=== PATIENT | female | born 2000 | race Caucasian/White ===

== ENCOUNTER 2019-02-03 19:31 | Emergency (ER) | payer SELFPAY ==
[2019-02-03 19:32] VITALS: BP 125/73; PULSE 71; RESP 15; TEMP 36.9; BMI 17.0
--- NOTE | 2019-02-03 20:30 | ED.DCSUM_ITS ---
- ER Visit Summary Date of Service: 02/03/19 Chief Complaint: Dental pain History of Present Illness: The patient is a 18 F who presents with left upper dental pain that has been getting worse over the past 2 days. Patient states she went to [facility] emergency department and was given a dose of Tyl enol. Patient states she was also given a prescription for an anti-inflammatory medicine but her insurance would not cover it. Patient denies any fevers or chills. Patient admits to some nausea and vomiting. Patient also admits to a headache. Patient states the pain is over the left upper canines, premolars, and molars. Patient states the pain in spreads to the left facial area. Patient denies any facial swelling but admits to some swelling of the gingiva. Patient also admits to some cold sensitivity. Patient states her pain is worse when she lays flat. Physical Examination: Vital signs are stable. Patient is afebrile. Patient is in no acute distress. Oral mucosa is pink and moist. There are multiple dental caries noted. The largest one is over the left upper second molar. There is gingival edema of the left upper teeth. There is no fluctuance or evidence of any abscess. Oropharynx is clear. Airway is patent. There is no sublingual edema. Neck is supple. Trachea is midline. There is no JVD noted. Heart was regular rate and rhythm. Lungs are clear and equal bilaterally. Emergency Department Course and Treatment: Patient was given her first dose of Pen-Vee K here. Patient was given a prescription for Pen-Vee K. Patient was also given a dose of ibuprofen here. Patient was instructed to continue ibuprofen and Tylenol as needed for pain. Patient was instructed to follow-up with her dentist in 5 to 7 days. Patient understood and was agreeable with the plan. All questions were answered. Disposition: Discharge home Impression: Infected dental caries This note was generated with [employer] dictation software. It may contain incorrect words, spelling, and punctuation that were not noted in review of the chart prior to signing ED Disposition - Plan for ED Patient: Disposition: Home or Assisted Living Diagnosis: Infected dental caries Instructions: Dental Cavity Prescriptions: Penicillin V Potassium 500 mg PO 4X/DAY #40 tab Prescription Printed Referrals: Jaydon De MD [Primary Care Provider] - 3-5 Days
[2019-02-03] MEDS: Ibuprofen 600 MG Tablet PO (20:47)
[2019-02-03] MEDS: Penicillin Vk 250 MG Tablet 500 MG PO (20:47)
== END 2019-02-03 20:56 | disposition home or self-care (01) ==
LOC: ED 20:43
PROVIDERS: Emergency Provider Emergency Medicine; Family Provider Family Medicine; PCP Family Medicine
DX: K04.7 Periapical abscess without sinus (principal); K02.9 Dental caries, unspecified; Z72.0 Tobacco use
CPT/HCPCS: 99283

== ENCOUNTER 2020-05-29 16:18 | Emergency (ER) | payer SELFPAY ==
[2020-05-29 16:20] VITALS: BP 96/54; PULSE 87; RESP 16; TEMP 36.3; O2SAT 99; BMI 20.8
[2020-05-29 16:22] VITALS: BP 96/54; PULSE 87; RESP 16; TEMP 36.3; O2SAT 99
--- NOTE | 2020-05-29 18:16 | ED.RN ---
PT LEFT AT 1702.
== END 2020-05-29 17:00 | disposition left against medical advice (07) ==
LOC: ED 18:27
PROVIDERS: Emergency Provider Emergency Medicine; PCP Family Medicine
DX: Z53.21 Procedure and treatment not carried out due to patient leaving prior to being seen by health care provider (principal)

== ENCOUNTER 2020-07-10 04:12 | Emergency (ER) | payer MEDICAID, SELFPAY ==
[2020-07-10 04:12] VITALS: BP 129/74; PULSE 78; RESP 16; TEMP 36.6; O2SAT 100; BMI 22.6
--- NOTE | 2020-07-10 04:15 | ED.DCSUM_ITS ---
History of Present Illness Chief Complaint: Vag Bld, Preg Informant: Patient Narrative: 19-year-old female G2, P1 currently at about 20 weeks gestation presenting with slight vaginal bleeding. She states is gone through 2 pads today. She has some minimal abdominal discomfort which is generalized. She states she can feel her baby moving. She has had confirmed intrauterine . She does not know her blood type. He does not know her SURGICAL SERVICES ASSISTANT's name because she states she alternates but she states is an OB at [facility]. Patient denies dysuria or hematuria. Patient also has complaint of dental pain in her to frontal maxillary teeth. She has had problems with these for a long time. She was previously seen about a month ago for similar pain. She states she has a dentist but did not make a follow-up with him. She states she is planning to have all of her teeth removed. Patient states she lives in a homeless snf with her child. Past Medical History - Allergies and Home Meds Allergies/Adverse Reactions: Allergies sulfamethoxazole [From Bactrim] Adverse Reaction (Verified 07/10/20 04:16) Vomiting trimethoprim [From Bactrim] Adverse Reaction (Verified 07/10/20 04:16) Vomiting Primary Care Physician: Jaydon De MD [Primary Care Provider] - Prior records reviewed: Yes Past Medical History: - - Migraines, hepatitis C Surgical History: noncontributory Lives: Homeless Smoking Status: Unknown if ever smoked Alcohol: None Drugs: None Review of Systems General: Denies: Chills, Fever, Sweats Eyes: Denies: Visual changes - bilaterally, Diplopia ENT: Reports: - - Dental pain. Denies: Rhinorrhea, Sore throat Cardiovascular: Denies: Chest pain, Palpitations Respiratory: Denies: Dyspnea, Cough, Dyspnea on exertion Gastrointestinal: Reports: Abdominal pain. Denies: Nausea, Vomiting, Diarrhea, Melena, Hematochezia Genitourinary: Reports: - - Vaginal bleeding. Denies: Dysuria, Hematuria Musculoskeletal: Denies: Back pain, Extremity Pain Skin: Denies: Rash, Wounds Psych: Reports: Depression Endocrine: Reports: Polyuria Physical Exam Inital Vital Signs reviewed: Yes General: Well nourished, No Acute Distress Head: Normocephalic, Atraumatic Eyes: Perrl, EOMI ENT: Moist mucous membranes, No rhinorrhea, - - Multiple dental caries throughout. To to percussion tenderness over her upper central incisors. No gingival swelling. Buccal mucosa was normal. No sublingual edema. Cardiovascular: Regular rate, Regular rhythm Respiratory: No distress, CTA bilaterally Abdomen: Soft, Nondistended, Tender - Mild generalized tenderness Back: Nontender, Normal Inspection Extremities: Nontender, No edema Skin: Normal color, No rash Neurological: Alert, Oriented x3, Cranial nerves II-XII grossly intact, Normal Strength, Normal Sensation Psychological: Normal affect, Normal Mood Diagnostic/Tx/Re-eval Clinical Impression(s) from Imaging Studies Obstetrics Ultrasound 07/10/20 04:24 IMPRESSION: Living intrauterine of 19 weeks 1 day as described above. Posterior placenta with a succenturiate lobe Electronically Signed: Alfredo Fox MD at 6:47 EST Tel , Service support , Laboratory Data 07/10/20 07/10/20 07/10/20 04:36 04:53 04:53 WBC 12.5 H RBC 3.82 L Hgb 12.3 Hct 35.7 L MCV 93.5 MCH 32.2 H MCHC 34.5 RDW Std Deviation 42.0 RDW Coeff of Sammy 12.3 Plt Count 226 MPV 9.6 Immature Gran % (Auto) 0.600 Neut % (Auto) 76.9 H Lymph % (Auto) 14.4 L Lewis % (Auto) 6.3 Eos % (Auto) 1.4 Baso % (Auto) 0.4 Absolute Neuts (auto) 9.6 H Absolute Lymphs (auto) 1.81 Nucleated RBC % 0 HCG, Quant Urine Color Yellow Urine Clarity Clear Urine pH 6.0 Ur Specific Beaufort 1.020 Urine Protein 15 H Urine Glucose (UA) Normal Urine Ketones Negative Urine Occult Blood 25 H Urine Nitrite Negative Urine Bilirubin Negative Urine Urobilinogen Normal Ur Leukocyte Esterase 25 H Urine RBC 5-10 SEEN Urine WBC 5-10 SEEN Ur Squamous Epith Cells 10-25 SEEN Urine Bacteria 1+ Urine Mucus 0 SEEN Blood Type A NEGATIVE 07/10/20 04:53 WBC RBC Hgb Hct MCV MCH MCHC RDW Std Deviation RDW Coeff of Sammy Plt Count MPV Immature Gran % (Auto) Neut % (Auto) Lymph % (Auto) Lewis % (Auto) Eos % (Auto) Baso % (Auto) Absolute Neuts (auto) Absolute Lymphs (auto) Nucleated RBC % HCG, Quant 6254 H Urine Color Urine Clarity Urine pH Ur Specific Beaufort Urine Protein Urine Glucose (UA) Urine Ketones Urine Occult Blood Urine Nitrite Urine Bilirubin Urine Urobilinogen Ur Leukocyte Esterase Urine RBC Urine WBC Ur Squamous Epith Cells Urine Bacteria Urine Mucus Blood Type - Medical Decision Making Patient presents with mild abdominal pain and some vaginal bleeding. Physical exam there is some mild generalized tenderness without focal pain. Patient given Tylenol. Patient also complained of dental pain. So upper central incisors. There is multiple dental caries in these tooth are tender to palpation. She was given penicillin VK for this. Patient is Rh- so she will be given RhoGam. Patient's transvaginal ultrasound shows living intrauterine of 19 weeks 1 day with posterior placenta with a succenturiate lobe. The heart rate is 150. hCG number is slightly low at 6500. Patient counseled that she should follow-up with her SURGICAL SERVICES ASSISTANT. She is stable for discharge at this time. Impression: 1. Threatened miscarriage 2. Dental infection ED Disposition - Plan for ED Patient: Disposition: Home or Assisted Living Instructions: ED Dental Cavity, ED Abdominal Pain, Early , ED Possible Miscarriage ... Prescriptions: Penicillin V Potassium 500 mg PO 4X/DAY #40 tab Prescription Printed Referrals: Jaydon De MD [Primary Care Provider] -
--- NOTE | 2020-07-10 04:24 | US_ITS ---
STUDY: SECOND AND THIRD TRIMESTER OBSTETRICAL ULTRASOUND - LIMITED REASON FOR EXAM: Female, 19 years old BLEEDING WITH EARLIER TODAY LMP: 02/24/2020 PRIOR ULTRASOUND: None. TECHNIQUE: Transabdominal TECHNICAL QUALITY: Adequate. FINDINGS: There is a single intrauterine fetus. The fetus is in a breech presentation. There is demonstrated cardiac activity with a heart rate of 147 bpm. There is a normal amniotic fluid volume. The largest amniotic fluid pocket measures 3.6 cm. The amniotic fluid index (ANAI) is cm. The placenta is posterior in location and is not low lying. Suspects succenturiate lobe. There are Grade 0 placental changes. The cervix measures 3.8 cm cm in length. BIOMETRY: BPD: 4.2 cm: 18 weeks, 5 days HC: 16.2 cm: 18 weeks, 6 days AC: 14.4 cm: 19 weeks, 4 days FL: 3.0 cm: 19 weeks, 1 days Age by LMP: 19 weeks, 4 days. MEEK by LMP: 11/30/2020. age by current US: 19 weeks, 1 days. MEEK by current US: 12/03/2020. Estimated weight: 292 grams, +/- 44 grams, 36 percentile. Gender: US/OB Limited With Biometrics IMPRESSION: Living intrauterine of 19 weeks 1 day as described above. Posterior placenta with a succenturiate lobe Electronically Signed: Alfredo Fox MD at 6:47 EST Tel , Service support ,
[2020-07-10 04:43] LABS: Mucous, Urine 0 SEEN /hpf (<or=2+)
[2020-07-10 04:44] LABS: Color, Urine Yellow (Yellow); Glucose, Dipstick Normal (Normal); Ketone-Dipstick Negative (Negative); Leukocyte Esterase-Dipstick 25 /ul (Negative); Nitrite-Dipstick Negative (Negative); Occult Blood-Urine 25 /ul (Negative); Protein-Dipstick 15 mg/dl (Negative); Urine Bilirubin Dipstick Negative (Negative); Urine Clarity Clear (Clear); Urine Urobilinogen Normal (Normal)
[2020-07-10 04:51] LABS: Squamous Epithelial Cells - UA 10-25 SEEN /hpf (5-10); White Blood Cells 5-10 SEEN /hpf (0-5)
[2020-07-10 04:52] LABS: Bacteria 1+ /hpf (None Seen); Red Blood Cells-Urine 5-10 SEEN /hpf (0-5)
[2020-07-10] MEDS: Acetaminophen 325 MG Tablet 650 MG PO (04:57)
[2020-07-10 05:05] LABS: Absolute Lymphocyte Count 1.81 X10^3/uL (0.83-4.51); Absolute Neutrophil Count 9.6 X10^3/uL (2.0-7.7); Basophil# 0.05 X10^3/uL; Basophil% 0.4 % (0-1); Eosinophil# 0.18 X10^3/uL; Eosinophils% 1.4 % (0-5); Hematocrit 35.7 % (37-47); Hemoglobin 12.3 g/dL (12.0-15.0); Lymphocyte # 1.81 X10^3/ul (4.0); Lymphocyte % 14.4 % (19-41); Mean Corp Hgb Conc 34.5 g/dL (32-36); Mean Corpuscular Hgb 32.2 pg (27.0-32.0); Mean Corpuscular Volume 93.5 fL (81-99); Mean Platelet Vol. 9.6 fl (6.2-12.0); Monocyte# 0.79 X10^3/uL; Monocyte% 6.3 % (0-10); NRBC Flagged by Analyzer 0 % (0-5); Neutrophil # 9.63 X10^3/uL (2.7-7.7); Neutrophil % 76.9 % (47-70); Platelet Count 226 K/mm3 (150-450); RBC Distribution Width CV 12.3 % (11.6-14.6); Red Blood Count 3.82 M/mm3 (4.2-5.4); White Blood Count 12.5 K/mm3 (4.4-11.0)
[2020-07-10 05:37] LABS: hCG Titer Quant., Serum 6254 mIU/mL (1-3)
[2020-07-10] MEDS: Penicillin Vk 250 MG Tablet 500 MG PO (07:04)
[2020-07-10 07:05] VITALS: BP 119/78; PULSE 71; RESP 16; O2SAT 97
--- NOTE | 2020-07-10 07:07 | ED.RN ---
THIS NURSE REVIEWED D/C INSTRUCTIONS WITH PT. PT VERBALIZED UNDERSTANDING OF INSTRUCTIONS. PT DOES NOT HAVE AN IV. PT DENIES FURTHER NEEDS OR QUESTIONS AT THIS TIME. PT AMBULATES FROM ROOM ON OWN WITHOUT ASSISTANCE FROM STAFF
== END 2020-07-10 07:10 | disposition home or self-care (01) ==
PROVIDERS: Emergency Provider Student in an Organized Health Care Education/Training Program; PCP Family Medicine
DX: O20.0 Threatened abortion (principal); K04.7 Periapical abscess without sinus; O26.892 Other specified pregnancy related conditions, second trimester; Z3A.19 19 weeks gestation of pregnancy
CPT/HCPCS: 76816; 81001; 84702; 85025; 86900; 86901; 90384; 96372; 99285; A4216; J2790

== ENCOUNTER 2020-11-27 07:09 | Inpatient (IN) | payer MEDICAID, SELFPAY ==
[2020-11-27] VITALS (77 sets, daily range): BP systolic 99–157; BP diastolic 51–87; PULSE 59–129; TEMP 36.2–37.1; O2SAT 90–100; BMI 27.5
[2020-11-27] MEDS: Lactated Ringers 1,000 ML 50 ML IV (07:45)
[2020-11-27 08:02] LABS: Absolute Lymphocyte Count 2.23 X10^3/uL (0.83-4.51); Absolute Neutrophil Count 6.9 X10^3/uL (2.0-7.7); Basophil# 0.05 X10^3/uL; Basophil% 0.5 % (0-1); Eosinophil# 0.19 X10^3/uL; Eosinophils% 1.9 % (0-5); Hematocrit 31.3 % (37-47); Hemoglobin 10.5 g/dL (12.0-15.0); Lymphocyte # 2.23 X10^3/ul (0.83-4.51); Mean Corp Hgb Conc 33.5 g/dL (32-36); Mean Corpuscular Hgb 29.3 pg (27.0-32.0); Mean Corpuscular Volume 87.4 fL (81-99); Mean Platelet Vol. 9.8 fl (6.2-12.0); Monocyte# 0.69 X10^3/uL; Monocyte% 6.8 % (0-10); NRBC Flagged by Analyzer 0 % (0-5); Neutrophil % 68.1 % (47-70); Platelet Count 222 K/mm3 (150-450); RBC Distribution Width CV 13.1 % (11.6-14.6); RBC Distribution Width SD 40.9 fl (35.1-43.9); Red Blood Count 3.58 M/mm3 (4.2-5.4); White Blood Count 10.1 K/mm3 (4.4-11.0)
[2020-11-27] MEDS: Oxytocin 30 units/NS 500 ml 30 UNITS/500 ML IV.SOLN IV (08:02)
--- NOTE | 2020-11-27 08:05 | PCM.OPRPT ---
Problems Associated Problem List Diagnoses (1) Endometrial polyp: Report of Operation Date of Procedure: 11/27/20 Pre-Operative Diagnosis: endometrial polyp, postmenopausal bleeding Post-Operative Diagnosis: same Surgery/Procedure Performed:: Hysteroscopy D&C with endometrial polyp resection Description of Surgical Findings:: normal cervix, vagina, endometrial cavity with large fundal polyp Surgeon: Mary Carranza feather edger: None Type of Anesthesia: MAC/Supplemental/Local Anesthesiologist: Brett Hussein Special Medications: none Specimen's removed: endometrial polyp and curettings Drains: none Estimated Blood Loss (mL): 10 Fluids Replaced: 700 cc Description of Procedure: The patient was taken to the OR where she was prepped and draped in dorsal lithotomy position. The weighted speculum was placed in the vagina and the anterior lip of the cervix was grasped with a single-tooth tenaculum. A paracervical block was administered with [1% lidocaine with 1-100,000 epinephrine solution]. The cervix was dilated serially with Hegar dilators. The 3mm hysteroscope was placed into the uterine cavity and the above findings were noted. Bilateral tubal ostia [were] identified. The hysteroscope was removed. The SYmphion hysteroscope and resector were readied and primed. The endometrial polyp was then resected with the device. A visual dilation curettage of the endometrial cavity was performed. Endometrium was thin and atrophic. When the polyp had been resected completely, the instruments were removed from the vagina. The specimen was handed off and sent to pathology. All sponge and needle counts were correct. Vaginal sweep was performed by me. The patient was awakened and taken to the recovery room in stable condition. Calculated fluid deficit was 450 cc of normal saline Grafts/Implants Used: none Procedure Start Time: 07:45 Procedure Stop Time: 08:00 Complications none Admit VTE Documentation VTE Mechan Device Prophylaxis: SCD's VTE Pharm Prophylaxis ordered?: No Reason prophylaxis not ordered:: Procedure Not Indicated
[2020-11-27] MEDS: 0.9% Normal Saline Single 100 ML IV.SOLN. INTRA-UTER (08:30)
--- NOTE | 2020-11-27 09:49 | HP.PCM.OB_ITS ---
HPI - General General Date of Admission: 11/27/20 HPI Narrative CHRISTINA WOOTEN, is a 20 F who presents for elective induction of labor. [facility] Medical History (Updated 11/27/20 @ 09:[address] Je Smith MD) Anxiety Depression Headache Hepatitis depression Seizures Home Medications [id number] [] 1 tab PO DAILY 11/27/20 [History Last Taken 11/25/20 12:00] Allergy/AdvReac Type Severity Reaction Status Date / Time sulfamethoxazole AdvReac Vomiting Verified 11/27/20 08:47 [From Bactrim] trimethoprim [From Bactrim] AdvReac Vomiting Verified 11/27/20 08:47 Social History Smoking Status: Light Smoker (<10/day) History Elective abortions Hx Para 1 Spontaneous abortions Hx # Term Pregnancies Ectopic pregnancies Hx # Pregnancies Multiple births # of living children NST FHR Rate Baby A Baseline: 130 Variability:: Moderate Accelerations:: 15 x 15 Decelerations:: None Uterine Activity:: Irregular Vital Signs Vital Signs Vital Signs: 11/27/20 07:33 11/27/20 07:34 11/27/20 07:36 Temperature 98.7 F 98.8 F Temperature Source Temporal Pulse Rate 89 Blood Pressure 127/61 H BP Systolic 127 BP Diastolic 61 Pulse Ox 98 11/27/20 08:42 11/27/20 08:44 11/27/20 09:05 Temperature 98.4 F 98.6 F Temperature Source Pulse Rate 77 81 Blood Pressure 117/57 L 108/65 BP Systolic 117 108 BP Diastolic 57 65 Pulse Ox 98 Physical Exam Const alert and oriented x3 Chest inspection of chest normal GI soft to palpation, non-tender and non-distended GI Narrative: gravid external exam normal Narrative: Cvx - 2/70/-2 Extremity normal to inspection Labs Labs Labs: Blood Type A NEGATIVE Antibody Screen Pending Hct 31.3 % (37-47) L Hgb 10.5 g/dL (12.0-15.0) L Obstetrics US Assessment & Plan (1) Supervision of high risk due to social problems: QUALIFIERS: Trimester: third trimester Qualified Code(s): O09.73 - Supervision of high risk due to social problems, third trimester COMMENT: @ 39&1 for elective induction PLAN: Admit to L&D Induction - intracervical azul placed & on pitocin Pain - epidural as desired GBS negative Hepatitis C EFW - less than 4500g, patient with adequate pelvis Routine care
[2020-11-27] MEDS: Ondansetron 4 MG/2 ML Vial IV ×2 (10:30→16:50)
[2020-11-27] MEDS: 0.9% Saline Lock 10 ML Syringe IV ×3 (10:30→21:00)
[2020-11-27] MEDS: Lactated Ringers 500 ML 999 ML IV (10:45)
[2020-11-27 11:13] LABS: Amphetamine Urine VISTA NEGATIVE (<1000 ng/mL); Barbiturate Urine VISTA NEGATIVE (< 200 ng/mL); Benzodiazepine Urine VISTA NEGATIVE (< 200 ng/mL); Cocaine Urine VISTA NEGATIVE (< 300 ng/mL); Ecstacy Urine VISTA NEGATIVE (< 500 ng/mL); Methadone Urine VISTA NEGATIVE (< 300 ng/mL); PCP Urine VISTA NEGATIVE (< 25 ng/mL); THC Urine VISTA NEGATIVE (< 50 ng/mL); Vista UDS pH Range 7
[2020-11-27] MEDS: fentaNYL-bupivacaine (epidural) 100 ML BAG EPIDURAL (12:10)
--- NOTE | 2020-11-27 13:30 | PCM.PN.BLA ---
Progress Note Patient comfortable with epidural Physical Exam Const alert and oriented x3 Narrative: Cvx - 4.5/70/-2 Assessment & Plan Assessment/Plan (1) Supervision of high risk due to social problems: QUALIFIERS: Trimester: third trimester Qualified Code(s): O09.73 - Supervision of high risk due to social problems, third trimester PLAN: AROM blood tinged fluid COntinue pitocin induction EFM reassuring with fhts 120 with mod variability & accels; tocos Q2-3 min
[2020-11-27] MEDS: Mag Hydrox/Al Hydrox/Simeth 30 ML UDC PO (14:44)
[2020-11-27] MEDS: Lactated Ringers 1,000 ML 200 ML IV (14:44)
[2020-11-27] MEDS: Oxytocin 30 units/NS 500 ml 30 UNITS/500 ML IV.SOLN 334 UNITS IV (17:53)
--- NOTE | 2020-11-27 18:02 | EX.PCM.OBRPT ---
Maternal Data Information Final MEEK: 12/03/20 Gestational age: 39&1 Vaginal Delivery Maternal Presentation Maternal Presentation: Elective Induction Type of Induction: Pitocin, Hernandez Bulb and Amniotomy Operative Information Date of Procedure: 11/27/20 Pre-Operative Diagnosis: elective induction Post-Operative Diagnosis: same Surgery / Procedure Performed: Vacuum Assisted Vaginal Delivery Type of Anesthesia: Epidural Drain: Hernandez to straight drain Estimated Blood Loss: 200ml Time of Delivery: 18:03 Findings Description of Procedure: Patient prepped & draped in stirrups when C/C/+2. She pushed well but began to have more persistent bradycardia. Decision made to use vacuum. head presentation at been assessed and vacuum placed & position on head confirmed. With next contraction and pull of vacuum good descent was noted. There was 1 pop off & vacuum replaced. With next push & 1 additional pull the head began to deliver. Vacuum released. head gently guided to allow delivery of anterior & posterior shoulders. No excess traction place don head. Body delivered & infant placed on maternal abdomen. Placenta delivered with gentle traction & good uterine tone obtained. Amniotic Fluid Description: Bloody Placental Delivery Description: Expressed Placenta Disposition: [facility] Cord Vessel Description: 3 Vessels Cord Entanglement: None A Gender: Male (1 minute): 8 (5 minute): 9 Delayed Cord Clamping: Yes Post Vaginal Delivery Medications Given After Delivery: IV Pitocin Episiotomy Description: None Laceration: None Complication Complications: None
[2020-11-27] MEDS: Acetaminophen 325 MG Tablet PO (18:20)
--- NOTE | 2020-11-28 00:37 | NURSING ---
Report received from Alison PELAEZ, taking over pt and care at this time.
--- NOTE | 2020-11-28 00:40 | NURSING ---
report given to marizol. that RN to assume care of pt at this time
[2020-11-28 00:45] VITALS: BP 100/37; PULSE 75; RESP 16; TEMP 36.6; O2SAT 94
[2020-11-28] MEDS: Ibuprofen 600 MG Tablet PO ×3 (01:25→19:48)
[2020-11-28] MEDS: Acetaminophen 500 MG Tablet 1000 MG PO ×2 (04:04→14:00)
[2020-11-28 04:05] VITALS: BP 112/63; PULSE 57; RESP 16; TEMP 36.5; O2SAT 96
--- NOTE | 2020-11-28 08:08 | PCM.PN.OB ---
Subjective Subjective patient seen at bedside, doing well. Patient reports good pain control. lochia mild. bottle feeding. Objective Data Objective Data Vital Signs: Vital Signs Temp Pulse Resp BP Pulse Ox 97.7 F L 57 L 16 112/63 96 11/28/20 04:05 11/28/20 04:05 11/28/20 04:05 11/28/20 04:05 11/28/20 04:05 Oxygen Delivery Method Room Air Weight: 66.1 kg Body Mass Index (BMI) 27.5 Intake & Output: Intake and Output for Last 24 Hours 11/26/20 11/27/20 11/28/20 23:59 23:59 23:59 Intake Total 2920.67 / 2920.67 Output Total 3700 / 3700 200 / 200 Balance -779.33 / -779.33 -200 / -200 Lab / Micro Data Result Diagrams: 11/27/20 07:45 Labs: Laboratory Results - last 24 hr 11/27/20 11/27/20 11/27/20 07:45 07:45 09:10 Urine Opiates Screen NEGATIVE Urine Methadone Screen NEGATIVE Ur Barbiturates Screen NEGATIVE Ur Phencyclidine Scrn NEGATIVE Ur Amphetamines Screen NEGATIVE U Methamphetamin-MDMA NEGATIVE U Benzodiazepines Scrn NEGATIVE Urine Cocaine Screen NEGATIVE U Cannabinoids Screen NEGATIVE Ur Drug Screen Comment Blood Type A NEGATIVE Antibody Screen TNP NEGATIVE Screen Baby's Blood Type Baby's SUMA 11/27/20 19:46 Urine Opiates Screen Urine Methadone Screen Ur Barbiturates Screen Ur Phencyclidine Scrn Ur Amphetamines Screen U Methamphetamin-MDMA U Benzodiazepines Scrn Urine Cocaine Screen U Cannabinoids Screen Ur Drug Screen Comment Blood Type Antibody Screen Screen NEGATIVE Baby's Blood Type A POSITIVE Baby's SUMA NEGATIVE Assessment & Plan (1) Vaginal delivery: PLAN: PPD#1 , Doing well Routine care pain mgmt ambulation dc home after 24hrs if and mother meet criteria
--- NOTE | 2020-11-28 08:10 | PCM.DC ---
Discharge Instructions Diet Discharge Diet: No restrictions Activity Discharge Activity: Return to Normal Activity May resume sexual activity in: 6-8 weeks Dressing / Incision Call your doctor if you observe: Fever of 101 or Higher, Inability to urinate, Using more than one pad per hour and Uncontrolled pain Follow Up Care Please Follow Up With: Krista Rand MD When: 1-2 weeks post and again at 6 weeks post . [phone] Test Results: Test results from this visit will be discussed in further detail at your follow-up appointment, if applicable. Discharge Plan Admission Admit Date/Time: 11/27/20 07:09 Attending Provider: Je Smith Primary Care Provider: Jaydon De Discharge Orders/Prescriptions Prescriptions: New ibuprofen 600 mg Tablet 600 mg PO Q6H PRN PRN (Reason: Pain Score 1-3) Qty: 30 RF: 0 Continued [id number] 1 mg Tablet 1 tab PO DAILY RF: 0 Referrals / Follow Up: Jaydon De MD [Primary Care Provider] -
[2020-11-28 08:54] VITALS: BP 106/53; PULSE 69; RESP 18; TEMP 37.1
--- NOTE | 2020-11-28 10:49 | NURSING ---
Reviewed circumcision teaching with patient. Patient verbalizes understanding.
--- NOTE | 2020-11-28 10:49 | NURSING ---
Infant CPR completed on ipad. Verbalizes understanding.
[2020-11-28 12:46] VITALS: BP 103/46; PULSE 70; RESP 16; TEMP 36.3
--- NOTE | 2020-11-28 14:09 | CASEMGMT ---
Social Work Assessment Labor and Delivery Unit Patient Address: [address] [place] [address] Phone number: [phone] Date of Referral: 11/28/2020 Time of Referral: 004; 08 Referred By: Dr. Smith; Dr. Bharathi Bruno Date of Intervention: 11/28/2020 Time of Intervention: 1240 Reason for referral: Maternal history of depression anxiety and THC use during with positive tox screen during . History obtained from: Medical records and mother of baby (DANDY) Radha Little Household composition: DANDY has her own apartment, which she has recently moved into with the help and support of [employer]. The father of baby (FOB) does stay in his home, but does not technically live there. Also in the home is the older daughter of DANDY and BRAD. Patient's parent/guardian status: DANDY is a 20-year-old single female who has been involved with 23 year old single male, Hammad Griffith, since about 2017. DANDY reports that she and the father of baby (BRAD) have known each other since the age of 12. DANDY denies any type of domestic violence or intimate partner violence concerns in this relationship. DANDY and BRAD now have 2 children together: A daughter named Milton Griffith (born 11/22/2017) and baby boy Jose Griffith (born 11/27/2020). Medical History: DANDY is 3, para 1 now 2 after delivering [facility]. History of 1 spontaneous . care started at 12 weeks gestation. Per care record the DANDY care was poor at times, as it appeared DANDY had a gap in care from 25 weeks to 33 weeks. Baby chris Garcia delivered at 39 weeks gestation with Apgars 8 and 9 at 1 and 5 minutes of life. weight 6 pounds 5 ounces. Educational Status: DANDY reports she dropped out of high school in the 11th grade. Reports to be working on her GED. Denies any issues with reading, writing, or learning comprehension. Financial Status: DANDY has been working at [employer], and plans to take of maternity maternity leave. Reports to have some money saved back for said maternity leave. The FOB is reportedly on disability for learning issues so does receive a stable monthly income. Infant Supplies: MOB reports to have needed infant supplies including a crib, car seat, clothing, diapers, bottles. Does need to get formula and reports will have to go and purchase some until can get into [facility]. MOB reports to have a crib's for kids referral and waiting a callback from the systems programmer analyst. Childcare/Caregiver(s): MOB and BRAD will be the primary caregivers. It is reported that the FOB watches their older daughter when MOB is working. Transportation: MOB denies any issues with transportation and reports to have a car. 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 Programs/Agencies Involved: MOB reports involvement with job and family services for food and medical. Active with [facility]. Reports to have an appointment next week. Verbally agrees to a help me grow referral. Reports to see a therapist by the name of Moncho at [facility] weekly via telehealth services. DANDY is on the [facility] waiting list. Children Services/Legal Issues: MOB denies any type of legal issues, denies any probation. MOB reports to have an active case with [facility] children services since the end of 2019. MOB reports the case was initiated after MOB aunt and uncle were trying to get custody of the MOB oldest child. MOB reports there are allegations being made which resulted in a hair follicle testing being done on the child. MOB reports that the child's hair follicle test showed positive for methamphetamines, cocaine, and THC. MOB reports at the time her testing was all negative, not something that that MOB was using, so nobody was really certain where the drug exposure came from. MOB reports at that time she had briefly moved into the FOB's mother's home, and mother states that there are a lot of people in and out of that house. MOB reports she retained the custody, but does continue to have an ongoing worker by the name of Anne Mccollum. Behavioral Health Issues: Mental Health History: DANDY has a history of depression and anxiety, as well as depression. MOB reports depression was initially diagnosed at the age of 10 after the MOB's mother . DANDY has a history of being treated with antidepressants but has been off of medication for a couple of years now. MOB reports she has been considering discussing with her physician starting a low-dose antidepressant to be proactive with depression. [place] depression screen completed this date and score is 8, which does fall below the threshold for current depression. MOB denies any history of suicidal ideations or attempts. 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 DANDY reports that she went into rehab at [facility] right before her daughter was born and has been sober since, with the exception of marijuana use. DANDY reports marijuana use has been something in her life for years now. Does endorse using marijuana during this as it did help with nausea and also helped as a stress reliever when MOB was feeling overwhelmed with a toddler. MOB reports that she has not used any marijuana in about a month now. Denies any alcohol usage during . Denies any illicit drug use with the exception of marijuana during . Reports was prescribed Vicodin, reports several prescriptions actually, from her primary care doctor, Dr. London De. Reports prescription of Vicodin was for dental issues. Reports use was as needed, and that did not use anything from the last prescription given. MOB uncertain when the last time she used Vicodin was. care record indicates there was some endorsed Vicodin use in the third trimester. MOB does smoke tobacco. Family History: It is reported that a maternal grandmother had depression. It is reported that both of MOB mother and father had a history of substance use issues. Drug Screens: Maternal positive drug screen for THC on 05/27/2020 and 10/22/2020. Maternal drug screen negative upon admission. 's urine drug screen also negative. Meconium is pending. YOKO: Eat, sleep, console method to be initiated with this baby due to third trimester use of Vicodin. Monitoring anticipated to be between 3 and 5 days. Family/Social Stressors: MOB grandparents are with the last grandparent dying the end of 2019. When this happened the MOB had to move out of her grandparents home and live shortly with the FOB's mother. DANDY then went into the local women retirement and stayed there for about 5 months until was able to be set up in her own apartment. Besides family loss and housing instability throughout the , there was maternal marijuana use during . Active children services case. Support Systems: DANDY reports that her aunt and uncle, who actually tried to get custody of the MOB oldest daughter, are good supports as far as helping to watch MOB daughter when needed. For emotional support MOB usually goes to family members on the FOB's side of the family. FOB provides care for the oldest child when MOB is working. Depression/Shaken Baby/Safe Sleeping: reviewed safe sleeping practices with the MOB. Reviewed shaken baby prevention. Educated to depression and anxiety, risk factors, and importance of seeking out help and support. ASSESSMENT: Met with the MOB in her room, and introduced to the social work role. The FOB was in the room and just entering the bathroom when the social media marketing manager arrived. When FOB was done in the restroom, the FOB left and stated that he was going to go out to his car for a while as well as get some snacks. This jingle writer was able to meet with MOB then privately one-on-one. MOB reports to have needed supplies to care for the infant, and will have help at home going from the FOB. MOB cooperative and pleasant when talking to this jingle writer, presenting self as nondefensive. Educated MOB to the likely need for withdrawal monitoring due to third trimester exposure to Vicodan, and mentioned that it was documented in the care record that the OB had reviewed this with the MOB as well. MOB accepted information without issue. Educated MOB of need to notify children services due to intrauterine exposure to substances. MOB reports to feel connection with this baby, which MOB reports is much sooner than what she felt for her daughter. MOB denies any questions or concerns and accepted a [facility] resource packet as well as a packet on mood and anxiety disorders. MOB plans to continue with her counselor and is considering discussion with the physician about an antidepressant. Safe Plan of Care for infant related to substance use: MOB plan for safe care of the infant includes MOB abstaining from future marijuana use. MOB reports that now she is quit, she would feel anxious starting back up again. MOB reports the FOB does use marijuana himself, but that he does not use around the children. Inquired as to whether the FOB cares for the daughter after using, and MOB denied. PLAN: MOB and to discharge home when ready. Plan to call children services regarding substance exposed infant in utero. Will make a help me grow referral. MOB has been given community resource information. Social work will continue to follow and assist as indicated during the 's extended stay for withdrawal monitoring. -TRINIDAD Ma, LONGWALL HEADGATE OPERATOR *Information documented in this assessment generated with [employer] System*
--- NOTE | 2020-11-28 15:41 | CASEMGMT ---
Social Work Labor and Delivery Unit 1350: Called [facility] and spoke with [facility] intake department, extension [phone]. 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 Reported that mother of baby endorses an active and ongoing case with [facility] for older child. Brief maternal and infant histories provided including the baby to be monitored for withdrawal for an anticipated duration of 3 to 5 days. Let [facility] know there is a potential for discharge this weekend if monitoring occurs only for 3 days. Plan: Mother of baby and infant to discharge home when medically stable. [facility] is already involved with this family for the older child, so will be following this family in the community. MOB agreed to help me grow referral. Family is already involved in WIC and the mother of baby already has a counselor, per her report. Social work remains available to assist as needs arise or as indicated. -DAMIAN Ma, SOFT WATER MECHANIC *Information documented in this note generated via the [employer] system.*
[2020-11-28 15:51] VITALS: BP 114/55; PULSE 82; RESP 18; TEMP 37.1
[2020-11-28 19:43] VITALS: BP 123/57; PULSE 75; RESP 18; TEMP 37.1
[2020-11-29 01:47] VITALS: BP 100/46; PULSE 63; RESP 14; TEMP 36.7
[2020-11-29] MEDS: Acetaminophen 500 MG Tablet 1000 MG PO (01:51)
--- NOTE | 2020-11-29 04:36 | PCM.PN.OB ---
Subjective Subjective patient seen at bedside, doing well. Patient reports good pain control. lochia mild. bottle feeding Objective Data Objective Data Vital Signs: Vital Signs Temp Pulse Resp BP Pulse Ox 98.1 F 63 14 100/46 L 96 11/29/20 01:47 11/29/20 01:47 11/29/20 01:47 11/29/20 01:47 11/28/20 04:05 Oxygen Delivery Method Room Air Weight: 66.1 kg Body Mass Index (BMI) 27.5 Intake & Output: Intake and Output for Last 24 Hours 11/27/20 11/28/20 11/29/20 23:59 23:59 23:59 Intake Total 2920.67 / 2920.67 Output Total 3700 / 3700 200 / 200 Balance -779.33 / -779.33 -200 / -200 Lab / Micro Data Result Diagrams: 11/27/20 07:45 Assessment & Plan (1) Vaginal delivery: PLAN: PPD# 2 , Doing well Routine care pain mgmt ambulation dc to hotel status while under watch assembly instructor care for YOKO scoring
[2020-11-29 08:00] VITALS: BP 97/48; PULSE 63; RESP 16; TEMP 36.6; O2SAT 100
[2020-11-29] MEDS: Ibuprofen 600 MG Tablet PO (08:52)
[2020-11-29 14:46] VITALS: BP 126/73; PULSE 77; RESP 16; TEMP 36.8; O2SAT 96
--- NOTE | 2020-12-01 09:42 | CASEMGMT ---
Social Work Labor and Delivery Help Me Grow referral completed via the [facility]'s secure online web based referral system. No other services requested or indicated at this time, other than monitoring for baby's meconium drug screen results. Mother of baby and have been discharged home already. [facility] is already involved with this family. No other services requested or indicated. -DAMIAN Ma, AUTOMOTIVE BUYER
== END 2020-11-29 15:45 | disposition home or self-care (01) | DRG 560 ==
PROVIDERS: Admitting Provider Obstetrics & Gynecology; PCP Family Medicine; Visit Provider Obstetrics & Gynecology
DX: O76 Abnormality in fetal heart rate and rhythm complicating labor and delivery (principal); N84.0 Polyp of corpus uteri; F17.200 Nicotine dependence, unspecified, uncomplicated; O99.334 Smoking (tobacco) complicating childbirth; Z3A.39 39 weeks gestation of pregnancy; Z37.0 Single live birth
CPT/HCPCS: 59025; 59050; 80307; 85025; 85461; 86850; 86900; 86901; 90384; 99218; J7120; A4216; G0378; J2405; J2790

== ENCOUNTER 2021-01-31 12:33 | Emergency (ER) | payer MEDICAID, SELFPAY ==
[2020-11-27 07:17] VITALS: BMI 27.5
[2021-01-31 12:33] VITALS: BP 137/82; PULSE 96; RESP 16; TEMP 36.4; O2SAT 99; BMI 22.8
--- NOTE | 2021-01-31 12:45 | EDS_ITS ---
HPI History of Present Illness Chief Complaint: Dental Informant: patient Narrative Narrative: Patient comes in complaining of right-sided lower jaw dental pain. This is been waxing and waning for quite some time. She has been fighting infections in there for months. She had a root canal done about 3 or so weeks ago. She does not know when she is going to see the dentist again. She was placed on amoxicillin for a few days after the procedure. Her physician switched her to cefdinir which she is now out of. The jaw still hurting. She is able to eat and drink but it sore. There is no swelling. No fevers. No nausea and vomiting. She is also out of ibuprofen. Ibuprofen and antibiotics help pressing on the area makes it worse. She feels a swollen area. She has never had drainage. The swelling is not changing. PFSH PFS Medical History Anxiety Depression Headache Hepatitis depression Seizures Home Medications [id number] 1 tab PO DAILY 11/27/20 [History Last Taken 11/25/20 12:00] ibuprofen 600 mg PO Q6H PRN PRN #30 tab 11/28/20 [Rx Last Taken Unknown] clindamycin HCl [Cleocin HCl] 300 mg PO Q6H #40 cap 01/31/21 [Rx Last Taken Unknown] naproxen [Naprosyn] 500 mg PO BID PRN #20 tab 01/31/21 [Rx Last Taken Unknown] Allergy/AdvReac Type Severity Reaction Status Date / Time sulfamethoxazole AdvReac Vomiting Verified 01/31/21 12:34 [From Bactrim] trimethoprim [From Bactrim] AdvReac Vomiting Verified 01/31/21 12:34 Social History Smoking Status: Light Smoker (<10/day) ROS ROS ED Constitutional Constitutional ED: Denies chills or fever(s) Eyes Eyes: Denies blurry vision ENT ENT ED: Reports other Details: See history of present illness. ; Denies ear pain Cardiovascular Cardiovascular: Denies chest pain or palpitations Respiratory/Chest Respiratory/Chest: Denies cough or dyspnea Gastrointestinal Gastrointestinal: Denies nausea or vomiting Musculoskeletal Musculoskeletal: Denies back pain or neck pain Integumentary Denies rash Neurologic Neurologic: Denies headache(s) Hematologic/Lymphatic Hematologic/Lymphatic: Denies easy bleeding or easy bruising EXAM Physical Exam Const Vital Signs: 01/31/21 12:33 Temperature 97.6 F L Temperature Source Temporal Pulse Rate 96 Respiratory Rate 16 Blood Pressure 137/82 H Blood Pressure Mean 100 Pulse Ox 99 Oxygen Delivery Method Room Air Positive well nourished and well developed General Appearance ED: well developed and NAD HEENT HEENT Narrative: I see no facial jaw or neck swelling or erythema. Tooth #30 is the one this most tender. There is some swelling lateral to this but it seems very firm and hard. It appears to be bony. She has irregular origin of her teeth so I think this is just the bony structure around it. There is nothing that I can incise or drain. There is no medial swelling. Her tongue moves no rmally. No sign of Ludewig's angina. Negative for trauma or tenderness Eyes EOMs intact bilaterally Neck no lymphadenopathy and supple Lymph Lymphatic: no lymphadenopathy noted Resp normal respiratory effort Extremity normal to inspection Neuro Sensorium / Orientation: alert Psych mental status grossly normal Skin no rashes or lesions noted MDM MDM MDM Narrative Medical decision making narrative: I explained to the patient that her symptoms could be from root canal and continued pain. She is evidently had significant infections. They state they have been seen on x-rays. Until she sees her dent ist and can get further films and evaluation I will place her on clindamycin. She has tolerated this before. I will write for some Naprosyn. I will give her a Percocet here to knock down the pain. I did do an online prescribing report. She has intermittent prescriptions for narcotics from her primary physician. Last for back in December. In either case, I do not think she requires narcotics to manage this. Discharge Plan Triage Chief Complaint: Dental ED Provider: Onofre Gotti Dx/Rx/DC Orders Clinical Impression: Pain, dental Instructions: ED Dental Pain Prescriptions: New clindamycin HCl [Cleocin HCl] 300 mg capsule 300 mg PO Q6H Qty: 40 RF: 0 naproxen [Naprosyn] 500 mg tablet 500 mg PO BID PRN (Reason: pain) Qty: 20 RF: 0 No Action [id number]-FA 1 mg Tablet 1 tab PO DAILY RF: 0 ibuprofen 600 mg Tablet 600 mg PO Q6H PRN PRN (Reason: Pain Score 1-3) Qty: 30 RF: 0 Primary Care Provider: Jaydon De Referrals: Jaydon De MD [Primary Care Provider] - Activity Restrictions/Additional Instructions: Please call your dentist for follow-up as soon as possible. Disposition Disposition: Home, Self Care
[2021-01-31] MEDS: oxyCODONE 5 MG Tablet PO (12:59)
[2021-01-31] MEDS: Clindamycin HCl 150 MG Capsule 300 MG PO (13:00)
[2021-01-31 13:02] VITALS: RESP 16
== END 2021-01-31 13:03 | disposition home or self-care (01) ==
PROVIDERS: Emergency Provider Emergency Medicine; PCP Family Medicine
DX: K08.89 Other specified disorders of teeth and supporting structures (principal); F17.200 Nicotine dependence, unspecified, uncomplicated
CPT/HCPCS: 99283

== ENCOUNTER 2021-02-18 21:29 | Emergency (ER) | payer MEDICAID, SELFPAY ==
[2021-02-18 21:29] VITALS: PULSE 101; RESP 18; TEMP 35.9; O2SAT 100; BMI 22.6
[2021-02-18 21:31] VITALS: BP 113/91; PULSE 101; RESP 18; TEMP 35.9; O2SAT 100
--- NOTE | 2021-02-18 22:17 | CT_ITS ---
INDICATION: Pain EXAMINATION: CT Abdomen And Pelvis W/O Contrast Injection TECHNIQUE: Helically acquired images were obtained of the abdomen and pelvis without the use of IV contrast. A radiation dose optimization technique was used for this scan. Oral contrast: None. COMPARISON: None FINDINGS: Evaluation of the solid organs and vascular structures is limited without intravenous contrast. Visualized lung bases: Unremarkable Liver: Unremarkable Gallbladder: Unremarkable Spleen: Unremarkable Pancreas: Unremarkable Adrenal Glands: Unremarkable Kidneys: Obstructing 3 mm stone seen in the left ureteropelvic junction with associated mild left hydronephrosis. Few nonobstructing calculi seen in the right kidney measuring up to 4 mm. Vasculature: Unremarkable GI Tract: Unremarkable Lymphadenopathy: None Peritoneum: No ascites. Bladder: Unremarkable Reproductive organs: Unremarkable Bones/Soft tissues: No suspicious osseous or soft tissue lesions CT/Abdomen/Pelvis without Cont IMPRESSION: Obstructing 3 mm stone in the left ureteropelvic junction with associated mild left hydronephrosis. Few additional nonobstructing calculi in the right kidney measuring up to 4 mm. Electronically Signed: Naveen Yoo MD at 23:51 EDT Tel , Service support ,
--- NOTE | 2021-02-18 22:19 | ED.VIS.FEGU ---
HPI HPI - Female History of Present Illness Chief Complaint: Flank Pain Informant: patient Narrative Narrative: Patient presents with left flank pain. She states this started yesterday. It now is radiating around to the left lower quadrant. She states she has had some blood in the urine but no actual dysuria. She has had some mild nausea but no vomiting. She has been able to drink fluids. No fevers or chills. She states she has a history of kidney stones but has not had one since high school. However, this does seem similar. She denies vaginal discharge or bleeding. She thinks her last menstrual period was 2 or 3 weeks ago. Nothing makes her symptoms better or worse. She denies chronic active medical conditions. Currently on clindamycin for dental infection Allergy to sulfa No prior abdominal surgeries. PFSH PFSH Medical History Anxiety Depression Headache Hepatitis depression Seizures Home Medications [id number] 1 tab PO DAILY 11/27/20 [History Last Taken 11/25/20 12:00] ibuprofen 600 mg PO Q6H PRN PRN #30 tab 11/28/20 [Rx Last Taken Unknown] clindamycin HCl [Cleocin HCl] 300 mg PO Q6H #40 cap 01/31/21 [Rx Last Taken Unknown] naproxen [Naprosyn] 500 mg PO BID PRN #20 tab 01/31/21 [Rx Last Taken Unknown] ondansetron HCl [Zofran] 4 mg PO Q8H PRN #10 tab 02/19/21 [Rx Last Taken Unknown] oxycodone-acetaminophen [Percocet] 1 tab PO Q6H PRN 3 Days #12 tab 02/19/21 [Rx Last Taken Unknown] tamsulosin [Flomax] 0.4 mg PO DAILY #7 cap 02/19/21 [Rx Last Taken Unknown] Allergy/AdvReac Type Severity Reaction Status Date / Time sulfamethoxazole AdvReac Vomiting Verified 02/18/21 21:31 [From Bactrim] trimethoprim [From Bactrim] AdvReac Vomiting Verified 02/18/21 21:31 Social History Smoking Status: Light Smoker (<10/day) ROS ROS ED Constitutional Constitutional ED: Denies fever(s) or sweats ENT ENT ED: Denies rhinorrhea or sore throat Cardiovascular Cardiovascular: Denies chest pain or palpitations Respiratory/Chest Respiratory/Chest: Denies cough or dyspnea Gastrointestinal Gastrointestinal: Reports abdominal pain and nausea; Denies diarrhea or vomiting Genitourinary Genitourinary ED: Reports hematuria; Denies dysuria or urinary frequency Musculoskeletal Musculoskeletal: Denies arthralgias, myalgias or neck pain Integumentary Denies rash Neurologic Neurologic: Denies paresthesias or weakness Endocrine Endocrinology: Denies polydipsia or polyuria Hematologic/Lymphatic Hematologic/Lymphatic: Denies easy bleeding or easy bruising EXAM Physical Exam Const Vital Signs: 02/18/21 21:29 02/18/21 21:31 02/18/21 23:44 Temperature 96.7 F L 96.7 F L Temperature Source Temporal Temporal Pulse Rate 101 H 101 H 93 Respiratory Rate 18 18 18 Blood Pressure 113/91 H 139/86 H Blood Pressure Mean 98 103 Pulse Ox 100 100 100 Oxygen Delivery Method Room Air Positive well nourished and well developed Constitutional Narrative: Patient looks uncomfortable. She is rocking and rolling back and forth in the bed. General Appearance ED: well developed; Negative for pallor HEENT Reports dry mucous membranes Negative for trauma or tenderness Mouth ED: Yes dry mucous membranes Mouth: dry mucous membranes Eyes EOMs intact bilaterally Chest Wall inspection of chest normal Resp normal respiratory effort and clear to auscultation bilaterally Cardio regular rate and regular rhythm GI normal to inspection, nondistended, normoactive bowel sounds, soft to palpation, non-tender and non-distended GI Narrative: Despite her discomfort, I really do not get any tenderness. Palpation of the abdomen does not seem to make it worse in any way. external exam normal Narrative: Ashes. She does have some mild left CVA tenderness though. There is no mass swelling or skin changes at all. Back/Spine General Back: CVA tenderness Neuro oriented x3 Sensorium / Orientation: alert Psych mental status grossly normal Mood & Affect: anxious Skin no rashes or lesions noted and no wounds General Skin Exam: Negative for jaundice or pallor MDM MDM MDM Narrative Medical decision making narrative: Patient's blood work showed a white count 11.9. Electrolytes were overall normal other than a potassium of 2.5. This was replaced. However, there could be contributing factors from the patient's hyperventilation and discomfort. Urine shows 10-25 white cells. There are negative nitrites. It is clear. She does not have symptoms of matching UTI but does have symptoms match a kidney stone. Her CT shows a 3 mm stone in mid proximal ureter. I rechecked the patient she feels great. She wants to go home and package pick up her kids. I will give her a dose of Toradol because of the longer acting effect of this. We will get her home on medications. I explained she may need follow-up. We discussed returning with fevers, chills, vomiting worsening pain or other concerns. Lab Data Attestation: I reviewed the patient's lab results. Labs: Laboratory Results - last 24 hr 02/18/21 02/18/21 02/18/21 22:33 22:48 22:48 WBC 11.9 H RBC 4.09 L Hgb 12.1 Hct 34.9 L MCV 85.3 MCH 29.6 MCHC 34.7 RDW Std Deviation 38.0 RDW Coeff of Sammy 12.3 Plt Count 291 MPV 10.0 Immature Gran % (Auto) 0.300 Neut % (Auto) 80.0 H Lymph % (Auto) 11.8 L [place] % (Auto) 6.7 Eos % (Auto) 0.8 Baso % (Auto) 0.4 Absolute Neuts (auto) 9.5 H Absolute Lymphs (auto) 1.40 Nucleated RBC % 0 Sodium 141 Potassium 2.5 L* Chloride 109 H Carbon Dioxide 20.0 L Anion Gap 12 BUN 6 L Creatinine 0.68 Estim Creat Clear Calc 97.92 Est GFR (MDRD) Af Amer 138 Est GFR (MDRD) Non-Af 114 BUN/Creatinine Ratio 8.8 L Glucose 91 Calcium 8.7 Serum , Qual Urine Color Yellow Urine Clarity Clear Urine pH 6.0 Ur Specific [employer] 1.020 Urine Protein 100 H Urine Glucose (UA) Normal Urine Ketones 50 H Urine Occult Blood 250 H Urine Nitrite Negative Urine Bilirubin 1 H Urine Urobilinogen 4 H Ur Leukocyte Esterase 100 H Urine RBC 25-50 SEEN Urine WBC 10-25 SEEN Ur Squamous Epith Cells 0-5 SEEN Calcium Oxalate Crystal 1+ Urine Bacteria 1+ Urine Mucus 2+ 02/18/21 22:48 WBC RBC Hgb Hct MCV MCH MCHC RDW Std Deviation RDW Coeff of Sammy Plt Count MPV Immature Gran % (Auto) Neut % (Auto) Lymph % (Auto) [place] % (Auto) Eos % (Auto) Baso % (Auto) Absolute Neuts (auto) Absolute Lymphs (auto) Nucleated RBC % Sodium Potassium Chloride Carbon Dioxide Anion Gap BUN Creatinine Estim Creat Clear Calc Est GFR (MDRD) Af Amer Est GFR (MDRD) Non-Af BUN/Creatinine Ratio Glucose Calcium Serum , Qual NEGATIVE Urine Color Urine Clarity Urine pH Ur Specific [employer] Urine Protein Urine Glucose (UA) Urine Ketones Urine Occult Blood Urine Nitrite Urine Bilirubin Urine Urobilinogen Ur Leukocyte Esterase Urine RBC Urine WBC Ur Squamous Epith Cells Calcium Oxalate Crystal Urine Bacteria Urine Mucus Radiography Diagnostic Testing: Radiology Impression Abdomen/Pelvis CT 02/18/21 22:17 IMPRESSION: Obstructing 3 mm stone in the left ureteropelvic junction with associated mild left hydronephrosis. Few additional nonobstructing calculi in the right kidney measuring up to 4 mm. Electronically Signed: Naveen Yoo MD at 23:51 EDT Tel , Service support , Discharge Plan Triage Chief Complaint: Flank Pain ED Provider: Onofre Gotti Dx/Rx/DC Orders Clinical Impression: Kidney stone on left side Instructions: ED Kidney Stone w/ Colic Prescriptions: New tamsulosin [Flomax] 0.4 mg capsule 0.4 mg PO DAILY Qty: 7 RF: 0 oxycodone-acetaminophen [Percocet] 5-325 mg tablet 1 tab PO Q6H PRN (Reason: pain) 3 Days Qty: 12 RF: 0 ondansetron HCl [Zofran] 4 mg tablet 4 mg PO Q8H PRN (Reason: nausea and vomiting) Qty: 10 RF: 0 No Action [id number] 1 mg Tablet 1 tab PO DAILY RF: 0 ibuprofen 600 mg Tablet 600 mg PO Q6H PRN PRN (Reason: Pain Score 1-3) Qty: 30 RF: 0 clindamycin HCl [Cleocin HCl] 300 mg capsule 300 mg PO Q6H Qty: 40 RF: 0 naproxen [Naprosyn] 500 mg tablet 500 mg PO BID PRN (Reason: pain) Qty: 20 RF: 0 Primary Care Provider: Jaydon De Referrals: Eliecer Osorio MD [STAFF PHYSICIAN] - 3-5 Days Jaydon De MD [Primary Care Provider] - Disposition Disposition: Home, Self Care
[2021-02-18] MEDS: Ondansetron 4 MG/2 ML Vial IV (22:30)
[2021-02-18] MEDS: Morphine 4 MG/ML Syringe IV (22:30)
[2021-02-18] MEDS: 0.9% Normal Saline 1,000 ML 1000 ML IV (22:30)
[2021-02-18 22:40] LABS: Color, Urine Yellow (Yellow); Glucose, Dipstick Normal (Normal); Ketone-Dipstick 50 mg/dl (Negative); Leukocyte Esterase-Dipstick 100 /ul (Negative); Nitrite-Dipstick Negative (Negative); Occult Blood-Urine 250 /ul (Negative); Protein-Dipstick 100 mg/dl (Negative); Urine Clarity Clear (Clear); Urine Urobilinogen 4 mg/dl (Normal)
[2021-02-18 22:42] LABS: Urine Bilirubin Dipstick 1 mg/dL (Negative)
[2021-02-18 22:49] LABS: White Blood Cells 10-25 SEEN /hpf (0-5)
[2021-02-18 22:50] LABS: Bacteria 1+ /hpf (None Seen); Calcium Oxalate Crystals Ur 1+ /hpf (<or=2+); Mucous, Urine 2+ /hpf (<or=2+); Red Blood Cells-Urine 25-50 SEEN /hpf (0-5); Squamous Epithelial Cells - UA 0-5 SEEN /hpf (5-10)
[2021-02-18 22:59] LABS: Absolute Neutrophil Count 9.5 X10^3/uL (2.0-7.7); Basophil# 0.05 X10^3/uL; Basophil% 0.4 % (0-1); Eosinophils% 0.8 % (0-5); Hematocrit 34.9 % (37-47); Hemoglobin 12.1 g/dL (12.0-15.0); Lymphocyte % 11.8 % (19-41); Mean Corp Hgb Conc 34.7 g/dL (32-36); Mean Corpuscular Hgb 29.6 pg (27.0-32.0); Mean Corpuscular Volume 85.3 fL (81-99); Monocyte% 6.7 % (0-10); NRBC Flagged by Analyzer 0 % (0-5); Neutrophil # 9.48 X10^3/uL (2.7-7.7); Platelet Count 291 K/mm3 (150-450); RBC Distribution Width CV 12.3 % (11.6-14.6); Red Blood Count 4.09 M/mm3 (4.2-5.4); White Blood Count 11.9 K/mm3 (4.4-11.0)
[2021-02-18 23:10] LABS: Internal QC Validated? YES +Cl - CLEAR BKGD; Pregnancy, Serum, hCG Quali. NEGATIVE Negative
[2021-02-18 23:21] LABS: Anion Gap 12 (5-15); BUN 6 mg/dL (7-18); BUN/Creat Ratio 8.8 RATIO (10-20); Calcium,Total 8.7 mg/dL (8.5-10.1); Chloride 109 mmol/L (98-107); Creatinine, Serum 0.68 mg/dL (0.55-1.02); EST Glomerular Filtration Rate 114 mL/min (>60); Est Glom Filt Rate - Afr Amer 138 mL/min (>60); Estimated Creatinine Clearance 97.92 ml/min; Glucose 91 mg/dL (74-106); Potassium 2.5 mmol/L (3.5-5.1); Sodium Level 141 mmol/L (136-145)
[2021-02-18 23:44] VITALS: BP 139/86; PULSE 93; RESP 18; O2SAT 100
[2021-02-19] MEDS: Potassium Chloride Oral Tablet 20 MEQ 40 MEQ PO (00:03)
[2021-02-19] MEDS: Ketorolac 15 MG/ML Vial IV (00:19)
[2021-02-19 00:26] VITALS: BP 122/71; PULSE 88; RESP 17; O2SAT 95
== END 2021-02-19 00:27 | disposition home or self-care (01) ==
PROVIDERS: Emergency Provider Emergency Medicine; PCP Family Medicine
DX: N13.2 Hydronephrosis with renal and ureteral calculous obstruction (principal); F17.200 Nicotine dependence, unspecified, uncomplicated
CPT/HCPCS: 74176; 80048; 81001; 84703; 85025; 96374; 96375; 99283; J7030; A4216; J2405

== ENCOUNTER 2021-06-23 17:59 | Emergency (ER) | payer MEDICAID, SELFPAY ==
[2021-06-23 18:01] VITALS: BP 144/114; PULSE 101; RESP 18; TEMP 36; O2SAT 100; BMI 17.6
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
--- NOTE | 2021-06-23 21:03 | EKG12_ITS ---
Test Reason : DYSRHYTHMIA Blood Pressure : / mmHG Vent. Rate : 075 BPM Atrial Rate : 075 BPM P-R Int : 130 ms QRS Dur : 096 ms QT Int : 400 ms P-R-T Axes : 023 079 071 degrees QTc Int : 446 ms Normal sinus rhythm Normal ECG Confirmed by ARTURO LAMBERT, GLO ([id number]), material expeditor RODRÍGUEZ BLACK ([id number]) on 06/26/2021 12:59:04 PM Referred By: MEGAN Confirmed By:GLO MORRIS MD
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
[2021-06-23 21:48] LABS: Bacteria 0 SEEN /hpf (None Seen); Mucous, Urine 0 SEEN /hpf (<or=2+); Red Blood Cells-Urine 0 SEEN /hpf (0-5); Squamous Epithelial Cells - UA 0 SEEN /hpf (5-10); White Blood Cells 0 SEEN /hpf (0-5)
[2021-06-23 21:49] LABS: Absolute Lymphocyte Count 2.92 X10^3/uL (0.83-4.51); Absolute Neutrophil Count 4.8 X10^3/uL (2.0-7.7); Basophil# 0.06 X10^3/uL; Basophil% 0.7 % (0-1); Eosinophil# 0.17 X10^3/uL; Hematocrit 40.6 % (37-47); Hemoglobin 13.6 g/dL (12.0-15.0); Lymphocyte # 2.92 X10^3/ul (0.83-4.51); Lymphocyte % 34.4 % (19-41); Mean Corp Hgb Conc 33.5 g/dL (32-36); Mean Corpuscular Hgb 31.2 pg (27.0-32.0); Mean Corpuscular Volume 93.1 fL (81-99); Mean Platelet Vol. 9.9 fl (6.2-12.0); Monocyte# 0.55 X10^3/uL; Monocyte% 6.5 % (0-10); NRBC Flagged by Analyzer 0 % (0-5); Neutrophil # 4.78 X10^3/uL (2.7-7.7); Neutrophil % 56.2 % (47-70); Platelet Count 267 K/mm3 (150-450); RBC Distribution Width CV 12.6 % (11.6-14.6); RBC Distribution Width SD 43.1 fl (35.1-43.9); Red Blood Count 4.36 M/mm3 (4.2-5.4); White Blood Count 8.5 K/mm3 (4.4-11.0)
[2021-06-23 22:11] LABS: Internal QC Validated? YES +Cl - CLEAR BKGD; Pregnancy, Serum, hCG Quali. NEGATIVE Negative
[2021-06-23 22:13] LABS: ALB/GLOB Ratio 1.2 RATIO (0.9-2.4); AST(SGOT) 9 U/L (15-37); Alanine Aminotransfer ALT/SGPT 14 U/L (13-56); Albumin, Serum 4.2 g/dL (3.2-5.0); Alkaline Phosphatase 117 U/L (45-117); Anion Gap 5 (5-15); BUN 7 mg/dL (7-18); BUN/Creat Ratio 11.9 RATIO (10-20); Calcium,Total 9.5 mg/dL (8.5-10.1); Chloride 110 mmol/L (98-107); Creatinine, Serum 0.59 mg/dL (0.55-1.02); EST Glomerular Filtration Rate 136 mL/min (>60); Est Glom Filt Rate - Afr Amer 164 mL/min (>60); Estimated Creatinine Clearance 99.88 ml/min; Globulin 3.6 g/dL (2.2-4.2); Glucose 86 mg/dL (74-106); Potassium 3.9 mmol/L (3.5-5.1); Protein, Total 7.8 g/dL (6.4-8.2); Sodium Level 142 mmol/L (136-145)
[2021-06-23 22:16] LABS: Color, Urine Yellow (Yellow); Glucose, Dipstick Normal (Normal); Ketone-Dipstick 15 mg/dl (Negative); Leukocyte Esterase-Dipstick Negative /ul (Negative); Nitrite-Dipstick Negative (Negative); Occult Blood-Urine Negative /ul (Negative); Protein-Dipstick 15 mg/dl (Negative); Specific Gravity, Urine 1.015 (1.002-1.030); Urine Bilirubin Dipstick Negative (Negative); Urine Clarity Clear (Clear); Urine Urobilinogen 1 mg/dl (Normal); Urine pH 6.5 (5.0 - 8.0)
[2021-06-23 22:18] LABS: Amorphous Sediment 1+
[2021-06-23 22:20] LABS: Amphetamine Urine VISTA POSITIVE (<1000 ng/mL); Barbiturate Urine VISTA NEGATIVE (< 200 ng/mL); Benzodiazepine Urine VISTA NEGATIVE (< 200 ng/mL); Cocaine Urine VISTA NEGATIVE (< 300 ng/mL); Ecstacy Urine VISTA NEGATIVE (< 500 ng/mL); Methadone Urine VISTA NEGATIVE (< 300 ng/mL); PCP Urine VISTA NEGATIVE (< 25 ng/mL); THC Urine VISTA POSITIVE (< 50 ng/mL); Vista UDS pH Range 6
[2021-06-23 22:24] VITALS: BP 134/95; PULSE 93; RESP 16; TEMP 36.8; O2SAT 97
[2021-06-23 22:44] LABS: Alcohol, Blood (Medical)-Serum < 3.0 mg/dL
[2021-06-24] MEDS: LORazepam 0.5 MG Tablet PO (00:45)
[2021-06-24] MEDS: Amox/Clavulanate 875 MG Tablet PO (00:45)
[2021-06-24 01:42] VITALS: RESP 16
--- NOTE | 2021-06-24 03:28 | ED.RN ---
CALLED FOR [facility] AT 0330, [facility] WILL BE HERE AT 10AM TO TAKE PATIENT TO [facility]
[2021-06-24 03:48] VITALS: BP 116/78; PULSE 67; RESP 16; O2SAT 100
[2021-06-24 06:18] VITALS: RESP 14
--- NOTE | 2021-06-24 07:12 | NURSING ---
ACCEPTED AT [facility] DR CHUCKY ROLLINS DIAGNOSIS NURSE TO NURSE [phone]
[2021-06-24] MEDS: Acetaminophen 500 MG Tablet 1000 MG PO (08:16)
[2021-06-24 08:18] VITALS: BP 128/77; PULSE 62; RESP 15; O2SAT 98
[2021-06-24 10:10] VITALS: BP 118/74; PULSE 68; RESP 15; O2SAT 99
== END 2021-06-24 10:11 | disposition short-term general hospital (02) ==
PROVIDERS: Emergency Provider Emergency Medicine
DX: S01.511A Laceration without foreign body of lip, initial encounter (principal); F32.A Depression, unspecified; R45.851 Suicidal ideations; F17.210 Nicotine dependence, cigarettes, uncomplicated; Y08.89XA Assault by other specified means, initial encounter
CPT/HCPCS: 80053; 80307; 81001; 82077; 84703; 85025; 87426; 93005; 99285; A4216

== ENCOUNTER 2021-07-04 23:12 | Emergency (ER) | payer MEDICAID, SELFPAY ==
[2021-07-04 23:14] VITALS: BP 138/84; PULSE 91; RESP 16; TEMP 36.4; O2SAT 98; BMI 18.6
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
[2021-07-04] MEDS: Clindamycin HCl 150 MG Capsule 300 MG PO (23:44)
[2021-07-04] MEDS: HYDROcodone Bitartrate/Apap 5/325 Tablet PO (23:45)
== END 2021-07-04 23:51 | disposition home or self-care (01) ==
PROVIDERS: Emergency Provider Emergency Medicine; PCP Family Medicine
DX: K08.89 Other specified disorders of teeth and supporting structures (principal); F17.210 Nicotine dependence, cigarettes, uncomplicated
CPT/HCPCS: 99283

== ENCOUNTER 2021-12-23 19:35 | Emergency (ER) | payer MEDICAID, SELFPAY ==
[2021-12-23 19:36] VITALS: BP 102/86; PULSE 101; RESP 18; TEMP 36.6; O2SAT 100; BMI 22.3
[2021-12-23 19:38] VITALS: BP 102/86; PULSE 101; RESP 18; TEMP 36.6; O2SAT 100
[2021-12-23 19:50] LABS: Mucous, Urine 0 SEEN /hpf (<or=2+)
[2021-12-23 20:00] LABS: Color, Urine Yellow (Yellow); Glucose, Dipstick Normal (Normal); Ketone-Dipstick 50 mg/dl (Negative); Leukocyte Esterase-Dipstick 500 /ul (Negative); Nitrite-Dipstick Positive (Negative); Occult Blood-Urine 50 /ul (Negative); Protein-Dipstick 100 mg/dl (Negative); Specific Gravity, Urine 1.015 (1.002-1.030); Urine Clarity Cloudy (Clear); Urine Urobilinogen 8 mg/dl (Normal)
[2021-12-23 20:03] LABS: Urine Bilirubin Dipstick 1 mg/dL (Negative)
[2021-12-23 20:21] LABS: White Blood Cells >100 SEEN /hpf (0-5)
[2021-12-23 20:22] LABS: Bacteria 4+ /hpf (None Seen); Red Blood Cells-Urine 5-10 SEEN /hpf (0-5); Squamous Epithelial Cells - UA 10-25 SEEN /hpf (5-10)
[2021-12-23 21:12] LABS: Basophil# 0.03 X10^3/uL; Basophil% 0.3 % (0-1); Eosinophil# 0.02 X10^3/uL; Eosinophils% 0.2 % (0-5); Hematocrit 41.2 % (37-47); Hemoglobin 14.7 g/dL (12.0-15.0); Mean Corp Hgb Conc 35.7 g/dL (32-36); Mean Corpuscular Hgb 31.6 pg (27.0-32.0); Mean Corpuscular Volume 88.6 fL (81-99); Mean Platelet Vol. 10.8 fl (6.2-12.0); Monocyte# 0.95 X10^3/uL; Monocyte% 8.3 % (0-10); NRBC Flagged by Analyzer 0 % (0-5); Neutrophil # 8.97 X10^3/uL (2.7-7.7); Neutrophil % 77.9 % (47-70); Platelet Count 265 K/mm3 (150-450); RBC Distribution Width CV 11.8 % (11.6-14.6); RBC Distribution Width SD 37.9 fl (35.1-43.9); Red Blood Count 4.65 M/mm3 (4.2-5.4); White Blood Count 11.5 K/mm3 (4.4-11.0)
[2021-12-23 21:27] LABS: Anion Gap 9 (5-15); BUN 8 mg/dL (7-18); BUN/Creat Ratio 11.5 RATIO (10-20); Calcium,Total 9.2 mg/dL (8.5-10.1); Chloride 98 mmol/L (98-107); EST Glomerular Filtration Rate 111 mL/min (>60); Est Glom Filt Rate - Afr Amer 134 mL/min (>60); Estimated Creatinine Clearance 94.32 ml/min; Glucose 91 mg/dL (74-106); Sodium Level 134 mmol/L (136-145)
[2021-12-23 21:31] LABS: Internal QC Validated? YES +Cl - CLEAR BKGD; Pregnancy, Urine Negative Negative
--- NOTE | 2021-12-23 22:27 | CT_ITS ---
STUDY: CT ABDOMEN AND PELVIS WITHOUT CONTRAST REASON FOR EXAM: Female, 21 years old. Right flank pain. RADIATION DOSAGE (If Supplied By Facility): CTDIvol = ( 6.04 ) mGy, DLP = ( 279.35 ) mGycm TECHNIQUE: Transaxial images were obtained from the dome of the diaphragm to the symphysis pubis without oral contrast, and without intravenous contrast. Sagittal and coronal images were reconstructed. Individualized dose optimization techniques were used for this CT. COMPARISON: 02/18/2021. FINDINGS: Scattered calcified granulomata are seen in the lung bases. There is no new infiltrate or mass. The visualized portions of the heart are within normal limits. Normal liver. Normal gallbladder and extrahepatic biliary system. There is a benign calcified granuloma of the spleen. Normal pancreas. Normal bilateral adrenal glands. There is a 3 mm nonobstructing calculus in upper pole calyx of an otherwise normal right kidney. Normal left kidney. Normal visualized ureters. Normal visualized stomach. Normal small intestine. Normal colon. The appendix is visualized and appears normal. Normal abdominal aorta. Normal inferior vena cava. Normal retroperitoneum. Normal urinary bladder. Normal uterus. There are multiple follicles in both ovaries which appear mildly prominent. No pelvic lymphadenopathy or mass. No free air or free fluid is seen within the peritoneal cavity. Normal abdominal wall. Normal osseous structures. CT/Abdomen/Pelvis without Cont IMPRESSION: 1. No acute intra-abdominal or pelvic process. 2. Stable calcification upper pole right kidney. 2 other calcifications previously seen in the lower pole calyces are no longer present. Mild prominence of the ovaries with multiple follicles not noted on the previous study. 3. Old granulomatous disease. Electronically Signed: Erich French DO at 23:14 EDT ,
[2021-12-23] MEDS: Ketorolac 15 MG/ML Vial IV (22:34)
[2021-12-23] MEDS: 0.9% Normal Saline 1,000 ML 999 ML IV (22:34)
[2021-12-23] MEDS: Ceftriaxone 1 GM/50 ML BAG IV (22:43)
[2021-12-23 23:06] VITALS: BP 116/62; PULSE 102; RESP 16; TEMP 36.6; O2SAT 100
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
[2021-12-24 00:24] VITALS: BP 114/74; PULSE 98; RESP 17; O2SAT 95
== END 2021-12-24 00:33 | disposition home or self-care (01) ==
PROVIDERS: Emergency Provider Emergency Medicine; Visit Provider Emergency Medicine
DX: N12 Tubulo-interstitial nephritis, not specified as acute or chronic (principal); F17.210 Nicotine dependence, cigarettes, uncomplicated; Z59.00 Homelessness unspecified
CPT/HCPCS: 74176; 80048; 81001; 81025; 85025; 87077; 87086; 87088; 87186; 96365; 96375; 99285; J7030; A4216

== ENCOUNTER 2022-03-06 18:54 | Emergency (ER) | payer MEDICAID, SELFPAY ==
[2022-03-06 18:55] VITALS: BP 114/75; PULSE 77; RESP 16; TEMP 35.2; O2SAT 99; BMI 22.6
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
[2022-03-06] MEDS: Ketorolac 15 MG/ML Vial IV (20:31)
[2022-03-06] MEDS: proCHLORPERazine 10 MG/2 ML Vial IV (20:31)
[2022-03-06] MEDS: 0.9% Normal Saline 1,000 ML 999 ML IV (20:31)
[2022-03-06] MEDS: DiphenhydrAMINE 50 MG/ML Syringe 25 MG IV (20:31)
--- NOTE | 2022-03-06 21:58 | CCN.REFER ---
CALL [facility] TRANSFER LINE [facility]
[2022-03-06 22:20] VITALS: PULSE 75; RESP 16; O2SAT 97
== END 2022-03-06 22:21 | disposition home or self-care (01) ==
PROVIDERS: Emergency Provider Student in an Organized Health Care Education/Training Program; Visit Provider Student in an Organized Health Care Education/Training Program
DX: G43.909 Migraine, unspecified, not intractable, without status migrainosus (principal); F17.210 Nicotine dependence, cigarettes, uncomplicated; F41.9 Anxiety disorder, unspecified; F32.A Depression, unspecified; Z79.899 Other long term (current) drug therapy; Z59.00 Homelessness unspecified
CPT/HCPCS: 96374; 96375; 99284; J7030; A4216

== ENCOUNTER 2023-03-09 20:55 | Inpatient (IN) | payer MEDICAID, SELFPAY ==
[2023-03-09 20:55] VITALS: BP 131/80; PULSE 100; RESP 18; TEMP 523.3; TEMP 974; O2SAT 100; BMI 17.7
--- NOTE | 2023-03-09 21:29 | EDS_ITS ---
HPI History of Present Illness Chief Complaint: Substance Abuse Detail of Chief Complaint: Requesting detox from opiates Informant: patient Narrative Narrative: Patient presents the emergency department requesting detox from opiates. Constantino aguilar states that she normally uses fentanyl but she uses heroin or what ever she can get. Last use was 3 days ago. [facility] [place] [facility] and was sent in by 180 to detox. Patient feels hot and cold and has had some mild nausea. She had a hard time sleeping. Patient also uses methamphetamines occasionally. She denies recent illness. Patient states that she has been using since the age of 10. Patient states that she was at rehab x2 last year. Patient normally uses the IV route for her opiates. [facility] Medical History Anxiety Depression Drug abuse Headache Hepatitis depression Seizures Home Medications NK 03/09/23 [History Last Taken Unknown] Allergy/AdvReac Type Severity Reaction Status Date / Time sulfamethoxazole AdvReac Vomiting Verified 03/09/23 20:57 [From Bactrim] trimethoprim [From Bactrim] AdvReac Vomiting Verified 03/09/23 20:57 Family History Other Cancer Social History household members: children housing: homeless Smoking Status: Current every day smoker tobacco type: cigarettes and e- cigarettes substance use type: other details: Drug by her captive ROS ROS ED Review of Systems ROS Unobtainable: other Constitutional Constitutional ED: Reports lethargy and sweats; Denies chills, fever(s) or weight loss Eyes Eyes: Denies blurry vision, change in vision or diplopia ENT ENT ED: Denies rhinorrhea or sore throat Cardiovascular Cardiovascular: Denies chest pain, orthopnea or racing heartbeat Respiratory/Chest Respiratory/Chest: Denies cough, dyspnea, dyspnea on exertion, orthopnea or sputum Gastrointestinal Gastrointestinal: Denies abdominal pain, diarrhea, nausea or vomiting Genitourinary Genitourinary ED: Denies dysuria, hematuria or urinary frequency Musculoskeletal Musculoskeletal: Denies arthralgias, back pain, myalgias or neck pain Integumentary Denies abscess, Abrasions or rash Neurologic Neurologic: Reports other Details: Decreased ability to sleep ; Denies headache(s) or weakness Psychiatric Psychiatric: Denies anxiety, depression or suicidal thoughts Endocrine Endocrinology: Denies polydipsia, polyphagia or polyuria Hematologic/Lymphatic Hematologic/Lymphatic: Denies easy bleeding, easy bruising or lymphadenopathy Allergic/Immunologic Allergic/Immunologic ED: Denies mouth swelling, tongue swelling or urticaria EXAM Physical Exam Const Vital Signs: 03/09/23 20:55 Temperature 974 F H Temperature Source Temporal Pulse Rate 100 Respiratory Rate 18 Blood Pressure 131/80 H Blood Pressure Mean 97 Pulse Ox 100 Oxygen Delivery Method Room Air Positive well nourished and well developed General Appearance ED: well developed and NAD HEENT Reports TM's clear and moist mucous membranes normocephalic and atraumatic; Negative for trauma or tenderness Tympanic Membrane ED: Yes TM's clear Eyes PERRL and EOMs intact bilaterally General Eye ED: Negative for pale conjunctiva or scleral icterus Neck no lymphadenopathy, supple and no JVD General: Negative for tenderness Chest Wall inspection of chest normal and palpation of chest normal Chest: Negative for tenderness Resp normal respiratory effort and clear to auscultation bilaterally Effort and Inspection: Negative for respiratory distress or pain with movement Auscultation: Negative for rhonchi, wheezes or diminished lung sounds Cardio regular rate, regular rhythm, S1 normal heart sound, S2 normal heart sound and no murmurs Peripheral Pulses: pulses 2+ throughout GI normal to inspection, nondistended, normoactive bowel sounds, soft to palpation, non-tender, non-distended and no masses Back/Spine no CVA tenderness and no thoracic nor lumbar tenderness Extremity normal to inspection General Extremety ED: Negative for edema General Extremity: Negative for edema Neuro oriented x3, CN's II-XII intact bilaterally, no sensory deficits noted and gait normal Sensorium / Orientation: awake, alert, oriented to person, oriented to place and oriented to time Motor Exam: strength 5/5 throughout and strength abnormal Psych mental status grossly normal Skin no rashes or lesions noted and no wounds MDM MDM MDM Narrative Medical decision making narrative: Patient presents requesting detox from opiates. She has been using since the age of 10. Basic labs ordered and were essentially unremarkable. Toxicology screen positive for amphetamines as well as MDMA and marijuana. Alcohol was less than 3. Case discussed with hospitalist to evaluate patient for admission for detox from opiates. Lab Data Attestation: I reviewed the patient's lab results. Labs: Laboratory Results - last 24 hr 03/09/23 03/09/23 21:05 21:10 WBC 8.9 RBC 4.48 Hgb 13.7 Hct 41.7 MCV 93.1 MCH 30.6 MCHC 32.9 RDW Std Deviation 47.3 H RDW Coeff of Sammy 14.2 Plt Count 257 MPV 9.8 Immature Gran % (Auto) 0.500 Neut % (Auto) 49.2 Lymph % (Auto) 42.8 H [place] % (Auto) 5.2 Eos % (Auto) 1.1 Baso % (Auto) 1.2 H Absolute Neuts (auto) 4.4 Absolute Lymphs (auto) 3.79 Nucleated RBC % 0 Differential Comment SEE COMMENT Atypical Lymphocytes 2+ Platelet Estimate ADEQUATE RBC Morphology N CHROM Anisocytosis RARE Macrocytosis RARE Sodium 137 Potassium 3.6 Chloride 103 Carbon Dioxide 27.0 Anion Gap 7 BUN 10 Creatinine 0.79 Estim Creat Clear Calc 73.85 Est GFR (MDRD) Af Amer 115 Est GFR (MDRD) Non-Af 95 BUN/Creatinine Ratio 12.7 Glucose 100 Calcium 9.3 Total Bilirubin 1.00 AST 32 ALT 40 Alkaline Phosphatase 169 H Total Protein 8.9 H Albumin 4.2 Globulin 4.7 H Albumin/Globulin Ratio 0.9 Serum , Qual NEGATIVE Urine Opiates Screen NEGATIVE Urine Methadone Screen NEGATIVE Ur Barbiturates Screen NEGATIVE Ur Phencyclidine Scrn NEGATIVE Ur Amphetamines Screen POSITIVE H MDMA (Ecstasy) Screen POSITIVE H U Benzodiazepines Scrn NEGATIVE Urine Cocaine Screen NEGATIVE U Cannabinoids Screen POSITIVE H Ur Drug Screen Comment Ethyl Alcohol < 3.0 Discharge Plan Dx/Rx/DC Orders Clinical Impression: Opiate withdrawal, Illicit drug use, Admitted to substance misuse detoxification center Disposition Disposition: Acute Care Hospital [facility] Discharge Date/Time: 03/09/23 23:02
[2023-03-09 21:40] LABS: Absolute Lymphocyte Count 3.79 X10^3/uL (0.83-4.51); Absolute Neutrophil Count 4.4 X10^3/uL (2.0-7.7); Basophil# 0.11 X10^3/uL; Basophil% 1.2 % (0-1); Eosinophils% 1.1 % (0-5); Hematocrit 41.7 % (37-47); Hemoglobin 13.7 g/dL (12.0-15.0); Lymphocyte # 3.79 X10^3/ul (0.83-4.51); Lymphocyte % 42.8 % (19-41); Mean Corp Hgb Conc 32.9 g/dL (32-36); Mean Corpuscular Hgb 30.6 pg (27.0-32.0); Mean Corpuscular Volume 93.1 fL (81-99); Mean Platelet Vol. 9.8 fl (6.2-12.0); Monocyte# 0.46 X10^3/uL; Monocyte% 5.2 % (0-10); NRBC Flagged by Analyzer 0 % (0-5); Neutrophil # 4.35 X10^3/uL (2.7-7.7); Neutrophil % 49.2 % (47-70); POSITIVE MORPHOLOGY YES; Platelet Count 257 K/mm3 (150-450); RBC Distribution Width CV 14.2 % (11.6-14.6); RBC Distribution Width SD 47.3 fl (35.1-43.9); Red Blood Count 4.48 M/mm3 (4.2-5.4); White Blood Count 8.9 K/mm3 (4.4-11.0)
[2023-03-09 22:05] LABS: Internal QC Validated? YES +Cl - CLEAR BKGD; Pregnancy, Serum, hCG Quali. NEGATIVE Negative
[2023-03-09 22:07] LABS: Alcohol, Blood (Medical)-Serum < 3.0 mg/dL
[2023-03-09 22:09] LABS: Amphetamine Urine VISTA POSITIVE (<1000 ng/mL); Barbiturate Urine VISTA NEGATIVE (< 200 ng/mL); Benzodiazepine Urine VISTA NEGATIVE (< 200 ng/mL); Cocaine Urine VISTA NEGATIVE (< 300 ng/mL); Ecstacy Urine VISTA POSITIVE (< 500 ng/mL); Methadone Urine VISTA NEGATIVE (< 300 ng/mL); PCP Urine VISTA NEGATIVE (< 25 ng/mL); THC Urine VISTA POSITIVE (< 50 ng/mL); Vista UDS pH Range 6
[2023-03-09 22:10] LABS: ALB/GLOB Ratio 0.9 RATIO (0.9-2.4); AST(SGOT) 32 U/L (15-37); Alanine Aminotransfer ALT/SGPT 40 U/L (13-56); Albumin, Serum 4.2 g/dL (3.2-5.0); Alkaline Phosphatase 169 U/L (45-117); Anion Gap 7 (5-15); BUN 10 mg/dL (7-18); BUN/Creat Ratio 12.7 RATIO (10-20); Calcium,Total 9.3 mg/dL (8.5-10.1); Chloride 103 mmol/L (98-107); Creatinine, Serum 0.79 mg/dL (0.55-1.02); EST Glomerular Filtration Rate 95 mL/min (>60); Est Glom Filt Rate - Afr Amer 115 mL/min (>60); Estimated Creatinine Clearance 73.85 ml/min; Globulin 4.7 g/dL (2.2-4.2); Glucose 100 mg/dL (74-106); Potassium 3.6 mmol/L (3.5-5.1); Protein, Total 8.9 g/dL (6.4-8.2); Sodium Level 137 mmol/L (136-145)
[2023-03-09 22:15] LABS: Differential Indicated SCAN CRITERIA MET
[2023-03-09 22:31] VITALS: BP 118/78; PULSE 78; RESP 16; TEMP 36.8; O2SAT 99
--- NOTE | 2023-03-09 22:34 | HP.PCM.HOS_ITS ---
HPI - General General Date of Admission: 03/09/23 Date of Service: 03/09/23 Chief Complaint: Desire for detoxification HPI Narrative CHRISTINA WOOTEN, is a 22 F with a significant history of IV polysubstance abuse; and hepatitis B who present to the emergency department for detoxification. Of note patient's drug of choice is fentanyl/heroin. She does not know how much in grams she uses. She has been using fentanyl/heroin since age 13. Last time she used was 3 days ago. Also she has been using methamphetamine about 2 times per week. Last time she used was about 2 days ago. She started using methamphetamine when she was age 18-19. Of note patient started smoking marijuana when she was about age 10. She reports withdrawal symptoms of feeling hot and cold and inability to sleep. [facility] Medical History Anxiety Depression Drug abuse Headache Hepatitis depression Seizures Home Medications NK 03/09/23 [History Last Taken Unknown] Allergy/AdvReac Type Severity Reaction Status Date / Time sulfamethoxazole AdvReac Vomiting Verified 03/09/23 20:57 [From Bactrim] trimethoprim [From Bactrim] AdvReac Vomiting Verified 03/09/23 20:57 Family History Other Cancer Surgical History no surgical history no surgical history (Except finger surgery.) Social History household members: children housing: homeless Smoking Status: Current every day smoker tobacco type: cigarettes and e- cigarettes substance use type: other details: Drug by her captive ROS ROS Narrative Pertinent positives and pertinent negatives as noted in HPI. All other systems were reviewed and are negative Vital Signs Vital Signs Vital Signs: 03/09/23 20:55 03/09/23 22:31 Temperature 974 F H 98.3 F Temperature Source Temporal Oral Pulse Rate 100 78 Respiratory Rate 18 16 Blood Pressure 131/80 H 118/78 Blood Pressure Mean 97 91 Pulse Ox 100 99 Oxygen Delivery Method Room Air Room Air Weight Weight: 42.6 kg Body Mass Index (BMI) 17.7 Physical Exam Narrative Physical exam: General: Well-nourished, well-developed. Head: Normocephalic, atraumatic, no tenderness Eyes: Vision is grossly intact. EOMI ENT: Poor dentition. No trauma, moist mucous membranes, no rhinorrhea Neck: Nontender, No thyromegaly. CVS: Regular rate and rhythm. S1-S2 present. No murmur, gallop or rub. Respiratory : clear to auscultation bilaterally, chest wall nontender Abdomen: Soft, nontender, nondistended, normal bowel sounds, no masses : Deferred Back: Nontender, no CVA tenderness, no midline spinal tenderness, deformities, step-offs Extremities:Cachexia. Nontender full range of motion, no trauma Skin:Needle track lópez on right antecubital Fossa. Normal color, no trauma, abrasions Neuro: Alert, oriented, cranial nerves II through XII grossly intact. Psychiatry: Normal mood. Normal affect. Not depressed. Not anxious. Results Lab / Micro Data 03/09/23 21:10 03/09/23 21:10 Labs: Laboratory Results - last 24 hr 03/09/23 21:05: Urine Opiates Screen NEGATIVE, Urine Methadone Screen NEGATIVE, Ur Barbiturates Screen NEGATIVE, Ur Phencyclidine Scrn NEGATIVE, Ur Amphetamines Screen POSITIVE H, MDMA (Ecstasy) Screen POSITIVE H, U Benzodiazepines Scrn NEGATIVE, Urine Cocaine Screen NEGATIVE, U Cannabinoids Screen POSITIVE H, Ur Drug Screen Comment 03/09/23 21:10: WBC 8.9, RBC 4.48, Hgb 13.7, Hct 41.7, MCV 93.1, MCH 30.6, MCHC 32.9, RDW Std Deviation 47.3 H, RDW Coeff of Sammy 14.2, Plt Count 257, MPV 9.8, Immature Gran % (Auto) 0.500, Neut % (Auto) 49.2, Lymph % (Auto) 42.8 H, [place] % (Auto) 5.2, Eos % (Auto) 1.1, Baso % (Auto) 1.2 H, Absolute Neuts (auto) 4.4, Absolute Lymphs (auto) 3.79, Nucleated RBC % 0, Sodium 137, Potassium 3.6, Chloride 103, Carbon Dioxide 27.0, Anion Gap 7, BUN 10, Creatinine 0.79, Estim Creat Clear Calc 73.85, Est GFR (MDRD) Af Amer 115, Est GFR (MDRD) Non-Af 95, BUN/Creatinine Ratio 12.7, Glucose 100, Calcium 9.3, Total Bilirubin 1.00, AST 32, ALT 40, Alkaline Phosphatase 169 H, Total Protein 8.9 H, Albumin 4.2, Globulin 4.7 H, Albumin/Globulin Ratio 0.9, Serum , Qual NEGATIVE, Ethyl Alcohol < 3.0 Assessment & Plan Assessment/Plan (1) Admitted to substance misuse detoxification center: (2) Opiate withdrawal: (3) Tobacco abuse: PLAN: Plan Opioid dependence and withdrawal Patient be started on Subutex and other adjunctive medications: Gabapentin as needed; dicyclomine as needed; Vistaril as needed; methocarbamol as needed; agustin nidine as needed; Imodium as needed; trazodone as needed and Zofran as needed. Monitor COWS and CINA score Tobacco abuse Counseled Nicotine patch prescribed. Methamphetamine abuse Counseled Moderate protein calorie moderation Cachexia. BMI 17.7 kg per metered square. Dietitian consult. Start patient on protein supplements. DVT prophylaxis Low risk Encourage to ambulate Charges/Coding Visit Charges Inpatient E&M: 48777 Init Hosp L2
[2023-03-09 22:45] LABS: Anisocytosis RARE; Atypical Lymphocyte 2+ %; Macrocytosis RARE; Platelet Estimate ADEQUATE (ADEQ); Red Cell Morphology N CHROM NORMAL (NORM C&C)
[2023-03-09 23:18] VITALS: BMI 18.0
[2023-03-09 23:19] VITALS: BP 115/79; PULSE 96; RESP 16; TEMP 36.8; O2SAT 97
[2023-03-10] MEDS: cloNIDine HCl 0.1 MG Tablet PO
[2023-03-10] MEDS: hydrOXYzine PAM 25 MG Capsule 50 MG PO ×2 (00:01→12:42)
[2023-03-10 06:30] VITALS: BP 100/61; PULSE 78; RESP 12; TEMP 36.9; O2SAT 98
[2023-03-10] MEDS: Dicyclomine 10 MG Capsule 20 MG PO (06:39)
--- NOTE | 2023-03-10 07:24 | PCM.PN.HOSP ---
Reason for Visit Reason for Visit: Diagnoses Opioid use, unspecified with withdrawal (03/09/23) Tobacco use (03/09/23) Other specified health status (03/09/23) Subjective Subjective Complains of diffuse myalgias. States her last use of opiates was 3 days prior. Objective Data Objective Data Vital Signs: Vital Signs Temp Pulse Resp BP Pulse Ox O2 Del Method 36.9 C 78 12 100/61 98 Room Air 03/10/23 06:30 03/10/23 06:30 03/10/23 06:30 03/10/23 06:30 03/10/23 06:30 03/10/23 06:30 Oxygen Delivery Method Room Air Weight: 43.233 kg Body Mass Index (BMI) 18.0 Intake & Output: Intake and Output for Last 24 Hours 03/08/23 03/09/23 03/10/23 23:59 23:59 23:59 Intake Total 0 / 0 Output Total 0 / 0 Balance 0 / 0 Lab / Micro Data 03/09/23 21:10 03/09/23 21:10 Labs: Laboratory Results - last 24 hr 03/09/23 21:05: Urine Opiates Screen NEGATIVE, Urine Methadone Screen NEGATIVE, Ur Barbiturates Screen NEGATIVE, Ur Phencyclidine Scrn NEGATIVE, Ur Amphetamines Screen POSITIVE H, MDMA (Ecstasy) Screen POSITIVE H, U Benzodiazepines Scrn NEGATIVE, Urine Cocaine Screen NEGATIVE, U Cannabinoids Screen POSITIVE H, Ur Drug Screen Comment 03/09/23 21:10: WBC 8.9, RBC 4.48, Hgb 13.7, Hct 41.7, MCV 93.1, MCH 30.6, MCHC 32.9, RDW Std Deviation 47.3 H, RDW Coeff of Sammy 14.2, Plt Count 257, MPV 9.8, Immature Gran % (Auto) 0.500, Neut % (Auto) 49.2, Lymph % (Auto) 42.8 H, [place] % (Auto) 5.2, Eos % (Auto) 1.1, Baso % (Auto) 1.2 H, Absolute Neuts (auto) 4.4, Absolute Lymphs (auto) 3.79, Nucleated RBC % 0, Differential Comment SEE COMMENT, Atypical Lymphocytes 2+, Platelet Estimate ADEQUATE, RBC Morphology N CHROM, Anisocytosis RARE, Macrocytosis RARE, Sodium 137, Potassium 3.6, Chloride 103, Carbon Dioxide 27.0, Anion Gap 7, BUN 10, Creatinine 0.79, Estim Creat Clear Calc 73.85, Est GFR (MDRD) Af Amer 115, Est GFR (MDRD) Non-Af 95, BUN/Creatinine Ratio 12.7, Glucose 100, Calcium 9.3, Total Bilirubin 1.00, AST 32, ALT 40, Alkaline Phosphatase 169 H, Total Protein 8.9 H, Albumin 4.2, Globulin 4.7 H, Albumin/Globulin Ratio 0.9, Serum , Qual NEGATIVE, Ethyl Alcohol < 3.0 Physical Exam Const alert Constitutional Narrative: appears older than stated age. HEENT head/scalp atraumatic and moist oral mucous membranes HEENT Narrative: poor dentition. Neuro Sensorium / Orientation: awake and alert Psych Mood & Affect: anxious Assessment & Plan Assessment/Plan (1) Opiate withdrawal: PLAN: Opioid dependence and withdrawal Patient be started on Subutex and other adjunctive medications: Gabapentin as needed; dicyclomine as needed; Vistaril as needed; methocarbamol as needed; clonidine as needed; Imodium as needed; trazodone as needed and Zofran as needed. Monitor COWS and CINA score PLAN: Plan Tobacco abuse Counseled Nicotine patch prescribed. Methamphetamine abuse Counseled Moderate protein calorie moderation Cachexia. BMI 17.7 kg per metered square. Dietitian consult. Start patient on protein supplements. DVT prophylaxis Low risk Encourage to ambulate Charges/Coding Visit Charges Inpatient E&M: 46030 Subs Hosp L1
[2023-03-10 10:00] VITALS: BP 104/63; PULSE 84; RESP 18; TEMP 37.1; O2SAT 100
[2023-03-10] MEDS: Ensure Plus High Protein 120 ML LIQUID PO ×2 (10:36→17:48)
--- NOTE | 2023-03-10 11:27 | ADDICTION ---
This parts data writer met with PT to conduct ASAM, MSE, AUDIT assessments and to plan for d/c. PT A+Ox4 and participated actively. All assessments completed, and d/c plan placed in PT's chart. PT plans to f/u with Intensive Outpatient treatment servicves at [facility]. PT will need for transportation post d/c from [facility].
[2023-03-10] MEDS: Methocarbamol 750 MG Tablet 1500 MG PO ×3 (12:43→21:52)
[2023-03-10] MEDS: Gabapentin 300 MG Capsule PO ×2 (12:43→21:49)
[2023-03-10 15:16] VITALS: BP 104/66; PULSE 74; RESP 14; TEMP 37.4; O2SAT 99
[2023-03-10 17:00] VITALS: PULSE 85
--- NOTE | 2023-03-10 18:41 | NURSING ---
Pt was c/o Vaginal Pain, feels like pus in my vagina. Pt states she had unprotected sex and thinks she might have a STD. Pt states she had Gnorrhea when she was 13.
[2023-03-10] MEDS: Buprenorphine HCl 2 MG TAB.SUBL SL (18:58)
[2023-03-10 21:45] VITALS: BP 101/61; PULSE 89; RESP 16; TEMP 36.8; O2SAT 99
[2023-03-10] MEDS: traZODone 100 MG Tablet PO ×2 (21:49)
[2023-03-11 02:59] VITALS: BP 91/58; PULSE 79; RESP 16; TEMP 36.8; O2SAT 98
[2023-03-11] MEDS: Buprenorphine HCl 2 MG TAB.SUBL SL ×3 (03:04→17:53)
[2023-03-11 05:50] VITALS: BP 100/57; PULSE 71; RESP 16; TEMP 37; O2SAT 95
--- NOTE | 2023-03-11 07:16 | PN.HOSP_ITS ---
Reason for Visit Reason for Visit: Diagnoses Opioid use, unspecified with withdrawal (03/09/23) Tobacco use (03/09/23) Other specified health status (03/09/23) Subjective Subjective Has headache and myalgias. Objective Data Objective Data Vital Signs: Vital Signs Temp Pulse Resp BP Pulse Ox O2 Del Method 37.0 C 71 16 100/57 L 95 Room Air 03/11/23 05:50 03/11/23 05:50 03/11/23 05:50 03/11/23 05:50 03/11/23 05:50 03/11/23 05:50 Oxygen Delivery Method Room Air Weight: 43.233 kg Body Mass Index (BMI) 18.0 Intake & Output: Intake and Output for Last 24 Hours 03/09/23 03/10/23 03/11/23 23:59 23:59 23:59 Intake Total 600 / 900 400 / 400 Output Total 0 / 0 Balance 600 / 900 400 / 400 Lab / Micro Data 03/09/23 21:10 03/09/23 21:10 Physical Exam Const alert and no apparent distress HEENT head/scalp atraumatic and moist oral mucous membranes Extremity normal to inspection Neuro Sensorium / Orientation: awake and alert Psych affect normal Assessment & Plan Assessment/Plan (1) Opiate withdrawal: PLAN: Opioid dependence and withdrawal Patient be started on Subutex and other adjunctive medications: Gabapentin as needed; dicyclomine as needed; Vistaril as needed; methocarbamol as needed; clonidine as needed; Imodium as needed; trazodone as needed and Zofran as needed. Monitor COWS and CINA score [facility]. (2) Pain of female symphysis pubis: PLAN: Unclear significance No obvious source Swabbed for G+C on 03/10 PLAN: Plan Tobacco abuse Counseled Nicotine patch prescribed. Methamphetamine abuse Counseled Moderate protein calorie moderation Cachexia. BMI 17.7 kg per metered square. Dietitian consult. Start patient on protein supplements. DVT prophylaxis Low risk Encourage to ambulate Charges/Coding Visit Charges Inpatient E&M: 56915 Subs Hosp L1
[2023-03-11 10:13] VITALS: BP 94/54; PULSE 78; RESP 16; TEMP 36.6; O2SAT 98
[2023-03-11] MEDS: Ensure Plus High Protein 120 ML LIQUID PO (10:30)
[2023-03-11 17:00] VITALS: BP 101/58; PULSE 88; RESP 18; TEMP 36.8; O2SAT 97
[2023-03-11 21:12] VITALS: BP 104/55; PULSE 82; RESP 16; TEMP 36.5; O2SAT 100
[2023-03-11] MEDS: Gabapentin 300 MG Capsule PO (21:24)
[2023-03-11] MEDS: Ondansetron 8 MG Tablet PO (21:24)
[2023-03-11] MEDS: traZODone 100 MG Tablet PO (21:24)
[2023-03-12 02:31] VITALS: BP 99/53; PULSE 85; RESP 16; TEMP 36.7; O2SAT 97
[2023-03-12] MEDS: Buprenorphine HCl 2 MG TAB.SUBL SL ×3 (02:31→16:47)
--- NOTE | 2023-03-12 07:11 | PN.HOSP_ITS ---
Reason for Visit Reason for Visit: Diagnoses Opioid use, unspecified with withdrawal (03/09/23) Unspecified condition associated with female genital organs and menstrual cycle (03/09/23) Tobacco use (03/09/23) Other specified health status (03/09/23) Subjective Subjective Feels overall better. Still with pubic tenderness. Objective Data Objective Data Vital Signs: Vital Signs Temp Pulse Resp BP Pulse Ox O2 Del Method 36.7 C 85 16 99/53 L 97 Room Air 03/12/23 02:03/12/23 02:03/12/23 02:31 03/12/23 02:03/12/23 02:03/12/23 02:31 Oxygen Delivery Method Room Air Weight: 43.233 kg Body Mass Index (BMI) 18.0 Intake & Output: Intake and Output for Last 24 Hours 03/10/23 03/11/23 03/12/23 23:59 23:59 23:59 Intake Total 600 / 900 1000 / 1200 400 / 400 Output Total 0 / 0 Balance 600 / 900 1000 / 1200 400 / 400 Lab / Micro Data 03/09/23 21:10 03/09/23 21:10 Physical Exam Const alert and no apparent distress Neuro Sensorium / Orientation: awake Psych affect normal Assessment & Plan Assessment/Plan (1) Opiate withdrawal: PLAN: Opioid dependence and withdrawal Patient be started on Subutex and other adjunctive medications: Gabapentin as needed; dicyclomine as needed; Vistaril as needed; methocarbamol as needed; clonidine as needed; Imodium as needed; trazodone as needed and Zofran as needed. Monitor COWS and CINA score [facility]. (2) Pain of female symphysis pubis: PLAN: Unclear significance No obvious source Swabbed for G+C on 03/10 PLAN: Plan Tobacco abuse Counseled Nicotine patch prescribed. Methamphetamine abuse Counseled Moderate protein calorie moderation Cachexia. BMI 17.7 kg per metered square. Dietitian consult. Start patient on protein supplements. DVT prophylaxis Low risk Encourage to ambulate Disposition: plan for discharge on 03/13 Charges/Coding Visit Charges Inpatient E&M: 62700 Subs Hosp L1
[2023-03-12 10:00] VITALS: BP 109/66; PULSE 88; RESP 18; TEMP 36.7; O2SAT 99
[2023-03-12] MEDS: Gabapentin 300 MG Capsule PO ×2 (10:04→16:47)
[2023-03-12 15:04] VITALS: BP 104/58; PULSE 67; RESP 18; TEMP 36.7; O2SAT 97
[2023-03-12 20:45] VITALS: BP 104/56; PULSE 84; RESP 16; TEMP 36.8; O2SAT 98
[2023-03-13 06:00] VITALS: BP 102/56; PULSE 75; RESP 16; TEMP 37; O2SAT 97
[2023-03-13] MEDS: Buprenorphine HCl 2 MG TAB.SUBL SL (06:14)
--- NOTE | 2023-03-13 09:40 | DS.PCM_ITS ---
Providers Date of Admission: 03/09/23 Primary Care Physician: Lou Primary Care Phys Reason For Visit: DESIRE FOR DETOXIFICATION Diagnosis Discharge Diagnosis (1) Opiate withdrawal: Status: Acute Code(s): F11.93 - Opioid use, unspecified with withdrawal Plan: Improved Opioid dependence and withdrawal Monitor COWS and CINA score [facility] (2) Pain of female symphysis pubis: Status: Acute Code(s): N94.9 - Unspecified condition associated with female genital organs and menstrual cycle Plan: Resolved, but of unclear significance. Pt attributing to an ingrown pubic hair. No obvious source Swabbed for G+C on 03/10, still pending. Plan Tobacco abuse Counseled Nicotine patch prescribed. Methamphetamine abuse Counseled Moderate protein calorie moderation Cachexia. BMI 17.7 kg per metered square. Dietitian consult. Start patient on protein supplements. DVT prophylaxis Low risk Encourage to ambulate Disposition: plan for discharge on 03/13 Medications at Discharge Home Medications NK 03/09/23 Hospital Course Operations None Procedures None Summary of Care Provided Minutes Spent on Discharge: 28 Physical Exam Const alert and no apparent distress General Appearance: cooperative and comfortable Neuro Sensorium / Orientation: awake and alert Psych affect normal Weight / BMI Weight Weight: 43.233 kg Body Mass Index (BMI) 18.0 ABG / Lab / Microbiology Data 03/09/23 21:10 03/09/23 21:10 D/C Instructions Discharge Diet: No restrictions Meaningful Use Info Meaningful Use Diagnoses (Choose all that apply): None applicable Discharge Plan Admission Admit Date/Time: 03/09/23 22:22 Primary Reason for Your Visit: opiate withdrawal. Attending Provider: Charles Hurtado Primary Care Provider: Care Physician,Lou Primary Consulting Providers: Tien Huber Instructions Additional Instructions / Restrictions: Call Tuesday (March 14) to set appointment for your counseling. It is recommended that you get established with a primary care physician for routine monitoring. Follow up with gynecology (Women's health) for routine screening. Follow up with a dentist for dental care. Discharge Orders/Prescriptions Prescriptions: No Action NK Referrals / Follow Up: Care Physician,No Primary [Primary Care Provider] - Disposition Disposition (needs filled in before D/C Order can be placed): Home, Self Care Charges/Coding Visit Charges Inpatient E&M: 62899 Disch Hosp
[2023-03-13 09:52] VITALS: BP 104/61; PULSE 86; RESP 18; TEMP 37; O2SAT 98
[2023-03-13] MEDS: Methocarbamol 750 MG Tablet 1500 MG PO (09:58)
[2023-03-15 06:06] LABS: Chlamydia By Nucleic Acid AMP Negative (Negative); Gonococcus By Nucleic Acid AMP Negative (Negative)
== END 2023-03-13 10:35 | disposition home or self-care (01) | DRG 773 ==
LOC: ED 22:24 → MS3 22:35
PROVIDERS: Admitting Provider Hospitalist; Emergency Provider Emergency Medicine
DX: F11.23 Opioid dependence with withdrawal (principal); E44.0 Moderate protein-calorie malnutrition; F15.10 Other stimulant abuse, uncomplicated; F17.210 Nicotine dependence, cigarettes, uncomplicated; F17.290 Nicotine dependence, other tobacco product, uncomplicated; Z68.1 Body mass index [BMI] 19.9 or less, adult; R10.2 Pelvic and perineal pain; Z59.01 Sheltered homelessness
CPT/HCPCS: 36415; 80053; 80307; 82077; 84703; 85025; 87491; 87591; 99283; 99406

== ENCOUNTER 2024-12-25 12:30 | Inpatient (IN) | payer SELFPAY ==
[2024-12-25 12:37] VITALS: BP 132/95; PULSE 94; RESP 18; TEMP 36.5; O2SAT 98; BMI 16.8
[2024-12-25 14:06] LABS: Absolute Lymphocyte Count 3.23 X10^3/uL (0.83-4.51); Absolute Neutrophil Count 4.3 X10^3/uL (2.0-7.7); Basophil# 0.06 X10^3/uL; Basophil% 0.7 % (0-1); Eosinophils% 2.3 % (0-5); Hematocrit 36.7 % (37-47); Hemoglobin 12.5 g/dL (12.0-15.0); Lymphocyte # 3.23 X10^3/ul (0.83-4.51); Lymphocyte % 37.8 % (19-41); Mean Corp Hgb Conc 34.1 g/dL (32-36); Mean Corpuscular Volume 88.2 fL (81-99); Mean Platelet Vol. 9.1 fl (6.2-12.0); Monocyte# 0.73 X10^3/uL; Monocyte% 8.5 % (0-10); NRBC Flagged by Analyzer 0 % (0-5); Neutrophil % 50.5 % (47-70); Platelet Count 398 K/mm3 (150-450); RBC Distribution Width CV 12.7 % (11.6-14.6); Red Blood Count 4.16 M/mm3 (4.2-5.4); White Blood Count 8.5 K/mm3 (4.4-11.0)
[2024-12-25 14:18] LABS: Internal QC Validated? YES +Cl - CLEAR BKGD; Pregnancy, Serum, hCG Quali. NEGATIVE Negative; Record Kit Lot#, Serum Preg. 947241
--- NOTE | 2024-12-25 14:25 | EDS_ITS ---
HPI History of Present Illness Chief Complaint: Substance Abuse Informant: patient Narrative Narrative: 24-year-old female with like to be admitted for heroin detox. Patient has been clean for some time but recently started using again. She does not have custody of her children but would like to get clean to help in the process of getting access to her children. Today she apparently was sleeping outside in a chair. She states that she got an argument with her children's father and just wanted to sleep outside. Please brought her to emergency. She states that she is using quite frequently and typically uses her heroin IV. She states she has a history of hepatitis C but has not been treated because she has not been clean long enough to get treatment. [facility] Medical History Tobacco abuse Drug abuse depression Hepatitis Depression Anxiety Headache Seizures Home Medications ?Medication ?Instructions ?Recorded ?Last Taken ?Type NK 03/09/23 Unknown History Allergy/AdvReac Type Severity Reaction Status Date / Time sulfamethoxazole (From AdvReac Vomiting Verified 03/09/23 20:57 Bactrim) trimethoprim (From Bactrim) AdvReac Vomiting Verified 03/09/23 20:57 Family History Other Cancer Social History household members: children housing: homeless Smoking Status: Current every day smoker tobacco type: cigarettes and e- cigarettes substance use type: other details: Drug by her captive ROS ROS ED Constitutional Constitutional ED: Denies chills, fever(s) or weight loss Eyes Eyes: Denies change in vision or diplopia ENT ENT ED: Denies ear pain, rhinorrhea or sore throat Cardiovascular Cardiovascular: Denies chest pain, orthopnea, palpitations or racing heartbeat Respiratory/Chest Respiratory/Chest: Denies cough, dyspnea or orthopnea Gastrointestinal Gastrointestinal: Denies abdominal pain, diarrhea, nausea or vomiting Genitourinary Genitourinary ED: Denies dysuria, hematuria or urinary frequency Musculoskeletal Musculoskeletal: Denies arthralgias or myalgias Integumentary Denies abscess or rash Neurologic Neurologic: Denies headache(s) or weakness Psychiatric Psychiatric: Denies anxiety, depression, suicidal ideation or suicidal thoughts Endocrine Endocrinology: Denies polydipsia, polyphagia or polyuria Allergic/Immunologic Allergic/Immunologic ED: Denies mouth swelling, tongue swelling or urticaria EXAM Physical Exam Const Vital Signs: 12/25/24 12:37 12/25/24 15:00 Temperature 97.7 F L 97.7 F L Temperature Source Temporal Pulse Rate 94 76 Respiratory Rate 18 18 Blood Pressure 132/95 H 106/86 H Blood Pressure Mean 107 92 Pulse Ox 98 97 Oxygen Delivery Method Room Air Positive well nourished, well developed and cachectic General Appearance ED: well developed, cachectic and NAD Nutritional Appearance: cachectic HEENT Reports normocephalic, head/scalp atraumatic and moist mucous membranes Eyes PERRL and EOMs intact bilaterally Neck no lymphadenopathy, supple and no JVD Resp normal respiratory effort and clear to auscultation bilaterally Cardio regular rate, regular rhythm and no murmurs GI normal to inspection, nondistended, normoactive bowel sounds and non-tender Palpation: soft Back/Spine no CVA tenderness and normal ROM Extremity normal to inspection General Extremety ED: Negative for edema General Extremity: Negative for edema Neuro oriented x3 and CN's II-XII intact bilaterally Sensorium / Orientation: alert Motor Exam: strength 5/5 throughout Psych mental status grossly normal Mood & Affect: Negative for depressed or tearful Skin no rashes or lesions noted and no wounds MDM MDM MDM Narrative Medical decision making narrative: Differential diagnosis includes not limited to urine abuse/addiction liver dysfunction dehydration electrolyte abnormalities withdrawal ED addiction labs will be obtained and reviewed. She is not . She is asked for an HIV test will which will be obtained. I will plan on speaking with the hospitalist regarding admission History & Record Review Discussion w/independent historian: Patient Additional record(s) reviewed:: Prior ED visit and Prior labs Lab Data Attestation: I reviewed the patient's lab results. Labs: Laboratory Results - last 24 hr 12/25/24 13:55 WBC 8.5 RBC 4.16 L Hgb 12.5 Hct 36.7 L MCV 88.2 MCH 30.0 MCHC 34.1 RDW Std Deviation 41.0 RDW Coeff of Sammy 12.7 Plt Count 398 MPV 9.1 Immature Gran % (Auto) 0.200 Neut % (Auto) 50.5 Lymph % (Auto) 37.8 [place] % (Auto) 8.5 Eos % (Auto) 2.3 Baso % (Auto) 0.7 Absolute Neuts (auto) 4.3 Absolute Lymphs (auto) 3.23 Nucleated RBC % 0 Sodium 138 Potassium 4.4 Chloride 102 Carbon Dioxide 23.5 Anion Gap 13 BUN 12 Creatinine 0.65 L Estim Creat Clear Calc 83.87 Est GFR (MDRD) Non-Af 124 BUN/Creatinine Ratio 18.7 Glucose 84 Calcium 9.4 Total Bilirubin 0.53 Direct Bilirubin 0.23 AST 18 ALT 12 Alkaline Phosphatase 159 H Total Protein 7.7 Albumin 4.3 Globulin 3.4 Serum , Qual NEGATIVE Urine Opiates Screen NEGATIVE U Buprenorphine Qual NEGATIVE Ur Oxycodone Screen NEGATIVE Urine Methadone Screen NEGATIVE Urine Fentanyl Screen PRESUMPTIVE POSITIVE Ur Barbiturates Screen NEGATIVE Ur Phencyclidine Scrn NEGATIVE Ur Amphetamines Screen PRESUMPTIVE POSITIVE U Benzodiazepines Scrn NEGATIVE Urine Cocaine Screen NEGATIVE U Cannabinoids Screen PRESUMPTIVE POSITIVE Ethyl Alcohol < 10.1 HIV 1&2 Antibody Nonreactive Management Discussion w/another healthcare provider: Hospitalist Discharge Plan Dx/Rx/DC Orders Clinical Impression: Active intravenous drug use, Opiate addiction Disposition Disposition: Acute Care Hospital [facility]
--- NOTE | 2024-12-25 14:44 | HP.PCM.HOS_ITS ---
HPI - General General Date of Admission: 12/25/24 Date of Service: 12/25/24 Chief Complaint: Opiate detox HPI Narrative CHRISTINA WOOTEN, is a 24 F who presented to [facility] ED on 12/25/2024 for opiate detox. History of IV heroin use, last used was yesterday. Has been through opiate detox in the past, last time here was back in 2022. Noted that she had been clean for some time but recently started using again. Does not have custody of her children would like to get clean to help with the process of getting access to her children. Reports history of hepatitis C but has not gotten treatment for this because she has not been clean for long enough. Hemodynamically stable on room air in the ED. CBC and CMP unremarkable. Given desire for detox, hospitalist was contacted for admission. I saw the patient at bedside in the ED. She was mildly sedated appearing and appeared to be falling asleep at times during my short encounter with her. She otherwise denied significant withdrawal symptoms currently. Will be admitted for further management. [facility] Medical History (Updated 12/25/24 @ 22:[address] Moises Jenkins DO) Substance abuse Alcohol abuse Depression Smoker Tobacco abuse Drug abuse depression Hepatitis Depression Anxiety Headache Seizures Home Medications ?Medication ?Instructions ?Recorded ?Last Taken ?Type NK 03/09/23 Unknown History Allergy/AdvReac Type Severity Reaction Status Date / Time sulfamethoxazole (From AdvReac Vomiting Verified 03/09/23 20:57 Bactrim) trimethoprim (From Bactrim) AdvReac Vomiting Verified 03/09/23 20:57 Family History Other Cancer Social History household members: children housing: homeless Smoking Status: Current every day smoker tobacco type: cigarettes and e- cigarettes substance use type: other details: Drug by her captive ROS Constitutional Constitutional: Reports fatigue; Denies chills, fever(s) or weakness Eyes Eyes: Denies change in vision Cardiovascular Cardiovascular: Denies chest pain Respiratory/Chest Respiratory/Chest: Denies shortness of breath at rest Gastrointestinal Gastrointestinal: Denies abdominal pain Musculoskeletal Musculoskeletal: Denies arthralgias or myalgias Vital Signs Vital Signs Vital Signs: 12/25/24 12:37 Temperature 97.7 F L Temperature Source Temporal Pulse Rate 94 Respiratory Rate 18 Blood Pressure 132/95 H Blood Pressure Mean 107 Pulse Ox 98 Oxygen Delivery Method Room Air Weight Weight: 40.506 kg Body Mass Index (BMI) 16.8 Physical Exam Const alert, oriented x3 and no apparent distress Constitutional Narrative: Younger female, thin and cachectic appearing, mildly sedated appearing, otherwise sitting back comfortably in bed, answering questions with short appropriate responses, in no acute distress. General Appearance: cooperative and comfortable HEENT normocephalic, head/scalp atraumatic, hearing grossly normal bilaterally, nasal mucous membranes and turbinates normal and moist oral mucous membranes Eyes PERRL, EOMs intact bilaterally and conjunctivae normal Neck full ROM Chest inspection of chest normal Resp normal respiratory effort, normal air movement, no use of accessory muscles and clear to auscultation bilaterally Cardio regular rate, regular rhythm, no murmurs and peripheral pulses 2+ throughout GI normal to inspection, nondistended, normoactive bowel sounds, soft to palpation, non-tender and non-distended Back/Spine normal ROM Extremity normal to inspection, full ROM and no pedal edema Skin no rashes or lesions noted Psych mental status grossly normal Results Lab / Micro Data 12/25/24 13:55 12/25/24 13:55 Labs: Laboratory Results - last 24 hr 12/25/24 13:55: WBC 8.5, RBC 4.16 L, Hgb 12.5, Hct 36.7 L, MCV 88.2, MCH 30.0, MCHC 34.1, RDW Std Deviation 41.0, RDW Coeff of Sammy 12.7, Plt Count 398, MPV 9.1, Immature Gran % (Auto) 0.200, Neut % (Auto) 50.5, Lymph % (Auto) 37.8, Person % (Auto) 8.5, Eos % (Auto) 2.3, Baso % (Auto) 0.7, Absolute Neuts (auto) 4.3, Absolute Lymphs (auto) 3.23, Nucleated RBC % 0, Serum , Qual NEGATIVE Assessment & Plan Assessment/Plan (1) Opiate abuse, continuous: (2) Desire for detoxification: PLAN: Plan Patient is a 24-year-old female who presented to [facility] ED on 12/25/24 for opiate detox. 1. Opiate abuse with desire for detoxification ? Admit under inpatient status to [facility]. Case management consulted. History of IV heroin abuse, last use 1 day prior to admission. Will treat with Subutex taper and other as needed medications per opiate withdrawal order set. 2. History of hepatitis C ? Reported history of hepatitis C, has not gotten treatment as she has not been clean for long enough. LFTs normal on admit. No inpatient needs, recommend close outpatient follow-up. 3. Anxiety/depression ? Not on any medications. Recommend outpatient follow-up. DVT prophylaxis: Lovenox CODE STATUS: Full code, verified Expected disposition: TBD Total clinical time spent by myself addressing the patient's medical issues, reviewing all the data, and collaborating with patient's care team: 55 minutes. Charges/Coding Visit Charges Inpatient E&M: 65901 Init Hosp L2
--- NOTE | 2024-12-25 14:53 | CM.ED ---
Social work Reason for referral: lack of PCP and insurance Referral source: case find SW identified patient's lack of PCP and insurance. SW entered patient's room, introducing self and role at [facility]. Patient acknowledged SW presence, but patient was unable to voice understanding what SW was referring to. Patient was left resources of how to apply for Medicaid, [facility] Provider Directory, and Eunice Mcdaniels information. Handoff to acute SW team will be done with resources given to patient. Cary Zaldivar, A[employer]OB[employer]IC RIGGER, HEALTHCARE PROF
[2024-12-25 14:55] LABS: Amphetamine Urine PRESUMPTIVE POSITIVE (<1000 ng/mL); Barbiturate Urine NEGATIVE (< 200 ng/mL); Benzodiazepine Urine NEGATIVE (< 200 ng/mL); Buprenorphine Urine NEGATIVE (< 200 ng/mL); Cocaine Urine NEGATIVE (< 300 ng/mL); Fentanyl, Urine PRESUMPTIVE POSITIVE; Methadone Urine NEGATIVE (< 300 ng/mL); Opiates Urine NEGATIVE (< 300 ng/mL); Oxycodone, Urine NEGATIVE (< 100 ng/mL); PCP Urine NEGATIVE (< 25 ng/mL); THC Urine PRESUMPTIVE POSITIVE (< 50 ng/mL)
[2024-12-25 14:59] LABS: Alcohol, Blood (Medical)-Serum < 10.1 mg/dL (<=10.0)
[2024-12-25 15:00] VITALS: BP 106/86; PULSE 76; RESP 18; TEMP 36.5; O2SAT 97
[2024-12-25 15:01] LABS: AST(SGOT) 18 U/L (<=31); Alanine Aminotransfer ALT/SGPT 12 U/L (<=34); Albumin, Serum 4.3 g/dL (3.5-5.0); Alkaline Phosphatase 159 U/L (35-104); Anion Gap 13 (5-15); BUN 12 mg/dL (4-19); BUN/Creat Ratio 18.7 RATIO (10-20); Bilirubin, Direct 0.23 mg/dL (0.00-0.30); Calcium,Total 9.4 mg/dL (7.6-11.0); Carbon Dioxide 23.5 mmol/L (21.0-32.0); Chloride 102 mmol/L (98-108); Creatinine, Serum 0.65 mg/dL (0.70-1.20); EST Glomerular Filtration Rate 124 (>60); Estimated Creatinine Clearance 83.87 ml/min (50-250); Globulin 3.4 g/dL (2.2-4.2); Glucose 84 mg/dL (70-99); HIV Nonreactive (Nonreactive); Potassium 4.4 mmol/L (3.3-5.1); Protein, Total 7.7 g/dL (5.9-8.4); Sodium Level 138 mmol/L (133-145); Total Bilirubin 0.53 mg/dL (0.00-1.30)
[2024-12-25 15:59] VITALS: BMI 16.3
[2024-12-25] MEDS: Gabapentin 300 MG Capsule PO (17:59)
[2024-12-25] MEDS: Methocarbamol 750 MG Tablet PO (17:59)
[2024-12-25] MEDS: Ondansetron 8 MG Tablet PO (17:59)
[2024-12-25] MEDS: Ensure Plus High Protein 120 ML LIQUID PO ×2 (17:59→22:22)
[2024-12-25 18:01] VITALS: BP 99/64; PULSE 67; RESP 16; TEMP 36.4; O2SAT 97
[2024-12-25 22:12] VITALS: BP 99/52; PULSE 61; RESP 16; TEMP 36.4; O2SAT 100
--- OUTSIDE RECORDS SUMMARY | 2024-12-26 00:08 | XMS RPT_ITS | CCD ---
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 sources) Lack of access to transportation; Translations: [Lack of access to transportation] Onset: 05-27-2020 05-27-2020 Episodic Screening and history of mental health and substance abuse codes (11 sources) H/O: depression; Translations: [Personal history of other mental and behavioral disorders] Onset: 05-27-2020 05-27-2020 Episodic Results Test Name Value Interpretation Reference Range Facility Absolute lymphocyte countOrd ered By: Nawaf Ortega on 12-25-2024 Lymphocytes Auto (Unsp spec) [#/Vol] 3.23 10*3/uL 0.83-4.51 [facility] Absolute neutrophil countOrd ered By: Nawaf Ortega on 12-25-2024 Neutrophils (Bld) [#/Vol] 4.3 10*3/uL 2.0-7.7 [facility] Amphetamine detection with 1 000 ng/mL as cutoffOrdered By: Nawaf Ortega on 12-25-2024 Amphetamines Screen method >1000 ng/mL Ql (U) Positive <1000 ng/mL [facility] Comment on above: If confirmation test ing is needed, a separate order will be required to send out testing to the reference laboratory. Amphetamines Screen method >1000 ng/mL Ql (U) Negative < 200 ng/mL [facility] Anion gap in Serum or Plasma Ordered By: Nawaf Ortega on 12-25-2024 Anion gap [Moles/Vol] 13 mmol/L 5-15 [facility] Automated lymphocyte count a s percentage of total leukocytesOrdered By: Nawaf Ortega on 12-25-2024 Lymphocytes/100 WBC Auto (Unsp spec) 37.8 % 19- [facility] BUN/creatinine ratioOrdered By: Nawaf Ortega on 12-25-2024 Urea nitrogen/Creatinine [Mass ratio] 18.7 mg/mg 10-20 [facility] Basophil percentageOrdered B y: Nawaf Ortega on 12-25-2024 Basophils/100 WBC (Bld) 0.7 % 0-1 [facility] Bilirubin directOrdered By: Nawaf Ortega on 12-25-2024 Bilirubin.direct [Mass/Vol] 0.23 mg/dL 0.00-0.30 [facility] Bilirubin, totalOrdered By: Nawaf Ortega on 12-25-2024 Bilirubin [Mass/Vol] 0.53 mg/dL 0.00-1.30 [facility] Carbon dioxide, total [Moles /volume] in Central venous bloodOrdered By: Nawaf Ortega on 12-25-2024 CO2 [Moles/Vol] 23.5 mmol/L 21.0-32.0 [facility] Chloride assayOrdered By: Jaswinder Ortega on 12-25-2024 Chloride [Moles/Vol] 102 mmol/L 98-108 [facility] Eosinophil percentageOrdered By: Nawaf Ortega on 12-25-2024 Eosinophils/100 WBC (Bld) 2.3 % 0-5 [facility] Erythrocyte distribution wid th ratioOrdered By: Nawaf Ortega on 12-25-2024 Erythrocyte distribution width (RBC) [Ratio] 12.7 % 11.6-14.6 [facility] Erythrocyte distribution wid th standard deviationOrdered By: Nawaf Ortega on 12-25-2024 Erythrocyte distribution width (RBC) [Ratio] 41.0 fl 35.1-43.9 [facility] Glomerular filtration rate ( GFR) estimation/1.73 sq m using serum, plasma, or whole bOrdered By: Nawaf Ortega on 12-25-2024 GFR/1.73 sq M.predicted among non-blacks MDRD (S/P/Bld) [Vol rate/Area] 124 mL/min/{1.73_m2} >60 [facility] Comment on above: mL/min/1.73m2 CKD-EP I Creatinine Equation (2020) Hematocrit Auto (Bld) [Volum e fraction]Ordered By: Nawaf Ortega on 12-25-2024 Hematocrit (Bld) [Volume fraction] 36.7 % Low 37-47 [facility] Hemoglobin measurementOrdere d By: Nawaf Ortega on 12-25-2024 Hemoglobin (Bld) [Mass/Vol] 12.5 g/dL 12.0-15.0 [facility] Immature granulocytes/100 WB C Auto (Bld)Ordered By: Nawaf Ortega on 12-25-2024 Immature granulocytes/100 WBC (Bld) 0.200 % 0.0-0.9 [facility] Comment on above: IG% - Immature Granu locytes (promyelocytes, myelocytes and metamyelocytes) > 1% indicates that a LEFT SHIFT is Present. Laboratory - Chemistry and C hemistry - challengeOrdered By: Nawaf Ortega on 12-25-2024 AST [Catalytic activity/Vol] 18 U/L <32 [facility] MCV (mean corpuscular volume ) determinationOrdered By: Nawaf Ortega on 12-25-2024 MCV (RBC) [Entitic vol] 88.2 fL 81-99 [facility] Mean corpuscular hemoglobin (MCH) determinationOrdered By: Nawaf Ortega on 12-25-2024 MCH (RBC) [Entitic mass] 30.0 pg 27.0-32.0 [facility] Mean corpuscular hemoglobin concentration (MCHC) determinationOrdered By: Nawaf Ortega on 12-25-2024 MCHC (RBC) [Mass/Vol] 34.1 g/dL 32-36 [facility] Mean platelet volume determi nationOrdered By: Nawaf Ortega on 12-25-2024 Platelet mean volume (Bld) [Entitic vol] 9.1 fL 6.2-12.0 [facility] Monocyte percentageOrdered B y: Nawaf Ortega on 12-25-2024 Monocytes/100 WBC (Bld) 8.5 % 0-10 [facility] Neutrophil percentageOrdered By: Nawaf Ortega on 12-25-2024 Neutrophils/100 WBC (Bld) 50.5 % 47-70 [facility] No Panel InformationOrdered By: Nawaf Ortega on 12-25-2024 HIV (1&2) Antibody Non-Reactive Nonreactive [facility] Comment on above: Non-ReactiveReactive Repeatedly reactive samples must be confirmed according to CDC recommended confirmatory algorithms. The subresults for either HIVAG or AHIV can be used as an aid in the selection of the confirmation algorithm for reactive samples.Send out specimens with Reactive results to [facility] for confirmation.Order the HIV antibody detection and differentiation: #[id number] Urine Buprenorphine Qualitative Negative < 200 ng/mL [facility] Urine Oxycodone Screen Negative < 100 ng/mL [facility] Nucleated red blood cell per centageOrdered By: Nawaf Ortega on 12-25-2024 Nucleated RBC/100 WBC (Bld) [Ratio] 0 % 0-5 [facility] Platelet countOrdered By: Jaswinder Ortega on 12-25-2024 Platelets (Bld) [#/Vol] 398 10*3/uL 150-450 [facility] Potassium measurement (mass/ volume)Ordered By: Nawaf Ortega on 12-25-2024 Potassium (Unsp spec) [Mass/Vol] 4.4 mmol/L 3.3-5.1 [facility] Quantitative urine opiates m easurementOrdered By: Nawaf Ortega on 12-25-2024 Opiates Ql (U) Negative < 300 ng/mL [facility] RBC Auto (Bld) [#/Vol]Ordere d By: Nawaf Ortega on 12-25-2024 RBC (Bld) [#/Vol] 4.16 10*6/uL Low 4.2-5.4 [facility] Screening urine fentanyl evelin surementOrdered By: Nawaf Ortega on 12-25-2024 fentaNYL Screen Ql (U) Positive [facility] Comment on above: If confirmation test ing is needed, a separate order will be required to send out testing to the reference laboratory. Serum beta-hCG test, qualita tiveOrdered By: Nawaf Ortega on 12-25-2024 Beta HCG ( test) Ql Negative [facility] Serum creatinine measurement (mass/volume)Ordered By: Nawaf Ortega on 12-25-2024 Creatinine [Mass/Vol] 0.65 mg/dL Low 0.70-1.20 [facility] Serum globulin measurementOr dered By: Nawaf Ortega on 12-25-2024 Globulin (S) [Mass/Vol] 3.4 g/dL 2.2-4.2 [facility] Serum glucose measurement (m ass/volume)Ordered By: Nawaf Ortega on 12-25-2024 Glucose [Mass/Vol] 84 mg/dL 70-99 [facility] Serum or plasma alanine helms otransferase (ALT) measurementOrdered By: Nawaf Ortega on 12-25-2024 ALT [Catalytic activity/Vol] 12 U/L <35 [facility] Serum or plasma albumin thompson urement (mass/volume)Ordered By: Nawaf Ortega on 12-25-2024 Albumin [Mass/Vol] 4.3 g/dL 3.5-5.0 [facility] Serum or plasma alkaline george sphatase measurementOrdered By: Nawaf Ortega on 12-25-2024 ALP [Catalytic activity/Vol] 159 U/L High 35-104 [facility] Serum or plasma calcium thompson urement (mass/volume)Ordered By: Nawaf Ortega on 12-25-2024 Calcium [Mass/Vol] 9.4 mg/dL 7.6-11.0 [facility] Serum or plasma ethanol thompson urement (mass/volume)Ordered By: Nawaf Ortega on 12-25-2024 Ethanol [Mass/Vol] mg/dL <10.1 [facility] Comment on above: This test is for med ical purposes only. The legal definition of intoxication varies according to local law. Serum or plasma urea nitroge n measurement (mass/volume)Ordered By: Nawaf Ortega on 12-25-2024 Urea nitrogen [Mass/Vol] 12 mg/dL 4-19 [facility] Sodium levelOrdered By: Prince Ortega on 12-25-2024 Sodium [Moles/Vol] 138 mmol/L 133-145 [facility] Total proteinOrdered By: Osman Ortega on 12-25-2024 Protein [Mass/Vol] 7.7 g/dL 5.9-8.4 [facility] Urine benzodiazepine levelOr dered By: Nawaf Ortega on 12-25-2024 Benzodiazepines Ql (U) Negative < 200 ng/mL [facility] Urine cocaine levelOrdered B y: Nawaf Ortega on 12-25-2024 Cocaine Ql (U) Negative < 300 ng/mL [facility] Urine zpfro-8-balcmabycxuavg abinol (THC) measurementOrdered By: Nawaf Ortega on 12-25-2024 Cannabinoids Screen Ql (U) Positive < 50 ng/mL [facility] Comment on above: If confirmation test ing is needed, a separate order will be required to send out testing to the reference laboratory. Urine phencyclidine (PCP) de tectionOrdered By: Nawaf Ortega on 12-25-2024 Phencyclidine Ql (U) Negative < 25 ng/mL [facility] White blood cell (WBC) count Ordered By: Nawaf Ortega on 12-25-2024 WBC (Bld) [#/Vol] 8.5 10*3/uL 4.4-11.0 [facility]ELYSEGYDerrickM[facility] RADHA LITTLE ([id number]) 2000 F Date Time Provider Department 09/20/24 KAREN PULLIAM During your visit today, we recorded the following information about you: Theresa Jones RN 09/20/2024 2:10 PM Signed Please see OB update encounter from 09/20/24. BENIGNO Alaniz Erin, DIE SINKER APPRENTICE 09/20/2024 2:17 PM Signed Thank you for the update. Allergies As of Date: 09/20/2024 Noted Allergy Reaction BACTRIM (SULFAMETHOXAZOLE-TRIME TH*06/19/2020 8 - GI Upset environmental [Other] 03/28/2006 Comments: seasonal allergies Date Reviewed: 09/12/2024 Reviewed by: Juan Miguel Ramos MA - Fully Assessed Prescriptions as of 09/25/2024 - vit no.124/iron/folic ( VITAMIN ORAL) Take by mouth. - pantoprazole DR (PROTONIX) 20 mg tablet Take 1 tablet by mouth once daily. Problem List As Of Date 09/20/2024 Noted Resolved Lives in homeless group home [Z59.01] 05/27/2020 with care elsewhere, antepar*05/27/2020 09/12/2024 History of depression [Z86.59] 05/27/2020 History of seizures as a child [Z86.69] 05/27/2020 09/12/2024 History of drug abuse (HCC) [F19.11] 05/27/2020 Lack of access to transportation [Z59.82] 05/27/2020 History of kidney stones [Z87.442] 05/27/2020 09/12/2024 Tobacco use during , antepartum [O99.3*05/27/2020 Nausea and vomiting in [O21.9] 05/27/2020 09/12/2024 History of hepatitis C [Z86.19] 05/27/2020 05/27/2020 Chronic hepatitis C affecting , antepa*05/27/2020 Dental caries [K02.9] 10/22/2020 Poor dentition [K08.9] 10/24/2020 History of substance use [Z87.898] 09/12/2024 Late care affecting in secon*09/12/2024 Lost custody of children [Z65.3] 09/12/2024 34 weeks gestation of [Z3A.34] 09/12/2024 Encounter for supervision of high risk pregnanc*09/12/2024 Encounter Status:Closed by THERESA JONES on 09/25/24 Normal [facility] Final Surgical Pathology Rep tulio 09-20-2024 Final Surgical Pathology Report . Pathology Reports Accession: Collected Date/Time: Received Date/Time: Pathologist: [id number] 09/17/2024 18:45 EDT 09/19/2024 07:11 EDT NAWAF MCKINNEY MD Final Surgical Pathology Report DIAGNOSIS: PLACENTA: - THIRD-TRIMESTER PLACENTA WITHOUT SIGNIFICANT MICROSCOPIC PATHOLOGY CLINICAL INFORMATION: POSSIBLE PLACENTAL ABRUPTION? Procedure: VAGINAL DELIVERY Preoperative diagnosis: INTRAUTERINE , ACTIVE LABOR Postoperative diagnosis: SPONTANEOUS DELIVERY MALE INFANT SPECIMEN: A PLACENTA GROSS DESCRIPTION: All parts labelled with patient name and [id number] Received in formalin labelled placenta is a stewart placenta weighing 449 g and measuring 14 x 14 x 2.7 cm. The 3 vessel umbilical cord inserts 2.5 cm to the nearest placental margin, measures 15 cm long, and 1.2 cm diameter. Extraplacental membranes are lazar-leyva, opaque and inserting at the placental margin. The surface is purple-blue with arborizing vasculature. The maternal surface is red-brown with intact lobulations with white specks. On cut section the disc is red-brown, soft and spongy with no identified areas of hemorrhage, lesion or adherent blood clots with compressed parenchyma. Medical Care Administrator sections are submitted-3 Jose Juan Jackson, Pathologists' Community Health Program Representative (ASCP) Performed by JOSE JUAN JACKSON MICROSCOPIC DESCRIPTION: The microscopic examination is performed, except in the case of Gross Only. Verified by Pathology Report verified by [facility] NAWAF MCKINNEY Sign out Date: 09/20/2024 14:29 Performing Lab: [facility], [address] [place] [address] Pathology Dept Disclaimer If ancillary studies were utilized, the following Laboratory Developed Test (LDT) disclaimer will apply: Under CLIA requirements, [facility] Pathology Laboratory is qualified to perform high complexity testing. For all ancillary stains, positive and negative controls stain appropriately. Performance characteristics of immunohistochemical and chromogenic in-situ hybridization tests have been determined by [facility] Pathology Laboratory. These tests are used for clinical purposes, They should not be regarded as investigational or for research. . Normal [facility] RPRon 09-19-2024 Reagin Ab RPR Ql (S) Non-Reactive Normal Non-Reactive [facility] Comment on above: Result Comment: The RPR test is a non-treponemal assay useful as an aid in the diagnosis of primary and secondary syphilis. It converts to positive generally within 2 weeks after the appearance of a lesion. This test is also useful for monitoring response to antibiotic therapy. A positive RPR screening test will be followed by the FTA ABS test. False positive RPR tests may occur in 1) patients with underlying autoimmune disorders, 2) elderly patients, 3) , and 4) other conditions with abnormal serum globulins. Performed By: #### F , #### [address] [address] RUBISon 09-19-[address] Positive Normal Positive [facility] Comment on above: Result Comment: This immune status assay detects IgM and/or IgG antibody to Rubella. Interpret results in conjunction with clinical history. POS: Antibody detected; exposure at undetermined recent or distant time. If clinically indicated, order Rubella IGM to rule out recent infection. NEG: No antibody detected. Performed By: #### F , #### [address] Positive Normal Positive [facility] Comment on above: Result Comment: This immune status assay detects IgM and/or IgG antibody to Rubella. Interpret results in conjunction with clinical history. POS: Antibody detected; exposure at undetermined recent or distant time. If clinically indicated, order Rubella IGM to rule out recent infection. NEG: No antibody detected. Performed By: #### R UBIS #### [facility] [address] [place] [id number] .Auto Diffon 09-18-2024 Basophil, Absolute 0.0 10 3/mcL Normal 0.0-0.2 [facility] Comment on above: Performed By: #### F , #### [address] [address] Basophils/100 WBC (Bld) 0.5 % Normal 0.0-2.5 [facility] Comment on above: Performed By: #### F , #### [address] [address] Eosinophil, Absolute 0.1 10 3/mcL Normal 0.0-0.7 [facility] Comment on above: Performed By: #### F , #### [address] [address] Eosinophils/100 WBC (Bld) 0.5 % Normal 0.0-7.0 [facility] Comment on above: Performed By: #### F , #### [address] [address] Lymphocyte, Absolute 1.6 10 3/mcL Normal 0.9-4.3 [facility] Comment on above: Performed By: #### F , #### [address] [address] Lymphocytes/100 WBC (Bld) 17.6 % Low 20.0-40.0 [facility] Comment on above: Performed By: #### F , #### [address] [address] Monocyte, Absolute 0.6 10 3/mcL Normal 0.1-1.4 [facility] Comment on above: Performed By: #### F , #### [address] [address] Monocytes/100 WBC (Bld) 7.0 % Normal 2.0-13.0 [facility] Comment on above: Performed By: #### F , #### [address] [address] Neutrophils/100 WBC (Bld) 74.4 % Normal 50.0-75.0 [facility] Comment on above: Performed By: #### F , #### [address] [address] .NEUABSon 09-18-2024 Neutrophil, Absolute 6.8 10 3/mcL Normal 2.3-8.1 [facility] Comment on above: Performed By: #### F , #### [address] [address] ABO/Rh (Gel)on 09-18-2024 ABO/Rh Interp Negative Invalid Interpretation Code [facility] Comment on above: Performed By: #### F , HH #### [address] [address] ABS (Gel)on 09-18-2024 ABSC Interp (Gel) Negative Normal [facility] Comment on above: Performed By: #### F , HH #### [address] [address] CBCon 09-18-2024 Erythrocyte distribution width (RBC) [Ratio] 14.3 % Normal 11.5-15.5 [facility] Comment on above: Performed By: #### F , #### [address] [address] Hematocrit (Bld) [Volume fraction] 31.7 % Low 34.0-46.0 [facility] Comment on above: Performed By: #### F , #### [address] [address] Hgb 11.1 G/dL Low 12.0-16.0 [facility] Comment on above: Performed By: #### F , HH #### [address] [address] MCH (RBC) [Entitic mass] 32.5 pg Normal 27.0-33.0 [facility] Comment on above: Performed By: #### F , HH #### [address] [address] MCHC 35.0 G/dL Normal 32.0-36.0 [facility] Comment on above: Performed By: #### F , HH #### [address] [address] MCV (RBC) [Entitic vol] 92.8 fL Normal 80.0-99.0 [facility] Comment on above: Performed By: #### F , #### [address] [address] Platelet 287 10 3/mcL Normal 150-450 [facility] Comment on above: Performed By: #### F , HH #### [address] [address] Platelet mean volume (Bld) [Entitic vol] 7.7 fL Normal 6.6-10.5 [facility] Comment on above: Performed By: #### F , HH #### [address] [address] RBC 3.42 10 6/mcL Low 4.10-5.30 [facility] Comment on above: Performed By: #### F , #### [address] [address] WBC 9.1 10 3/mcL Normal 4.5-10.8 [facility] Comment on above: Performed By: #### F , #### [address] [address] DRUGUon 09-18-2024 Amphetamine (u) Negative Normal Negative [facility] Comment on above: Order Comment: Pleas e send previously collected urine in [facility] lab to [facility] for a complete urine drug screen. Thank you. Performed By: #### F , #### [address] [address] Barbiturate (u) Negative Normal Negative [facility] Comment on above: Order Comment: Pleas e send previously collected urine in [place] lab to [facility] for a complete urine drug screen. Thank you. Performed By: #### F , #### [address] [address] Benzodiazepine (u) Negative Normal Negative [facility] Comment on above: Order Comment: Pleas e send previously collected urine in [facility] lab to [facility] for a complete urine drug screen. Thank you. Performed By: #### F , #### [address] [address] Cannabinoid (u) Positive Abnormal Negative [facility] Comment on above: Order Comment: Pleas e send previously collected urine in [facility] lab to [facility] for a complete urine drug screen. Thank you. Performed By: #### F , #### [address] [address] Cocaine Ql (U) Negative Normal Negative [facility] Comment on above: Order Comment: Pleas e send previously collected urine in [facility] lab to [facility] for a complete urine drug screen. Thank you. Performed By: #### F , #### [address] [address] Fentanyl (u) Positive Abnormal Negative [facility] Comment on above: Order Comment: Pleas e send previously collected urine in [facility] to [facility] for a complete urine drug screen. Thank you. Result Comment: Test ing has been performed FOR MEDICAL PURPOSES ONLY. Performed By: #### F , #### [address] [address] Methadone Ql (U) Negative Normal Negative [facility] Comment on above: Order Comment: Pleas e send previously collected urine in [facility] lab to [facility] for a complete urine drug screen. Thank you. Performed By: #### F , #### [address] [address] Opiate (u) Negative Normal Negative [facility] Comment on above: Order Comment: Pleas e send previously collected urine in [facility] lab to [facility] for a complete urine drug screen. Thank you. Performed By: #### F , #### [address] [address] Oxycodone (u) Negative Normal Negative [facility] Comment on above: Order Comment: Pleas e send previously collected urine in [facility] to [facility] for a complete urine drug screen. Thank you. Result Comment: Test ing has been performed FOR MEDICAL PURPOSES ONLY. Performed By: #### F , #### [place] [address] PCP (u) Negative Normal Negative [facility] Comment on above: Order Comment: Arvin mcconnell send previously collected urine in [facility] lab to [facility] for a complete urine drug screen. Thank you. Performed By: #### F , #### [place] [address] Propoxyphene (u) Negative Normal Negative [facility] Comment on above: Order Comment: Pleas e send previously collected urine in [facility] to [facility] for a complete urine drug screen. Thank you. Performed By: #### F , #### [place] [address] U pH Drug Scrn 9.0 High 5.0-8.0 [facility] Comment on above: Order Comment: Pleashley e send previously collected urine in [facility] lab to [facility] for a complete urine drug screen. Thank you. Result Comment: The pH is outside the normal reference range. Results may be affected and, therefore, recollection may be indicated. Performed By: #### F , #### [place] [address] Urine Drugs screened: See Below Normal L [facility] Comment on above: Order Comment: Arvin e send previously collected urine in [facility] lab to [facility] for a complete urine drug screen. Thank you. Result Comment: This drug screen is a presumptive screening only. No confirmation will be performed unless requested. Drugs screened include: Threshold Amphetamines/Methamphetamines 1,000 ng/mL Barbiturates 200 ng/mL Benzodiazepine metabolites 200 ng/mL Cannabinoids (THC metabolites) 50 ng/mL Benzoylecognine (Cocaine metab) 300 ng/mL Opiates 300 ng/mL Phencyclidine (PCP) 25 ng/mL Methadone 300 ng/mL Propoxyphene 300 ng/mL Fentanyl 1.0 ng/mL Oxycodone 100 ng/mL Testing has been performed FOR MEDICAL PURPOSES ONLY. Performed By: #### F , #### [place] [id number] FMHon 09-18-2024 Mat. Hemorrhage Negative Normal [facility] Comment on above: Performed By: #### F , #### [address] [address] HBSAGon 09-18-2024 Hep B Surf Ag Non-Reactive Normal Non-Reactive [facility] Comment on above: Performed By: #### F , #### [address] [address] HHon 09-18-2024 Hematocrit (Bld) [Volume fraction] 29.7 % Low 34.0-46.0 [facility] Comment on above: Performed By: #### F , #### [place] [id number] Hgb 10.6 G/dL Low 12.0-16.0 [facility] Comment on above: Performed By: #### F , #### [place] [id number] RPRon 09-18-2024 Reagin Ab RPR Ql (S) Non-Reactive Normal Non-Reactive [facility] Comment on above: Result Comment: The RPR test is a non-treponemal assay useful as an aid in the diagnosis of primary and secondary syphilis. It converts to positive generally within 2 weeks after the appearance of a lesion. This test is also useful for monitoring response to antibiotic therapy. A positive RPR screening test will be followed by the FTA ABS test. False positive RPR tests may occur in 1) patients with underlying autoimmune disorders, 2) elderly patients, 3) , and 4) other conditions with abnormal serum globulins. Performed By: #### A EDITH STANFORD, ABSORTIZ, CAMMY, CBC #### [place] [address] #### RPR #### [facility] [address] [place] [id number] .Auto Diffon 09-17-2024 Basophil, Absolute 0.1 10 3/mcL Normal 0.0-0.2 [facility] Comment on above: Performed By: #### A BOGEL, ANEU, ABSGEL, ADIFF, CBC #### [place] [address] #### RPR #### [address] [address] Basophils/100 WBC (Bld) 0.9 % Normal 0.0-2.5 [facility] Comment on above: Performed By: #### A BOGEL, ANEU, ABSGEL, ADIFF, CBC #### [place] [address] #### RPR #### [address] [address] Eosinophil, Absolute 0.1 10 3/mcL Normal 0.0-0.7 [facility] Comment on above: Performed By: #### A BOGEL, ANEU, ABSGEL, ADIFF, CBC #### [place] [address] #### RPR #### [address] [address] Eosinophils/100 WBC (Bld) 0.4 % Normal 0.0-7.0 [facility] Comment on above: Performed By: #### A BOGEL, ANEU, ABSGEL, ADIFF, CBC #### [place] [address] #### RPR #### [address] [address] Lymphocyte, Absolute 2.3 10 3/mcL Normal 0.9-4.3 [facility] Comment on above: Performed By: #### A BOGEL, ANEU, ABSGEL, ADIFF, CBC #### [place] [address] #### RPR #### [address] [address] Lymphocytes/100 WBC (Bld) 13.4 % Low 20.0-40.0 [facility] Comment on above: Performed By: #### A BOGEL, ANEU, ABSGEL, ADIFF, CBC #### [address] [address] #### RPR #### [address] [address] Monocyte, Absolute 1.1 10 3/mcL Normal 0.1-1.4 [facility] Comment on above: Performed By: #### A HIEN ANEU, ABSGEL, ADIFF, CBC #### [place] [address] #### RPR #### [address] [address] Monocytes/100 WBC (Bld) 6.3 % Normal 2.0-13.0 [facility] Comment on above: Performed By: #### A HIEN ANEU, ABSGEL, ADIFF, CBC #### [place] [address] #### RPR #### [address] [address] Neutrophils/100 WBC (Bld) 79.0 % High 50.0-75.0 [facility] Comment on above: Performed By: #### A HIEN ANEU, ABSGEL, ADIFF, CBC #### [place] [address] #### RPR #### [address] [address] .NEUABSon 09-17-2024 Neutrophil, Absolute 13.3 10 3/mcL High 2.3-8.1 [facility] Comment on above: Performed By: #### A BOGEL, ANEU, ABSGEL, ADIFF, CBC #### [place] [address] #### RPR #### [address] [address] ABO/Rh (Gel)on 09-17-2024 ABO/Rh Interp Negative Invalid Interpretation Code [facility] Comment on above: Performed By: #### A BOGEL ANEU, ABSGEL, ADIFF, CBC #### [place] [id number] #### RPR #### [place] [address] ABS (Gel)on 09-17-2024 ABSC Interp (Gel) Negative Normal [facility] Comment on above: Performed By: #### A EDITH STANFORD, ABSGEL, ADIFF, CBC #### [place] [address] #### RPR #### [place] [address] CBCon 09-17-2024 Erythrocyte distribution width (RBC) [Ratio] 13.9 % Normal 11.5-15.5 [facility] Comment on above: Performed By: #### A EDITH STANFORD, ABSGEL, ADIFF, CBC #### [place] [address] #### RPR #### [place] [address] Hematocrit (Bld) [Volume fraction] 32.2 % Low 34.0-46.0 [facility] Comment on above: Performed By: #### A EDITH STANFORD, ABSGEL, ADIFF, CBC #### [place] [address] #### RPR #### [place] [address] Hgb 11.4 G/dL Low 12.0-16.0 [facility] Comment on above: Performed By: #### A EDITH STANFORD, ABSGEL, ADIFF, CBC #### [place] [address] #### RPR #### [place] [address] MCH (RBC) [Entitic mass] 32.1 pg Normal 27.0-33.0 [facility] Comment on above: Performed By: #### A EDITH STANFORD, ABSGEL, ADIFF, CBC #### [place] [address] #### RPR #### [place] [address] MCHC 35.3 G/dL Normal 32.0-36.0 [facility] Comment on above: Performed By: #### A EDITH STANFORD ABSGEL, CAMMY, CBC #### [address] [address] #### RPR #### [place] [address] MCV (RBC) [Entitic vol] 91.0 fL Normal 80.0-99.0 [facility] Comment on above: Performed By: #### A EDITH STANFORD ABSGEL, ADIFF, CBC #### [place] [address] #### RPR #### [place] [address] Platelet 318 10 3/mcL Normal 150-450 [facility] Comment on above: Performed By: #### A EDITH STANFORD ABSGEL, PARAMJITIFF, CBC #### [place] [address] #### RPR #### [place] [address] Platelet mean volume (Bld) [Entitic vol] 7.7 fL Normal 6.6-10.5 [facility] Comment on above: Performed By: #### A EDITH STANFORD ABSGEL, CAMMY, CBC #### [place] [address] #### RPR #### [place] [address] RBC 3.54 10 6/mcL Low 4.10-5.30 [facility] Comment on above: Performed By: #### A EDITH STANFORD ABSGEL, ADIFF, CBC #### [place] [address] #### RPR #### [place] [address] WBC 16.8 10 3/mcL High 4.5-10.8 [facility] Comment on above: Performed By: #### A BOGEL, ANEU, ABSGEL, ADIFF, CBC #### [address] [address] #### RPR #### [facility] [address] [place] [address] UDRUGon 09-17-2024 Amphetamine (u) Negative Normal Negative [facility] Comment on above: Performed By: #### U DRUG #### [address] [address] Barbiturate (u) Negative Normal Negative [facility] Comment on above: Performed By: #### U DRUG #### [address] [address] Benzodiazepine (u) Negative Normal Negative [facility] Comment on above: Performed By: #### U DRUG #### [address] [address] Cannabinoid (u) Positive Abnormal Negative [facility] Comment on above: Performed By: #### U DRUG #### [address] [address] Cocaine Ql (U) Negative Normal Negative [facility] Comment on above: Performed By: #### U DRUG #### [address] [address] Methadone Ql (U) Negative Normal Negative [facility] Comment on above: Performed By: #### U DRUG #### [address] [address] Opiate (u) Negative Normal Negative [facility] Comment on above: Performed By: #### U DRUG #### [address] [address] PCP (u) Negative Normal Negative [facility] Comment on above: Performed By: #### U DRUG #### [address] [address] Urine Drugs screened: See Below Normal [facility] Comment on above: Result Comment: This drug screen is a presumptive screening only. No confirmation will be performed unless requested. Drugs screened include: Threshold Amphetamines/Methamphetamines 1,000 ng/mL Barbiturates 200 ng/mL Benzodiazepine metabolites 200 ng/mL Cannabinoids (THC metabolites) 50 ng/mL Cocaine 300 ng/mL Opiates 300 ng/mL Methadone 300 ng/mL Phencyclidine (PCP) 25 ng/mL Testing has been performed FOR MEDICAL PURPOSES ONLY. Performed By: #### U DRUG #### David [address] [address] Cecilia 09-13-20[facility] RADHA LITTLE ([id number]) 2000 F Date Time Provider Department 09/13/24 YAYA HUITRON During your visit today, we recorded the following information about you: Yaya Huitron, DIE SINKER APPRENTICE 09/13/2024 9:59 AM Signed Bibi tried call to patient to discuss social service needs. Phone vmail comes on right away, but states it is not set up to leave message. Sw will try call again later. Yaya Huitron MSW 09/14/2024 2:53 PM Signed Bibi tried call again to patient. No answer and received same message as below. Yaya Huitron MSW 09/18/2024 9:35 AM Signed When patient is in at appt next time. Please see if there is a better number to reach patient and be able to leave message.If patient would like to set up appt with BIBI let Bibi know. Mary Merida RN 09/18/2024 9:41 AM Signed Added to 09/20 appt notes. Mary Merida RN Allergies As of Date: 09/13/2024 Noted Allergy Reaction BACTRIM (SULFAMETHOXAZOLE-TRIME TH*06/19/2020 8 - GI Upset environmental [Other] 03/28/2006 Comments: seasonal allergies Date Reviewed: 09/12/2024 Reviewed by: Juan Miguel Ramos MA - Fully Assessed Prescriptions as of 09/18/2024 - vit no.124/iron/folic ( VITAMIN ORAL) Take by mouth. - pantoprazole DR (PROTONIX) 20 mg tablet Take 1 tablet by mouth once daily. Problem List As Of Date 09/13/2024 Noted Resolved Lives in homeless group home [Z59.01] 05/27/2020 with care elsewhere, antepar*05/27/2020 09/12/2024 History of depression [Z86.59] 05/27/2020 History of seizures as a child [Z86.69] 05/27/2020 09/12/2024 History of drug abuse (HCC) [F19.11] 05/27/2020 Lack of access to transportation [Z59.82] 05/27/2020 History of kidney stones [Z87.442] 05/27/2020 09/12/2024 Tobacco use during , antepartum [O99.3*05/27/2020 Nausea and vomiting in [O21.9] 05/27/2020 09/12/2024 History of hepatitis C [Z86.19] 05/27/2020 05/27/2020 Chronic hepatitis C affecting , antepa*05/27/2020 Dental caries [K02.9] 10/22/2020 Poor dentition [K08.9] 10/24/2020 History of substance use [Z87.898] 09/12/2024 Late care affecting in secon*09/12/2024 Lost custody of children [Z65.3] 09/12/2024 34 weeks gestation of [Z3A.34] 09/12/2024 Encounter for supervision of high risk pregnanc*09/12/2024 Encounter Status:Closed by YAYA HUITRON on 09/18/24 Normal [facility] C. trachomatis+N. gonorrhoea e DNA SHAAN+probe Ql (Unsp spec)on 09-12-2024 C. trachomatis rRNA SHAAN+probe Ql (Unsp spec) Not detected Normal Not detected [facility] Comment on above: Order Comment: Speci men Type: SWAB Ordering Facility: [facility] Address: [address] [place] [address] Performed By: #### 3 6902-5 #### [facility] CLIA [id number] [address] [place] [address] [place] N. gonorrhoeae rRNA SHAAN+probe Ql (Unsp spec) Not detected Normal Not detected [facility] Comment on above: Order Comment: Speci men Type: SWAB Ordering Facility: [facility] Address: [address] [place] [address] Performed By: #### 3 6902-5 #### [facility] CLIA [id number] [address] [place] [address] [place] Examination level ultrasound on 09-12-2024 Indication Detailed anatomic survey Dating, Late care Impression The patient is referred for a detailed anatomic survey. - Single, live, intrauterine . - biometry is consistent with MEEK 10/20/24. - No malformations were visualized on a detailed anatomic survey, although some anatomical structures cannot be adequately visualized at this later gestational age. - The amniotic fluid volume is normal amount. - The placenta is posterior, fundal. - Not all structural malformations can be detected by ultrasound examination. Recommendations Growth in four weeks due to late assignment of MEEK Maternal Assessment Height 157 cm Height (ft) 5 ft Height (in) 2 in Physical Exam Initial weight (lb) 112 lb Initial BMI 20.49 kg/m Maternal assessment other: 4 Para 2 Method Transabdominal ultrasound examination. View: Suboptimal view: limited by position. Suboptimal view: limited by late gestational age Stewart . Number of fetuses: 1 Dating Ultrasound examination on: 09/12/2024 GA by U/S based upon: AC, BPD, Femur, HC GA by U/S 34 w + 4 d MEEK by U/S: 10/20/2024 Assigned: based on ultrasound (AC, BPD, Femur, HC), selected on 09/12/2024 Assigned GA 34 w + 4 d Assigned MEEK: 10/20/2024 General Evaluation Cardiac activity present. FHR 159 bpm. movements: present. Presentation: cephalic Placenta: Placental site: posterior, fundal Umbilical cord: Cord vessels: 3 vessel cord Amniotic fluid: Amount of AF: normal amount. MVP 3.9 cm. ANAI 10.4 cm. Q1 1.7 cm, Q2 3.9 cm, Q3 2.0 cm, Q4 2.8 cm Growth Overview Exam date GA BPD (mm) HC (mm) AC (mm) FL (mm) HL (mm) EFW (g) 09/12/2024 34w 4d 88 77% 319.9 61% 317 83% 62 9% 2487 48% Biometry Standard BPD 88.0 mm 35w 4d 77% Hadlock OFD 111.9 mm 34w 0d 50% Nicolaides HC 319.9 mm 35w 1d 61% Sudheer AC 317.0 mm 35w 4d 83% Hadlock Femur 62.0 mm 32w 0d 9% Sudheer EFW 2,487 g 34w 4d 48% Hadlock EFW (lb) 5 lb EFW (oz) 8 oz EFW by: Hadlock (HC-AC-FL) Extended Educational Technologist 4.3 mm Extremities / Bony Struc FL / HC 0.19 Other Structures FHR 159 bpm Anatomy Cranium: normal Lateral ventricles: normal Choroid plexus: normal Midline falx: normal Cavum septi pellucidi: normal Cerebellum: normal Cisterna magna: normal Head / Neck Vermis: suboptimally visualized Neck: suboptimally visualized Nuchal fold: suboptimally visualized Lips: normal Profile: normal Nose: normal Face Maxilla: suboptimally visualized Mandible: suboptimally visualized Orbits: normal Lens: normal 4-chamber view: suboptimally visualized RVOT view: normal LVOT view: normal 3-vessel view: normal 0-ylqijz-bswsdpt view: suboptimally visualized Heart / Thorax Situs: situs solitus (normal) Aortic arch view: normal SVC: normal IVC: normal Cardiac axis: normal Rt lung: normal Lt lung: normal Diaphragm: normal Cord insertion: suboptimally visualized Stomach: normal Kidneys: normal Bladder: normal Genitals: normal Abdomen Abdom. wall: suboptimally visualized Cervical spine: normal Thoracic spine: normal Lumbar spine: normal Sacral spine: normal Legs: normal Rt arm: normal Lt arm: suboptimally visualized Rt upper arm: normal Rt forearm: normal Rt hand: normal Rt fingers: normal Lt upper arm: suboptimally visualized Lt forearm: suboptimally visualized Lt hand: suboptimally visualized Lt fingers: suboptimally visualized Rt upper leg: normal Rt lower leg: normal Rt foot: normal Lt upper leg: normal Lt lower leg: normal Lt foot: normal sex: male Wants to know sex: yes Maternal Structures Uterus / Cervix Uterus: Visualized Cervix: Not visualized Ovaries / Tubes / Adnexa Rt ovary: Not visualized Lt ovary: Not visualized Performed By: Tish Anderson RDMS, RVT Read By: Angélica Aaron M.D. MATERNAL MEDICINE [facility] Radiology Study observation (narrative) [facility] PAP TESTon 09-12-2024 ADEQUACY Normal [facility] Comment on above: Order Comment: Speci men Type: FLUID SPECIMEN Ordering Facility: [facility] Address: [address] [place] [address] Result Comment: Sati sfactory for interpretation. Transformation zone present Performed By: #### L [id number] #### [facility] CLIA [id number] [address] [place] [address] [place] CASE REPORT Normal [facility] Comment on above: Order Comment: Speci men Type: FLUID SPECIMEN Ordering Facility: [facility] Address: [address] [place] [address] Result Comment: Gyne cologic Cytology Report Case: [id number] Authorizing Provider: Karen Pulliam APRN.CNM Collected: 09/12/2024 11:43 AM Ordering Location: OB/Gynecology Received: 09/12/2024 04:05 PM First Screen: Pio, [place], CT, ASCP Specimen: Pap Test, ThinPrep, Cervix Performed By: #### L [id number] #### [facility] CLIA [id number] [address] [place] [address] [place] CLINICAL HISTORY, CYTOLOGY, TOOL CRIB LEAD Routine Exam Normal [facility] Comment on above: Order Comment: Speci men Type: FLUID SPECIMEN Ordering Facility: [facility] Address: [address] [place] [address] Result Comment: No M enses, Other (Specify) LMP unknown Performed By: #### L [id number] #### [facility] CLIA [id number] [address] [place], [place] [address] [place] FINAL PERFORMING LAB Normal [facility] Comment on above: Order Comment: Speci men Type: FLUID SPECIMEN Ordering Facility: [facility] Address: [address] [place] [address] Result Comment: Tech nical component, portrait artist screening performed at [facility], [address] [place] [address] [place] [address] CLIA# [id number] Diagnostic interpretation performed at [facility], [address] [place], [place] [address] CLIA# [id number] Store Shopper: Braeden Mallory M.D. Performed By: #### L [id number] #### [facility] CLIA [id number] [address] [place] [address] [place] INTERPRETATION, CYTOLOGY, TOOL CRIB LEAD Normal [facility] Comment on above: Order Comment: Speci men Type: FLUID SPECIMEN Ordering Facility: [facility] Address: [address] [place] [address] Result Comment: Nega tive for intraepithelial lesion or malignancy. at 1008 EDT Performed By: #### L [id number] #### [facility] CLIA [id number] [address] [place] [address] [place] PAP DISCLAIMER COMMENT The Pap Smear is a screening test for cervical cancer. False negative results occur with all screening tests, emphasizing the need for rescreening at recommended intervals, and clinical correlation. Normal [facility] Comment on above: Order Comment: Speci men Type: FLUID SPECIMEN Ordering Facility: [facility] Address: [address] [place] [address] Performed By: #### L [id number] #### [facility] CLIA [id number] [address] [place], [place] [address] [place] PAP CANDY STARCH MOLD PRINTER COMMENT This specimen has be en analyzed by the ThinPrep Imaging System, an automated imaging and review system, which assists the laboratory in evaluating cells on ThinPrep Pap tests. Following automated imaging, selected rutledge from every slide are reviewed by a portrait artist. Normal [facility] Comment on above: Order Comment: Speci men Type: FLUID SPECIMEN Ordering Facility: [facility] Address: [address] [place] [address] Performed By: #### L [id number] #### [facility] CLIA [id number] [address] [place] [address] Cecilia 09-07-2024 CNPN Telephone (OBGYWM) RADHA LITTLE ([id number]) 2000 F Date Time Provider Department 09/07/24 KACI PÉREZWMayra During your visit today, we recorded the following information about you: Kaci Pérez APRN.EVELIN 09/07/2024 2:25 PM Signed Per documentation 08/29/24, CP okay with patient being seen in 30 minute slot. Per [facility] policy, nurse practitioners not to see new OB past 24 weeks. Please reschedule in first available 30 minute slot with CNM or physician. Has anatomy scheduled. Patient stated to [facility] today that she is 36 weeks. Kaci Pérez APRN.Tish Clark, BENIGNO 09/07/2024 2:40 PM Signed Attempted to contact patient but no answer and unable to leave a message as voicemail is not set up. Patient also does not have MyChart. Will try to call patient again later. SALINA. BENIGNO Dominguez Teresa, RN 09/10/2024 10:09 AM Signed Attempted to call patient to do nurse intake question. Please see phone note below. Unable to leave message because patient's voicemail is not set up. Please attempt to call patient again Mary Merida RN 09/11/2024 9:56 AM Signed Switched appt for tomorrow to CP in case patient shows. Mary Merida RN Allergies As of Date: 09/07/2024 Noted Allergy Reaction BACTRIM (SULFAMETHOXAZOLE-TRIME TH*06/19/2020 8 - GI Upset environmental [Other] 03/28/2006 Comments: seasonal allergies Date Reviewed: 08/05/2021 Reviewed by: Ariadne Price MA - Fully Assessed Reason for Visit: Appointment [186] Prescriptions as of 09/12/2024 - risperiDONE (RISPERDAL) 0.25 mg tablet Risperidone Active MG July 04, 2021 11:32pm - mirtazapine (REMERON) 15 mg tablet Take 1 tablet by mouth daily at bedtime. - multivits w-fe,other min(FLINTSTONES COMPLETE CHEWABLE TAB) Take one(1) tablet daily. Problem List As Of Date 09/07/2024 Noted Resolved Lives in homeless group home [Z59.01] 05/27/2020 with care elsewhere, antepar*05/27/2020 History of depression [Z86.59] 05/27/2020 History of seizures as a child [Z86.69] 05/27/2020 History of drug abuse (HCC) [F19.11] 05/27/2020 Lack of access to transportation [Z59.82] 05/27/2020 History of kidney stones [Z87.442] 05/27/2020 Tobacco use during , antepartum [O99.3*05/27/2020 Nausea and vomiting in [O21.9] 05/27/2020 History of hepatitis C [Z86.19] 05/27/2020 05/27/2020 Chronic hepatitis C affecting , antepa*05/27/2020 Dental caries [K02.9] 10/22/2020 Poor dentition [K08.9] 10/24/2020 Encounter Status:Closed by KACI PÉREZ on 09/12/24 [facility] Cecilia 08-29-2024 CNPN Telephone (OGFVWE) SIDNEYRADHA GARCIA ([id number]) 2000 F Date Time Provider Department 08/29/24 NURSE POLL WATCHER [facility] During your visit today, we recorded the following information about you: Stacy Torres RN 08/29/2024 9:31 AM Signed ----- Message from Radha Garcia sent at 08/29/2024 8:48 AM EST ----- Regarding: HANSA FATUMA OB - 33 WEEKS GESTASTION Patient has been identified by name and Date of : Yes Patient: Radha Little Date of : 2000 Provider for this encounter : CC FATUMA OB Reason for call: OB HANSA Was an appointment scheduled: No Reason for requesting visit (RFV/signs and symptoms/diagnosis) : 33 weeks gestation Person calling: self Return call to: self Call patient at: [phone] (cell), it is OK to leave message Payor: [place] MEDICAID / Plan: [facility] MEDICAID / Product Type: Medicaid / Stacy Granados, BENIGNO 08/29/2024 9:44 AM Signed Call placed to patient to triage for new OB appt. Name and verified. No care. Patient is not sure of her MEEK or LMP. She had fundal height 2 weeks ago while briefly incarcerated that measured approx 32 weeks Has 6 yo and 4 yo at home Patient aware to sign up for My Chart so she can receive the healthcare sales representative messages. Any medical concerns that affect the ? H/o Hep C. A neg Which office/provider would the patient like to establish in? [place]. Her son was born there in 2020 Will route this encounter to the desired office. Sara Winkler RN, BENIGNO 08/29/2024 10:02 AM Signed See below. No care. Ok to offer patient a 30 min slot tomorrow with you or OK to wait until opening next week? Thank you. There was a 60 min US cancellation on 09/07 @ 0800. I placed that on hold to offer the patient. Could you please sign the order. BENIGNO Nguyễn Courtney, APRN.CNM 08/29/2024 10:13 AM Signed Patient will need formal ultrasound so that we know correct gestational age. Yes, you can put her with me tomorrow in 30 min slot. I signed order. DOC Sierra Jennifer, RN 08/29/2024 10:21 AM Signed Called and spoke with patient. NOB tomorrow with CP and anatomy US on 09/07. Patient plans to come 30 min prior tomorrow for NOB intake questions. BENIGNO Nguyễn Jennifer, RN 08/30/2024 3:34 PM Signed Patient missed her NOB today. Attempted to contact patient. Call went straight to voicemail. Unable to leave a message. Mailbox is not set up. Patient needs a NOB. We have her anatomy US scheduled for 09/07. Sara Dodson RN Allergies As of Date: 08/29/2024 Noted Allergy Reaction BACTRIM (SULFAMETHOXAZOLE-TRIME TH*06/19/2020 8 - GI Upset environmental [Other] 03/28/2006 Comments: seasonal allergies Date Reviewed: 08/05/2021 Reviewed by: Ariadne Price MA - Fully Assessed Reason for Visit: Care Coordination [5991] Primary Visit Diagnosis:32 weeks gestation of [Z3A.32] Order(s):OBSTETRIC ULTRASOUND [facility] [[id number]] Order #: [id number]: 1 FUTURE Prescriptions as of 08/30/2024 - risperiDONE (RISPERDAL) 0.25 mg tablet Risperidone Active MG July 04, 2021 11:32pm - mirtazapine (REMERON) 15 mg tablet Take 1 tablet by mouth daily at bedtime. - multivits w-fe,other min(FLINTSTONES COMPLETE CHEWABLE TAB) Take one(1) tablet daily. Problem List As Of Date 08/29/2024 Noted Resolved Lives in homeless group home [Z59.01] 05/27/2020 with care elsewhere, antepar*05/27/2020 History of depression [Z86.59] 05/27/2020 History of seizures as a child [Z86.69] 05/27/2020 History of drug abuse (HCC) [F19.11] 05/27/2020 Lack of access to transportation [Z59.82] 05/27/2020 History of kidney stones [Z87.442] 05/27/2020 Tobacco use during , antepartum [O99.3*05/27/2020 Nausea and vomiting in [O21.9] 05/27/2020 History of hepatitis C [Z86.19] 05/27/2020 05/27/2020 Chronic hepatitis C affecting , antepa*05/27/2020 Dental caries [K02.9] 10/22/2020 Poor dentition [K08.9] 10/24/2020 Encounter Status:Closed by KAREN PULLIAM on 08/29/24 Normal [facility] .Auto Diffon 12-07-2023 Basophil, Absolute 0.0 10 3/mcL Normal 0.0-0.2 [facility] ([place]) Comment on above: Performed By: #### P REGU, UA #### [address] [address] Basophils/100 WBC (Bld) 0.3 % Normal 0.0-2.5 [facility] ([place]) Comment on above: Performed By: #### P REGU, UA #### [address] [address] Eosinophil, Absolute 0.1 10 3/mcL Normal 0.0-0.4 [facility], [facility] [facility] ([place]) Comment on above: Performed By: #### P REGU, UA #### [address] [address] Eosinophils/100 WBC (Bld) 1.5 % Normal 0.0-7.0 [facility] ([place]) Comment on above: Performed By: #### P REGU, UA #### [address] [address] Lymphocyte, Absolute 2.3 10 3/mcL Normal 0.8-3.9 [facility] ([place]) Comment on above: Performed By: #### P REGU, UA #### [address] [address] Lymphocytes/100 WBC (Bld) 25.6 % Normal 10.0-50.0 [facility] ([place]) Comment on above: Performed By: #### P REGU, UA #### [address] [address] Monocyte, Absolute 0.4 10 3/mcL Normal 0.2-1.0 [facility] ([place]) Comment on above: Performed By: #### P REGU, UA #### [address] [address] Monocytes/100 WBC (Bld) 4.8 % Normal 1.7-13.0 [facility] ([place]) Comment on above: Performed By: #### P REGU, UA #### [address] [address] Neutrophils/100 WBC (Bld) 67.6 % Normal 37.0-80.0 [facility] ([place]) Comment on above: Performed By: #### P REGU, UA #### [address] [address] .GFRon 12-07-2023 GFR Non- 93 ml/min/1.73sqm Normal [facility] ([place]) Comment on above: Result Comment: GFR Population mean for , Non- Americans Ages 20-29 = 116 mL/min/1.73 sq.m. Ages 30-39 = 107 mL/min/1.73 sq.m. Ages 40-49 = 99 mL/min/1.73 sq.m. Ages 50-59 = 93 mL/min/1.73 sq.m. Ages 60-69 = 85 mL/min/1.73 sq.m. Ages 70+ = 75 mL/min/1.73 sq.m. Chronic Kidney Disease: Less than 60 mL/min/1.73 square meters End Stage Renal Disease: Less than 15 mL/min/1.73 square meters Performed By: #### P REGU, UA #### [address] [address] GFR 112 ml/min/1.73sqm Normal [facility] ([place]) Comment on above: Result Comment: GFR Population mean for , Non- Americans Ages 20-29 = 116 mL/min/1.73 sq.m. Ages 30-39 = 107 mL/min/1.73 sq.m. Ages 40-49 = 99 mL/min/1.73 sq.m. Ages 50-59 = 93 mL/min/1.73 sq.m. Ages 60-69 = 85 mL/min/1.73 sq.m. Ages 70+ = 75 mL/min/1.73 sq.m. Chronic Kidney Disease: Less than 60 mL/min/1.73 square meters End Stage Renal Disease: Less than 15 mL/min/1.73 square meters Performed By: #### P REGU, UA #### [place] [id number] .MDWon 12-07-2023 Monocyte Distribution Width See Comment Normal 0.00-20.00 [facility] ([place]) Comment on above: Result Comment: MDW testing unable to be performed on [employer] instrumentation. Performed By: #### P REGU, UA #### [place] [address] .NEUABSon 12-07-2023 Neutrophil, Absolute 6.0 10 3/mcL Normal 2.9-6.2 [facility] ([place]) Comment on above: Performed By: #### P REGU, UA #### [address] [address] .Urinalysis Microscopic (AO) on 12-07-2023 UA CA Ox Crystal 3+ /hpf Normal [facility] ([place]) Comment on above: Performed By: #### U A, UAMICAO #### [place] [address] UA RBC 5-10 Abnormal None Seen [facility] ([place]) Comment on above: Performed By: #### U A, UAMICAO #### [address] [address] UA Squam Epithelial 0-5 Abnormal None Seen [facility] ([place]) Comment on above: Performed By: #### U A, UAMICAO #### [address] [address] UA WBC 0-5 Abnormal None Seen [facility] ([place]) Comment on above: Performed By: #### U A, UAMICAO #### [address] [address] BMPon 12-07-2023 BUN/Creatinine Ratio 18 ratio Normal 7-27 [facility] ([place]) Comment on above: Performed By: #### P REGU, UA #### [address] [address] Calcium [Mass/Vol] 8.4 mg/dL Normal 8.4-10.2 [facility] ([place]) Comment on above: Performed By: #### P REGU, UA #### [address] [address] Chloride [Moles/Vol] 102 mmol/L Normal 98-107 [facility] ([place]) Comment on above: Performed By: #### P REGU, UA #### [address] [address] CO2 [Moles/Vol] 28 mmol/L Normal 22-29 [facility] ([place]) Comment on above: Performed By: #### P REGU, UA #### [address] [address] Creatinine [Mass/Vol] 0.76 mg/dL Normal 0.55-1.02 [facility] ([place]) Comment on above: Performed By: #### P REGU, UA #### [address] [address] Electrolyte Balance 8.0 mEq/L Normal 4.0-15.0 [facility] ([place]) Comment on above: Performed By: #### P REGU, UA #### [address] [address] Glucose [Mass/Vol] 185 mg/dL High 70-105 [facility] ([place]) Comment on above: Performed By: #### P REGU, UA #### [address] [address] Potassium [Moles/Vol] 3.8 mmol/L Normal 3.5-5.1 [facility] ([place]) Comment on above: Performed By: #### P REGU, UA #### [address] [address] Sodium [Moles/Vol] 138 mmol/L Normal 136-145 [facility] ([place]) Comment on above: Performed By: #### P REGU, UA #### [address] [address] Urea nitrogen [Mass/Vol] 14 mg/dL Normal 7-18 [facility] ([place]) Comment on above: Performed By: #### P REGU, UA #### [address] [address] CBCon 12-07-2023 Erythrocyte distribution width (RBC) [Ratio] 12.2 % Normal 11.5-14.5 [facility] ([place]) Comment on above: Performed By: #### P REGU, UA #### [address] [address] Hematocrit (Bld) [Volume fraction] 37.7 % Normal 37.0-47.0 [facility] ([place]) Comment on above: Performed By: #### P REGU, UA #### [address] [address] Hgb 13.1 G/dL Normal 12.0-16.0 [facility] ([place]) Comment on above: Performed By: #### P REGU, UA #### [address] [address] MCH (RBC) [Entitic mass] 31.8 pg High 27.0-31.2 [facility] ([place]) Comment on above: Performed By: #### P REGU, UA #### [address] [address] MCHC 34.8 G/dL Normal 33.0-37.0 [facility] ([place]) Comment on above: Performed By: #### P REGU, UA #### [address] [address] MCV (RBC) [Entitic vol] 91.6 fL Normal 80.0-94.0 [facility] ([place]) Comment on above: Performed By: #### P REGU, UA #### [address] [address] Platelet 253 10 3/mcL Normal 130-400 [facility] ([place]) Comment on above: Performed By: #### P REGU, UA #### [address] [address] Platelet mean volume (Bld) [Entitic vol] 7.5 fL Normal 7.4-10.4 [facility] ([place]) Comment on above: Performed By: #### P REGU, UA #### [address] [address] RBC 4.12 10 6/mcL Low 4.20-5.40 [facility] ([place]) Comment on above: Performed By: #### P REGU, UA #### [address] [address] WBC 8.9 10 3/mcL Normal 4.6-10.8 [facility] ([place]) Comment on above: Performed By: #### P REGU, UA #### [address] [address] [address] [facility]OM[facility]BDOMEN/PELVIS W/O CONTRAST ORIGINAL EXAMINATION: CT OF THE ABDOMEN AND PELVIS WITHOUT CONTRAST TECHNIQUE: CT of the abdomen and pelvis was performed without the administration of intravenous contrast. Multiplanar reformatted images are provided for review. Automated exposure control, iterative reconstruction, and/or weight based adjustment of the mA/kV was utilized to reduce the radiation dose to as low as reasonably achievable. COMPARISON: Chest x-ray 05/31/2019, CT abdomen/pelvis 05/16/2019 HISTORY: ORDERING SYSTEM PROVIDED HISTORY: Reason for Exam: RIGHT flank pain FINDINGS: Evaluation for certain pathology is limited without the use of intravenous contrast. There are no dilated segments of bowel. There is heterogeneously dense ingested contents present within the stomach. A normal appearing appendix is present in the right lower quadrant. The liver, gallbladder, pancreas, and adrenal glands are unremarkable. There are several punctate calcifications present at the in the spleen, likely sequela from prior granulomatous disease. No renal lesion is evident in the unenhanced kidneys. There is punctate nonobstructive left nephrolithiasis. The previously seen nonobstructive right nephrolithiasis is not identified on this study. There is perhaps a small stone measuring 1 mm or less present in the proximal ureter on the right only visible on the thin slice acquisition (series 3, image 136) although evaluation is complicated due to the lack of intra-abdominal adipose tissue. No hydronephrosis. The urinary bladder is decompressed limiting evaluation. The uterus is unremarkable. 1.6 cm right ovarian cyst appears benign and no follow-up imaging is required. No abdominopelvic lymphadenopathy on this noncontrast study. No free fluid or free air. No acute abnormality of the abdominopelvic wall or osseous structures. There is a calcified granuloma in the anterolateral portion of the right lower lobe. Otherwise the imaged lungs are clear. No visible pericardial or pleural effusion. IMPRESSION: Question punctate stone in the proximal right ureter. No hydronephrosis. Nonobstructive left nephrolithiasis. I have personally reviewed the images of this examination, and agree with the resident's findings and interpretation. Interpreted by: Cecil Ferguson MD Preliminary Report By: Mayito Lowe Electronically signed By Cecil Ferguson MD Dictated Date: 12/07/2023 2:58:53 AM Prelim Date: 12/07/2023 3:12:01 AM Sign Date: 12/07/2023 3:20:29 AM Ordering Provider: JOSEPH SHETH [facility] ([place]) LABORATORYOrdered By: Cb Eddy on 12-07-2023 Appearance (U) Slightly Cloudy *ABN* (12/07/23 2:31 AM) Invalid Interpretation Code Clear AO Auto Urine SS Bilirubin Ql (U) Small *ABN* (12/07/23 2:31 AM) Invalid Interpretation Code Negative AO Auto Urine SS Calcium oxalate crystals LM.HPF (Urine sed) [#/Area] 3 /[HPF] Normal AO Auto Urine SS Color (U) Yellow (12/07/23 2:31 AM) Normal AO Auto Urine SS Glucose Test strip (U) [Mass/Vol] Negative Normal Negative AO Auto Urine SS HCG ( test) Ql Negative (12/07/23 2:31 AM) Normal AO Manual Urine SS Hemoglobin Auto test strip (U) [Mass/Vol] Moderate *ABN* (12/07/23 2:31 AM) Invalid Interpretation Code Negative AO Auto Urine SS Ketones Ql (U) Negative Normal Negative AO Auto Urine SS Monocyte distribution width Auto (Bld) [Entitic vol] See Comment Invalid Interpretation Code 0.00 - 20.00 AO Hematology S Comment on above: Result Comment: MDW testing unable to be performed on [id number] instrumentation. test (u) int Not detected Invalid Interpretation Code AO Manual Urine SS UA Leuk Est Negative (12/07/23 2:31 AM) Normal Negative AO Auto Urine SS UA Nitrite Negative (12/07/23 2:31 AM) Normal Negative AO Auto Urine SS UA pH 6.0 (12/07/23 2:31 AM) Normal 5.0 - 8.0 AO Auto Urine SS UA Protein 30 mg/dL Normal Negative AO Auto Urine SS UA RBC 5-10 /HPF Invalid Interpretation Code None Seen AO Auto Urine SS UA Spec Grav >=1.030 *ABN* (12/07/23 2:31 AM) Invalid Interpretation Code 1.015-1.025 AO Auto Urine SS UA Specimen Type Clean Catch (12/07/23 2:31 AM) Normal AO Auto Urine SS UA Squam Epithelial 0-5 /HPF Invalid Interpretation Code None Seen AO Auto Urine SS UA Urobilinogen 0.2 E.U./dL Normal 0.2-1.0 AO Auto Urine SS WBC LM.HPF (Urine sed) [#/Area] 0-5 /HPF Invalid Interpretation Code None Seen AO Auto Urine SS LABORATORYOrdered By: SYSTEM SYSTEM on 12-07-2023 Basophil, Absolute 0.0 103/mcL Normal 0.0 - 0.2 10^3/mcL AO Workflow SS Basophils/100 WBC (Bld) 0.3 % Normal 0.0 - 2.5 % AO Workflow SS Calcium [Mass/Vol] 8.4 mg/dL Normal 8.4 - 10. 2 mg/dL AO ADM SS Chloride [Moles/Vol] 102 mmol/L Normal 98 - 10 7 mmol/L AO ADM SS CO2 [Moles/Vol] 28 mmol/L Normal 22 - 29 mmol/L AO ADM SS Creatinine [Mass/Vol] 0.76 mg/dL Normal 0.55 - 1.02 mg/dL AO ADM SS Electrolyte Balance 8.0 mEq/L Normal 4.0 - 15 .0 mEq/L AO ADM SS Eosinophil, Absolute 0.1 103/mcL Normal 0.0 - 0 .4 10^3/mcL AO Workflow SS Eosinophils/100 WBC (Bld) 1.5 % Normal 0.0 - 7.0 % AO Workflow SS Erythrocyte distribution width (RBC) [Ratio] 12.2 % Normal 11.5 - 14.5 % AO Workflow SS GFR/1.73 sq M.predicted among blacks MDRD (S/P/Bld) [Vol rate/Area] 112 ml/min/1.73sqm Invalid Interpretation Code AO Chemistry S Comment on above: Interpretive Data: GFR Population mean for , Non- Americans Ages 20-29 = 116 mL/min/1.73 sq.m. Ages 30-39 = 107 mL/min/1.73 sq.m. Ages 40-49 = 99 mL/min/1.73 sq.m. Ages 50-59 = 93 mL/min/1.73 sq.m. Ages 60-69 = 85 mL/min/1.73 sq.m. Ages 70+ = 75 mL/min/1.73 sq.m. Chronic Kidney Disease: Less than 60 mL/min/1.73 square meters End Stage Renal Disease: Less than 15 mL/min/1.73 square meters GFR/1.73 sq M.predicted among non-blacks MDRD (S/P/Bld) [Vol rate/Area] 93 ml/min/1.73sqm Invalid Interpretation Code AO Chemistry S Comment on above: Interpretive Data: GFR Population mean for , Non- Americans Ages 20-29 = 116 mL/min/1.73 sq.m. Ages 30-39 = 107 mL/min/1.73 sq.m. Ages 40-49 = 99 mL/min/1.73 sq.m. Ages 50-59 = 93 mL/min/1.73 sq.m. Ages 60-69 = 85 mL/min/1.73 sq.m. Ages 70+ = 75 mL/min/1.73 sq.m. Chronic Kidney Disease: Less than 60 mL/min/1.73 square meters End Stage Renal Disease: Less than 15 mL/min/1.73 square meters Glucose [Mass/Vol] 185 mg/dL High 70 - 105 mg/dL AO ADM SS Hematocrit (Bld) [Volume fraction] 37.7 % Normal 37.0 - 47.0 % AO Workflow SS Hemoglobin (Bld) [Mass/Vol] 13.1 G/dL Normal 12.0 - 16.0 G/dL AO Workflow SS Lymphocyte, Absolute 2.3 103/mcL Normal 0.8 - 3 .9 10^3/mcL AO Workflow SS Lymphocytes/100 WBC (Bld) 25.6 % Normal 10.0 - 50.0 % AO Workflow SS MCH (RBC) [Entitic mass] 31.8 pg High 27.0 - 31.2 pg AO Workflow SS MCHC 34.8 G/dL Normal 33.0 - 37.0 G/dL AO Workflow SS MCV (RBC) [Entitic vol] 91.6 fL Normal 80.0 - 94.0 fL AO Workflow SS Monocyte, Absolute 0.4 103/mcL Normal 0.2 - 1.0 10^3/mcL AO Workflow SS Monocytes/100 WBC (Bld) 4.8 % Normal 1.7 - 13.0 % AO Workflow SS Neutrophil, Absolute 6.0 103/mcL Normal 2.9 - 6 .2 10^3/mcL AO Workflow SS Neutrophils/100 WBC (Bld) 67.6 % Normal 37.0 - 80.0 % AO Workflow SS Platelet mean volume (Bld) [Entitic vol] 7.5 fL Normal 7.4 - 10.4 fL AO Workflow SS Platelets (Bld) [#/Vol] 253 103/mcL Normal 130 - 400 10^3/mcL AO Workflow SS Potassium [Moles/Vol] 3.8 mmol/L Normal 3.5 - 5.1 mmol/L AO ADM SS RBC (Bld) [#/Vol] 4.12 106/mcL Low 4.20 - 5.4 0 10^6/mcL AO Workflow SS Sodium [Moles/Vol] 138 mmol/L Normal 136 - 145 mmol/L AO ADM SS Urea nitrogen [Mass/Vol] 14 mg/dL Normal 7 - 18 mg/dL AO ADM SS Urea nitrogen/Creatinine [Mass ratio] 18 ratio Normal 7 - 27 ratio AO ADM SS WBC (Bld) [#/Vol] 8.9 103/mcL Normal 4.6 - 10.8 10^3/mcL AO Workflow SS PREGUon 12-07-2023 HCG ( test) Ql (U) Negative Normal [facility] ([place]) Comment on above: Performed By: #### U A, UAMICAO #### [place] [id number] test (u) int Not detected Invalid Interpretation Code [facility] ([place]) Comment on above: Performed By: #### U A, UAMICAO #### [place] [id number] UAon 12-07-2023 Color (U) Yellow Normal [facility] ([place]) Comment on above: Performed By: #### U A, UAMICAO #### [place] [id number] Glucose (U) [Mass/Vol] Negative Normal Negative [facility] ([place]) Comment on above: Performed By: #### U A, UAMICAO #### [place] [address] Ketones Ql (U) Negative Normal Negative [facility] ([place]) Comment on above: Performed By: #### U A, UAMICAO #### [address] [address] UA Appear Slightly Cloudy Abnormal Clear [facility] ([place]) Comment on above: Performed By: #### U A, UAMICAO #### [address] [address] UA Bili Small Abnormal Negative [facility] ([place]) Comment on above: Performed By: #### U A, UAMICAO #### [address] [address] UA Blood Moderate Abnormal Negative [facility] ([place]) Comment on above: Performed By: #### U A, UAMICAO #### [address] [address] UA Leuk Est Negative Normal Negative [facility] ([place]) Comment on above: Performed By: #### U A, UAMICAO #### [address] [address] UA Nitrite Negative Normal Negative [facility]) Comment on above: Performed By: #### U A, UAMICAO #### [address] [address] UA pH 6.0 Normal 5.0 - 8.0 [facility]) Comment on above: Performed By: #### U A, UAMICAO #### [address] [address] UA Protein 30 mg/dL Normal Negative [facility]) Comment on above: Performed By: #### U A, UAMICAO #### [address] [address] UA Spec Grav >=1.030 Abnormal 1.015-1.025 [facility]) Comment on above: Performed By: #### U A, UAMICAO #### [address] [address] UA Specimen Type Clean Catch Normal [facility]) Comment on above: Performed By: #### U A, UAMICAO #### [address] [address] UA Urobilinogen 0.2 E.U./dL Normal 0.2-1.0 [facility]) Comment on above: Performed By: #### U A, UAMICAO #### [address] [address] LABORATORYOrdered By: Juan Manuel Gandhi on 10-31-2023 Appearance (U) Clear (10/31/23 8:21 PM) Normal Clear AO Auto Urine SS Bilirubin Ql (U) Negative (10/31/23 8:21 PM) Normal Negative AO Auto Urine SS Color (U) Yellow (10/31/23 8:21 PM) Normal AO Auto Urine SS Glucose Test strip (U) [Mass/Vol] Negative Normal Negative AO Auto Urine SS HCG ( test) Ql Negative (10/31/23 8:21 PM) Normal AO Manual Urine SS Hemoglobin Auto test strip (U) [Mass/Vol] Negative (10/31/23 8:21 PM) Normal Negative AO Auto Urine SS Ketones Ql (U) Negative Normal Negative AO Auto Urine SS test (u) int Not detected Invalid Interpretation Code AO Manual Urine SS UA Leuk Est Negative (10/31/23 8:21 PM) Normal Negative AO Auto Urine SS UA Nitrite Negative (10/31/23 8:21 PM) Normal Negative AO Auto Urine SS UA pH 6.0 (10/31/23 8:21 PM) Normal 5.0 - 8.0 AO Auto Urine SS UA Protein 30 mg/dL Normal Negative AO Auto Urine SS UA Spec Grav >=1.030 *ABN* (10/31/23 8:21 PM) Invalid Interpretation Code 1.015-1.025 AO Auto Urine SS UA Specimen Type Clean Catch (10/31/23 8:21 PM) Normal AO Auto Urine SS UA Urobilinogen 0.2 E.U./dL Normal 0.2-1.0 AO Auto Urine SS PREGUon 10-31-2023 HCG ( test) Ql (U) Negative Normal [facility] ([place]) Comment on above: Performed By: #### P REGU, UA #### [address] [address] test (u) int Not detected Invalid Interpretation Code [facility] ([place]) Comment on above: Performed By: #### P REGU, UA #### [address] [address] UAon 10-31-2023 Color (U) Yellow Normal [facility] ([place]) Comment on above: Performed By: #### P REGU, UA #### [address] [address] Glucose (U) [Mass/Vol] Negative Normal Negative [facility] ([place]) Comment on above: Performed By: #### P REGU, UA #### [address] [address] Ketones Ql (U) Negative Normal Negative [facility] ([place]) Comment on above: Performed By: #### P REGU, UA #### [address] [address] UA Appear Clear Normal Clear [facility] ([place]) Comment on above: Performed By: #### P REGU, UA #### [address] [address] UA Blood Negative Normal Negative [facility] ([place]) Comment on above: Performed By: #### P REGU, UA #### [place] [address] UA Leuk Est Negative Normal Negative [facility] ([place] Comment on above: Performed By: #### P REGU, UA #### [place] [address] UA Nitrite Negative Normal Negative [facility] ([place]) Comment on above: Performed By: #### P REGU, UA #### [place] [address] UA pH 6.0 Normal 5.0 - 8.0 [facility] ([place]) Comment on above: Performed By: #### P REGU, UA #### [place] [address] UA Protein 30 mg/dL Normal Negative [facility] ([place] Comment on above: Performed By: #### P REGU, UA #### [address] [address] UA Spec Grav >=1.030 Abnormal 1.015-1.025 [facility] ([place] Comment on above: Performed By: #### P REGU, UA #### [place] [address] UA Specimen Type Clean Catch Normal [facility] ([place] Comment on above: Performed By: #### P REGU, UA #### [place] [id number] UA Urobilinogen 0.2 E.U./dL Normal 0.2-1.0 [facility] ([place]) Comment on above: Performed By: #### P REGU, UA #### [address] [address] Urobilinogen (U) [Mass/Vol] Negative Normal Negative [facility] ([place]) Comment on above: Performed By: #### P REGU, UA #### [place] [address] CVFLURVon 10-15-2023 FLU A PCR Negative Normal Negative [facility] ([place]) Comment on above: Performed By: #### C VFLURV #### [place] [address] FLU B PCR Negative Normal Negative [facility] ([place]) Comment on above: Performed By: #### C VFLURV #### [place] [address] RSV PCR Negative Normal Negative [facility] ([place]) Comment on above: Performed By: #### C VFLURV #### [place] [address] SARS-CoV-2 (COVID-19) RNA SHAAN+probe Ql (Unsp spec) Negative Normal Negative [facility] ([place]) Comment on above: Result Comment: Resu lts from the Xpert Xpress CoV-2/Flu/RSV plus test should be correlated with the clinical history, epidemiological data, and other data available to the clinical evaluating the patient. Performance of the Xpert Xpress CoV-2/Flu/RSV plus test has only been established in nasopharyngeal swab specimen. Erroneous test results might occur from improper specimen collection, failure to follow the recommended sample collection, handling and storage procedures, technical error, or sample mix-up. False negative results may occur if a virus is present at a level below the analytical limit of detection. Viral nucleic acid may persist in vivo, independent of virus viability. Detection of analyte target(s) does not imply that the corresponding virus(es) are infectious or are the causative agents for clinical symptoms. Recent patient exposure to FluMist or other live attenuated influenza vaccines may cause inaccurate positive results. Performed By: #### C VFLURV #### [address] [address] .Auto Diffon 10-14-2023 Basophil, Absolute 0.0 10 3/mcL Normal 0.0-0.2 [facility] ([place]) Comment on above: Performed By: #### P REGU, UA #### [address] [address] Basophils/100 WBC (Bld) 0.5 % Normal 0.0-2.5 [facility] ([place]) Comment on above: Performed By: #### P REGU, UA #### [address] [address] Eosinophil, Absolute 0.2 10 3/mcL Normal 0.0-0.4 [facility] ([place]) Comment on above: Performed By: #### P REGU, UA #### [address] [address] Eosinophils/100 WBC (Bld) 2.1 % Normal 0.0-7.0 [facility] ([place]) Comment on above: Performed By: #### P REGU, UA #### [address] [address] Lymphocyte, Absolute 2.7 10 3/mcL Normal 0.8-3.9 [facility] ([place]) Comment on above: Performed By: #### P REGU, UA #### [address] [address] Lymphocytes/100 WBC (Bld) 32.7 % Normal 10.0-50.0 [facility] ([place]) Comment on above: Performed By: #### P REGU, UA #### [address] [address] Monocyte, Absolute 0.4 10 3/mcL Normal 0.2-1.0 [facility] ([place]) Comment on above: Performed By: #### P REGU, UA #### [address] [address] Monocytes/100 WBC (Bld) 5.2 % Normal 1.7-13.0 [facility] ([place]) Comment on above: Performed By: #### P REGU, UA #### [address] [address] Neutrophils/100 WBC (Bld) 59.5 % Normal 37.0-80.0 [facility] ([place]) Comment on above: Performed By: #### P REGU UA #### [address] [address] .GFRon 10-14-2023 GFR Non- 87 ml/min/1.73sqm Normal [facility] ([place]) Comment on above: Result Comment: GFR Population mean for , Non- Americans Ages 20-29 = 116 mL/min/1.73 sq.m. Ages 30-39 = 107 mL/min/1.73 sq.m. Ages 40-49 = 99 mL/min/1.73 sq.m. Ages 50-59 = 93 mL/min/1.73 sq.m. Ages 60-69 = 85 mL/min/1.73 sq.m. Ages 70+ = 75 mL/min/1.73 sq.m. Chronic Kidney Disease: Less than 60 mL/min/1.73 square meters End Stage Renal Disease: Less than 15 mL/min/1.73 square meters Performed By: #### U A, UAMICAO #### [address] [address] GFR 106 ml/min/1.73sqm Normal [facility] ([place]) Comment on above: Result Comment: GFR Population mean for , Non- Americans Ages 20-29 = 116 mL/min/1.73 sq.m. Ages 30-39 = 107 mL/min/1.73 sq.m. Ages 40-49 = 99 mL/min/1.73 sq.m. Ages 50-59 = 93 mL/min/1.73 sq.m. Ages 60-69 = 85 mL/min/1.73 sq.m. Ages 70+ = 75 mL/min/1.73 sq.m. Chronic Kidney Disease: Less than 60 mL/min/1.73 square meters End Stage Renal Disease: Less than 15 mL/min/1.73 square meters Performed By: #### U A, UAMICAO #### [address] [address] .MDWon 10-14-2023 Monocyte Distribution Width 18.91 Normal 0.00-20.00 [facility] ([place]) Comment on above: Result Comment: For ED adult patients suspected of sepsis, MDW<=20.0 does not rule out sepsis or risk of sepsis Performed By: #### U A, UAMICAO #### [address] [address] .NEUABSon 10-14-2023 Neutrophil, Absolute 4.9 10 3/mcL Normal 2.9-6.2 [facility] ([place]) Comment on above: Performed By: #### U A, UAMICAO #### [address] [address] BMPon 10-14-2023 BUN/Creatinine Ratio 9 ratio Normal 7-27 [facility] ([place]) Comment on above: Performed By: #### U A, UAMICAO #### [address] [address] Calcium [Mass/Vol] 9.3 mg/dL Normal 8.4-10.2 [facility] ([place]) Comment on above: Performed By: #### U A, UAMICAO #### [address] [address] Chloride [Moles/Vol] 100 mmol/L Normal 98-107 [facility] ([place]) Comment on above: Performed By: #### U A, UAMICAO #### [address] [address] CO2 [Moles/Vol] 30 mmol/L High 22-29 [facility] ([place]) Comment on above: Performed By: #### U A, UAMICAO #### [address] [address] Creatinine [Mass/Vol] 0.80 mg/dL Normal 0.55-1.02 [facility] ([place]) Comment on above: Performed By: #### U A, UAMICAO #### [address] [address] Electrolyte Balance 9.0 mEq/L Normal 4.0-15.0 [facility] ([place]) Comment on above: Performed By: #### U A UAMICAO #### [address] [address] Glucose [Mass/Vol] 96 mg/dL Normal 70-105 [facility] ([place]) Comment on above: Performed By: #### U A, UAMICAO #### [address] [address] Potassium [Moles/Vol] 4.0 mmol/L Normal 3.5-5.1 [facility] ([place]) Comment on above: Performed By: #### U A UAMICAO #### [address] [address] Sodium [Moles/Vol] 139 mmol/L Normal 136-145 [facility] ([place]) Comment on above: Performed By: #### U A UAMICAO #### [address] [address] Urea nitrogen [Mass/Vol] 7 mg/dL Normal 7-18 [facility] ([place]) Comment on above: Performed By: #### U A UAMICAO #### [address] [address] CBCon 10-14-2023 Erythrocyte distribution width (RBC) [Ratio] 12.7 % Normal 11.5-14.5 [facility] ([place]) Comment on above: Performed By: #### P REGU, UA #### [address] [address] Hematocrit (Bld) [Volume fraction] 40.8 % Normal 37.0-47.0 [facility] ([place]) Comment on above: Performed By: #### P REGU, UA #### [address] [address] Hgb 14.5 G/dL Normal 12.0-16.0 [facility] ([place]) Comment on above: Performed By: #### P REGU, UA #### [address] [address] MCH (RBC) [Entitic mass] 32.1 pg High 27.0-31.2 [facility] ([place]) Comment on above: Performed By: #### SHARONDA CUENCA #### [address] [address] MCHC 35.7 G/dL Normal 33.0-37.0 [facility] ([place]) Comment on above: Performed By: #### Virgil DE LEON, UA #### David [address] [address] MCV (RBC) [Entitic vol] 89.9 fL Normal 80.0-94.0 [facility] ([place]) Comment on above: Performed By: #### Virgil DE LEON, UA #### [address] [address] Platelet 232 10 3/mcL Normal 130-400 [facility] ([place]) Comment on above: Performed By: #### Virgil DE LEON, UA #### [address] [address] Platelet mean volume (Bld) [Entitic vol] 7.6 fL Normal 7.4-10.4 [facility] ([place]) Comment on above: Performed By: #### Virgil DE LEON, UA #### [address] [address] RBC 4.53 10 6/mcL Normal 4.20-5.40 [facility] ([place]) Comment on above: Performed By: #### Virgil DE LOEN, UA #### [address] [address] WBC 8.2 10 3/mcL Normal 4.6-10.8 [facility] ([place]) Comment on above: Performed By: #### Virgil DE LEON UA #### [address] [address] LABORATORYOrdered By: SYSTEM SYSTEM on 10-14-2023 Basophil, Absolute 0.0 103/mcL Normal 0.0 - 0.2 10^3/mcL AO Workflow SS Basophils/100 WBC (Bld) 0.5 % Normal 0.0 - 2.5 % AO Workflow SS Calcium [Mass/Vol] 9.3 mg/dL Normal 8.4 - 10. 2 mg/dL AO ADM SS Chloride [Moles/Vol] 100 mmol/L Normal 98 - 10 7 mmol/L AO ADM SS CO2 [Moles/Vol] 30 mmol/L High 22 - 29 mmol/L AO ADM SS Creatinine [Mass/Vol] 0.80 mg/dL Normal 0.55 - 1.02 mg/dL AO ADM SS Electrolyte Balance 9.0 mEq/L Normal 4.0 - 15 .0 mEq/L AO ADM SS Eosinophil, Absolute 0.2 103/mcL Normal 0.0 - 0 .4 10^3/mcL AO Workflow SS Eosinophils/100 WBC (Bld) 2.1 % Normal 0.0 - 7.0 % AO Workflow SS Erythrocyte distribution width (RBC) [Ratio] 12.7 % Normal 11.5 - 14.5 % AO Workflow SS GFR/1.73 sq M.predicted among blacks MDRD (S/P/Bld) [Vol rate/Area] 106 ml/min/1.73sqm Invalid Interpretation Code AO Chemistry S Comment on above: Interpretive Data: GFR Population mean for , Non- Americans Ages 20-29 = 116 mL/min/1.73 sq.m. Ages 30-39 = 107 mL/min/1.73 sq.m. Ages 40-49 = 99 mL/min/1.73 sq.m. Ages 50-59 = 93 mL/min/1.73 sq.m. Ages 60-69 = 85 mL/min/1.73 sq.m. Ages 70+ = 75 mL/min/1.73 sq.m. Chronic Kidney Disease: Less than 60 mL/min/1.73 square meters End Stage Renal Disease: Less than 15 mL/min/1.73 square meters GFR/1.73 sq M.predicted among non-blacks MDRD (S/P/Bld) [Vol rate/Area] 87 ml/min/1.73sqm Invalid Interpretation Code AO Chemistry S Comment on above: Interpretive Data: GFR Population mean for , Non- Americans Ages 20-29 = 116 mL/min/1.73 sq.m. Ages 30-39 = 107 mL/min/1.73 sq.m. Ages 40-49 = 99 mL/min/1.73 sq.m. Ages 50-59 = 93 mL/min/1.73 sq.m. Ages 60-69 = 85 mL/min/1.73 sq.m. Ages 70+ = 75 mL/min/1.73 sq.m. Chronic Kidney Disease: Less than 60 mL/min/1.73 square meters End Stage Renal Disease: Less than 15 mL/min/1.73 square meters Glucose [Mass/Vol] 96 mg/dL Normal 70 - 105 mg/dL AO ADM SS Hematocrit (Bld) [Volume fraction] 40.8 % Normal 37.0 - 47.0 % AO Workflow SS Hemoglobin (Bld) [Mass/Vol] 14.5 G/dL Normal 12.0 - 16.0 G/dL AO Workflow SS Lymphocyte, Absolute 2.7 103/mcL Normal 0.8 - 3 .9 10^3/mcL AO Workflow SS Lymphocytes/100 WBC (Bld) 32.7 % Normal 10.0 - 50.0 % AO Workflow SS MCH (RBC) [Entitic mass] 32.1 pg High 27.0 - 31.2 pg AO Workflow SS MCHC 35.7 G/dL Normal 33.0 - 37.0 G/dL AO Workflow SS MCV (RBC) [Entitic vol] 89.9 fL Normal 80.0 - 94.0 fL AO Workflow SS Monocyte distribution width Auto (Bld) [Entitic vol] 18.91 1 Normal 0.00 - 20.00 AO Workflow SS Comment on above: Result Comment: For ED adult patients suspected of sepsis, MDW<=20.0 does not rule out sepsis or risk of sepsis Monocyte, Absolute 0.4 103/mcL Normal 0.2 - 1.0 10^3/mcL AO Workflow SS Monocytes/100 WBC (Bld) 5.2 % Normal 1.7 - 13.0 % AO Workflow SS Neutrophil, Absolute 4.9 103/mcL Normal 2.9 - 6 .2 10^3/mcL AO Workflow SS Neutrophils/100 WBC (Bld) 59.5 % Normal 37.0 - 80.0 % AO Workflow SS Platelet mean volume (Bld) [Entitic vol] 7.6 fL Normal 7.4 - 10.4 fL AO Workflow SS Platelets (Bld) [#/Vol] 232 103/mcL Normal 130 - 400 10^3/mcL AO Workflow SS Potassium [Moles/Vol] 4.0 mmol/L Normal 3.5 - 5.1 mmol/L AO ADM SS RBC (Bld) [#/Vol] 4.53 106/mcL Normal 4.20 - 5.4 0 10^6/mcL AO Workflow SS Sodium [Moles/Vol] 139 mmol/L Normal 136 - 145 mmol/L AO ADM SS Urea nitrogen [Mass/Vol] 7 mg/dL Normal 7 - 18 mg/dL AO ADM SS Urea nitrogen/Creatinine [Mass ratio] 9 ratio Normal 7 - 27 ratio AO ADM SS WBC (Bld) [#/Vol] 8.2 103/mcL Normal 4.6 - 10.8 10^3/mcL AO Workflow SS LABORATORYOrdered By: Cb Eddy on 10-14-2023 FLUAV RNA SHAAN+probe Ql (Resp) Negative (10/14/23 11:20 PM) Normal Negative AO Auto Urine SS FLUBV RNA SHAAN+probe Ql (Resp) Negative (10/14/23 11:20 PM) Normal Negative AO Auto Urine SS HCG ( test) Ql (U) Negative (10/14/23 11:20 PM) Normal AO Rapid Testing SS test (s) int Not detected Invalid Interpretation Code AO Rapid Testing SS RSV RNA SHAAN+probe Ql (Resp) Negative (10/14/23 11:20 PM) Normal Negative AO Auto Urine SS SARS-CoV-2 (COVID-19) RNA SHAAN+probe Ql (Resp) Negative 2 (10/14/23 11:20 PM) Normal Negative AO Auto Urine SS Comment on above: Interpretive Data: R esults from the Xpert Xpress CoV-2/Flu/RSV plus test should be correlated with the clinical history, epidemiological data, and other data available to the clinical evaluating the patient. Performance of the Xpert Xpress CoV-2/Flu/RSV plus test has only been established in nasopharyngeal swab specimen. Erroneous test results might occur from improper specimen collection, failure to follow the recommended sample collection, handling and storage procedures, technical error, or sample mix-up. False negative results may occur if a virus is present at a level below the analytical limit of detection. Viral nucleic acid may persist in vivo, independent of virus viability. Detection of analyte target(s) does not imply that the corresponding virus(es) are infectious or are the causative agents for clinical symptoms. Recent patient exposure to FluMist or other live attenuated influenza vaccines may cause inaccurate positive results. PREGSon 10-14-2023 test (s) Negative Normal [facility] ([place]) Comment on above: Performed By: #### U A, UAMICAO #### [id number] [place], [place] [address] test (s) int Not detected Invalid Interpretation Code [facility] ([place]) Comment on above: Performed By: #### U A, UAMICAO #### [id number] [place], [place] [address] UA (POC)on 07-26-2023 Perf Loc - POCT Tested at AM Normal [facility] ([place]) Comment on above: Result Comment: [place] [address] [place], [place] [address] Appearance (U) Slightly Cloudy Normal [facility] ([place]) Bilirubin Ql (U) Small Abnormal Neg-Trace [facility] ([place]) Color (U) Shavonne Abnormal [facility] ([place]) Glucose Ql (U) Negative Normal Negative [facility] ([place]) Hemoglobin Ql (U) Large Abnormal Neg-Trace [facility] ([place]) Ketones Ql (U) Negative Normal [facility] ([place]) Leukocyte esterase Test strip Ql (U) Small Abnormal Neg-Trace [facility]) Nitrite Ql (U) Negative Normal Negative [facility]) Performing Instrument - POCT CLINITEK Normal [facility] ([place]) pH (U) 6.0 [pH] Normal 5.0 - 8.0 [facility] ([place]) Protein Ql (U) Trace Abnormal Neg-30 [facility] ([place]) Specific gravity (U) [Rel density] 1.025 Normal 1.006-1.029 [facility] ([place]) Urobilinogen Qn (U) 0.2 {Susana'U}/dL Normal 0.2-1.0 [facility] ([place]) Absolute lymphocyte countOrd ered By: Gabriel Silva on 03-09-2023 Lymphocytes Auto (Unsp spec) [#/Vol] 3.79 10*3/uL 0.83-4.51 [facility] Basophil percentageOrdered B y: Gabriel Silva on 03-09-2023 Basophils/100 WBC (Bld) 1.2 % 0-1 [facility] Bilirubin [Mass/Vol] 1.00 mg/dL 0.20-1.00 [facility] Comment on above: For patients on eltr ombopag therapy, use of Dimension [place] TBIL is not recommended. Chloride [Moles/Vol] 103 mmol/L 98-107 [facility] Eosinophils/100 WBC (Bld) 1.1 % 0-5 [facility] Glucose [Mass/Vol] 100 mg/dL 74-106 [facility] Comment on above: Fasting Glucose resu lt from 100 to 125 mg/dL suggests IMPAIRED HOMEOSTASIS per A.D.A. criteria. Neutrophils (Bld) [#/Vol] 4.4 10*3/uL 2.0-7.7 [facility] Neutrophils/100 WBC (Bld) 49.2 % 47-70 [facility] Potassium [Moles/Vol] 3.6 mmol/L 3.5-5.1 [facility] Protein [Mass/Vol] 8.9 g/dL 6.4-8.2 [facility] Sodium [Moles/Vol] 137 mmol/L 136-145 [facility] WBC (Bld) [#/Vol] 8.9 10*3/uL 4.4-11.0 [facility] Beta hCG serum qualOrdered B y: Gabriel Silva on 03-09-2023 Beta HCG ( test) Ql Negative [facility] Blood erythrocytes count (nu mber/volume)Ordered By: Gabriel Saucedaelina on 03-09-2023 RBC (Bld) [#/Vol] 4.48 10*6/uL 4.2-5.4 [facility] Blood hemoglobin measurement (mass/volume)Ordered By: Gabriel Saucedaelina on 03-09-2023 Hemoglobin (Bld) [Mass/Vol] 13.7 g/dL 12.0-15.0 [facility] Blood lymphocytes/100 leukoc ytesOrdered By: [facility] Saucedaelina on 03-09-2023 Lymphocytes/100 WBC (Bld) 42.8 % 19-41 [facility] Blood manual differential co mment interpretation (narrative result)Ordered By: Gabriel Silva on 03-09-2023 Manual differential comment Brian (Bld) [Interp] SEE COMMENT [facility] Comment on above: LYMPHOCYTOSIS NOTED Blood monocytes/100 leukocyt esOrdered By: Gabriel Silva on 03-09-2023 Monocytes/100 WBC (Bld) 5.2 % 0-10 [facility] Blood platelet adequacy dete ction by light microscopyOrdered By: Gabriel Silva on 03-09-2023 Platelets LM Ql (Bld) ADEQUATE ADEQ [facility] Blood platelet mean volumeOr dered By: Gabriel Silva on 03-09-2023 Platelet mean volume (Bld) [Entitic vol] 9.8 fL 6.2-12.0 [facility] Determination of erythrocyte mean corpuscular volume (MCV)Ordered By: Gabriel Silva on 03-09-2023 MCV (RBC) [Entitic vol] 93.1 fL 81-99 [facility] Hematocrit Auto (Bld) [Volum e fraction]Ordered By: Gabriel Silva on 03-09-2023 Hematocrit (Bld) [Volume fraction] 41.7 % 37-47 [facility] Laboratory - Chemistry and C hemistry - challengeOrdered By: Gabriel Silva on 03-09-2023 ALP [Catalytic activity/Vol] 169 U/L 45-117 [facility] ALT [Catalytic activity/Vol] 40 U/L 13-56 [facility] CO2 [Moles/Vol] 27.0 mmol/L 21.0-32.0 [facility] Globulin (S) [Mass/Vol] 4.7 g/dL 2.2-4.2 [facility] Urea nitrogen/Creatinine [Mass ratio] 12.7 mg/mg 10-20 [facility] Laboratory - Drug toxicology Ordered By: Gabriel Silva on 03-09-2023 Amphetamines Ql (U) Positive <1000 ng/mL [facility] Benzodiazepines Ql (U) Negative < 200 ng/mL [facility] Cannabinoids Screen Ql (U) Positive < 50 ng/mL [facility] Cocaine Ql (U) Negative < 300 ng/mL [facility] Opiates Ql (U) Negative < 300 ng/mL [facility] Laboratory - Hematology and Cell countsOrdered By: Gabriel Silva on 03-09-2023 Anisocytosis Ql (Bld) RARE [facility] Erythrocyte distribution width (RBC) [Entitic vol] 47.3 fL 35.1-43.9 [facility] Erythrocyte distribution width (RBC) [Ratio] 14.2 % 11.6-14.6 [facility] Immature granulocytes/100 WBC (Bld) 0.500 % 0.0-0.9 [facility] Comment on above: IG% - Immature Granu locytes (promyelocytes, myelocytes and metamyelocytes) > 1% indicates that a LEFT SHIFT is Present. MCH (RBC) [Entitic mass] 30.6 pg 27.0-32.0 [facility] Nucleated RBC/100 WBC (Bld) [Ratio] 0 % 0-5 [facility] MCHC Auto (RBC) [Mass/Vol]Or dered By: Gabriel Silva on 03-09-2023 MCHC (RBC) [Mass/Vol] 32.9 g/dL 32-36 [facility] Macrocytes detectionOrdered By: Gabriel Silva on 03-09-2023 Macrocytes Ql (Bld) RARE [facility] No Panel InformationOrdered By: Gabriel Silva on 03-09-2023 Atypical Lymphocytes 2+ % [facility] Estimated Creatinine Clearance Calc 73.85 ml/min [facility] Estimated GFR (MDRD) Amer 115 mL/min >60 [facility] Comment on above: GFR Calc Estimated GFR (MDRD) Non-Af Amer 95 mL/min >60 [facility] Comment on above: Non- GFR Calc Ethyl Alcohol Level < 3.0 mg/dL [facility] Comment on above: The serum:whole bloo d ethanol ratio is approximately 1.14and varies slightly with hematocrit. Medical Alcohol reference interval and critical value innon-tolerant individuals; 50 - 100 Impairment 100 Intoxication 100 - 250 Severe Poisoning 250 - 400 Deep/possible fatal coma MDMA (Ecstasy) Screen Positive < 500 ng/mL [facility] Urine Barbiturates Screen Negative < 200 ng/mL [facility] Urine Drug Screen Comment [facility] Comment on above: CONFIRMATORY TESTING FOR ALL POSITIVE URINE DRUG SCREENRESULTS WILL ONLY BE SENT OUT UPON PHYSICIAN ORDER. VISTA Urine Drug Screen methods provide only preliminaryanalytical test results. A more specific alternate chemicalmethod must be used in order to obtain a confirmedanalytical result. Gas chromatography/mass spectrometery(GC/MS) is the preferred confirmatory method. Clinicalconsideration and professional judgement should be appliedto any drug of abuse test result, particularly whenpreliminary positive results are used. URINE TCA TESTING MUST BE ORDERED SEPARATELY. USE TESTMNEMONIC: [facility] Urine Methadone Screen Negative < 300 ng/mL [facility] Platelets bldOrdered By: Lida Ricardo on 03-09-2023 Platelets (Bld) [#/Vol] 257 10*3/uL 150-450 [facility] RBC morphologyOrdered By: Kaylynn Silva on 03-09-2023 RBC morphology finding Nom (Bld) N CHROM NORMAL NORM C&C [facility] Serum or plasma albumin thompson urement (mass/volume)Ordered By: Gabriel Ricardo on 03-09-2023 Albumin [Mass/Vol] 4.2 g/dL 3.2-5.0 [facility] Serum or plasma albumin/glob ulin mass ratioOrdered By: Lidaus Saucedaelina on 03-09-2023 Albumin/Globulin [Mass ratio] 0.9 {ratio} 0.9-2.4 [facility] Serum or plasma calcium thompson urement (mass/volume)Ordered By: Gabriel Saucedaelina on 03-09-2023 Calcium [Mass/Vol] 9.3 mg/dL 8.5-10.1 [facility] Serum or plasma creatinine m easurement (mass/volume)Ordered By: Gabriel Ricardo on 03-09-2023 Creatinine [Mass/Vol] 0.79 mg/dL 0.55-1.02 [facility] Comment on above: The validity of the calculated GFR & GFRAA in patients over 70 years has not been determined. Clinical correlation is essential. Serum or plasma urea nitroge n measurement (mass/volume)Ordered By: Lida Ricardo on 03-09-2023 Urea nitrogen [Mass/Vol] 10 mg/dL 7-18 [facility] Thin prep Papanicolaou smear with manual screeningOrdered By: Lida Ricardo on 03-09-2023 Thin prep Papanicolaou smear with manual screening 32 U/L 15-37 [facility] Thin prep Papanicolaou smear with manual screening 7 5-15 [facility] Urine phencyclidine (PCP) de tectionOrdered By: Gabriel Silva on 03-09-2023 Phencyclidine Ql (U) Negative < 25 ng/mL [facility] .Auto Diffon 01-13-2023 Basophil, Absolute 0.0 10 3/mcL Normal 0.0-0.2 [facility] ([place]) Comment on above: Performed By: #### A DIFF, BMP, MDW, ANEU, CBC, GFR #### [address] [address] Basophils/100 WBC (Bld) 0.4 % Normal 0.0-2.5 [facility] ([place]) Comment on above: Performed By: #### A DIFF, BMP, MDW, ANEU, CBC, GFR #### [address] [address] Eosinophil, Absolute 0.2 10 3/mcL Normal 0.0-0.4 [facility] ([place]) Comment on above: Performed By: #### A DIFF, BMP, MDW, ANEU, CBC, GFR #### [address] [address] Eosinophils/100 WBC (Bld) 2.3 % Normal 0.0-7.0 [facility] ([place]) Comment on above: Performed By: #### A DIFF, BMP, MDW, ANEU, CBC, GFR #### [address] [address] Lymphocyte, Absolute 2.4 10 3/mcL Normal 0.8-3.9 [facility] ([place]) Comment on above: Performed By: #### A DIFF, BMP, MDW, ANEU, CBC, GFR #### [address] [address] Lymphocytes/100 WBC (Bld) 27.5 % Normal 10.0-50.0 [facility] ([place]) Comment on above: Performed By: #### A DIFF, BMP, MDW, ANEU, CBC, GFR #### [address] [address] Monocyte, Absolute 0.4 10 3/mcL Normal 0.2-1.0 [facility] ([place]) Comment on above: Performed By: #### A DIFF, BMP, MDW, ANEU, CBC, GFR #### [address] [address] Monocytes/100 WBC (Bld) 5.2 % Normal 1.7-13.0 [facility] ([place]) Comment on above: Performed By: #### A DIFF, BMP, MDW, ANEU, CBC, GFR #### [address] [address] Neutrophils/100 WBC (Bld) 64.4 % Normal 37.0-80.0 [facility] ([place]) Comment on above: Performed By: #### A DIFF, BMP, MDW, ANEU, CBC, GFR #### [address] [address] .GFRon 01-13-2023 GFR 129 ml/min/1.73sqm Normal [facility] ([place]) Comment on above: Result Comment: GFR Population mean for , Non- Americans Ages 20-29 = 116 mL/min/1.73 sq.m. Ages 30-39 = 107 mL/min/1.73 sq.m. Ages 40-49 = 99 mL/min/1.73 sq.m. Ages 50-59 = 93 mL/min/1.73 sq.m. Ages 60-69 = 85 mL/min/1.73 sq.m. Ages 70+ = 75 mL/min/1.73 sq.m. Chronic Kidney Disease: Less than 60 mL/min/1.73 square meters End Stage Renal Disease: Less than 15 mL/min/1.73 square meters Performed By: #### P REGU, UA #### [address] [address] GFR Non- 106 ml/min/1.73sqm Normal [facility] ([place]) Comment on above: Result Comment: GFR Population mean for , Non- Americans Ages 20-29 = 116 mL/min/1.73 sq.m. Ages 30-39 = 107 mL/min/1.73 sq.m. Ages 40-49 = 99 mL/min/1.73 sq.m. Ages 50-59 = 93 mL/min/1.73 sq.m. Ages 60-69 = 85 mL/min/1.73 sq.m. Ages 70+ = 75 mL/min/1.73 sq.m. Chronic Kidney Disease: Less than 60 mL/min/1.73 square meters End Stage Renal Disease: Less than 15 mL/min/1.73 square meters Performed By: #### P REGU, UA #### [id number] .MDWon 01-13-2023 Monocyte Distribution Width Not performed Normal 0.00-20.00 [facility] ([place]) Comment on above: Performed By: #### A DIFFBRUNO MDW, ANEU, CBC, GFR #### [id number] .NEUABSon 01-13-2023 Neutrophil, Absolute 5.6 10 3/mcL Normal 2.9-6.2 [facility] ([place]) Comment on above: Performed By: #### A DIFFBRUNO MDW, ANEU, CBC, GFR #### [address] [address] .Urinalysis Microscopic (AO) on 01-13-2023 UA RBC 5-10 Abnormal None Seen [facility] ([place]) Comment on above: Performed By: #### U A, UAMICAO #### [id number] UA Squam Epithelial 0-5 Abnormal None Seen [facility] ([place]) Comment on above: Performed By: #### U A, UAMICAO #### [id number] UA WBC LOADED Abnormal None Seen [facility] ([place]) Comment on above: Performed By: #### U A, UAMICAO #### [id number] BMPon 01-13-2023 BUN/Creatinine Ratio 19 ratio Normal 7-27 [facility] ([place]) Comment on above: Performed By: #### P REGU, UA #### [address] [address] Calcium [Mass/Vol] 9.2 mg/dL Normal 8.4-10.2 [facility] ([place]) Comment on above: Performed By: #### P REGU, UA #### [address] [address] Chloride [Moles/Vol] 105 mmol/L Normal 98-107 [facility] ([place]) Comment on above: Performed By: #### P REGU, UA #### [address] [address] CO2 [Moles/Vol] 31 mmol/L High 22-29 [facility] ([place]) Comment on above: Performed By: #### P REGU, UA #### [address] [address] Creatinine [Mass/Vol] 0.68 mg/dL Normal 0.55-1.02 [facility] ([place]) Comment on above: Performed By: #### P REGU, UA #### [address] [address] Electrolyte Balance 7.0 mEq/L Normal 4.0-15.0 [facility] ([place]) Comment on above: Performed By: #### P REGU, UA #### [address] [address] Glucose [Mass/Vol] 103 mg/dL Normal 70-105 [facility] ([place]) Comment on above: Performed By: #### P REGU, UA #### [address] [address] Potassium [Moles/Vol] 3.9 mmol/L Normal 3.5-5.1 [facility] ([place]) Comment on above: Performed By: #### P REGU, UA #### [address] [address] Sodium [Moles/Vol] 143 mmol/L Normal 136-145 [facility] ([place]) Comment on above: Performed By: #### P REGU, UA #### [place] [id number] Urea nitrogen [Mass/Vol] 13 mg/dL Normal 7-18 [facility] ([place]) Comment on above: Performed By: #### P REGU, UA #### [place] [id number] CBCon 01-13-2023 Erythrocyte distribution width (RBC) [Ratio] 12.3 % Normal 11.5-14.5 [facility] ([place]) Comment on above: Performed By: #### A DIFF, BRUNO, MDW, ANEU, CBC, GFR #### [place] [id number] Hematocrit (Bld) [Volume fraction] 39.8 % Normal 37.0-47.0 [facility] ([place]) Comment on above: Performed By: #### A DIFF, BMP, MDW, ANEU, CBC, GFR #### [place] [id number] Hgb 13.7 G/dL Normal 12.0-16.0 [facility] ([place]) Comment on above: Performed By: #### A DIFF, BMP, MDW, ANEU, CBC, GFR #### [address] [address] MCH (RBC) [Entitic mass] 31.2 pg Normal 27.0-31.2 [facility] ([place]) Comment on above: Performed By: #### A DIFF, BMP, MDW, ANEU, CBC, GFR #### [place] [id number] MCHC 34.4 G/dL Normal 33.0-37.0 [facility] ([place]) Comment on above: Performed By: #### A DIFF, BMP, MDW, ANEU, CBC, GFR #### [place] [id number] MCV (RBC) [Entitic vol] 90.5 fL Normal 80.0-94.0 [facility] ([place]) Comment on above: Performed By: #### A DIFF, BRUNO, W, ANEU, CBC, GFR #### [address] [address] Platelet 279 10 3/mcL Normal 130-400 [facility] ([place]) Comment on above: Performed By: #### A DIFF, BMP, MDW, ANEU, CBC, GFR #### [address] [address] Platelet mean volume (Bld) [Entitic vol] 7.6 fL Normal 7.4-10.4 [facility] ([place]) Comment on above: Performed By: #### A DIFF, BRUNO, MDW, ANEU, CBC, GFR #### [address] [address] RBC 4.40 10 6/mcL Normal 4.20-5.40 [facility] ([place]) Comment on above: Performed By: #### A DIFF, BRUNO, MDW, ANEU, CBC, GFR #### [address] [address] WBC 8.7 10 3/mcL Normal 4.6-10.8 [facility] ([place]) Comment on above: Performed By: #### A DIFF, BMP, MDW, ANEU, CBC, GFR #### [address] [address] LABORATORYOrdered By: Fatou Amador on 01-13-2023 Appearance (U) Slightly Cloudy *ABN* (01/13/23 12:36 AM) Invalid Interpretation Code Clear AO Auto Urine SS Bilirubin Ql (U) Negative (01/13/23 12:36 AM) Invalid Interpretation Code Negative AO Auto Urine SS Color (U) Yellow (01/13/23 12:36 AM) Invalid Interpretation Code AO Auto Urine SS Glucose Test strip (U) [Mass/Vol] Negative Invalid Interpretation Code Negativemg/dL AO Auto Urine SS HCG ( test) Ql Negative (01/13/23 12:36 AM) Invalid Interpretation Code AO Manual Urine SS Hemoglobin Auto test strip (U) [Mass/Vol] Moderate *ABN* (01/13/23 12:36 AM) Invalid Interpretation Code Negative AO Auto Urine SS Ketones Ql (U) Negative Invalid Interpretation Code Negativemg/dL AO Auto Urine SS Monocyte distribution width Auto (Bld) [Entitic vol] Not performed Invalid Interpretation Code 0.00 - 20.00 AO Hematology S test (u) int Not detected Invalid Interpretation Code AO Manual Urine SS UA Leuk Est Negative (01/13/23 12:36 AM) Invalid Interpretation Code Negative AO Auto Urine SS UA Nitrite Negative (01/13/23 12:36 AM) Invalid Interpretation Code Negative AO Auto Urine SS UA pH 6.0 (01/13/23 12:36 AM) Invalid Interpretation Code 5.0 - 8.0 AO Auto Urine SS UA Protein 30 mg/dL Invalid Interpretation Code Negativemg/dL AO Auto Urine SS UA RBC 5-10 /HPF Invalid Interpretation Code None Seen/HPF AO Auto Urine SS UA Spec Grav >=1.030 *ABN* (01/13/23 12:36 AM) Invalid Interpretation Code 1.015-1.025 AO Auto Urine SS UA Specimen Type Clean Catch (01/13/23 12:36 AM) Invalid Interpretation Code AO Auto Urine SS UA Squam Epithelial 0-5 /HPF Invalid Interpretation Code None Seen/HPF AO Auto Urine SS UA Urobilinogen 0.2 E.U./dL Invalid Interpretation Code 0.2-1.0E.U./d L AO Auto Urine SS WBC LM.HPF (Urine sed) [#/Area] LOADED /HPF Invalid Interpretation Code None Seen/HPF AO Auto Urine SS LABORATORYOrdered By: SYSTEM SYSTEM on 01-13-2023 Basophil, Absolute 0.0 103/mcL Invalid Interpretation Code 0.0 - 0.2 10^3/mcL AO Workflow SS Basophils/100 WBC (Bld) 0.4 % Invalid Interpretation Code 0.0 - 2.5 % AO Workflow SS Calcium [Mass/Vol] 9.2 mg/dL Invalid Interpretation Code 8.4 - 10.2 mg/dL AO ADM SS Chloride [Moles/Vol] 105 mmol/L Invalid Interpretation Code 98 - 107 mmol/L AO ADM SS CO2 [Moles/Vol] 31 mmol/L Invalid Interpretation Code 22 - 29 mmol/L AO ADM SS Creatinine [Mass/Vol] 0.68 mg/dL Invalid Interpretation Code 0.55 - 1.02 mg/dL AO ADM SS Electrolyte Balance 7.0 mEq/L Invalid Interpretation Code 4.0 - 15.0 mEq/L AO ADM SS Eosinophil, Absolute 0.2 103/mcL Invalid Interpretation Code 0.0 - 0.4 10^3/mcL AO Workflow SS Eosinophils/100 WBC (Bld) 2.3 % Invalid Interpretation Code 0.0 - 7.0 % AO Workflow SS Erythrocyte distribution width (RBC) [Ratio] 12.3 % Invalid Interpretation Code 11.5 - 14.5 % AO Workflow SS GFR/1.73 sq M.predicted among blacks MDRD (S/P/Bld) [Vol rate/Area] 129 ml/min/1.73sqm Invalid Interpretation Code AO Chemistry S GFR/1.73 sq M.predicted among non-blacks MDRD (S/P/Bld) [Vol rate/Area] 106 ml/min/1.73sqm Invalid Interpretation Code AO Chemistry S Glucose [Mass/Vol] 103 mg/dL Invalid Interpretation Code 70 - 105 mg/dL AO ADM SS Hematocrit (Bld) [Volume fraction] 39.8 % Invalid Interpretation Code 37.0 - 47.0 % AO Workflow SS Hemoglobin (Bld) [Mass/Vol] 13.7 G/dL Invalid Interpretation Code 12.0 - 16.0 G/dL AO Workflow SS Lymphocyte, Absolute 2.4 103/mcL Invalid Interpretation Code 0.8 - 3.9 10^3/mcL AO Workflow SS Lymphocytes/100 WBC (Bld) 27.5 % Invalid Interpretation Code 10.0 - 50.0 % AO Workflow SS MCH (RBC) [Entitic mass] 31.2 pg Invalid Interpretation Code 27.0 - 31.2 pg AO Workflow SS MCHC 34.4 G/dL Invalid Interpretation Code 33.0 - 37.0 G/dL AO Workflow SS MCV (RBC) [Entitic vol] 90.5 fL Invalid Interpretation Code 80.0 - 94.0 fL AO Workflow SS Monocyte, Absolute 0.4 103/mcL Invalid Interpretation Code 0.2 - 1.0 10^3/mcL AO Workflow SS Monocytes/100 WBC (Bld) 5.2 % Invalid Interpretation Code 1.7 - 13.0 % AO Workflow SS Neutrophil, Absolute 5.6 103/mcL Invalid Interpretation Code 2.9 - 6.2 10^3/mcL AO Workflow SS Neutrophils/100 WBC (Bld) 64.4 % Invalid Interpretation Code 37.0 - 80.0 % AO Workflow SS Platelet mean volume (Bld) [Entitic vol] 7.6 fL Invalid Interpretation Code 7.4 - 10.4 fL AO Workflow SS Platelets (Bld) [#/Vol] 279 103/mcL Invalid Interpretation Code 130 - 400 10^3/mcL AO Workflow SS Potassium [Moles/Vol] 3.9 mmol/L Invalid Interpretation Code 3.5 - 5.1 mmol/L AO ADM SS RBC (Bld) [#/Vol] 4.40 106/mcL Invalid Interpretation Code 4.20 - 5.40 10^6/mcL AO Workflow SS Sodium [Moles/Vol] 143 mmol/L Invalid Interpretation Code 136 - 145 mmol/L AO ADM SS Urea nitrogen [Mass/Vol] 13 mg/dL Invalid Interpretation Code 7 - 18 mg/dL AO ADM SS Urea nitrogen/Creatinine [Mass ratio] 19 ratio Invalid Interpretation Code 7 - 27 ratio AO ADM SS WBC (Bld) [#/Vol] 8.7 103/mcL Invalid Interpretation Code 4.6 - 10.8 10^3/mcL AO Workflow SS PREGUon 01-13-2023 HCG ( test) Ql (U) Negative Normal [facility] ([place]) Comment on above: Performed By: #### U A, UAMICAO #### [address] [address] test (u) int Not detected Invalid Interpretation Code [facility] ([place]) Comment on above: Performed By: #### U A, UAMICAO #### [address] [address] UAon 01-13-2023 Color (U) Yellow Normal [facility] ([place]) Comment on above: Performed By: #### U A, UAMICAO #### [address] [address] Glucose (U) [Mass/Vol] Negative Normal Negative [facility] ([place]) Comment on above: Performed By: #### U A, UAMICAO #### [address] [address] Ketones Ql (U) Negative Normal Negative [facility] ([place]) Comment on above: Performed By: #### U A, UAMICAO #### [address] [address] UA Appear Slightly Cloudy Abnormal Clear [facility] ([place]) Comment on above: Performed By: #### U A, UAMICAO #### [address] [address] UA Blood Moderate Abnormal Negative [facility] ([place]) Comment on above: Performed By: #### U A, UAMICAO #### [place] [address] UA Leuk Est Negative Normal Negative [facility] ([place]) Comment on above: Performed By: #### U A, UAMICAO #### [place] [address] UA Nitrite Negative Normal Negative [facility] ([place]) Comment on above: Performed By: #### U A, UAMICAO #### [place] [address] UA pH 6.0 Normal 5.0 - 8.0 [facility] ([place]) Comment on above: Performed By: #### U A, UAMICAO #### [place] [address] UA Protein 30 mg/dL Normal Negative [facility] ([place]) Comment on above: Performed By: #### U A, UAMICAO #### [address] [address] UA Spec Grav >=1.030 Abnormal 1.015-1.025 [facility] ([place]) Comment on above: Performed By: #### U A, UAMICAO #### [address] [address] UA Specimen Type Clean Catch Normal [facility] ([place]) Comment on above: Performed By: #### U A, UAMICAO #### [place] [address] UA Urobilinogen 0.2 E.U./dL Normal 0.2-1.0 [facility] ([place]) Comment on above: Performed By: #### U A, UAMICAO #### [place] [id number] [place], [place] [address] Urobilinogen (U) [Mass/Vol] Negative Normal Negative [facility] ([place]) Comment on above: Performed By: #### U A, UAMICAO #### [place] [id number] [place], [place] [address] LABORATORYOrdered By: Nhung Watson on 05-31-2022 Appearance (U) Cloudy *ABN* (05/31/22 2:15 PM) Invalid Interpretation Code Clear AO Auto Urine SS Bacteria LM.HPF (Urine sed) [#/Area] 1 /[HPF] Invalid Interpretation Code AO Auto Urine SS Bilirubin Ql (U) Small *ABN* (05/31/22 2:15 PM) Invalid Interpretation Code Negative AO Auto Urine SS Color (U) Yellow (05/31/22 2:15 PM) Invalid Interpretation Code AO Auto Urine SS Glucose Test strip (U) [Mass/Vol] Negative Invalid Interpretation Code Negativemg/dL AO Auto Urine SS HCG ( test) Ql Negative (05/31/22 2:15 PM) Invalid Interpretation Code AO Manual Urine SS Hemoglobin Auto test strip (U) [Mass/Vol] Negative (05/31/22 2:15 PM) Invalid Interpretation Code Negative AO Auto Urine SS Ketones Ql (U) 15 mg/dL Invalid Interpretation Code Negativemg/dL AO Auto Urine SS test (u) int Not detected Invalid Interpretation Code AO Manual Urine SS UA Leuk Est Negative (05/31/22 2:15 PM) Invalid Interpretation Code Negative AO Auto Urine SS UA Mucous 2+ /HPF Invalid Interpretation Code AO Auto Urine SS UA Nitrite Negative (05/31/22 2:15 PM) Invalid Interpretation Code Negative AO Auto Urine SS UA pH 6.0 (05/31/22 2:15 PM) Invalid Interpretation Code 5.0 - 8.0 AO Auto Urine SS UA Protein 30 mg/dL Invalid Interpretation Code Negativemg/dL AO Auto Urine SS UA RBC 0-5 /HPF Invalid Interpretation Code None Seen/HPF AO Auto Urine SS UA Spec Grav >=1.030 *ABN* (05/31/22 2:15 PM) Invalid Interpretation Code 1.015-1.025 AO Auto Urine SS UA Specimen Type Clean Catch (05/31/22 2:15 PM) Invalid Interpretation Code AO Auto Urine SS UA Squam Epithelial LOADED /HPF Invalid Interpretation Code None Seen/HPF AO Auto Urine SS UA Urobilinogen 0.2 E.U./dL Invalid Interpretation Code 0.2-1.0E.U./d L AO Auto Urine SS WBC LM.HPF (Urine sed) [#/Area] 10-15 /HPF Invalid Interpretation Code None Seen/HPF AO Auto Urine SS CULT/STAIN - AEROBIC AND CONNIE EROBICon 04-22-2022 CULT/STAIN - AEROBIC AND ANAEROBIC STAIN GRAM --> Status: F Moderate polymorphonuclear cells/lpf. Rare gram positive cocci in pairs. Rare gram positive cocci in pairs. CULTURE ANAEROBE --> Status: F No growth of anaerobes at 5 days. 1 Organism Streptococcus pyogenes (Group A) Moderate Susceptibility testing not performed. Beta-hemolytic streptococci are universally susceptible to beta-lactam antibiotics. If patient is beta-lactam allergic, please call the [facility] ([phone]) within 2 days to request susceptibility testing. Normal [facility] Comment on above: Performed By: #### H BSA #### [facility] [address] [address] #### HBCAO #### The performing lab is in the report. CULT/STAIN - AEROBIC AND ANAEROBIC STAIN GRAM --> Status: F Many polymorphonuclear cells/lpf. Rare gram positive cocci in clusters. Rare gram positive cocci in clusters. CULTURE ANAEROBE --> Status: F No growth of anaerobes at 5 days. 1 Organism Streptococcus pyogenes (Group A) Rare Susceptibility testing not performed. Beta-hemolytic streptococci are universally susceptible to beta-lactam antibiotics. If patient is beta-lactam allergic, please call the [facility] ([phone]) within 2 days to request susceptibility testing. Normal [facility] Comment on above: Performed By: #### H BSA #### [address] [address] #### HBCAO #### The performing lab is in the report. Hep B Core Ab,Totalon 2021 Hep B Core Ab,Total Negative Normal Negative [facility] Comment on above: Result Comment: INTE RPRETIVE INFORMATION: Hepatitis B Core Ab (Total) This assay should not be used for blood donor screening, associated re-entry protocols, or for screening Human Cells, Tissues and Cellular and Tissue-Based Products (HCT/P). Performed by [facility] [place] [address] [email or web address], Erick Drake MD, PHD - Lab. Director Performed By: #### H BSA #### [facility] [address], [place] #### HBCAO #### The performing lab is in the report. Basic Metabolic Panelon 10--2021 Potassium [Moles/Vol] 4.9 mmol/L Normal 3.5-5.1 [facility] Comment on above: Result Comment: Slig htly hemolysed, interpret with caution. Performed By: #### B MP3M #### [facility] [address], [place] Calcium [Mass/Vol] 9.3 mg/dL Normal 8.4-10.4 [facility] Comment on above: Performed By: #### B MP3M #### [facility] [address], [place] Anion gap [Moles/Vol] 9 mmol/L Normal 3-13 [facility] Comment on above: Performed By: #### B MP3M #### [facility] [address], [place] CO2 [Moles/Vol] 17 mmol/L Low 22-30 [facility] Comment on above: Performed By: #### B MP3M #### [facility] [address], [place] Creatinine [Mass/Vol] 0.85 mg/dL Normal 0.52-1.25 [facility] Comment on above: Performed By: #### B MP3M #### [facility] [address], [place] eGFR OTHER > 90.0 Normal >60 [facility] Comment on above: Result Comment: KDIG O guidelines provide the following GFR categories: Stage GFR(ml/min/1.73 m2) Terms G1 >=90 Normal or high G2 60-89 Mildly decreased* G3a 45-59 Mildly to moderately decreased G3b 30-44 Moderately to severely decreased G4 15-29 Severely decreased G5 <15 Kidney failure *Relative to young adult level. In the absence of evidence of kidney damage, neither GFR category G1 nor G2 fulfill the criteria for CKD. The CKD-EPI equation is validated in individuals 18 years of age and older. Currently the best equation for estimating glomerular filtration rate (GFR) from serum creatinine in children is the Bedside Rojas equation. It is less accurate in patients with extremes of muscle mass, restriction of dietary protein, ingestion of creatine, extra-renal metabolism of creatinine, or treatment with medications that affect renal tubular creatinine secretion. Performed By: #### B MP3M #### [place] [address] [address], [place] GFR/1.73 sq M.predicted among blacks MDRD (S/P/Bld) [Vol rate/Area] mL/min/{1.73_m2} Normal >60 [facility] Comment on above: Performed By: #### B MP3M #### [place] [address] [address], [place] Glucose [Mass/Vol] 117 mg/dL High 70-100 [facility] Comment on above: Performed By: #### B MP3M #### [place] [address] [place], [place] Urea nitrogen [Mass/Vol] 8 mg/dL Low 9-20 [facility] Comment on above: Performed By: #### B MP3M #### [place] [address] [address], [place] Chloride [Moles/Vol] 108 mmol/L High 98-107 [facility] Comment on above: Performed By: #### B MP3M #### [place] [address] [place], [place] Sodium [Moles/Vol] 134 mmol/L Low 135-145 [facility] Comment on above: Performed By: #### B MP3M #### [place] [address] [place], [place] Basic Metabolic Panel w/ Ref donaldo to MGon 04-19-2022 Anion gap [Moles/Vol] 9 mmol/L 3 - 13 mmol/L [facility] Calcium [Mass/Vol] 9.3 mg/dL 8.4 - 10. 4 mg/dL [facility] Chloride [Moles/Vol] 108 mmol/L High 98 - 10 7 mmol/L [facility] CO2 [Moles/Vol] 17 mmol/L Low 22 - 30 mmol/L [facility] Creatinine [Mass/Vol] 0.85 mg/dL 0.52 - 1.25 mg/dL [facility] eGFR mL/min 60 - P INF mL/min [facility] EGFR IF NonAfrican Canadian mL/min 60 - PINF mL/min [facility] Comment on above: KDIGO guidelines pro vide the following GFR categories: Stage GFR(ml/min/1.73 m2) Terms G1 >=90 Normal or high G2 60-89 Mildly decreased* G3a 45-59 Mildly to moderately decreased G3b 30-44 Moderately to severely decreased G4 15-29 Severely decreased G5 <15 Kidney failure *Relative to young adult level. In the absence of evidence of kidney damage, neither GFR category G1 nor G2 fulfill the criteria for CKD. The CKD-EPI equation is validated in individuals 18 years of age and older. Currently the best equation for estimating glomerular filtration rate (GFR) from serum creatinine in children is the Bedside Rojas equation. It is less accurate in patients with extremes of muscle mass, restriction of dietary protein, ingestion of creatine, extra-renal metabolism of creatinine, or treatment with medications that affect renal tubular creatinine secretion. Glucose [Mass/Vol] 117 mg/dL High 70 - 100 mg/dL [facility] Interpretation and review of laboratory results Abnormal [facility] Potassium [Moles/Vol] 4.9 mmol/L 3.5 - 5.1 mmol/L [facility] Comment on above: Slightly hemolysed, interpret with caution. Sodium [Moles/Vol] 134 mmol/L Low 135 - 145 mmol/L [facility] Urea nitrogen (BldV) [Mass/Vol] 8 mg/dL Low 9 - 20 mg/dL [facility] Test Performed by [facility], [address] [place] [id number] [facility] Drugs of Abuseon 04-19-2022 Amphetamines, Ur Positive Normal [facility] Comment on above: Performed By: #### D [email or web address] #### [facility] [address] [facility] [facility] [place] Phencyclidine (PCP), Ur Negative Normal [facility] Comment on above: Result Comment: The expected value for all of the drugs listed above is Negative. The following drugs or drug groups have been screened for by Immunoassay at the following thresholds: Amphetamine class (1000 ng/mL), Barbiturates (200 ng/mL), Benzodiazepines (200 ng/mL), Cocaine (300 ng/mL), Methadone (300 ng/mL), Opiates (300 ng/mL), Oxycodone (100 ng/mL), and PCP (25 ng/mL). NOTE: These results are for medical treatment only. Analysis performed using non-forensic procedures. POSITIVE results are NOT confirmed by a more specific alternative method unless requested. If confirmation is needed, request confirmation under separate order. Performed By: #### D RGA4 #### [facility] [address] [facility], [place] Cocaine, Ur Negative Normal [facility] Comment on above: Performed By: #### D RGA4 #### [facility] [address] [facility], [place] Opiates, Ur Positive Normal [facility] Comment on above: Performed By: #### D RGA4 #### [facility] [address] [facility], [place] Barbiturates, Ur Negative Normal [facility] Comment on above: Performed By: #### D RGA4 #### [facility] [address] [facility] [place], [place] Methadone, Ur Negative Normal [facility] Comment on above: Performed By: #### D RGA4 #### [facility] [address] [place] [place] [address] Benzodiazepines, Ur Positive Normal [facility] Comment on above: Performed By: #### D [email or web address] #### [facility] [address] [facility], [place] Oxycodone/Oxymorphine, Ur Positive Normal [facility] Comment on above: Performed By: #### D RGA4 #### [facility] [address] [facility] [place], [place] Hep B Surface Abon 10-10-202 2 Hep B Surface Ab 20.7 m[IU]/mL Normal [facility] Comment on above: Result Comment: Inte rpretation: <8.0 Non-Reactive 8.0-11.9 Equivocal >= 12.0 Ab Detected Note: If an equivocal result is interpreted, an antibody status is unable to be determined. Collect new specimen if clinically indicated. Performed By: #### H BSA #### [address] [address] #### HBCAO #### The performing lab is in the report. Hepatitis B Surface Antibody on 04-19-2022 HBV surface Ab (S) [Titer] 20.7 m[IU]/mL [facility] Work Phone: Comment on above: Interpretation: <8.0 Non-Reactive 8.0-11.9 Equivocal >= 12.0 Ab Detected Note: If an equivocal result is interpreted, an antibody status is unable to be determined. Collect new specimen if clinically indicated. Test Performed by [facility], [address] [place] [id number] [place] [address] LAB [facility] Work Phone: OPERATIVE REPORTon 2 Ordered by an unspecified provider. [facility] Op Noteon 04-19-2022 Op Note OPERATIVE REPORT Patient: Radha Little Date of : 2000 Location: [facility] Date of Service: 04/18/2022 Preoperative Diagnoses: Right Index Finger Flexor Tendon Sheath Infection - Suppurative Flexor Tenosynovitis Postoperative Diagnoses: Same Procedures: Incision & Drainage with Irrigation and Debridement of Right Index Finger Flexor Tendon Sheath Infection Surgeon: Patti Langston MD [facility] Representative: Lexa King MD PGY-3 Anesthesia: General Blood Loss: 10cc Complications: None Indications: Ms. Radha Little is a 21 y.o. year old female with Right Index Finger Flexor Tendon Sheath Infection. She is an active IVDU. I have discussed preoperatively with her the complications, limitations, expectations, alternatives and risk of the planned surgical care which she understood & all of her questions were answered. Ms. Radha Little has provided written informed consent to proceed. After written consent was obtained and the proper operative sites were identified and marked, she was brought to the operating room and placed in the supine position on the operating room table with the Right arm extended upon a hand table. General anesthesia with LMA was induced & the Right upper extremity was prepped and draped in the usual sterile fashion. Procedure: After [place] exsanguination, the pneuomo-tourniquet was inflated to 250 millimeters of Mercury about the arm. The Right Index Finger was addressed with a longitudinal incision over the proximal aspect of the flexor tendon sheath at the MCP joint. Dissection was carried carefully through the soft tissues, carefully protecting the radial and ulnar neurovascular bundles throughout the procedure. The soft tissues, surrounding the A-1 sarahi, were cleared, and a longitudinal incision was made, fully releasing the A-1 sarahi longitudinally under direct visualization. Within the flexor sheath was a moderate amount of cloudy fluid which was captured for sterile microbiological culture. A counter incision was fashioned at the pulp tip of the finger to gain access to the distal end of the flexor sheath. An angiocatheter was advanced from proximal to distal along the length of the flexor sheath to allow for [id number] irrigation. With the irrigation catheter properly positioned, the sheath was irrigated with 100 ml of sterile saline. However due to inability to adequately irrigate through the tendon sheath, the incision were then converted to an open Jennifer incision extending from the DIPJ to the proximal incision over the MCPJ. Skin incision was made and careful attention was paid to not injure the radial and ulnar neurovascular bundles. The flexor tendon sheath was directly visualized, opened and decompressed with a moderate amount of cloudy fluid decompressed. The sheath was then irrigated with 1000mL of normal saline until no further purulent liquid was visualized. There was no extension of purulent fluid past the A0 pully. The incisions were all irrigated copiously with sterile saline for irrigation. The tourniquet was deflated and the fingers were immediately pink and well perfused. Hemostasis was easily obtained with direct pressure. The wounds were not packed open. The incisions were loosely closed with 4-0 nylon, leaving the most distal aspect of the incision open to drain The wounds were dressed with Adaptic with bacitracin & dry sterile dressings after local anesthetic was instilled for postoperative analgesia. She was placed in a well padded resting splint. Ms. Radha Little was awakened from anesthesia having tolerated the procedure without apparent complication. She was returned to the recovery room in stable condition. Normal [facility] TS GELon 04-19-2022 TS GEL ABO Group: A Rh, Gel: NEG Antibody Screen Gel: NEG Normal [facility] Comment on above: Performed By: #### H BSA #### [address] #### HBCAO #### The performing lab is in the report. URINE DRUG SCREENon 04-19-20 22 Amphetamines, urine Positive [facility] Barbiturates, Urine Negative [facility] Benzodiazepine Ur Qual Positive [facility] Cocaine Metabolites, Ur Negative [facility] Methadone, Urine Negative [facility] Opiates, Urine Positive [facility] Oxycodone Screen, Ur Positive [facility] A PCP, Urine Negative [facility] Comment on above: The expected value f or all of the drugs listed above is Negative. The following drugs or drug groups have been screened for by Immunoassay at the following thresholds: Amphetamine class (1000 ng/mL), Barbiturates (200 ng/mL), Benzodiazepines (200 ng/mL), Cocaine (300 ng/mL), Methadone (300 ng/mL), Opiates (300 ng/mL), Oxycodone (100 ng/mL), and PCP (25 ng/mL). NOTE: These results are for medical treatment only. Analysis performed using non-forensic procedures. POSITIVE results are NOT confirmed by a more specific alternative method unless requested. If confirmation is needed, request confirmation under separate order. Test Performed by [facility], [address] [place] [id number] [place] [address] LAB [facility] Basic Metabolic Panelon 100 Anion gap [Moles/Vol] 6 mmol/L Normal 3-13 [facility] Comment on above: Performed By: #### H EMDF, ESR, BMP3, CRP2 #### [address] Calcium [Mass/Vol] 8.9 mg/dL Normal 8.4-10.4 [facility] Comment on above: Performed By: #### H EMDF, ESR, BMP3, CRP2 #### [address] CO2 [Moles/Vol] 24 mmol/L Normal 22-30 [facility] Comment on above: Performed By: #### H EMDF, ESR, BMP3, CRP2 #### [facility] [address], [place] Glucose [Mass/Vol] 88 mg/dL Normal 70-100 [facility] Comment on above: Performed By: #### H EMDF, ESR, BMP3, CRP2 #### [facility] [address], [place] Urea nitrogen [Mass/Vol] 5 mg/dL Low 9-20 [facility] Comment on above: Performed By: #### H EMDF, ESR, BMP3, CRP2 #### [facility] [address], [place] Creatinine [Mass/Vol] 0.61 mg/dL Normal 0.52-1.25 [facility] Comment on above: Performed By: #### H EMDF, ESR, BMP3, CRP2 #### [facility] [address], [place] eGFR OTHER > 90.0 Normal >60 [facility] Comment on above: Result Comment: KDIG O guidelines provide the following GFR categories: Stage GFR(ml/min/1.73 m2) Terms G1 >=90 Normal or high G2 60-89 Mildly decreased* G3a 45-59 Mildly to moderately decreased G3b 30-44 Moderately to severely decreased G4 15-29 Severely decreased G5 <15 Kidney failure *Relative to young adult level. In the absence of evidence of kidney damage, neither GFR category G1 nor G2 fulfill the criteria for CKD. The CKD-EPI equation is validated in individuals 18 years of age and older. Currently the best equation for estimating glomerular filtration rate (GFR) from serum creatinine in children is the Bedside Rojas equation. It is less accurate in patients with extremes of muscle mass, restriction of dietary protein, ingestion of creatine, extra-renal metabolism of creatinine, or treatment with medications that affect renal tubular creatinine secretion. Performed By: #### H EMDF, ESR, BMP3, CRP2 #### [facility] [address], [place] GFR/1.73 sq M.predicted among blacks MDRD (S/P/Bld) [Vol rate/Area] mL/min/{1.73_m2} Normal >60 [facility] Comment on above: Performed By: #### H MCKENZIE, ESR, BMP3, CRP2 #### [facility] [address] [place] [address] Chloride [Moles/Vol] 108 mmol/L High 98-107 [facility] Comment on above: Performed By: #### H EMDF, ESR, BMP3, CRP2 #### [address] Potassium [Moles/Vol] 3.8 mmol/L Normal 3.5-5.1 [facility] Comment on above: Performed By: #### H WAYNEF, ESR, BMP3, CRP2 #### [address] Sodium [Moles/Vol] 138 mmol/L Normal 135-145 [facility] Comment on above: Performed By: #### H EMDF, ESR, BMP3, CRP2 #### [address] Anion gap [Moles/Vol] 6 mmol/L 3 - 13 mmol/L [facility] Calcium [Mass/Vol] 8.9 mg/dL 8.4 - 10. 4 mg/dL [facility] Chloride [Moles/Vol] 108 mmol/L High 98 - 10 7 mmol/L [facility] CO2 [Moles/Vol] 24 mmol/L 22 - 30 mmol/L [facility] Creatinine [Mass/Vol] 0.61 mg/dL 0.52 - 1.25 mg/dL [facility] eGFR mL/min 60 - P INF mL/min [facility] EGFR IF NonAfrican Canadian mL/min 60 - PINF mL/min [facility] Comment on above: KDIGO guidelines pro vide the following GFR categories: Stage GFR(ml/min/1.73 m2) Terms G1 >=90 Normal or high G2 60-89 Mildly decreased* G3a 45-59 Mildly to moderately decreased G3b 30-44 Moderately to severely decreased G4 15-29 Severely decreased G5 <15 Kidney failure *Relative to young adult level. In the absence of evidence of kidney damage, neither GFR category G1 nor G2 fulfill the criteria for CKD. The CKD-EPI equation is validated in individuals 18 years of age and older. Currently the best equation for estimating glomerular filtration rate (GFR) from serum creatinine in children is the Bedside Rojas equation. It is less accurate in patients with extremes of muscle mass, restriction of dietary protein, ingestion of creatine, extra-renal metabolism of creatinine, or treatment with medications that affect renal tubular creatinine secretion. Glucose [Mass/Vol] 88 mg/dL 70 - 100 mg/dL [facility] Potassium [Moles/Vol] 3.8 mmol/L 3.5 - 5.1 mmol/L [facility] Sodium [Moles/Vol] 138 mmol/L 135 - 145 mmol/L [facility] Urea nitrogen (BldV) [Mass/Vol] 5 mg/dL Low 9 - 20 mg/dL [facility] C-Reactive Proteinon 022 CRP [Mass/Vol] 10.2 mg/L High 0.0-9.9 [facility] Comment on above: Result Comment: . Performed By: #### H EMDF, ESR, BMP3, CRP2 #### [facility] [address] [place] [address] CRP [Mass/Vol] 10.2 mg/L High 0 - 9.9 mg/L [facility] Comment on above: . CBC with Auto Differentialon 04-18-2022 Absolute Baso # 0.0 10*3/uL 0 - 0.2 10*3/uL [facility] Absolute Neut # 7.8 10*3/uL High 1.8 - 7 10*3/uL [facility] Basophils/100 WBC (Bld) 0.4 % 0 - 2 % [facility] Eosinophils (Bld) [#/Vol] 0.2 10*3/uL 0 - 0.5 10*3/uL [facility] Eosinophils/100 WBC (Bld) 2.2 % 1 - 6 % [facility] Granulocytes/100 WBC (Bld) 75.1 % 40 - 80 % [facility] Hematocrit (Bld) [Volume fraction] 37.5 % 35 - 47 % [facility] Hemoglobin (Bld) [Mass/Vol] 13.0 g/dL 11.7 - 16 g/dL [facility] Interpretation and review of laboratory results Abnormal [facility] Lymphocytes (Bld) [#/Vol] 1.7 10*3/uL 1 - 4.3 10*3/uL [facility] Lymphocytes/100 WBC (Bld) 16.4 % Low 20 - 40 % [facility] MCH (RBC) [Entitic mass] 31.2 pg 26 - 34 pg [facility] MCHC (RBC) [Mass/Vol] 34.6 % 32 - 36 % [facility] MCV (RBC) [Entitic vol] 90.2 fL 79 - 98 fL [facility] Monocytes (Bld) [#/Vol] 0.6 10*3/uL 0 - 0.8 10*3/uL [facility] Monocytes/100 WBC (Bld) 5.9 % 2 - 10 % [facility] Platelet distribution width (Bld) [Ratio] 13.4 % 11.5 - 14.5 % [facility] Platelet mean volume (Bld) [Entitic vol] 8.4 fL 7.4 - 12.4 fL [facility] Comment on above: MPV is a calculated measurement using platelet volume ratio. Platelets (Bld) [#/Vol] 297 10*3/uL 140 - 440 10*3/uL [facility] RBC (Bld) [#/Vol] 4.16 10*6/uL 3.8 - 5.2 10*6/uL [facility] WBC (Bld) [#/Vol] 10.3 10*3/uL 3.6 - 10.7 10*3/uL [facility] Test Performed by [address] LAB [facility] CR Chest Portableon 04-18-20 CR Chest Portable Patient Name: RADHA LITTLE Diagnostic Radiology ACCESSION EXAM DATE/TIME PROCEDURE ORDERING PROVIDER [id number] 04/18/2022 21:05 EDT CR Chest Portable [id number] -ARELI BERMAN CPT code 53835 Reason For Exam (CR Chest Portable) PREOP Report CLINICAL INFORMATION: Preoperative chest x-ray for unspecified surgery. CHEST X-RAY, PORTABLE, 2053: An AP portable view without prior examination for comparison demonstrates no abnormality of the mediastinum or cardiac silhouette. No pleural effusion, of vascular congestion, focal consolidation or pneumothorax is seen. IMPRESSION: No evidence of acute cardiopulmonary process. Report Dictated on Final Dictated: 04/18/2022 8:56 pm Dictating Physician: MD SINGH HARLAN Signed Date and Time: 04/18/2022 8:57 pm Signed by: MD SINGH HARLAN Transcribed Date and Time: 04/18/2022 8:56 Normal [facility] CR Hand 2 Views Righton 0 CR Hand 2 Views Right Patient Name: RADHA NAPIER Diagnostic Radiology ACCESSION EXAM DATE/TIME PROCEDURE ORDERING PROVIDER [id number] 04/18/2022 20:12 EDT CR Hand 2 Views Right [id number] ALEXX BORRERO CPT code 00626 Reason For Exam (CR Hand 2 Views Right) Flexor tenosynovitis evaluation Report RIGHT HAND 2 VIEWS CLINICAL INDICATION: Flexor tenosynovitis evaluation TECHNIQUE: 2 views of the right hand. COMPARISON: None. FINDINGS: No acute fracture or dislocation. Joint spaces maintained. Diffuse soft tissue edema noted about the index finger. IMPRESSION: 1. No acute osseous abnormality. 2. Soft tissue edema. Report Dictated on Workstation: THOM Final Dictated: 04/18/2022 8:03 pm Dictating Physician: MD FORBES WENDELL Signed Date and Time: 04/18/2022 8:03 pm Signed by: MD FORBES WENDELL Transcribed Date and Time: 04/18/2022 8:03 Normal [facility] ED Provider Noteon ED Provider Note I was the primary ca re provider on record and performed the majority of this patient's care throughout their stay in the emergency department. Emergency Department Encounter [facility] EMERGENCY DEPT Patient: Radha Little : 2000 Date of Evaluation: 04/18/2022 ED Provider: Alexx Green MD Chief Complaint Chief Complaint Patient presents with Finger Pain Pt is a transfer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 bruising EXAM Physical Exam Const Vital Signs: 06/23/21 18:01 06/23/21 22:24 Temperature 96.8 F L 98.3 F Temperature Source Temporal Temporal Pulse Rate 101 H 93 Respiratory Rate 18 16 Blood Pressure 144/114 H 134/95 H Blood Pressure Mean 124 108 Pulse Ox 100 97 Oxygen Delivery Method Room Air Room Air Positive well nourished, well developed and unkempt General Appearance ED: unkempt, well developed and NAD HEENT Reports TM's clear HEENT Narrative: Patient has a lower lip laceration which is infected. She has poor dentition and possibly fractured teeth from injury. trauma and tenderness Nose: Negative for septum abnormal Tympanic Membrane ED: Yes TM's clear Eyes PERRL and EOMs intact bilaterally General Eye ED: Yes other Other Details: There is no subconjunctival hemorrhage noted. Neck fu (more content not included)... Normal [facility] Urinalysis, Completeon 06-23 BACTERIA 0 SEEN Normal None Seen [facility] Comment on above: Order Comment: CLEAN CATCH Performed By: #### L 505.5000, L400.0001 #### [facility] [address] [facility] [address] EPI,SQUAMOUS 0 SEEN Normal 5-10 [facility] Comment on above: Order Comment: CLEAN CATCH Performed By: #### L 505.5000, L400.0001 #### [facility] [address] [place], [address] Mucus Ql (Urine sed) 0 SEEN [facility] Comment on above: Order Comment: CLEAN CATCH Performed By: #### L 505.5000, L400.0001 #### [facility] [address] [facility] [address] RBC 0 SEEN Normal 0-5 [facility] Comment on above: Order Comment: CLEAN CATCH Performed By: #### L 505.5000, L400.0001 #### [facility] [address] [place], [address] WBC 0 SEEN Normal 0-5 [facility] Comment on above: Order Comment: CLEAN CATCH Performed By: #### L 505.5000, L400.0001 #### [facility] [address] [place], [place], [id number] Culture, urine Bacteria identified Cx Nom (U) Escherichia coli [facility] Work Phone: Vital Signs Date Time Vital Sign Value Performing Clinician Facility 12-25-2024 15:00-0400 Body temperature 97.7 [degF] No Primary Care Physician [facility] 12-25-2024 15:00-0400 Diastolic blood pressure 86 mm[Hg] No Primary Care Physician [facility] 12-25-2024 15:00-0400 Heart rate 76 /min No Primary Care Physician [facility] 12-25-2024 15:00-0400 Respiratory rate 18 /min No Primary Care Physician [facility] 12-25-2024 15:00-0400 SaO2% (BldA) [Mass fraction] 97 % No Primary Care Physician [facility] 12-25-2024 15:00-0400 Systolic blood pressure 106 mm[Hg] No Primary Care Physician [facility] 12-25-2024 12:37-0400 Body height 154.94 cm No Primary Care Physician [facility] 12-25-2024 12:37-0400 Body mass index (BMI) [Ratio] 16.8 kg/m2 No Primary Care Physician [facility] 12-25-2024 12:37-0400 Body weight 40.5 kg No Primary Care Physician [facility] 09-12-2024 10:55-0500 Body height 154.9 cm Karen Pulliam [employer]CN[employer] Work Phone: [facility] 09-12-2024 10:55-0500 Body mass index (BMI) [Ratio] 21.16 kg/m2 Karen Pulliam EFFICIENCY [employer]ER[employer]CNM Work Phone: [facility] 09-12-2024 10:55-0500 Body weight 50.8 kg Karen Pulliam EFFICIENCY [employer]ER[employer]CNM Work Phone: [facility] 09-12-2024 10:55-0500 Diastolic blood pressure 68 mm[Hg] Karen Pulliam EFFICIENCY [employer]ER[employer]CNM Work Phone: [facility] 09-12-2024 10:55-0500 Systolic blood pressure 118 mm[Hg] Karen Pulliam APRN.CNM Work Phone: [facility] 12-07-2023 03:57-0400 Blood Pressure Cuff Size JOSEPH SHETH MD [facility] 12-07-2023 03:57-0400 Blood Pressure Location JOSEPH SHETH MD [facility] 12-07-2023 03:57-0400 Blood Pressure Method JOSEPH SHETH MD [facility] 12-07-2023 03:57-0400 Diastolic Blood Pressure Non-Invasive 52 mm[Hg] JOSEPH SHETH MD [facility] 12-07-2023 03:57-0400 Heart rate 62 /min JOSEPH SHETH MD [facility] 12-07-2023 03:57-0400 Respiratory rate 16 /min JOSEPH SHETH MD [facility] 12-07-2023 03:57-0400 Systolic Blood Pressure Non-Invasive 101 mm[Hg] JOSEPH SHETH MD [facility] 12-07-2023 02:13-0400 Blood Pressure Cuff Size JOSEPH SHETH MD [facility] 12-07-2023 02:13-0400 Blood Pressure Location JOSEPH SHETH MD [facility] 12-07-2023 02:13-0400 Blood Pressure Method JOSEPH SHETH MD [facility] 12-07-2023 02:13-0400 Body height 155 cm JOSEPH SHETH MD [facility] 12-07-2023 02:13-0400 Body temperature 97.7 [degF] JOSEPH SHETH MD [facility] 12-07-2023 02:13-0400 Body weight 47.7 kg JOSEPH SHETH MD [facility] 12-07-2023 02:13-0400 Diastolic Blood Pressure Non-Invasive 48 mm[Hg] JOSEPH SHETH MD [facility] 12-07-2023 02:13-0400 Heart rate 70 /min JOSEPH SHETH MD [facility] 12-07-2023 02:13-0400 Reason For Taking VItal Signs JOSEPH SHETH MD [facility] 12-07-2023 02:13-0400 Respiratory rate 18 /min JOSEPH SHETH MD [facility] 12-07-2023 02:13-0400 Systolic Blood Pressure Non-Invasive 94 mm[Hg] JOSEPH SHETH MD [facility] 10-31-2023 20:44-0400 Diastolic Blood Pressure Non-Invasive 78 mm[Hg] KWAN CABELLO DO [facility] 10-31-2023 20:44-0400 Heart rate 89 /min KWAN GLENISKA DO [facility] 10-31-2023 20:44-0400 Respiratory rate 16 /min KWAN FERNANDAESKA DO [facility] 10-31-2023 20:44-0400 Systolic Blood Pressure Non-Invasive 102 mm[Hg] KWAN GALVINKA DO [facility] 10-31-2023 19:51-0400 Body height 155 cm KWANSAIMA CABELLO DO [facility] 10-31-2023 19:51-0400 Body temperature 97.88 [degF] KWAN DURESKA DO [facility] 10-31-2023 19:51-0400 Body weight 45.4 kg KWAN DURESKA DO [facility] 10-31-2023 19:51-0400 Diastolic Blood Pressure Non-Invasive 58 mm[Hg] KWAN DURESKA DO [facility] 10-31-2023 19:51-0400 Heart rate 104 /min KWAN DURESKA DO [facility] 10-31-2023 19:51-0400 Respiratory rate 16 /min KWAN DURESKA DO [facility] 10-31-2023 19:51-0400 Systolic Blood Pressure Non-Invasive 106 mm[Hg] KWAN DURESKA DO [facility] 10-15-2023 00:39-0400 Diastolic blood pressure 79 mm[Hg] NIDAL CHOUJAA DO [facility] 10-15-2023 00:39-0400 Heart rate 64 /min NIDAL CHOUJAA DO [facility] 10-15-2023 00:39-0400 Respiratory rate 14 /min NIDAL CHOUJAA DO [facility] 10-15-2023 00:39-0400 Systolic blood pressure 121 mm[Hg] NIDAL CHOUJAA DO [facility] 10-14-2023 22:50-0400 Blood Pressure Cuff Size NIDAL CHOUJAA DO [facility] 10-14-2023 22:50-0400 Blood Pressure Location NIDAL CHOUJAA DO [facility] 10-14-2023 22:50-0400 Blood Pressure Method NIDAL CHOUJAA DO [facility] 10-14-2023 22:50-0400 Body height 155 cm NIDAL CHOUJAA DO [facility] 10-14-2023 22:50-0400 Body temperature 97.7 [degF] NIDAL CHOUJAA DO [facility] 10-14-2023 22:50-0400 Body weight 47.9 kg NIDAL CHOUJAA DO [facility] 10-14-2023 22:50-0400 Diastolic Blood Pressure Non-Invasive 76 mm[Hg] NIDAL CHOUJAA DO [facility] 10-14-2023 22:50-0400 Heart rate 86 /min NIDAL CHOUJAA DO [facility] 10-14-2023 22:50-0400 Reason For Taking VItal Signs NIDAL CHOUJAA DO [facility] 10-14-2023 22:50-0400 Respiratory rate 18 /min NIDAL CHOUJAA DO [facility] 10-14-2023 22:50-0400 Systolic Blood Pressure Non-Invasive 134 mm[Hg] NIDAL CHOUJAA DO [facility] 09-25-2023 11:11-0400 Body height 155 cm NIDAL CHOUJAA DO [facility] 09-25-2023 11:11-0400 Body temperature 97.52 [degF] NIDAL CHOUJAA DO [facility] 09-25-2023 11:11-0400 Body weight 46 kg NIDAL CHOUJAA DO [facility] 09-25-2023 11:11-0400 Diastolic Blood Pressure Non-Invasive 61 mm[Hg] NIDAL CHOUJAA DO [facility] 09-25-2023 11:11-0400 Heart rate 96 /min NIDAL CHOUJAA DO [facility] 09-25-2023 11:11-0400 Respiratory rate 18 /min NIDAL CHOUJAA DO [facility] 09-25-2023 11:11-0400 Systolic Blood Pressure Non-Invasive 97 mm[Hg] NIDAL CHOUJAA DO [facility] 08-21-2023 13:49-0500 Blood Pressure Cuff Size DR CRISTINA MALLORY DO [facility] 08-21-2023 13:49-[address] CRISTINA MALLORY DO [facility] 08-21-2023 13:49-[address] CRISTINA MALLORY DO [facility] 08-21-2023 13:49-0500 Body temperature 98.24 [degF] DR CRISTINA MALLORY DO [facility] 08-21-2023 13:49-0500 Diastolic Blood Pressure Non-Invasive 75 mm[Hg] DR CRISTINA MALLORY DO [facility] 08-21-2023 13:49-0500 Heart rate 85 /min DR CRISTINA MALLORY DO [facility] 08-21-2023 13:49-0500 Respiratory rate 18 /min DR CRISTINA MALLORY DO [facility] 08-21-2023 13:49-0500 Systolic Blood Pressure Non-Invasive 115 mm[Hg] DR CRISTINA MALLORY DO [facility] 03-13-2023 09:52-0400 Body temperature 98.6 [degF] No Primary Care Physician [facility] 03-13-2023 09:52-0400 Diastolic blood pressure 61 mm[Hg] No Primary Care Physician [facility] 03-13-2023 09:52-0400 Heart rate 86 /min No Primary Care Physician [facility] 03-13-2023 09:52-0400 Respiratory rate 18 /min No Primary Care Physician [facility] 03-13-2023 09:52-0400 SaO2% (BldA) [Mass fraction] 98 % No Primary Care Physician [facility] 03-13-2023 09:52-0400 Systolic blood pressure 104 mm[Hg] No Primary Care Physician [facility] 03-10-2023 14:41-0400 Body height 154.94 cm No Primary Care Physician [facility] 03-10-2023 14:41-0400 Body weight 43.23 kg No Primary Care Physician [facility] 03-09-2023 23:18-0400 Body mass index (BMI) [Ratio] 18 kg/m2 No Primary Care Physician [facility] 03-09-2023 22:31-0400 Body temperature 98.3 [degF] [facility] 03-09-2023 22:31-0400 Diastolic blood pressure 78 mm[Hg] [facility] 03-09-2023 22:31-0400 Heart rate 78 /min [facility] 03-09-2023 22:31-0400 Respiratory rate 16 /min [facility] 03-09-2023 22:31-0400 SaO2% (BldA) [Mass fraction] 99 % [facility] 03-09-2023 22:31-0400 Systolic blood pressure 118 mm[Hg] [facility] 03-09-2023 20:55-0400 Body height 154.94 cm [facility] 03-09-2023 20:55-0400 Body mass index (BMI) [Ratio] 17.7 kg/m2 [facility] 03-09-2023 20:55-0400 Body weight 42.6 kg [facility] 01-13-2023 01:30-0400 Diastolic Blood Pressure Non-Invasive 68 1 LEXIE REICHFIELD DO [facility] 01-13-2023 01:30-0400 Heart rate 60 /min LEXIE REICHFIELD DO [facility] 01-13-2023 01:30-0400 Respiratory rate 16 /min LEXIE REICHFIELD DO [facility] 01-13-2023 01:30-0400 Systolic Blood Pressure Non-Invasive 118 1 LEXIE REICHFIELD DO [facility] 01-13-2023 00:27-0400 Body height 155 cm LEXIE REICHFIELD DO [facility] 01-13-2023 00:27-0400 Body temperature 98.06 [degF] LEXIE REICHFIELD DO [facility] 01-13-2023 00:27-0400 Body weight 40.7 kg LEXIE REICHFIELD DO [facility] 01-13-2023 00:27-0400 Diastolic Blood Pressure Non-Invasive 67 1 LEXIE REICHFIELD DO [facility] 01-13-2023 00:27-0400 Heart rate 61 /min LEXIE REICHFIELD DO [facility] 01-13-2023 00:27-0400 Respiratory rate 16 /min [facility] 01-13-2023 00:27-0400 Systolic Blood Pressure Non-Invasive 112 1 [facility] 12-04-2022 10:10-0400 Body temperature 98.6 [degF] YURIDIA CHIN MD [facility] 12-04-2022 10:10-0400 Diastolic Blood Pressure Non-Invasive 76 1 YURIDIA CHIN MD [facility] 12-04-2022 10:10-0400 Heart rate 88 /min YURIDIA CHIN MD [facility] 12-04-2022 10:10-0400 Respiratory rate 18 /min YURIDIA CHIN MD [facility] 12-04-2022 10:10-0400 Systolic Blood Pressure Non-Invasive 116 1 YURIDIA CHIN MD [facility] 12-04-2022 09:23-0400 Blood Pressure Location YURIDIA CHIN MD [facility] 12-04-2022 09:23-0400 Blood Pressure Method YURIDIA CHIN MD [facility] 12-04-2022 09:23-0400 Body temperature 97.7 [degF] YURIDIA CHIN MD [facility] 12-04-2022 09:23-0400 Diastolic Blood Pressure Non-Invasive 80 1 YURIDIA CHIN MD [facility] 12-04-2022 09:23-0400 Heart rate 100 /min YURIDIA CHIN MD [facility] 12-04-2022 09:23-0400 Respiratory rate 18 /min YURIDIA CHIN MD [facility] 12-04-2022 09:23-0400 Systolic Blood Pressure Non-Invasive 118 1 YURIDIA CHIN MD [facility] 05-31-2022 14:06-0500 Body height 15 cm JOSEPH SHETH MD [facility] 05-31-2022 14:06-0500 Body temperature 97.52 [degF] JOSEPH SHETH MD [facility] 05-31-2022 14:06-0500 Body weight 47.7 kg JOSEPH SHETH MD [facility] 05-31-2022 14:06-0500 Diastolic Blood Pressure Non-Invasive 85 1 JOSEPH SHETH MD [facility] 05-31-2022 14:06-0500 Heart rate 90 /min JOSEPH SHETH MD [facility] 05-31-2022 14:06-0500 Respiratory rate 16 /min JOSEPH SHETH MD [facility] 05-31-2022 14:06-0500 Systolic Blood Pressure Non-Invasive 125 1 JOSEPH SHETH MD [facility] 04-26-2022 15:48-0400 Body height 155 cm BRANDI VILLASEÑOR MD [facility] 04-26-2022 15:48-0400 Body temperature 97.52 [degF] BRANDI VILLASEÑOR MD [facility] 04-26-2022 15:48-0400 Body weight 46.8 kg BRANDI VILLASEÑOR MD [facility] 04-26-2022 15:48-0400 Diastolic blood pressure 77 mm[Hg] BRANDI VILLASEÑOR MD [facility] 04-26-2022 15:48-0400 Heart rate 100 /min BRANDI VILLASEÑOR MD [facility] 04-26-2022 15:48-0400 Respiratory rate 16 /min BRANDI VILLASEÑOR MD [facility] 04-26-2022 15:48-0400 Systolic blood pressure 123 mm[Hg] BRANDI VILLASEÑOR MD [facility] 04-19-2022 16:36-0400 Respiratory rate 16 /min Alexx Green MD Work Phone: [facility] 04-19-2022 05:13-0400 Body temperature 98.8 [degF] Alexx Green MD Work Phone: [facility] 04-19-2022 05:13-0400 Diastolic blood pressure 86 mm[Hg] Alexx Green MD Work Phone: [facility] 04-19-2022 05:13-0400 Heart rate 94 /min Alexx Green MD Work Phone: [facility] 04-19-2022 05:13-0400 SaO2% (BldA) [Mass fraction] 96 % Alexx Green MD Work Phone: [facility] 04-19-2022 05:13-0400 Systolic blood pressure 131 mm[Hg] Alexx Green MD Work Phone: [facility] 04-18-2022 19:51-0400 Body mass index (BMI) [Ratio] 19.2 kg/m2 Alexx Green MD Work Phone: [facility] 04-18-2022 19:51-0400 Body weight 47.63 kg Alexx Green MD Work Phone: [facility] 04-18-2022 19:39-0400 Body height 157.5 cm Alexx Green MD Work Phone: [facility] 04-18-2022 17:28-0400 Diastolic blood pressure 87 mm[Hg] DR MINH FERNANDEZ MD [facility] 04-18-2022 17:28-0400 Heart rate 92 /min DR MINH FERNANDEZ MD [facility] 04-18-2022 17:28-0400 Respiratory rate 18 /min DR MINH FERNANDEZ MD [facility] 04-18-2022 17:28-0400 Systolic blood pressure 133 mm[Hg] DR MINH FERNANDEZ MD [facility] 04-18-2022 16:03-0400 Body temperature 98.78 [degF] DR MINH FERNANDEZ MD [facility] 04-18-2022 16:03-0400 Diastolic blood pressure 71 mm[Hg] DR MINH FERNANDEZ MD [facility] 04-18-2022 16:03-0400 Heart rate 128 /min DR MINH FERNANDEZ MD [facility] 04-18-2022 16:03-0400 Respiratory rate 18 /min DR MINH FERNANDEZ MD [facility] 04-18-2022 16:03-0400 Systolic blood pressure 119 mm[Hg] DR MINH FERNADNEZ MD [facility] 04-02-2022 20:17-0400 Body temperature 98.42 [degF] DR FIDEL KEANE MD [facility] 04-02-2022 20:17-0400 Diastolic blood pressure 70 mm[Hg] DR FIDEL KEANE MD [facility] 04-02-2022 20:17-0400 Heart rate 116 /min DR FIDEL KEANE MD [facility] 04-02-2022 20:17-0400 Respiratory rate 18 /min DR FIDEL KEANE MD [facility] 04-02-2022 20:17-0400 Systolic blood pressure 104 mm[Hg] DR FIDEL KEANE MD [facility] 03-06-2022 22:20-0400 Heart rate 75 /min [facility] Work Phone: 03-06-2022 22:20-0400 Respiratory rate 16 /min [facility] Work Phone: 03-06-2022 22:20-0400 SaO2% (BldA) [Mass fraction] 97 % [facility] Work Phone: 03-06-2022 18:55-0400 Body height 154.94 cm [facility] Work Phone: 03-06-2022 18:55-0400 Body mass index (BMI) [Ratio] 22.6 kg/m2 [facility] Work Phone: 03-06-2022 18:55-0400 Body temperature 95.3 [degF] [facility] Work Phone: 03-06-2022 18:55-0400 Body weight 54.43 kg [facility] Work Phone: 03-06-2022 18:55-0400 Diastolic blood pressure 75 mm[Hg] [facility] Work Phone: 03-06-2022 18:55-0400 Systolic blood pressure 114 mm[Hg] [facility] Work Phone: 12-24-2021 00:24-0400 Diastolic blood pressure 74 mm[Hg] [facility] Work Phone: 12-24-2021 00:24-0400 Heart rate 98 /min [facility] Work Phone: 12-24-2021 00:24-0400 Respiratory rate 17 /min [facility] Work Phone: 12-24-2021 00:24-0400 SaO2% (BldA) [Mass fraction] 95 % [facility] Work Phone: 12-24-2021 00:24-0400 Systolic blood pressure 114 mm[Hg] [facility] Work Phone: 12-23-2021 23:06-0400 Body temperature 97.9 [degF] [facility] Work Phone: 12-23-2021 19:36-0400 Body mass index (BMI) [Ratio] 22.3 kg/m2 [facility] Work Phone: 12-23-2021 19:36-0400 Body weight 53.52 kg [facility] Work Phone: 05-28-2021 00:35-0500 Diastolic blood pressure 78 mm[Hg] DR CRISTINA MALLORY DO [facility] 05-28-2021 00:35-0500 Heart rate 100 /min DR CRISTINA MALLORY DO [facility] 05-28-2021 00:35-0500 Respiratory rate 16 /min DR CRISTINA MALLORY DO [facility] 05-28-2021 00:35-0500 Systolic blood pressure 123 mm[Hg] DR CRISTINA MALLORY DO [facility] 05-27-2021 22:41-0500 Body height [address] CRISTINA MALLORY DO [facility] 05-27-2021 22:41-0500 Body temperature 98.24 [degF] DR CRISTINA MALLORY DO [facility] 05-27-2021 22:41-0500 Body weight 47.[address] CRISTINA MALLORY DO [facility] 05-27-2021 22:41-0500 Diastolic blood pressure 76 mm[Hg] DR CRISTINA MALLORY DO [facility] 05-27-2021 22:41-0500 Heart rate 93 /min DR CRISTINA MALLORY DO [facility] 05-27-2021 22:41-0500 Respiratory rate 18 /min DR CRISTINA MALLORY DO [facility] 05-27-2021 22:41-0500 Systolic blood pressure 111 mm[Hg] DR CRISTINA MALLORY DO [facility] 05-14-2021 18:08-0400 Body temperature 98.42 [degF] DR CRISTINA MALLORY DO [facility] 05-14-2021 18:08-0400 Diastolic blood pressure 74 mm[Hg] DR CRISTINA MALLORY DO [facility] 05-14-2021 18:08-0400 Heart rate 95 /min DR CRISTINA MALLORY DO [facility] 05-14-2021 18:08-0400 Mean blood pressure 86 mm[Hg] DR CRISTINA MALLORY DO [facility] 05-14-2021 18:08-0400 Respiratory rate 16 /min DR CRISTINA MALLORY DO [facility] 05-14-2021 18:08-0400 Systolic blood pressure 110 mm[Hg] DR CRISTINA MALLORY DO [facility] Encounters Encounter Date Encounter Type Care Provider Facility Start: 12-25-2024 Evaluation and manag ement of inpatient Dr. Moises Jenkins DO -[facility] 3 Work Phone: Start: 12-15-2024 End: 12-15-2024 Emergency department patient visit KACI BERG [facility] Start: 09-20-2024 End: 09-20-2024 ambulatory Karen Pulliam [employer]CN[employer] Work Phone: OB/Gynecology Comment on above: OB update Start: 09-20-2024 End: 09-25-2024 Telephone encounter Karen Pulliam [employer]CNM Work Phone: OB/Gynecology Start: 09-19-2024 End: 09-19-2024 ambulatory NONE PHYSICIAN Facility:A Start: 09-19-2024 End: 09-19-2024 SAME DAY STAY KWAN HERNANDEZ DO [facility] Start: 09-17-2024 End: 09-18-2024 Evaluation and management of inpatient NONE PHYSICIAN Facility:[facility] Start: 09-13-2024 End: 09-18-2024 Telephone encounter Yaya WEBB Navigation Start: 09-12-2024 End: 11-12-2024 Follow-up encounter Karen Narayanmitzi STOUT[employer]CNMayra Work Phone: OB/Gynecology Start: 09-12-2024 End: 09-12-2024 Patient encounter procedure Karen Pulliam APRN.CNMayra Work Phone: OB/Gynecology Comment on above: with uncer tain dates, antepartum (Primary Dx); Screening for diabetes mellitus; Tobacco use during , antepartum; Chronic hepatitis C affecting , antepartum (HCC); Lack of access to transportation; History of drug abuse (HCC); History of depression; History of substance use; Rh negative state in antepartum period; Supervision of high risk in second trimester; Cigarette nicotine dependence without complication; Screening for human papillomavirus (HPV); Screening for cervical cancer; Late care affecting in second trimester; Poor dentition; Dental caries; Lives in homeless group home; Lost custody of children; 34 weeks gestation of ; Encounter for supervision of high risk due to social problem in third trimester, antepartum Encounter for anatomic survey (Primary Dx); 34 weeks gestation of ; Late care Start: 09-12-2024 End: 09-12-2024 ambulatory KAREN DIANA Facility:[facility] Start: 09-07-2024 End: 09-12-2024 Telephone encounter Kaci Pérez APRN.CNP Work Phone: OB/Gynecology Comment on above: Appointment Start: 08-29-2024 End: 08-29-2024 Telephone encounter Nurse Banquet Set Up Person Lani James Work Phone: Obstetrics/Gynecology Comment on above: Care Coordination Start: 12-07-2023 End: 12-07-2023 Emergency department patient visit JOSEPH SHETH MD [facility] Start: 10-31-2023 End: 10-31-2023 Emergency department patient visit KWAN CABELLO DO [facility] Start: 10-14-2023 End: 10-15-2023 Emergency department patient visit EL LOVELACE DO [facility] Start: 09-25-2023 End: 09-25-2023 Emergency department patient visit EL LOVELACE DO [facility] Start: 08-21-2023 End: 08-21-2023 Emergency department patient visit DR CRISTINA MALLORY DO [facility] Start: 07-26-2023 End: 07-26-2023 Emergency department patient visit DESIREE GILLESPIE MD Facility:A Start: 03-13-2023 Non-patient / Non-visit No [facility] Work Phone: Start: 03-12-2023 Non-patient / Non-visit No [facility] Work Phone: Start: 03-11-2023 Non-patient / Non-visit No [facility] Work Phone: Start: 03-10-2023 Non-patient / Non-visit No [facility] Work Phone: Start: 03-09-2023 Non-patient / Non-visit No [facility] Work Phone: Start: 03-09-2023 End: 03-13-2023 Evaluation and management of inpatient [facility] 3 Work Phone: Start: 01-13-2023 End: 01-13-2023 Emergency department patient visit LEXIE REYES DO [facility] Start: 12-04-2022 End: 12-04-2022 Emergency department patient visit YURIDIA CHIN MD [facility] Start: 05-31-2022 End: 05-31-2022 Emergency department patient visit JOSEPH SHETH MD [facility] Start: 04-26-2022 End: 04-26-2022 Emergency department patient visit BRANDI VILLASEÑOR MD [facility] Start: 04-19-2022 End: 04-19-2022 Evaluation and management of inpatient [facility] Start: 04-18-2022 End: 04-19-2022 Evaluation and management of inpatient Alexx Green MD Work Phone: [facility] Comment on above: Flexor tenosynovitis of finger (Primary Dx) Start: 04-18-2022 End: 04-18-2022 Emergency department patient visit DR MINH FERNANDEZ MD [facility] Start: 04-02-2022 End: 04-02-2022 Emergency department patient visit DR FIDEL KEANE MD [facility] Start: 03-06-2022 End: 03-06-2022 Emergency department patient visit [facility] Start: 12-23-2021 End: 12-24-2021 Emergency department patient visit [facility] Start: 05-27-2021 End: 05-28-2021 Emergency department patient visit DR CRISTINA MALLORY DO [facility] Start: 05-14-2021 End: 05-14-2021 Emergency department patient visit DR CRISTINA MALLORY DO [facility] Procedures Date Procedure Procedure Detail Performing Clinician Start: 12-25-2024 Estimated creatinine clearance No Primary Care Physician Start: 12-25-2024 Methadone measuremen t, urine No Primary Care Physician Start: 09-12-2024 Us preg uterus after 1st trimest 07/11 gestation Karen Pulliam [employer] Work Phone: Start: 04-19-2022 Hepatitis b surf ant ibody hbsab Valeria Macedo PA-C Work Phone: Start: 04-19-2022 Drug tst prsmv instr mnt chem analyzers pr date Lexa King MD Work Phone: Start: 04-19-2022 OPERATIVE REPORT Physic ruel Generic Start: 04-19-2022 BASIC METABOLIC PANE L W/ REFLEX TO MG FOR LOW K Lexa King MD Work Phone: Start: 04-18-2022 Cul prsmptv pthgnc organism scrn w/colony estimj Alexx Green MD Work Phone: Start: 04-18-2022 Antibody screen Alexx Green MD Work Phone: Start: 04-18-2022 Gonadotropin chorion ic qualitative Lexa King MD Work Phone: Start: 04-18-2022 Blood typing serologic abo Areli Berman MD Work Phone: Start: 04-18-2022 PROTIME/INR & PTT Areli Berman MD Work Phone: Start: 04-18-2022 Radiologic exam ches t single view Areli Berman MD Work Phone: Start: 04-18-2022 Radex hand 2 views Kareem Green MD Work Phone: Start: 04-18-2022 Basic metabolic pane l calcium total Alexx Green MD Work Phone: Start: 04-18-2022 C-reactive protein Kareem Green MD Work Phone: Start: 12-23-2021 CT of abdomen and pe lvis without contrast Hand structure (body structure) DR CRISTINA MALLORY DO None (qualifier value) DR JUAN DANIEL MALLORY DO Urine culture Plan of Treatment Date Care Activity Detail Author Start: 2073 RSV Vaccine (1 - 1-d ose 75+ series) RSV Vaccine (1 - 1-dose 75+ series) [facility] Start: 04-19-2032 DTaP/Tdap/Td vaccine (3 - Td or Tdap) DTaP/Tdap/Td vaccine (3 - Td or Tdap) [facility] Start: 04-19-2032 Urine microalbumin profile DTaP,Tdap,Td Vaccine (10 - Td or Tdap) [facility] Start: 09-13-2027 Screening for malign ant neoplasm of cervix Cervical Cancer Screening [facility] Start: 03-11-2025 Influenza vaccination Influenz a Vaccine (Season Ended) [facility] Start: 12-25-2024 Ambulation without limitation [facility] Start: 12-25-2024 Assessment of risk o f venous thromboembolism [facility] Start: 12-25-2024 Incentive spirometry [facility] Start: 12-25-2024 Insertion of cathete r into peripheral vein [facility] Start: 12-25-2024 Oxygen therapy [facility] Start: 12-25-2024 Providing care accor ding to standard [facility] Start: 12-25-2024 Referral to service [facility] Start: 12-25-2024 [facility] Start: 12-25-2024 Admission procedure [facility] Start: 12-25-2024 Verification routine [facility] Start: 10-11-2024 End: 10-11-2024 Patient encounter procedure 10/11/2024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 Protein 7.7 Albumin 4.3 Globulin 3.4 Serum , Qual NEGATIVE Urine Opiates Screen NEGATIVE U Buprenorphine Qual NEGATIVE Ur Oxycodone Screen NEGATIVE Urine Methadone Screen NEGATIVE Urine Fentanyl Screen PRESUMPTIVE POSITIVE Ur Barbiturates Screen NEGATIVE Ur Phencyclidine Scrn NEGATIVE Ur Amphetamines Screen PRESUMPTIVE POSITIVE U Benzodiazepines Scrn NEGATIVE Urine Cocaine Screen NEGATIVE U Cannabinoids Screen PRESUMPTIVE POSITIVE Ethyl Alcohol < 10.1 HIV 1&2 Antibody Nonreactive Management Discussion w/another healthcare provider: Hospitalist Discharge Plan Dx/Rx/DC Orders Clinical Impression: Active intravenous drug use, Opiate addiction Disposition Disposition: Acute Care Hospital [facility] What to do if you have Problems For any increased pain, shortness of breath, bleeding, nausea or vomiting, chestpain, or any unexpected problems, contact your Primary Care Provider. Call [facility] ([phone]) or report to the closest Emergency Room. Call 911 if necessary. 12/25/24 4822 <Electronically signed by Nawaf Ortega DO> Cosigner Signature (if applicable): CC: No Primary Care Physician ~ Signed [facility] Work Phone: [phone]) 313-124606-07-2025 Hospital Discharge instructions Patient Education 12/15/2024 06:17:56 Dental Pain Dental Pain A crack or cavity in a tooth can cause tooth pain. This is because the crack or cavity exposes the sensitive inner area of the tooth. An infection in the gum or the root of the tooth can cause pain and swelling. The pain is often made worse when you drink hot or cold beverages. It can also be worsewhen you bite on hard foods. Pain may spread from the tooth to your ear or the area of the jaw on the same side. Home care Follow these tips when caring for yourself at home: Don't have hot and cold foods and drinks. Your tooth may be sensitive to changes in temperature. Use toothpaste made for sensitive teeth. [place] gently up and down instead of sideways. Brushing sideways can wear away root surfaces if they are exposed. If your tooth is chipped or cracked, or if there is a large open cavity, put oil of cloves directlyon the tooth to relieve pain. You can buy oil of cloves at drugstores. Some pharmacies carry an osyy-fge-ktqwgcz toothache kit. This contains a paste that you can put on the exposed tooth to make it less sensitive. Put a cold pack on your jaw over the sore area to help reduce pain. You may use hhhf-ama-tccurpo medicine to ease pain, unless your doctor prescribed another medicine.If you have chronic liver or kidney disease, talk with your healthcare provider before using acetaminophen or ibuprofen. Also talk with your provider if you ve had a stomach ulcer or GI bleeding. If you have signs of an infection, you will be given an antibiotic. Take it as directed. Follow-up care Follow up with your dentist, or as advised. Your pain may go away with the treatment given today. But only a dentist can fully look at and treat the cause of your pain. This will keep the pain from coming back. Call 911 Call 911 if any of these occur: Unusual drowsiness Headache or stiff neck Weakness or fainting Difficulty swallowing or breathing When to seek medical advice Call your health care provider right away if any of these occur: Your face becomes swollen or red Pain gets worse or spreads to your neck Fever of 100.4 F (38.0 C) or higher, or as directed by your healthcare provider Pus drains from the tooth [phone] [employer]. [address] [place] [address]. All rights reserved. This information is not intended as a substitute for professional medical care. Always follow yourhealthcare professional's instructions. Follow Up Care 12/15/2024 05:59:41 With:Go to emergency room if symptoms worsen Address:Unknown When:2-4 days With:Dental Referral List Address: When:2-4 days [facility] 06-07-2025 Note Discharge Instructions Thank you for allowing [facility] to assist you with your healthcare needs. The following is importantdischarge information regarding your hospital visit. Diagnosis from Today's Visit Pain due to dental caries What to Do Next Instructions from Your Care Team Take antibiotics and follow-up with dentist within the next few days for repeat assessment. Return to the emergency department for any acute worsening symptoms or concerns. No qualifying data available. Post Acute Orders No qualifying data available. You Need to Schedule the Following Appointments Follow Up with Go to emergency room if symptoms worsen When:Within 2-4 days Follow Up with Dental Referral List When:Within 2-4 days Allergies Bactrim Nausea and vomiting Bee Stings Swelling coconut Medications Please ask your primary doctor or pharmacist before taking any other medication not listed, including over the counter drugs, herbal medications, vitamins and or supplements as they may interact withyour home medications. What How Much When Instructions Last Dose New amoxicillin-clavulanate (amoxicillin-clavulanate 875 mg-125 mg oral tablet) 1 tab(s) by mouth Every 12 hours Duration: 10 Days Printed Prescription New naproxen (naproxen 500 mg oral tablet) 1 tab(s) by mouth Twice daily with meals Duration: 7 Days Printed Prescription Unchanged acetaminophen (Tylenol 325 mg oral capsule) 650 Milligram by mouth Every 6 hours as needed for Pain, scale 1-3 Unchanged ibuprofen (Motrin) 600 Milligram by mouth Every 6 hours as needed for uterine cramping Please take this list to your next doctor s visit. Bring all medications you take, including over the counter medications, herbals and other supplements with you to your doctor s visit. Patients and families are reminded to discard old lists and to update any records with all medication providers or retail pharmacies. Education Materials Dental Pain A crack or cavity in a tooth can cause tooth pain. This is because the crack or cavity exposes the sensitive inner area of the tooth. An infection in the gum or the root of the tooth can cause pain and swelling. The pain is often made worse when you drink hot or cold beverages. It can also be worsewhen you bite on hard foods. Pain may spread from the tooth to your ear or the area of the jaw on the same side. Home care Follow these tips when caring for yourself at home: Don't have hot and cold foods and drinks. Your tooth may be sensitive to changes in temperature. Use toothpaste made for sensitive teeth. [place] gently up and down instead of sideways. Brushing sideways can wear away root surfaces if they are exposed. If your tooth is chipped or cracked, or if there is a large open cavity, put oil of cloves directlyon the tooth to relieve pain. You can buy oil of cloves at [employer]. Some pharmacies carry an rjru-ouz-zeytzme toothache kit. This contains a paste that you can put on the exposed tooth to make it less sensitive. Put a cold pack on your jaw over the sore area to help reduce pain. You may use inru-gmn-euskdlg medicine to ease pain, unless your doctor prescribed another medicine.If you have chronic liver or kidney disease, talk with your healthcare provider before using acetaminophen or ibuprofen. Also talk with your provider if you ve had a stomach ulcer or GI bleeding. If you have signs of an infection, you will be given an antibiotic. Take it as directed. Follow-up care Follow up with your dentist, or as advised. Your pain may go away with the treatment given today. But only a dentist can fully look at and treat the cause of your pain. This will keep the pain from coming back. Call 911 Call 911 if any of these occur: Unusual drowsiness Headache or stiff neck Weakness or fainting Difficulty swallowing or breathing When to seek medical advice Call your health care provider right away if any of these occur: Your face becomes swollen or red Pain gets worse or spreads to your neck Fever of 100.4 F (38.0 C) or higher, or as directed by your healthcare provider Pus drains from the tooth [phone] [employer]. [address] [place] [address]. All rights reserved. This information is not intended as a substitute for professional medical care. Always follow yourhealthcare professional's instructions. Additional Information VACCINATE! IT SAVES LIVES! Members of the community who have not yet received the COVID-19 vaccine and would like to receive it can visit one of [facility] vaccine clinics. There are many vaccine clinic locations within the [facility]. For locations and available times, please visit www.[email or web address].[place].gov/. It is important to note that some COVID mobile vaccine clinics are held outdoors and may be canceled in rainy or stormy conditions. To learn more about pediatric vaccinations (ages 5-11), we invite you to visit the [facility] webpage. [email or web address]/[email or web address]-Idghe-[email or web address]-[email or web address] [email or web address].htmlTo learn more about the COVID-19 vaccine, we invite you to visit the CDC website for a list of frequently asked questions. https://www.cdc.gov/coronavirus/2019-ncov/vaccines/faq.html [facility] Patient Portal Access Instructions: Stay connected with your healthcare team and access your personal medical information anytime with the [facility] Patient Portal. If you would like a full copy of your medical records please contact the [facility] Medical Records Department Tuesday through Tuesday between 8a.m. and 4:30p.m. Please follow the directions below to access the portal: 1.Access the email account you provided upon registration to the hospital.2.Look for an invitation email from [facility].3.Open the email and access the invitation link: Accept Invitation to [facility]4.Fill in the required rutledge to create your account. Sign into [email or web address] with your username and password that you created in the above steps to stay up to date. You can then view a summary of results, a summary of your visits, and the ability to download your summaries to your computer or send the information securely to a physician. Remember that your healthcare information is confidential, so carefully consider who you will allow to register on the [facility] Patient Portal for access to your information. You can also access the [facility] Patient Portal on the [employer] kb. Simply click on Health Records under [employer] and then click on the [facility] logo. HOW TO SAFELY DISPOSE OF PRESCRIPTION MEDICATIONS Please use one of the following methods to safely dispose of your unused medications. 1.Use a drug disposal kit: the drug disposal pouch allows you to safely discard your old and unuseddrugs. Ask your nurse to give you one when you are discharged.2.Visit a local take-back location: Many local pharmacies and police departments have programs that collect old and unwanted prescriptiondrugs. Call your local pharmacy or go to http://Leap.it.Easel/5T5Bg0g to find one close to you.3.Make use of household items: Use cat litter or old coffee grounds to dispose medications if other options arenot available. Mix your drugs with these household products, seal them in an airtight container andthrow it into the garbage. Call [facility]: [phone] to be sure your drugs can be disposed of in this way. Some medicines may require a different approach.4.Never flush your medications down the toilet. IF YOU HAVE BEEN PRESCRIBED AN OPIOIDS FOR PAIN If you have been prescribed an opioid (such as hydrocodone, oxycodone or morphine), it is critical to understand the possible side effects and risks of opioid pain medications. Even when taken as directed, opioids can have several side effects including: Tolerance, meaning you might need to take more of a medication for the same pain relief. Nausea, vomiting and/or constipation. Sleepiness, dizziness, dry mouth, confusion, depression or itching. Physical dependence, meaning you have withdrawal symptoms when a medication is stopped ? this can develop within a few days. KNOW YOUR RESPONSIBILITIES It is important to know exactly how much and how often to take the opioid pain medications you are prescribed. Never take opioids in higher amounts or more often than prescribed. Do not combine opioids with alcohol or other drugs that cause drowsiness, such as benzodiazepines, also known as benzos,including diazepam and alprazolam, muscle relaxants or sleep aids. Never sell or share prescriptionopioids. This is illegal. Store opioids in a secure place and out of reach of others (including children, family, friends and visitors). The last page(s) of this document has been signed and retained as a CHART COPY Signatures Patient Education Materials Dental Pain Medication Leaflets My discharge plan and instructions have been reviewed and explained to me and I,RADHA LITTLE understand my current condition and have read and understand these discharge instructions. I have received a written copy of the plan/instructions. If I have questions, I am aware that I should contact my doctor. Patient/Medical Care Administrator Signature: Date/Time: Relationship to Patient: Witness Name/Signature: Date/Time: [facility]03-13-2025 Telephone encounter Note* Telephone Encounter - Yaya Huitron MSW - 09/20/2024 2:16 PM EDT Thank you for the update. [facility]03-13-2025 Miscellaneous Notes* Telephone Encounter - Yaya Huitron MSW - 09/20/2024 2:16 PM EDT Thank you for the update. * Telephone Encounter - Theresa Jones RN - 09/20/2024 2:10 PM EDT Please see OB update encounter from 09/20/24. Theresa Jones RN [facility] Telephone encounter Note * Telephone Encounter - Theresa Jones RN - 09/20/2024 2:10 PM EDT Please see OB update encounter from 09/20/24. Theresa Jones RN [facility]03-13-2025 NoteHNO ID: [id number] Author: THERESA JONES RN Service: ? Author Type: Registered Nurse Type: Progress Notes Filed: 09/20/2024 14:06 Note Text: Per care everywhere, Pt delivered via on 09/18/24 at [facility]. Tried contacting Pt to get update and to f/u to see how she is doing- at # listed in [facility] chart as well as # listed in care everywhere (Pt's address and phone # are listed different; however, are same). # [facility] has listed states I'm sorry you cannot leave a message because the person you are calling has a voicemail box that has not been set up yet. Per records, Pt was advised to f/u with [facility] in [place], [place]. Cancelled all OB appointments. Will also forward this message to . [facility] History of Present illness Narrative* Theresa Jones RN - 09/20/2024 1:56 PM EDT Per care everywhere, Pt delivered via on 09/18/24 at [facility]. Tried contacting Pt to get update and to f/u to see how she is doing- at # listed in [facility] chart as well as # listed in care everywhere (Pt's address and phone # are listed different; however, are same). # [facility] has listed states I'm sorry you cannot leave a message because the person you are calling has a voicemail box that has not been set up yet. Per records, Pt was advised to f/u with [facility] in [place], [place]. Cancelled all OB appointments. Will also forward this message to . Theresa Jones RN [facility] Telephone encounter Note * Telephone Encounter - Mary Merida RN - 09/18/2024 9:41 AM EDT Added to 09/20 appt notes. Mary Merida RN [facility]03-11-2025 Miscellaneous Notes* Telephone Encounter - Mary Merida RN - 09/18/2024 9:41 AM EDT Added to 09/20 appt notes. Mary Merida RN * Telephone Encounter - Yaya Huitron MSW - 09/18/2024 9:33 AM EDT When patient is in at appt next time. Please see if there is a better number to reach patient and be able to leave message.If patient would like to set up appt with SW let Sw know. * Telephone Encounter - Yaya Huitron MSW - 09/14/2024 2:52 PM EST Sw tried call again to patient. No answer and received same message as below. * Telephone Encounter - Yaya Huitron MSW - 09/13/2024 9:57 AM EST Sw tried call to patient to discuss social service needs. Phone vmail comes on right away, but states it is not set up to leave message. Sw will try call again later. documented in this encounterUk [facility]-2025 Telephone encounter Note * Telephone Encounter - Yaya Huitron MSW - 09/18/2024 9:33 AM EDT When patient is in at appt next time. Please see if there is a better number to reach patient and be able to leave message.If patient would like to set up appt with SW let Sw know. [facility]03-10-2025 Telephone encounter Note* Telephone Encounter - Theresa Jones RN - 09/17/2024 2:30 PM EDT Pt aware of MEEK 10/20/24 per last US and need for repeat US in 4 weeks from 09/12/24. Scheduled all OBappointments up to 10/11/24, except US in 4 weeks. US order pended. US appt 10/11/24 at 2pm placed on hold for Pt. Pt advised to get labs completed MAURICIO and she is aware she needs Rhogam and that she maybe at the lab for a few hours as she needs to have glucose test completed as well. Pt did not want to make lab appt, stated she would just find a ride and come in and get done soon. Please file US order and will schedule appt and link to appt. Theresa Jones, RN [facility]03-10-2025 Miscellaneous Notes* Telephone Encounter - Theresa Jones RN - 09/17/2024 2:30 PM EDT Pt aware of MEEK 10/20/24 per last US and need for repeat US in 4 weeks from 09/12/24. Scheduled all OBappointments up to 10/11/24, except US in 4 weeks. US order pended. US appt 10/11/24 at 2pm placed on hold for Pt. Pt advised to get labs completed MAURICIO and she is aware she needs Rhogam and that she maybe at the lab for a few hours as she needs to have glucose test completed as well. Pt did not want to make lab appt, stated she would just find a ride and come in and get done soon. Please file US order and will schedule appt and link to appt. Theresa Jones RN * Result Encounter Note - Mary Merida RN - 09/14/2024 11:53 AM EST Attempted to call patient. Goes directly to voicemail and unable to leave a message. Needs u/s in 4weeks, OB visit next week and labs drawn yet. Mary Merida RN documented in this encounterUk [facility]03-07-2025 Telephone encounter Note * Telephone Encounter - Yaya Huitron MSW - 09/14/2024 2:52 PM EST Sw tried call again to patient. No answer and received same message as below. [facility]03-07-2025 Progress note* Result Encounter Note - Mary Merida RN - 09/14/2024 11:53 AM EST Attempted to call patient. Goes directly to voicemail and unable to leave a message. Needs u/s in 4weeks, OB visit next week and labs drawn yet. Mary Merida, RN [facility]03-06-2025 Telephone encounter Note* Telephone Encounter - Yaya Huitron MSW - 09/13/2024 9:57 AM EST Sw tried call to patient to discuss social service needs. Phone vmail comes on right away, but states it is not set up to leave message. Sw will try call again later. [facility]03-05-2025 Miscellaneous Notes* Quick Notes - Karen Pulliam APRN.CNM - 09/12/2024 12:05 PM EST Patient is a here for NOB. She has not been seen for care during the . OB US today measuring at 34.4 weeks gestation. Will have all labs, GCT and Rhogam injection today. Long social history. Social work consulted. See progress note and problem list. Karen Pulliam APRN.CNM documented in this encounterUk [facility]-2025 Progress note* Quick Notes - Karen Pulliam APRN.CNM - 09/12/2024 12:05 PM EST Patient is a here for NOB. She has not been seen for care during the . OB US today measuring at 34.4 weeks gestation. Will have all labs, GCT and Rhogam injection today. Long social history. Social work consulted. See progress note and problem list. Karen Pulliam APRN.CNM [facility]03-05-2025 NoteHNO ID: [id number] Author: KAREN PULLIAM APRN.CNM Service: ? Author Type: [employer] Type: Progress Notes Filed: 09/12/2024 12:46 Note Text: Patient unsure of MEEK- This is first visit. Seen while in half-way and was estimated 32 weeks at that time which was 4 weeks ago. Patient to have dating US today. INITIAL OB ASSESSMENT HPI: Radha is a 24 year old White here to establish Obstetrical Care. No LMP recorded (lmp unknown). Patient is . from OB Dating Form. was unplanned but accepted Complaints: No OB History Gravida4 Para2 Term2 Preterm0 AB1 Living2 SAB0 IAB0 Ectopic0 Multiple0 Live Births2 Previous history: Prior : never History of 4th degree laceration: No History of shoulder dystocia: No History of Hypertensive disorders including pre-eclampsia or gestational hypertension: No History of gestational diabetes: No Patient's Risk Screening for delivery: Have you had a prior stewart between 20w and 36w6d? No How many pregnancies have you had before? 3 Did you have a previous baby with a GBS Infection? No Please select all that apply for any prior : N/A MEDICAL/PSYCHOSOCIAL HISTORY: History of hemorrhage or bleeding concerns: No Thyroid Disease: No History of chronic hypertension: No History of pre-existing diabetes: No ABO/RH(D) Date Value Ref Range Status 05/27/2020 A NEGATIVE Final BMI 21.16 kg/(m2) Last Pap: History of abnormal pap: No Prior treatment for cervical dysplasia: none. Last HPV: N/A History of STDs: None Partner History of STDs: None Did you have a partner with Herpes? No Tobacco use: Yes E-Cigarette/Vaping Use: No Caffeine use: Yes Drug use: No - history of drug use, last use 1 yr ago Alcohol use: No Multivitamin with Folic acid: Yes Would refuse blood transfusion if medically necessary: No Social Needs: How often does this describe you? I don't have enough money to pay my bills: Often Within the past 12 months, have you worried that your food would run out before you had money to buy more? Never In the past 12 months, has lack of reliable transportation kept you from going to medical appointments or work, or from getting things needed for daily living? Often In the past 12 months, have you had any concerns about having a place to live, or about the condition or quality of your housing? Often Would you like more information on any of the following (please check all that apply)? Not interested Social History: Do you have any history of depression, anxiety, PTSD, or other mood problems? Yes Do you have a history of abuse or trauma that may impact your experience? No Are you currently employed? No Depression/Anxiety Screening: denies symptoms of depression. OB Depression and Anxiety Screening- This Encounter (since 09/11/2024) Over the past 2 weeks have you felt down, depressed, or hopeless? Negative Over the past two weeks, have you felt little interest or pleasure in doing things?? Negative Feeling nervous, anxious or on edge 2-More than half the days Not being able to stop or control worrying 0-Not al all Anxiety Pre-Screening Total (If >/= 3 additional questions will be reviewed) 2 Genetic Screening: Partner present: No Patient verbalized knowledge of partner family health history: Yes Do you or your partner have any personal or family history of defects not previously discussed: No Do you have history of a complicated by anomaly, genetic condition, or demise: No Preeclampsia Risk Screening: Screening for prevention of preeclampsia: High risk factors: None Moderate risk ractors: None OB Risk Screening: Completed, no positive findings documented. Marital Status:Co-habitating Partner: Name: Hammad Griffith Age: 27 Occupation: N/A - on disability per pateint Gender: Male PAST MEDICAL HISTORY Diagnosis Date childhood seizure Chlamydia age 14 and in 2018 Depression Hepatitis C History of drug abuse (HCC) Hypoglycemia Kidney stones Migraine headache depression Seizures (HCC) PAST SURGICAL HISTORY Procedure Laterality Date NONE Current Outpatient Medications Medication Sig Dispense Refill vit no.124/iron/folic ( VITAMIN ORAL) Take by mouth. pantoprazole DR (PROTONIX) 20 mg tablet Take 1 tablet by mouth once daily. 90 tablet 1 Current Facility-Administered Medications Medication Dose Route Frequency Provider Last Rate Last Admin RhoD immune globulin 300 mcg injection (RHOPHYLAC) 300 mcg INTRAMUSCULAR ONCE (AMB - Up to 30 Days) Karen Pulliam APRN.CNM Allergies As of Date: 09/12/2024 Allergen Noted Reaction BACTRIM [SULFAMETHOXAZOLE-TRIMETH*06/19/2020 GI Upset ENVIRONMENTAL [OTHER] 03/28/2006 Fully Assessed 09/12/2024 Does patient have penicillin allergy: No REVIEW OF SYSTEMS: GENERAL: Ne (more content not included)...[facility]03-05-2025 History of Present illness Narrative* Karen PulliamARGELIA.LIZA - 09/12/2024 10:34 AM EST Images from the original note were not included. Patient unsure of MEEK- This is first visit. Seen while in half-way and was estimated 32 weeks at that time which was 4 weeks ago. Patient to have dating US today. INITIAL OB ASSESSMENT HPI: Radha is a 24 year old White here to establish Obstetrical Care. No LMP recorded (lmp unknown). Patient is . from OB Dating Form. was unplanned but accepted Complaints: No OB History Gravida4 Para2 Term2 Preterm0 AB1 Living2 SAB0 IAB0 Ectopic0 Multiple0 Live Births2 Previous history: Prior : never History of 4th degree laceration: No History of shoulder dystocia: No History of Hypertensive disorders including pre-eclampsia or gestational hypertension: No History of gestational diabetes: No Patient's Risk Screening for delivery: Have you had a prior stewart between 20w and 36w6d? No How many pregnancies have you had before? 3 Did you have a previous baby with a GBS Infection? No Please select all that apply for any prior : N/A MEDICAL/PSYCHOSOCIAL HISTORY: History of hemorrhage or bleeding concerns: No Thyroid Disease: No History of chronic hypertension: No History of pre-existing diabetes: No ABO/RH(D) Date Value Ref Range Status 05/27/2020 A NEGATIVE Final BMI 21.16 kg/(m^2) Last Pap: History of abnormal pap: No Prior treatment for cervical dysplasia: none. Last HPV: N/A History of STDs: None Partner History of STDs: None Did you have a partner with Herpes? No Tobacco use: Yes E-Cigarette/Vaping Use: No Caffeine use: Yes Drug use: No - history of drug use, last use 1 yr ago Alcohol use: No Multivitamin with Folic acid: Yes Would refuse blood transfusion if medically necessary: No Social Needs: How often does this describe you? I don't have enough money to pay my bills: Often Within the past 12 months, have you worried that your food would run out before you had money to buy more? Never In the past 12 months, has lack of reliable transportation kept you from going to medical appointments or work, or from getting things needed for daily living? Often In the past 12 months, have you had any concerns about having a place to live, or about the condition or quality of your housing? Often Would you like more information on any of the following (please check all that apply)? Not interested Social History: Do you have any history of depression, anxiety, PTSD, or other mood problems? Yes Do you have a history of abuse or trauma that may impact your experience? No Are you currently employed? No Depression/Anxiety Screening: denies symptoms of depression. OB Depression and Anxiety Screening- This Encounter (since 09/11/2024) Over the past 2 weeks have you felt down, depressed, or hopeless? Negative Over the past two weeks, have you felt little interest or pleasure in doing things? Negative Feeling nervous, anxious or on edge 2-More than half the days Not being able to stop or control worrying 0-Not al all Anxiety Pre-Screening Total (If >/= 3 additional questions will be reviewed) 2 Genetic Screening: Partner present: No Patient verbalized knowledge of partner family health history: Yes Do you or your partner have any personal or family history of defects not previously discussed: No Do you have history of a complicated by anomaly, genetic condition, or demise: No Preeclampsia Risk Screening: Screening for prevention of preeclampsia: High risk factors: None Moderate risk ractors: None OB Risk Screening: Completed, no positive findings documented. Marital Status:Co-habitating Partner: Name: Hammad Griffith Age: 27 Occupation: N/A - on disability per pateint Gender: Male PAST MEDICAL HISTORY Diagnosis Date childhood seizure Chlamydia age 14 and in 2018 Depression Hepatitis C History of drug abuse (HCC) Hypoglycemia Kidney stones Migraine headache depression Seizures (HCC) PAST SURGICAL HISTORY Procedure Laterality Date NONE Current Outpatient Medications Medication Sig Dispense Refill vit no.124/iron/folic ( VITAMIN ORAL) Take by mouth. pantoprazole DR (PROTONIX) 20 mg tablet Take 1 tablet by mouth once daily. 90 tablet 1 Current Facility-Administered Medications Medication Dose Route Frequency Provider Last Rate Last Admin RhoD immune globulin 300 mcg injection (RHOPHYLAC) 300 mcg INTRAMUSCULAR ONCE (AMB - Up to 30 Days)Karen Pulliam APRN.CNM Allergies As of Date: 09/12/2024 Allergen Noted Reaction BACTRIM [SULFAMETHOXAZOLE-TRIMETH*06/19/2020 GI Upset ENVIRONMENTAL [OTHER] 03/28/2006 Fully Assessed 09/12/2024 Does patient have penicillin allergy: No REVIEW OF SYSTEMS: GENERAL: Negative for: Fever or Chills and Positive for: Fatigue HEENT: Negative for: Headache, Impaired Vision, Ringing in Ears, Nosebleeds NECK: Negative for: Swelling, Pain, Stiffness RESPIRATORY: Negative for: Cough, Shortness of breath, Wheezing- No hx of asthma GASTROINTESTINAL: Negative for: Heartburn, Constipation, Diarrhea, Blood in stool, Vomiting, Positive for: Nausea and Vomiting, and Positive for: Heartburn MUSCULOSKELETAL: Negative for: Muscle or joint pain, stiffness, Joint swelling NEUROLOGIC/PSYCHIATRIC: Negative for: Weakness, Paralysis, Numbness, Tingling, Tremor, Anxiety, Depression, Memory loss and history of seizures as a child. Reports last seizure age 17 SKIN: Negative for: Rash, Itching GENITOURINARY: Negative for: vaginal itching, vaginal discharge, hematuria or dysuria and Positive for: urinary frequency SENSITIVE EXAM: The sensitive examination was discussed with the Patient or Patient's Authorized Medical Care Administrator. As applicable, any other physician, advance practice provider, medical student, or other health professional student that will be observing or involved in the sensitive examination for educational or training purposes was discussed with the Patient or Authorized Medical Care Administrator. The Patient or Authorized Medical Care Administrator has agreed to proceed with the sensitive examination. (Sensitive examination includes inspection and/or palpation of the breasts, pelvis, prostate and anorectal regions). PHYSICAL EXAM: BP 118/68 Ht 5' 1 (1.55m) Wt 112 lb (50.8kg) BMI 21.17 kg/(m^2). GENERAL: pleasant in mild distress DERMATOLOGY: Normal and without lesions NECK: Supple CHEST: Normal inspiratory effort BREAST: deferred ABDOMEN: soft, non-tender, and no masses NEURO: alert and oriented x3,exam grossly non-focal PELVIS: External genitalia normal without lesions. Perineal body intact. No vaginal or cervical lesions. Cervix closed. Moderate amount of yellow, thick discharge on cervix Clinical Pelvimetry: Pelvimetry clinically assessed as adequate Limited OB ultrasound exam: not performed Patient to have formal dating US today ASSESSMENT/PLAN: 1. with uncertain dates, antepartum 2. Screening for diabetes mellitus 3. Tobacco use during , antepartum 4. Chronic hepatitis C affecting , antepartum (HCC) 5. Lack of access to transportation 6. History of drug abuse (HCC) 7. History of depression 8. History of substance use 9. Rh negative state in antepartum period 10. Supervision of high risk in second trimester 11. Cigarette nicotine dependence without complication 12. Screening for human papillomavirus (HPV) 13. Screening for cervical cancer 14. Late care affecting in second trimester 15. Poor dentition - 16. Dental caries 17. Lives in homeless group home 18. Lost custody of children PLAN: 1) Patient oriented to practice. Discussed nutrition, folic acid supplementation, dietary guidelines, exercise, smoking, alcohol, caffeine, and drug use. Discussed routine OB labs including STD/HIV. OB Community care order placed. 2) Screening: Hemoglobin A1C: ordered Baby Aspirin: The patient has been counseled about the potential benefits of low dose aspirin in and our recommendation that this be offered to all patients, regardless of whether they meet the high risk criteria specified above. She Declines Aneuploidy Screening: Discussed aneuploidy screening, nuchal translucency/first trimester early anatomy ultrasound and NIPT. The risks/benefits and limitations of NIPT/aneuploidy screening were reviewed including the potential for false negative and false positive results. The availability of genetic counseling was reviewed. Information on aneuploidy screening was provided. The patient chooses toproceed with NIPT (10 weeks) Myriad Carrier Screening: Discussed myriad carrier screening. We discussed the availability of professional-society guided carrier screening and reviewed the conditions screened and limitations of screening. The availability of genetic counseling was reviewed. Information on carrier screening was provided. The patient Declines 3) Patient offered option of Virtual Visits. Patient prefers in person visits. 4) Current tobacco use: The patient has been counseled about the risks of tobacco use during and cessation has been recommended. Resources for cessation and risks of smoking have been provided. OB Navigator referral order placed. 5 minutes were spent discussing the risks of tobacco use and providing cessation resources. SBIRT Radha Little was given the 4P's screening tool. Radha answered as follows: OB Opioid Screening - Last Recorded (since 12/17/2023) Did any of your parents have a problem with alcohol or other drug use? Yes both parent - drugs Does your partner have a problem with alcohol or other drug use? No In the past, have you had difficulties in your life because of alcohol or other drugs, including prescription medications? Yes In the past month have you drunk any alcohol or used other drugs? No Are you taking medication for pain during the either prescribed or not? No Based on the screen and further questions, she is considered at Low risk due to:Low level of use stopped prior to or immediately upon known . Positive reinforcement of current behavior. Plan to rescreen early third trimester. Karen Pulliam APRN.CNM [facility] Instructions* Patient Instructions* Karen Pulliam APRN.CNM - 09/12/2024 10:34 AM EST Please select the following link to access the [facility] Your Guide to a Healthy . [email or web address] Please select the following link to access the [facility] Your Guide to a Healthy . [email or web address] documented in this encounter[facility]03-04-2025 Telephone encounter Note * Telephone Encounter - Mary Merida RN - 09/11/2024 9:55 AM EST Switched appt for tomorrow to CP in case patient shows. Mary Merida RN [facility]03-04-2025 Miscellaneous Notes* Telephone Encounter - Mary Merida RN - 09/11/2024 9:55 AM EST Switched appt for tomorrow to CP in case patient shows. Mary Merida RN * Telephone Encounter - Krystin Miranda RN - 09/10/2024 10:07 AM EST Attempted to call patient to do nurse intake question. Please see phone note below. Unable to leavemessage because patient's voicemail is not set up. Please attempt to call patient again * Telephone Encounter - Tish Moore RN - 09/07/2024 2:39 PM EST Attempted to contact patient but no answer and unable to leave a message as voicemail is not set up. Patient also does not have MyChart. Will try to call patient again later. FYI. Tish Moore RN * Telephone Encounter - Kaci Pérez APRN.CNP - 09/07/2024 2:24 PM EST Per documentation 08/29/24, CP okay with patient being seen in 30 minute slot. Per [facility] policy, nursepractitioners not to see new OB past 24 weeks. Please reschedule in first available 30 minute slot with CNM or physician. Has anatomy scheduled. Patient stated to PSS today that she is 36 weeks. Kaci Pérez APRN.EVELIN documented in this encounter[facility]03-03-2025 Telephone encounter Note * Telephone Encounter - Krystin Miranda RN - 09/10/2024 10:07 AM EST Attempted to call patient to do nurse intake question. Please see phone note below. Unable to leavemessage because patient's voicemail is not set up. Please attempt to call patient again [facility]02-28-2025 Telephone encounter Note* Telephone Encounter - Tish Moore RN - 09/07/2024 2:39 PM EST Attempted to contact patient but no answer and unable to leave a message as voicemail is not set up. Patient also does not have MyChart. Will try to call patient again later. SALINA. Tish Moore RN [facility]02-28-2025 Telephone encounter Note* Telephone Encounter - Kaci Pérez APRN.CNP - 09/07/2024 2:24 PM EST Per documentation 08/29/24, CP okay with patient being seen in 30 minute slot. Per [facility] policy, nursepractitioners not to see new OB past 24 weeks. Please reschedule in first available 30 minute slot with CNM or physician. Has anatomy scheduled. Patient stated to PSS today that she is 36 weeks. Kaci Pérez APRN.HOTEL RESERVATIONIST [facility] Work Phone: [phone]) 697-776702-19-2025 Telephone encounter Note* Telephone Encounter - Sara Dodson RN - 08/29/2024 10:20 AM EST Called and spoke with patient. NOB tomorrow with CP and anatomy US on 09/07. Patient plans to come 30 min prior tomorrow for NOB intake questions. Sara Dodson RN [facility]02-19-2025 Miscellaneous Notes* Telephone Encounter - Sara Dodson RN - 08/29/2024 10:20 AM EST Called and spoke with patient. NOB tomorrow with CP and anatomy US on 09/07. Patient plans to come 30 min prior tomorrow for NOB intake questions. Sara Dodson RN * Telephone Encounter - Karen Pulliam APRN.CNM - 08/29/2024 10:12 AM EST Patient will need formal ultrasound so that we know correct gestational age. Yes, you can put her with me tomorrow in 30 min slot. I signed order. Karen Pulliam APRN.CNM * Telephone Encounter - Sara Dodson RN - 08/29/2024 9:57 AM EST See below. No care. Ok to offer patient a 30 min slot tomorrow with you or OK to wait until opening next week? Thank you. There was a 60 min US cancellation on 09/07 @ 0800. I placed that on hold to offer the patient. Could you please sign the order. Sara Dodson RN * Telephone Encounter - Stacy Torres RN - 08/29/2024 9:32 AM EST Call placed to patient to triage for new OB appt. Name and verified. No care. Patient is not sure of her MEEK or LMP. She had fundal height 2 weeks ago while briefly incarcerated that measured approx 32 weeks Has 6 yo and 4 yo at home Patient aware to sign up for My Chart so she can receive the healthcare sales representative messages. Any medical concerns that affect the ? H/o Hep C. A neg Which office/provider would the patient like to establish in? [facility]. Her son was born there in 2020 Will route this encounter to the desired office. Stacy Torres RN * Telephone Encounter - Stacy Torres RN - 08/29/2024 9:31 AM EST ----- Message from Radha Garcia sent at 08/29/2024 8:48 AM EST ----- Regarding: HANSA [facility] OB - 33 WEEKS GESTASTION Patient has been identified by name and Date of : Yes Patient: Radha Little Date of : 2000 Provider for this encounter : [facility] Reason for call: OB HANSA Was an appointment scheduled: No Reason for requesting visit (RFV/signs and symptoms/diagnosis) : 33 weeks gestation Person calling: self Return call to: self Call patient at: [phone] (cell), it is OK to leave message Payor: [place] MEDICAID / Plan: [facility] MEDICAID / Product Type: Medicaid / Radha Page documented in this encounterUk [facility]02-19-2025 Telephone encounter Note * Telephone Encounter - Karen Pulliam APRN.CNM - 08/29/2024 10:12 AM EST Patient will need formal ultrasound so that we know correct gestational age. Yes, you can put her with me tomorrow in 30 min slot. I signed order. Karen Pulliam APRN.CNM [facility]02-19-2025 Telephone encounter Note* Telephone Encounter - Sara Dodson RN - 08/29/2024 9:57 AM EST See below. No care. Ok to offer patient a 30 min slot tomorrow with you or OK to wait until opening next week? Thank you. There was a 60 min US cancellation on 09/07 @ 0800. I placed that on hold to offer the patient. Could you please sign the order. Sara Dodson RN [facility]02-19-2025 Telephone encounter Note* Telephone Encounter - Stacy Torres RN - 08/29/2024 9:32 AM EST Call placed to patient to triage for new OB appt. Name and verified. No care. Patient is not sure of her MEEK or LMP. She had fundal height 2 weeks ago while briefly incarcerated that measured approx 32 weeks Has 6 yo and 4 yo at home Patient aware to sign up for My Chart so she can receive the healthcare sales representative messages. Any medical concerns that affect the ? H/o Hep C. A neg Which office/provider would the patient like to establish in? [facility]. Her son was born there in 2020 Will route this encounter to the desired office. Stacy Torres RN [facility]02-19-2025 Telephone encounter Note* Telephone Encounter - Satcy Torres RN - 08/29/2024 9:31 AM EST ----- Message from Radha Garcia sent at 08/29/2024 8:48 AM EST ----- Regarding: HANSA [facility] OB - 33 WEEKS GESTASTION Patient has been identified by name and Date of : Yes Patient: Radha Melissa McdowellSidney Date of : 2000 Provider for this encounter : [facility] Reason for call: OB HANSA Was an appointment scheduled: No Reason for requesting visit (RFV/signs and symptoms/diagnosis) : 33 weeks gestation Person calling: self Return call to: self Call patient at: [phone] (cell), it is OK to leave message Payor: [place] / Plan: [facility] [facility] MEDICAID / Product Type: Medicaid / Radha Page [facility]05-29-2024 Hospital Discharge instructions Patient Education 12/07/2023 03:34:46 Kidney Stone w/ [place] Kidney Stone with Pain The sharp cramping pain on either side of your lower back and nausea/vomiting that you have are because of a small stone that has formed in the kidney. It is now passing down a narrow tube (ureter) on its way to your bladder. Once the stone reaches your bladder, the pain will often stop. But it maycome back as the stone continues to pass out of the bladder and through the urethra. The stone may pass in your urine stream in one piece. The size may be 1/16 inch to 1/4 inch (1 mm to 6 mm). Or, the stone may break up into kris fragments that you may not even notice. Once you have had a kidney stone, you are at risk of getting another one in the future. There are 4types of kidney stones. Eighty percent are calcium stones mostly calcium oxalate but also some withcalcium phosphate. The other 3 types include uric acid stones, struvite stones (from a preceding infection), and rarely, cystine stones. Most stones will pass on their own, but may take from a few hours to a few days. Sometimes the stone is too large to pass by itself. In that case, the healthcare provider will need to use other ways to remove the stone. These techniques include: Lithotripsy. This uses ultrasound waves to break up the stone. Ureteroscopy. This pushes a basket-like instrument through the urethra and bladder and into the ureter to pull out the stone. Various types of direct surgery through the skin Home care The following are general care guidelines: Drink plenty of fluids. This means at least 12, 8-ounce glasses of fluid mostly water a day. Each time you urinate, do so in a jar. Pour the urine from the jar through the strainer and into the toilet. Continue doing this until 24 hours after your pain stops. By then, if there was a kidney stone, it should pass from your bladder. Some stones dissolve into sand-like particles and pass rightthrough the strainer. In that case, you won t ever see a stone. Save any stone that you find in the strainer and bring it to your healthcare provider to look at. It may be possible to stop certain types of stones from forming. For this reason, it is important to know what kind of stone you have. Try to stay as active as possible. This will help the stone pass. Don't stay in bed unless your pain keeps you from getting up. You may notice a red, pink, or brown color to your urine. This is normal while passing a kidney stone. If you develop pain, you may take ibuprofen or naproxen for pain, unless another medicine was prescribed. If you have chronic liver or kidney disease, talk with your healthcare provider before takingthese medicines. Also talk with your provider if you've had a stomach ulcer or GI bleeding. Preventing stones Each year for the next 5 to 7 years, you are at risk that a new stone will form. Your risk is a 50%chance over this time period. The risk is higher if you have a family history of kidney stones or have certain chronic illnesses like hypertension, obesity, or diabetes. But you can make changes to your lifestyle and diet that can lower your risk for another stone. Most kidney stones are made of calcium. The following is advice for preventing another calcium stone. If you don t know the type of stone you have, follow this advice until the cause of your stone isfound. Things that help: The most important thing you can do is to drink plenty of fluids each day. See home care above. Eat foods that contain phytates. These include wheat, rice, rye, barley, and beans. Phytates are substances that may lower your risk for any type of stone to form. Eat more fruits and vegetables. Choose those that are high in potassium. Eat foods high in natural citrate like fruit and low-sugar fruit juices. Having too little calcium in your diet can put you at risk for calcium kidney stones. Eat a normal amount of calcium in your diet and talk with your healthcare provider if you are taking calcium supplements. Cutting back on your calcium intake may raise your risk. New research shows that eating calcium-rich and oxalate-rich foods together lowers your risk for stones by binding the minerals in thestomach and intestines before they can reach the kidneys. Limit salt intake to 2 grams (1 teaspoon) per day. Use limited amounts when cooking, and don t add salt at the table. Processed and canned foods are usually high in salt. Spinach, rhubarb, peanuts, cashews, almonds, grapefruit, and grapefruit juice are all high oxalate foods. You should limit how much of these you eat. Or eat them with calcium-rich foods. These include dairy products, dark leafy greens, soy products, and calcium-enriched foods. Reducing the amount of animal meat and high protein foods in your diet may lower your risk for uricacid stones. Avoid excess sugar (sucrose) and fructose (sweetener in many soft drinks) in your diet. If you take vitamin C as a supplement, don't take more than 1,000 mg a day. A dietitian or your healthcare provider can give you information about changes in your diet that will help prevent more kidney stones from forming. Follow-up care Follow up with your healthcare provider, or as advised, if the pain lasts more than 48 hours. Talk with your provider about urine and blood tests to find out the cause of your stone. If you had an X-ray, CT scan, or other diagnostic test, you will be told of any new findings that may affect your care. Call 911 Call 911 if you have any of these: Weakness, dizziness, or fainting When to seek medical advice Call your healthcare provider right away if any of these occur: Pain that is not controlled by the medicine given Repeated vomiting or unable to keep down fluids Fever of 100.4 F (38 C) or higher, or as directed by your healthcare provider Passage of solid red or brown urine (can't see through it) or urine with lots of blood clots Foul-smelling or cloudy urine Unable to pass urine for 8 hours and increasing bladder pressure [id number] [employer]. [address] [place] [address]. All rights reserved. This information is not intended as a substitute for professional medical care. Always follow yourhealthcare professional's instructions. Follow Up Care 12/07/2023 02:09:14 With:MANISH SOLIS Address: [address] [place] [phone] Business (1) When:2-4 days Comments:Schedule appointment for evaluation.Push fluids.Use Tylenol, Advil or Aleve for pain and fever as needed.Use [place] as prescribed for severe pain, Zofran for nausea and vomiting and Flomax to help with urine outflow.Prescription provided for Narcan in the event of accidental opiate overdose.Return to the ED if symptoms worsen. [facility] 05-29-2024 Note Discharge Instructions Thank you for allowing [facility] to assist you with your healthcare needs. The following is importantdischarge information regarding your hospital visit. Diagnosis from Today's Visit Kidney stone on right side What to Do Next Instructions from Your Care Team No qualifying data available. Post Acute Orders No qualifying data available. You Need to Schedule the Following Appointments Follow Up with MANISH SOLIS When:Within 2-4 days Where:[address] [place] [phone] Business (1) Additional Information: Schedule appointment for evaluation. Push fluids. Use Tylenol, Advil or Aleve for pain and fever as needed. Use [place] as prescribed for severe pain, Zofran for nausea and vomiting and Flomax to help with urine outflow. Prescription provided for Narcan in the event of accidental opiate overdose. Return to the ED if symptoms worsen. Allergies Bactrim Nausea and vomiting Bee Stings Swelling coconut Medications Please ask your primary doctor or pharmacist before taking any other medication not listed, including over the counter drugs, herbal medications, vitamins and or supplements as they may interact withyour home medications. What How Much When Why Instructions Last Dose New acetaminophen-hydrocodone ([place] 325- 5 mg oral tablet) 1 tab(s) by mouth Every 6 hours as needed for As needed for severe pain Kidney stone on right side Duration: 3 Days Printed Prescription New tamsulosin (Flomax 0.4 mg oral capsule) 1 cap by mouth Once a day Duration: 7 Days Printed Prescription Changed ondansetron (ondansetron 4 mg oral tablet, disintegrating) 1 tab(s) by mouth Every 6 hours as needed for Nausea/Vomiting Changed ondansetron (Zofran 4 mg oral tablet) 1 tab(s) by mouth Every 6 hours as needed for As needed for nausea and vomiting Duration: 3 Days Printed Prescription Changed ondansetron (Zofran ODT use ondansetron oral tablet, disintegrating ) 4 Milligram by mouth Every 6 hours as needed for as needed for nausea/vomiting Vomiting Unchanged acetaminophen (acetaminophen 500 mg oral capsule) 1 cap by mouth Every 4 hours as needed for for pain Anxiety 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 Bring all medications you take, including over the counter medications, herbals and other supplements with you to your doctor s visit. Patients and families are reminded to discard old lists and to update any records with all medication providers or retail pharmacies. Medication Leaflets acetaminophen and hydrocodone (a SEET a MIN oh fen and tarun MENESES done) [place] What is the most important information I should know about acetaminophen and hydrocodone? MISUSE OF OPIOID MEDICINE CAN CAUSE ADDICTION, OVERDOSE, OR . Keep the medication in a place where others cannot get to it. Taking opioid medicine during may cause life-threatening withdrawal symptoms in the . Fatal side effects can occur if you use opioid medicine with alcohol, or with other drugs that cause drowsiness or slow your breathing. Stop taking this medicine and call your doctor right away if you have skin redness or a rash that spreads and causes blistering and peeling. What is acetaminophen and hydrocodone? Acetaminophen and hydrocodone is a combination medicine used to relieve moderate to severe pain. Acetaminophen and hydrocodone contains an opioid medicine, and may be habit-forming. Acetaminophen and hydrocodone may also be used for purposes not listed in this medication guide. What should I discuss with my healthcare provider before taking acetaminophen and hydrocodone? You should not use this medicine if you are allergic to acetaminophen or hydrocodone, or if you have: severe asthma or breathing problems; or a blockage in your stomach or intestines. Tell your doctor if you have ever had: breathing problems, sleep apnea (breathing stops during sleep); liver disease; a drug or alcohol addiction; kidney disease; a head injury or seizures; urination problems; or problems with your thyroid, pancreas, or gallbladder. If you use opioid medicine while you are , your baby could become dependent on the drug. This can cause life-threatening withdrawal symptoms in the baby after it is born. Babies born dependent on opioids may need medical treatment for several weeks. Ask a doctor before using opioid medicine if you are . Tell your doctor if you notice severe drowsiness or slow breathing in the nursing baby. How should I take acetaminophen and hydrocodone? Follow all directions on your prescription label. Never take this medicine in larger amounts, or for longer than prescribed. An overdose can damage your liver or cause . Tell your doctor if you feel an increased urge to use more of this medicine. Never share this medicine with another person, especially someone with a history of drug abuse or addiction. MISUSE CAN CAUSE ADDICTION, OVERDOSE, OR . Keep the medicine in a place where others cannot get to it. Selling or giving away this medicine is against the law. Measure liquid medicine carefully. Use the dosing syringe provided, or use a medicine dose-measuring device (not a kitchen spoon). If you need surgery or medical tests, tell the doctor ahead of time that you are using this medicine. You should not stop using this medicine suddenly. Follow your doctor's instructions about tapering your dose. Store at room temperature away from moisture and heat. Keep track of your medicine. You should be aware if anyone is using it improperly or without a prescription. Do not keep leftover opioid medication. Just one dose can cause in someone using this medicine accidentally or improperly. Ask your pharmacist where to locate a drug take-back disposal program.If there is no take-back program, flush the unused medicine down the toilet. What happens if I miss a dose? Since this medicine is used for pain, you are not likely to miss a dose. Skip any missed dose if itis almost time for your next dose. Do not use two doses at one time. What happens if I overdose? Seek emergency medical attention or call the Poison Help line at . An overdose of this medicine can be fatal, especially in a child or other person using the medicine without a prescription. Overdose symptoms may include nausea, vomiting, sweating, severe drowsiness, pinpoint pupils, slow breathing, or no breathing. Your doctor may recommend you get naloxone (a medicine to reverse an opioid overdose) and keep it with you at all times. A person caring for you can give the naloxone if you stop breathing or don't wake up. Your caregiver must still get emergency medical help and may need to perform CPR (cardiopulmonary resuscitation) on you while waiting for help to arrive. Anyone can buy naloxone from a pharmacy or local health department. Make sure any person caring foryou knows where you keep naloxone and how to use it. What should I avoid while taking acetaminophen and hydrocodone? Avoid driving or operating machinery until you know how this medicine will affect you. Dizziness ordrowsiness can cause falls, accidents, or severe injuries. Do not drink alcohol. Dangerous side effects or could occur. Ask a doctor or pharmacist before using any other medicine that may contain acetaminophen (sometimes abbreviated as APAP). Taking certain medications together can lead to a fatal overdose. What are the possible side effects of acetaminophen and hydrocodone? Get emergency medical help if you have signs of an allergic reaction: hives; difficulty breathing; swelling of your face, lips, tongue, or throat. Opioid medicine can slow or stop your breathing, and may occur. A person caring for you should give naloxone and/or seek emergency medical attention if you have slow breathing with long pauses,blue colored lips, or if you are hard to wake up. In rare cases, acetaminophen may cause a severe skin reaction that can be fatal. This could occur even if you have taken acetaminophen in the past and had no reaction. Stop taking this medicine and call your doctor right away if you have skin redness or a rash that spreads and causes blistering andpeeling. Call your doctor at once if you have: noisy breathing, sighing, shallow breathing, breathing that stops; a light-headed feeling, like you might pass out; liver problems--nausea, upper stomach pain, tiredness, loss of appetite, dark urine, bhavani-colored stools, jaundice (yellowing of the skin or eyes); low cortisol levels-- nausea, vomiting, loss of appetite, dizziness, worsening tiredness or weakness; o high levels of serotonin in the body--agitation, hallucinations, fever, sweating, shivering, fast heart rate, muscle stiffness, twitching, loss of coordination, nausea, vomiting, diarrhea. Serious breathing problems may be more likely in older adults and in those who are debilitated or have wasting syndrome or chronic breathing disorders. Common side effects include: dizziness, drowsiness, feeling tired; nausea, vomiting, stomach pain; constipation; or headache. This is not a complete list of side effects and others may occur. Call your doctor for medical advice about side effects. You may report side effects to FDA at 4-356-VHB-6243. What other drugs will affect acetaminophen and hydrocodone? You may have breathing problems or withdrawal symptoms if you start or stop taking certain other medicines. Tell your doctor if you also use an antibiotic, antifungal medication, heart or blood pressure medication, seizure medication, or medicine to treat HIV or hepatitis C. Opioid medication can interact with many other drugs and cause dangerous side effects or . Be sure your doctor knows if you also use: cold or allergy medicines, bronchodilator asthma/COPD medication, or a diuretic ('water pill'); medicines for motion sickness, irritable bowel syndrome, or overactive bladder; other opioids--opioid pain medicine or prescription cough medicine; a sedative like Valium--diazepam, alprazolam, lorazepam, Xanax, Klonopin, Versed, and others; drugs that make you sleepy or slow your breathing--a sleeping pill, muscle relaxer, medicine to treat mood disorders or mental illness; drugs that affect serotonin levels in your body--a stimulant, or medicine for depression, Parkinson's disease, migraine headaches, serious infections, or nausea and vomiting. This list is not complete. Other drugs may affect acetaminophen and hydrocodone, including prescription and glgo-rue-kvyedvn medicines, vitamins, and herbal products. Not all possible interactions are listed here. Where can I get more information? Your doctor or pharmacist can provide more information about acetaminophen and hydrocodone. Remember, keep this and all other medicines out of the reach of children, never share your medicines with others, and use this medication only for the indication prescribed. Every effort has been made to ensure that the information provided by [employer]. [employer]') is accurate, up-to-date, and complete, but no guarantee is made to that effect. Drug information contained herein may be time sensitive. [employer] information has been compiled for use by healthcare practitioners and consumers in the [place] and therefore [employer] does not warrant that uses outside of the [place] are appropriate, unless specifically indicated otherwise. [employer] drug information does not endorse drugs, diagnose patients or recommend therapy. [employer] drug information isan informational resource designed to assist licensed healthcare practitioners in caring for their p atients and/or to serve consumers viewing this service as a supplement to, and not a substitute for, the expertise, skill, knowledge and judgment of healthcare practitioners. The absence of a warningfor a given drug or drug combination in no way should be construed to indicate that the drug or drug combination is safe, effective or appropriate for any given patient. [employer] does not assume any responsibility for any aspect of healthcare administered with the aid of information [employer] provides. The information contained herein is not intended to cover all possible uses, directions, precautions, warnings, drug interactions, allergic reactions, or adverse effects. If you have questions about the drugs you are taking, check with your doctor, nurse or pharmacist. Copyright 1087-0785 [employer]. Version: 19.02. Revision Date: 10/18/2023. ondansetron (oral) (on OSMAN se arthur) What is the most important information I should know about ondansetron? You should not use ondansetron if you are also using apomorphine (Apokyn). What is ondansetron? Ondansetron blocks the actions of chemicals in the body that can trigger nausea and vomiting. Ondansetron is used to prevent nausea and vomiting that may be caused by surgery, cancer chemotherapy, or radiation treatment. Ondansetron may be used for purposes not listed in this medication guide. What should I discuss with my health care provider before taking ondansetron? You should not use ondansetron if: you are also using apomorphine (Apokyn); or you are allergic to ondansetron or similar medicines (dolasetron, granisetron, palonosetron). To make sure ondansetron is safe for you, tell your doctor if you have: liver disease; an electrolyte imbalance (such as low levels of potassium or magnesium in your blood); congestive heart failure, slow heartbeats; a personal or family history of long QT syndrome; or a blockage in your digestive tract (stomach or intestines). Ondansetron is not expected to harm an unborn baby. Tell your doctor if you are . It is not known whether ondansetron passes into breast milk or if it could harm a nursing baby. Tell your doctor if you are breast-feeding a baby. Ondansetron is not approved for use by anyone younger than 4 years old. Ondansetron orally disintegrating tablets may contain phenylalanine. Tell your doctor if you have phenylketonuria (PKU). How should I take ondansetron? Follow all directions on your prescription label. Do not take this medicine in larger or smaller amounts or for longer than recommended. Ondansetron can be taken with or without food. The first dose of ondansetron is usually taken before the start of your surgery, chemotherapy, or radiation treatment. Follow your doctor's dosing instructions very carefully. Take the ondansetron regular tablet with a full glass of water. To take the orally disintegrating tablet (Zofran ODT): Keep the tablet in its blister pack until you are ready to take it. Open the package and peel back the foil. Do not push a tablet through the foil or you may damage the tablet. Use dry hands to remove the tablet and place it in your mouth. Do not swallow the tablet whole. Allow it to dissolve in your mouth without chewing. Swallow several times as the tablet dissolves. To use ondansetron oral soluble film (strip) (Zuplenz): Keep the strip in the foil pouch until you are ready to use the medicine. Using dry hands, remove the strip and place it on your tongue. It will begin to dissolve right away. Do not swallow the strip whole. Allow it to dissolve in your mouth without chewing. Swallow several times after the strip dissolves. If desired, you may drink liquid to help swallow the dissolved strip. Wash your hands after using Zuplenz. Measure liquid medicine with the dosing syringe provided, or with a special dose-measuring spoon ormedicine cup. If you do not have a dose-measuring device, ask your pharmacist for one. Store at room temperature away from moisture, heat, and light. Store liquid medicine in an upright position. What happens if I miss a dose? Take the missed dose as soon as you remember. Skip the missed dose if it is almost time for your next scheduled dose. Do not take extra medicine to make up the missed dose. What happens if I overdose? Seek emergency medical attention or call the Poison Help line at . Overdose symptoms may include sudden loss of vision, severe constipation, feeling light-headed, or fainting. What should I avoid while taking ondansetron? Ondansetron may impair your thinking or reactions. Be careful if you drive or do anything that requires you to be alert. What are the possible side effects of ondansetron? Get emergency medical help if you have signs of an allergic reaction: rash, hives; fever, chills, difficult breathing; swelling of your face, lips, tongue, or throat. Call your doctor at once if you have: severe constipation, stomach pain, or bloating; headache with chest pain and severe dizziness, fainting, fast or pounding heartbeats; fast or pounding heartbeats; jaundice (yellowing of the skin or eyes); blurred vision or temporary vision loss (lasting from only a few minutes to several hours); high levels of serotonin in the body--agitation, hallucinations, fever, fast heart rate, overactivereflexes, nausea, vomiting, diarrhea, loss of coordination, fainting. Common side effects may include: diarrhea or constipation; headache; drowsiness; or tired feeling. This is not a complete list of side effects and others may occur. Call your doctor for medical advice about side effects. You may report side effects to FDA at 8-021-VWH-9272. What other drugs will affect ondansetron? Ondansetron can cause a serious heart problem, especially if you use certain medicines at the same time, including antibiotics, antidepressants, heart rhythm medicine, antipsychotic medicines, and medicines to treat cancer, malaria, HIV or AIDS. Tell your doctor about all medicines you use, and those you start or stop using during your treatment with ondansetron. Taking ondansetron while you are using certain other medicines can cause high levels of serotonin to build up in your body, a condition called 'serotonin syndrome,' which can be fatal. Tell your doctor if you also use: medicine to treat depression; medicine to treat a psychiatric disorder; a narcotic (opioid) medication; or medicine to prevent nausea and vomiting. This list is not complete and many other drugs can interact with ondansetron. This includes prescription and vpiv-tul-abrvwqf medicines, vitamins, and herbal products. Give a list of all your medicines to any healthcare provider who treats you. Where can I get more information? Your pharmacist can provide more information about ondansetron. Remember, keep this and all other medicines out of the reach of children, never share your medicines with others, and use this medication only for the indication prescribed. Every effort has been made to ensure that the information provided by [employer] is accurate, up-to-date, and complete, but no guarantee is made to that effect. Drug information contained herein may be time sensitive. [employer] information has been compiled for use by healthcare practitioners and consumers in the [place] and therefore [employer] does not warrant that uses outside of the [place] are appropriate, unless specifically indicated otherwise. [employer] drug information does not endorse drugs, diagnose patients or recommend therapy. [employer] drug information isan informational resource designed to assist licensed healthcare practitioners in caring for their p atients and/or to serve consumers viewing this service as a supplement to, and not a substitute for, the expertise, skill, knowledge and judgment of healthcare practitioners. The absence of a warningfor a given drug or drug combination in no way should be construed to indicate that the drug or drug combination is safe, effective or appropriate for any given patient. [facility] does not assume any responsibility for any aspect of healthcare administered with the aid of information [facility] provides. The information contained herein is not intended to cover all possible uses, directions, precautions, warnings, drug interactions, allergic reactions, or adverse effects. If you have questions about the drugs you are taking, check with your doctor, nurse or pharmacist. Copyright [id number] [facility] [employer]. Version: 16.. Revision Date: 02/10/2023. tamsulosin (angela ivan LUNA sin) Flomax What is the most important information I should know about tamsulosin? Use only as directed. Tell your doctor if you use other medicines or have other medical conditions or allergies. What is tamsulosin? Tamsulosin is used to treat symptoms of benign prostatic hyperplasia (enlarged prostate). Tamsulosin is not approved for use in women or children. Tamsulosin may also be used for purposes not listed in this medication guide. What should I discuss with my healthcare provider before taking tamsulosin? You should not use tamsulosin if you are allergic to it. Tell your doctor if you have ever had: prostate cancer; low blood pressure; an allergy to sulfa drugs; or liver or kidney disease. Tamsulosin can affect your pupils. If you have cataract surgery, tell the surgeon you use this medicine. Ask your doctor about prostate cancer screening before and while taking tamsulosin. Tamsulosin is not approved for use in women. How should I take tamsulosin? Follow all directions on your prescription label and read all medication guides or instruction sheets. Use the medicine exactly as directed. Tamsulosin is usually taken once a day, within 30 minutes after the same meal each day. Swallow the capsule whole and do not crush, chew, break, or open it. Your blood pressure will need to be checked often. If you stop using this medicine, do not start it again without your doctor's advice. Store tightly closed at room temperature, away from moisture and heat. What happens if I miss a dose? Take the medicine as soon as you can, but skip the missed dose if it is almost time for your next dose. Do not take two doses at one time. If you stop using this medicine for several days in a row, do not start it again without your doctor's advice. What happens if I overdose? Seek emergency medical attention or call the Poison Help line at . What should I avoid while taking tamsulosin? Avoid driving or hazardous activity until you know how this medicine will affect you. Your reactions could be impaired. Avoid getting up too fast from a sitting or lying position, or you may feel dizzy. What are the possible side effects of tamsulosin? Get emergency medical help if you have signs of an allergic reaction (hives, difficult breathing, swelling in your face or throat) or a severe skin reaction (fever, sore throat, burning eyes, skin pain, red or purple skin rash with blistering and peeling). Tamsulosin may lower your blood pressure and may cause dizziness or fainting, especially when you first start taking it or your dose changes. Stop using tamsulosin and call your doctor at once if you have: a light-headed feeling, like you might pass out; or a painful erection that lasts 4 hours or longer. Common side effects may include: abnormal ejaculation, decreased amount of semen; dizziness, drowsiness, weakness; runny or stuffy nose, sore throat, cough; back pain, chest pain, headache; nausea, diarrhea; tooth problems; blurred vision; sleep problems (insomnia); or decreased interest in sex. This is not a complete list of side effects and others may occur. Call your doctor for medical advice about side effects. You may report side effects to FDA at 4-227-TUO-8247. What other drugs will affect tamsulosin? Sometimes it is not safe to use certain medicines at the same time. Some drugs can affect your blood levels of other drugs you use, which may increase side effects or make the medicines less effective. Tell your doctor about all your current medicines. Many drugs can affect tamsulosin, especially: cimetidine; medicine to treat impotence or pulmonary arterial hypertension--avanafil (Stendra), sildenafil (Viagra, Revatio), tadalafil (Adcirca, Cialis), or vardenafil (Levitra, Staxyn); or drugs to treat high blood pressure or a prostate disorder--alfuzosin, doxazosin, prazosin, terazosin, silodosin. This list is not complete and many other drugs may affect tamsulosin. This includes prescription and dqjl-ibp-whhduqf medicines, vitamins, and herbal products. Not all possible drug interactions are listed here. Where can I get more information? Your doctor or pharmacist can provide more information about tamsulosin. Remember, keep this and all other medicines out of the reach of children, never share your medicines with others, and use this medication only for the indication prescribed. Every effort has been made to ensure that the information provided by [employer]. ('[employer]') is accurate, up-to-date, and complete, but no guarantee is made to that effect. Drug information contained herein may be time sensitive. [employer] information has been compiled for use by healthcare practitioners and consumers in the [place] and therefore [employer] does not warrant that uses outside of the [place] are appropriate, unless specifically indicated otherwise. [employer] drug information does not endorse drugs, diagnose patients or recommend therapy. [employer] drug information isan informational resource designed to assist licensed healthcare practitioners in caring for their p atients and/or to serve consumers viewing this service as a supplement to, and not a substitute for, the expertise, skill, knowledge and judgment of healthcare practitioners. The absence of a warningfor a given drug or drug combination in no way should be construed to indicate that the drug or drug combination is safe, effective or appropriate for any given patient. [employer] does not assume any responsibility for any aspect of healthcare administered with the aid of information [employer] provides. The information contained herein is not intended to cover all possible uses, directions, precautions, warnings, drug interactions, allergic reactions, or adverse effects. If you have questions about the drugs you are taking, check with your doctor, nurse or pharmacist. Copyright 9244-8261 [employer]. Version: .. Revision Date: 10/01/2022. Education Materials Kidney Stone with Pain The sharp cramping pain on either side of your lower back and nausea/vomiting that you have are because of a small stone that has formed in the kidney. It is now passing down a narrow tube (ureter) on its way to your bladder. Once the stone reaches your bladder, the pain will often stop. But it maycome back as the stone continues to pass out of the bladder and through the urethra. The stone may pass in your urine stream in one piece. The size may be 1/16 inch to 1/4 inch (1 mm to 6 mm). Or, the stone may break up into kris fragments that you may not even notice. Once you have had a kidney stone, you are at risk of getting another one in the future. There are 4types of kidney stones. Eighty percent are calcium stones mostly calcium oxalate but also some withcalcium phosphate. The other 3 types include uric acid stones, struvite stones (from a preceding infection), and rarely, cystine stones. Most stones will pass on their own, but may take from a few hours to a few days. Sometimes the stone is too large to pass by itself. In that case, the healthcare provider will need to use other ways to remove the stone. These techniques include: Lithotripsy. This uses ultrasound waves to break up the stone. Ureteroscopy. This pushes a basket-like instrument through the urethra and bladder and into the ureter to pull out the stone. Various types of direct surgery through the skin Home care The following are general care guidelines: Drink plenty of fluids. This means at least 12, 8-ounce glasses of fluid mostly water a day. Each time you urinate, do so in a jar. Pour the urine from the jar through the strainer and into the toilet. Continue doing this until 24 hours after your pain stops. By then, if there was a kidney stone, it should pass from your bladder. Some stones dissolve into sand-like particles and pass rightthrough the strainer. In that case, you won t ever see a stone. Save any stone that you find in the strainer and bring it to your healthcare provider to look at. It may be possible to stop certain types of stones from forming. For this reason, it is important to know what kind of stone you have. Try to stay as active as possible. This will help the stone pass. Don't stay in bed unless your pain keeps you from getting up. You may notice a red, pink, or brown color to your urine. This is normal while passing a kidney stone. If you develop pain, you may take ibuprofen or naproxen for pain, unless another medicine was prescribed. If you have chronic liver or kidney disease, talk with your healthcare provider before takingthese medicines. Also talk with your provider if you've had a stomach ulcer or GI bleeding. Preventing stones Each year for the next 5 to 7 years, you are at risk that a new stone will form. Your risk is a 50%chance over this time period. The risk is higher if you have a family history of kidney stones or have certain chronic illnesses like hypertension, obesity, or diabetes. But you can make changes to your lifestyle and diet that can lower your risk for another stone. Most kidney stones are made of calcium. The following is advice for preventing another calcium stone. If you don t know the type of stone you have, follow this advice until the cause of your stone isfound. Things that help: The most important thing you can do is to drink plenty of fluids each day. See home care above. Eat foods that contain phytates. These include wheat, rice, rye, barley, and beans. Phytates are substances that may lower your risk for any type of stone to form. Eat more fruits and vegetables. Choose those that are high in potassium. Eat foods high in natural citrate like fruit and low-sugar fruit juices. Having too little calcium in your diet can put you at risk for calcium kidney stones. Eat a normal amount of calcium in your diet and talk with your healthcare provider if you are taking calcium supplements. Cutting back on your calcium intake may raise your risk. New research shows that eating calcium-rich and oxalate-rich foods together lowers your risk for stones by binding the minerals in thestomach and intestines before they can reach the kidneys. Limit salt intake to 2 grams (1 teaspoon) per day. Use limited amounts when cooking, and don t add salt at the table. Processed and canned foods are usually high in salt. Spinach, rhubarb, peanuts, cashews, almonds, grapefruit, and grapefruit juice are all high oxalate foods. You should limit how much of these you eat. Or eat them with calcium-rich foods. These include dairy products, dark leafy greens, soy products, and calcium-enriched foods. Reducing the amount of animal meat and high protein foods in your diet may lower your risk for uricacid stones. Avoid excess sugar (sucrose) and fructose (sweetener in many soft drinks) in your diet. If you take vitamin C as a supplement, don't take more than 1,000 mg a day. A dietitian or your healthcare provider can give you information about changes in your diet that will help prevent more kidney stones from forming. Follow-up care Follow up with your healthcare provider, or as advised, if the pain lasts more than 48 hours. Talk with your provider about urine and blood tests to find out the cause of your stone. If you had an X-ray, CT scan, or other diagnostic test, you will be told of any new findings that may affect your care. Call 911 Call 911 if you have any of these: Weakness, dizziness, or fainting When to seek medical advice Call your healthcare provider right away if any of these occur: Pain that is not controlled by the medicine given Repeated vomiting or unable to keep down fluids Fever of 100.4 F (38 C) or higher, or as directed by your healthcare provider Passage of solid red or brown urine (can't see through it) or urine with lots of blood clots Foul-smelling or cloudy urine Unable to pass urine for 8 hours and increasing bladder pressure [id number] [employer]. [address] [place] [address]. All rights reserved. This information is not intended as a substitute for professional medical care. Always follow yourhealthcare professional's instructions. Additional Information VACCINATE! IT SAVES LIVES! Members of the community who have not yet received the COVID-19 vaccine and would like to receive it can visit one of [facility] vaccine clinics. There are many vaccine clinic locations within the [facility]. For locations and available times, please visit [email or web address] It is important to note that some COVID mobile vaccine clinics are held outdoors and may be canceled in rainy or stormy conditions. To learn more about pediatric vaccinations (ages 5-11), we invite you to visit the [facility] webpage. [email or web address] learn more about the COVID-19 vaccine, we invite you to visit the CDC website for a list of frequently asked questions. https://www.cdc.gov/coronavirus/2019-ncov/vaccines/faq.html [facility] Patient Portal Access Instructions: Stay connected with your healthcare team and access your personal medical information anytime with the [employer] Patient Portal. If you would like a full copy of your medical records please contact the [facility] Medical Records Department Tuesday through Tuesday between 8a.m. and 4:30p.m. Please follow the directions below to access the portal: 1.Access the email account you provided upon registration to the [facility].2.Look for an invitation email from [facility].3.Open the email and access the invitation link: Accept Invitation to [facility]4.Fill in the required rutledge to create your account. Sign into [email or web address].[email or web address] with your username and password that you created in the above steps to stay up to date. You can then view a summary of results, a summary of your visits, and the ability to download your summaries to your computer or send the information securely to a physician. Remember that your healthcare information is confidential, so carefully consider who you will allow to register on the [employer] Patient Portal for access to your information. You can also access the [facility] Patient Portal on the [employer] kb. Simply click on Health Records under [employer] and then click on the [employer] logo. HOW TO SAFELY DISPOSE OF PRESCRIPTION MEDICATIONS Please use one of the following methods to safely dispose of your unused medications. 1.Use a drug disposal kit: the drug disposal pouch allows you to safely discard your old and unuseddrugs. Ask your nurse to give you one when you are discharged.2.Visit a local take-back location: Many local pharmacies and police departments have programs that collect old and unwanted prescriptiondrugs. Call your local pharmacy or go to http://Leap.it.Easel/0Y7Zc2o to find one close to you.3.Make use of household items: Use cat litter or old coffee grounds to dispose medications if other options arenot available. Mix your drugs with these household products, seal them in an airtight container andthrow it into the garbage. Call [facility]: [phone] to be sure your drugs can be disposed of in this way. Some medicines may require a different approach.4.Never flush your medications down the toilet. IF YOU HAVE BEEN PRESCRIBED AN OPIOIDS FOR PAIN If you have been prescribed an opioid (such as hydrocodone, oxycodone or morphine), it is critical to understand the possible side effects and risks of opioid pain medications. Even when taken as directed, opioids can have several side effects including: Tolerance, meaning you might need to take more of a medication for the same pain relief. Nausea, vomiting and/or constipation. Sleepiness, dizziness, dry mouth, confusion, depression or itching. Physical dependence, meaning you have withdrawal symptoms when a medication is stopped ? this can develop within a few days. KNOW YOUR RESPONSIBILITIES It is important to know exactly how much and how often to take the opioid pain medications you are prescribed. Never take opioids in higher amounts or more often than prescribed. Do not combine opioids with alcohol or other drugs that cause drowsiness, such as benzodiazepines, also known as benzos,including diazepam and alprazolam, muscle relaxants or sleep aids. Never sell or share prescriptionopioids. This is illegal. Store opioids in a secure place and out of reach of others (including children, family, friends and visitors). The last page(s) of this document has been signed and retained as a CHART COPY Signatures Patient Education Materials Kidney Stone w/ Colic Medication Leaflets acetaminophen and hydrocodone, tamsulosin, ondansetron (oral) My discharge plan and instructions have been reviewed and explained to me and I,RADHA LITTLE understand my current condition and have read and understand these discharge instructions. I have received a written copy of the plan/instructions. If I have questions, I am aware that I should contact my doctor. Patient/Medical Care Administrator Signature: Date/Time: Relationship to Patient: Witness Name/Signature: Date/Time: [facility]05-29-2024 Note ORIGINAL EXAMINATION: CT OF THE ABDOMEN AND PELVIS WITHOUT CONTRAST TECHNIQUE: CT of the abdomen and pelvis was performed without the administration of intravenous contrast. Multiplanar reformatted images are provided for review. Automated exposure control, iterative reconstruction, and/or weight based adjustment of the mA/kV was utilized to reduce the radiation dose to as low as reasonably achievable. COMPARISON: Chest x-ray 05/31/2019, CT abdomen/pelvis 05/16/2019 HISTORY: ORDERING SYSTEM PROVIDED HISTORY: Reason for Exam: RIGHT flank pain FINDINGS: Evaluation for certain pathology is limited without the use of intravenous contrast. There are no dilated segments of bowel. There is heterogeneously dense ingested contents present within the stomach. A normal appearing appendix is present in the right lower quadrant. The liver, gallbladder, pancreas, and adrenal glands are unremarkable. There are several punctate calcifications present at the in the spleen, likely sequela from prior granulomatous disease. No renal lesion is evident in the unenhanced kidneys. There is punctate nonobstructive left nephrolithiasis. The previously seen nonobstructive right nephrolithiasis is not identified on this study. There is perhaps a small stone measuring 1 mm or less present in the proximal ureter on the right only visible on the thin slice acquisition (series 3, image 136) although evaluation is complicated due to the lack of intra-abdominal adipose tissue. No hydronephrosis. The urinary bladder is decompressed limiting evaluation. The uterus is unremarkable. 1.6 cm right ovarian cyst appears benign and no follow-up imaging is required. No abdominopelvic lymphadenopathy on this noncontrast study. No free fluid or free air. No acute abnormality of the abdominopelvic wall or osseous structures. There is a calcified granuloma in the anterolateral portion of the right lower lobe. Otherwise the imaged lungs are clear. No visible pericardial or pleural effusion. IMPRESSION: Question punctate stone in the proximal right ureter. No hydronephrosis. Nonobstructive left nephrolithiasis. I have personally reviewed the images of this examination, and agree with the resident's findings and interpretation. Interpreted by: Cecil Ferguson MD Preliminary Report By: Mayito Lowe Electronically signed By Cecil Ferguson MD Dictated Date: 12/07/2023 2:58:53 AM Prelim Date: 12/07/2023 3:12:01 AM Sign Date: 12/07/2023 3:20:29 AM Ordering Provider: [facility]04-22-2024 Hospital Discharge instructions Patient Education 10/31/2023 20:43:40 Opioid Withdrawal Opioid Withdrawal Opioid withdrawal occurs in people who have used opioids on a daily basis for at least 3 weeks. Symptoms usually start about 12 hours after the last dose of the opioid. Withdrawal symptoms last from 3 to 5 days and may include yawning, sweating, runny nose, restlessness, stomach cramping, diarrhea,nausea, vomiting, hot and cold flashes, and trouble sleeping. Home care The treatment for withdrawal is mostly managing the symptoms without making the problem worse. Follow these guidelines when caring for yourself at home: Stay with someone who can help you and give you emotional support during this time. Resist the temptation to take more of the addicting drug to stop your symptoms. If you have stomach cramps, nausea, or vomiting, take only clear liquids until the symptoms improve. Adults should drink a total of 2 to 3 quarts of liquid daily. It is best to take small frequent drinks rather than a few large ones. You may consume liquids in any of the following forms: mineral water, apple juice, sports drinks, soft drinks without caffeine, clear broth soups, plain gelatin, andice pops. Don't use alcohol, caffeine, or tobacco during this time. Take any medicines prescribed for nausea or cramping exactly as directed. If you were given a clonidine patch, leave this on for 7 days. You may remove it sooner if you develop excess dizziness or drowsiness. Follow-up care Follow up with your healthcare provider if you need further symptom control, or as advised. When you are through withdrawal, take the opportunity to enter a treatment program. This may help you stay off the addicting drug. When to seek medical advice Call your healthcare provider right away if any of these occur: Fever of 100.4 F (38 C) or higher, or as directed by your healthcare provider Inability to keep down liquids for 8 hours Frequent diarrhea Signs of infection at the site of IV needle use (redness, warmth, pain, or swelling) Call 911 Call 911 if any of these occur: Trouble breathing or swallowing, or wheezing Severe confusion Extreme drowsiness or trouble awakening Fainting or loss of consciousness Rapid heart rate or very slow heart rate Very low or very high blood pressure Vomiting blood, or large amounts of blood in stool Seizure [id number] [employer]. [address] [place] [address]. All rights reserved. This information is not intended as a substitute for professional medical care. Always follow yourhealthcare professional's instructions. Follow Up Care 10/31/2023 19:49:18 With:TOMI GUTIERREZ DO Address: [address] [place], [place] [id number]- [phone] When:2-4 days [facility] 04-22-2024 Emergency department Discharge summary Discharge Instructions Thank you for allowing [facility] to assist you with your healthcare needs. The following is importantdischarge information regarding your hospital visit. 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 Post Acute Orders No qualifying data available. You Need to Schedule the Following Appointments Follow Up with TOMI GUTIERREZ DO When Within 2-4 days Where: [place] [address]- [phone] Allergies Bactrim (Nausea and vomiting) Bee Stings (Swelling) coconut Medications Please ask your primary doctor or pharmacist before taking any other medication not listed, including over the counter drugs, herbal medications, vitamins and or supplements as they may interact withur home medications. What How Much When Why Instructions Last Dose Changed ondansetron (ondansetron 4 mg oral tablet, disintegrating) 1 tab(s) by mouth Every 6 hours as needed for Nausea/Vomiting Changed ondansetron (ondansetron 4 mg oral tablet, disintegrating) 1 tab(s) by mouth Every 8 hours as needed for as needed for nausea/vomiting Duration: 3 Days Printed Prescription Changed ondansetron (Zofran ODT use ondansetron oral tablet, disintegrating ) 4 Milligram by mouth Every 6 hours as needed for as needed for nausea/vomiting Vomiting Unchanged acetaminophen (acetaminophen 500 mg oral capsule) 1 cap by mouth Every 4 hours as needed for for pain Anxiety 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 Bring all medications you take, including over the counter medications, herbals and other supplements with you to your doctor s visit. Patients and families are reminded to discard old lists and to update any records with all medication providers or retail pharmacies. Education Materials Opioid Withdrawal Opioid withdrawal occurs in people who have used opioids on a daily basis for at least 3 weeks. Symptoms usually start about 12 hours after the last dose of the opioid. Withdrawal symptoms last from 3 to 5 days and may include yawning, sweating, runny nose, restlessness, stomach cramping, diarrhea,nausea, vomiting, hot and cold flashes, and trouble sleeping. Home care The treatment for withdrawal is mostly managing the symptoms without making the problem worse. Follow these guidelines when caring for yourself at home: Stay with someone who can help you and give you emotional support during this time. Resist the temptation to take more of the addicting drug to stop your symptoms. If you have stomach cramps, nausea, or vomiting, take only clear liquids until the symptoms improve. Adults should drink a total of 2 to 3 quarts of liquid daily. It is best to take small frequent drinks rather than a few large ones. You may consume liquids in any of the following forms: mineral water, apple juice, sports drinks, soft drinks without caffeine, clear broth soups, plain gelatin, andice pops. Don't use alcohol, caffeine, or tobacco during this time. Take any medicines prescribed for nausea or cramping exactly as directed. If you were given a clonidine patch, leave this on for 7 days. You may remove it sooner if you develop excess dizziness or drowsiness. Follow-up care Follow up with your healthcare provider if you need further symptom control, or as advised. When you are through withdrawal, take the opportunity to enter a treatment program. This may help you stay off the addicting drug. When to seek medical advice Call your healthcare provider right away if any of these occur: Fever of 100.4 F (38 C) or higher, or as directed by your healthcare provider Inability to keep down liquids for 8 hours Frequent diarrhea Signs of infection at the site of IV needle use (redness, warmth, pain, or swelling) Call 911 Call 911 if any of these occur: Trouble breathing or swallowing, or wheezing Severe confusion Extreme drowsiness or trouble awakening Fainting or loss of consciousness Rapid heart rate or very slow heart rate Very low or very high blood pressure Vomiting blood, or large amounts of blood in stool Seizure [id number] [employer]. [address] [place] [address]. All rights reserved. This information is not intended as a substitute for professional medical care. Always follow yourhealthcare professional's instructions. Additional Information VACCINATE! IT SAVES LIVES! Members of the community who have not yet received the COVID-19 vaccine and would like to receive it can visit one of [facility] vaccine clinics. There are many vaccine clinic locations within the [facility]. For locations and available times, please visit [email or web address] It is important to note that some COVID mobile vaccine clinics are held outdoors and may be canceled in rainy or stormy conditions. To learn more about pediatric vaccinations (ages 5-11), we invite you to visit the [facility] webpage. [email or web address] stions.htmlTo learn more about the COVID-19 vaccine, we invite you to visit the CDC website for a list of frequently asked questions. https://www.cdc.gov/coronavirus/2019-ncov/vaccines/faq.html [employer] Patient Portal Access Instructions: Stay connected with your healthcare team and access your personal medical information anytime with the [employer] Patient Portal. If you would like a full copy of your medical records please contact the [facility] Medical Records Department Tuesday through Tuesday between 8a.m. and 4:30p.m. Please follow the directions below to access the portal: 1.Access the email account you provided upon registration to the hospital.2.Look for an invitation email from [facility].3.Open the email and access the invitation link: Accept Invitation to [employer]4.Fill in the required rutledge to create your account. Sign into www.Click Quote Save with your username and password that you created in the above steps to stay up to date. You can then view a summary of results, a summary of your visits, and the ability to download your summaries to your computer or send the information securely to a physician. Remember that your healthcare information is confidential, so carefully consider who you will allow to register on the [employer] Patient Portal for access to your information. You can also access the [employer] Patient Portal on the [employer] kb. Simply click on Health Records under [employer] and then click on the SafeNet logo. HOW TO SAFELY DISPOSE OF PRESCRIPTION MEDICATIONS Please use one of the following methods to safely dispose of your unused medications. 1.Use a drug disposal kit: the drug disposal pouch allows you to safely discard your old and unuseddrugs. Ask your nurse to give you one when you are discharged.2.Visit a local take-back location: Many local pharmacies and police departments have programs that collect old and unwanted prescriptiondrugs. Call your local pharmacy or go to http://Taykey/8P8Zx6h to find one close to you.3.Make use of household items: Use cat litter or old coffee grounds to dispose medications if other options arenot available. Mix your drugs with these household products, seal them in an airtight container andthrow it into the garbage. Call [facility]: [phone] to be sure your drugs can be disposed of in this way. Some medicines may require a different approach.4.Never flush your medications down the toilet. IF YOU HAVE BEEN PRESCRIBED AN OPIOIDS FOR PAIN If you have been prescribed an opioid (such as hydrocodone, oxycodone or morphine), it is critical to understand the possible side effects and risks of opioid pain medications. Even when taken as directed, opioids can have several side effects including: Tolerance, meaning you might need to take more of a medication for the same pain relief. Nausea, vomiting and/or constipation. Sleepiness, dizziness, dry mouth, confusion, depression or itching. Physical dependence, meaning you have withdrawal symptoms when a medication is stopped ? this can develop within a few days. KNOW YOUR RESPONSIBILITIES It is important to know exactly how much and how often to take the opioid pain medications you are prescribed. Never take opioids in higher amounts or more often than prescribed. Do not combine opioids with alcohol or other drugs that cause drowsiness, such as benzodiazepines, also known as benzos,including diazepam and alprazolam, muscle relaxants or sleep aids. Never sell or share prescriptionopioids. This is illegal. Store opioids in a secure place and out of reach of others (including children, family, friends and visitors). The last page(s) of this document has been signed and retained as a CHART COPY Signatures Patient Education Materials Opioid Withdrawal Medication Leaflets My discharge plan and instructions have been reviewed and explained to me and I,RADHA LITTLE understand my current condition and have read and understand these discharge instructions. I have received a written copy of the plan/instructions. If I have questions, I am aware that I should contact my doctor. Patient/Medical Care Administrator Signature: Date/Time: Relationship to Patient: Witness Name/Signature: Date/Time: [facility]04-06-2024 Hospital Discharge instructions Patient Education 10/15/2023 00:24:40 Self-Care for Headaches Self-Care for Headaches Most headaches aren't serious and can be relieved with self-care. But some headaches may be a sign of another health problem like eye trouble or high blood pressure. To find the best treatment, learnwhat kind of headaches you get. For tension headaches, self-care will usually help. To treat migraines, ask your healthcare provider for advice. It is also possible to get both tension and migraine headaches. Self-care involves relieving the pain and avoiding headache triggers if you can. Ways to reduce pain and tension Try these steps: Apply a cold compress or ice pack to the pain site. Drink fluids. If nausea makes it hard to drink, try sucking on ice. Rest. Protect yourself from bright light and loud noises. Calm your emotions by imagining a peaceful scene. Massage tight neck, shoulder, and head muscles. To relax muscles, soak in a hot bath or use a hot shower. Use medicines Aspirin or other arex-jxb-cyyczlc pain medicines, such as ibuprofen and acetaminophen, can relieve headache. Remember: Never give aspirin to anyone 18 years old or younger because of the risk of developing Fay syndrome. Use pain medicines only when needed. Certain prescription medicines, if taken too often, can lead to rebound headaches. Check with your healthcare provider or pharmacist about your medicines. Track your headaches Keeping a headache diary can help you and your healthcare provider identify what's causing your headaches: Note when each headache happens. Identify your activities and the foods you've eaten 6 to 8 hours before the headache began. Look for any trends or triggers. Signs of tension headache Any of the following can be signs: Dull pain or feeling of pressure in a tight band around your head Pain in your neck or shoulders Headache without a definite beginning or end Headache after an activity such as driving or working on a computer Signs of migraine Any of the following can be signs: Throbbing pain on one or both sides of your head Nausea or vomiting Extreme sensitivity to light, sound, and smells Bright spots, flashes, or other visual changes Pain or nausea so severe that you can't continue your daily activities Call your healthcare provider If you have any of the following symptoms, contact your healthcare provider: A headache that lingers after a recent injury or bump to the head. A fever with a stiff neck or pain when you bend your head toward your chest. A headache along with slurred speech, changes in your vision, or numbness or weakness in your arms or legs. A headache for longer than 3 days. Frequent headaches, especially in the morning. Headaches with seizures Seek immediate medical attention if you have a headache that you would call the worst headache youhave ever had. [phone] [employer] [address] [place] [address]. All rights reserved. This information is not intended as a substitute for professional medical care. Always follow yourhealthcare professional's instructions. Follow Up Care 10/14/2023 22:42:44 With:Follow up with primary care provider Address:Unknown When:2-4 days With:Call Physician Referral Address:Unknown When:2-4 days [facility] 04-06-2024 Note Discharge Instructions Thank you for allowing [facility] to assist you with your healthcare needs. The following is importantdischarge information regarding your hospital visit. Diagnosis from Today's Visit Headache Headache Nausea & vomiting Vomiting What to Do Next Instructions from Your Care Team Discharge Return to Work, School, or Sports (Return to Work, School, or Sports) - Ordered -- 10/16/23, May return to: work, 10/15/23 0:24:00 EDT Post Acute Orders No qualifying data available. You Need to Schedule the Following Appointments Follow Up with Follow up with primary care provider When Within 2-4 days Follow Up with Call Physician Referral When Within 2-4 days Allergies Bactrim (Nausea and vomiting) Bee Stings (Swelling) coconut Medications Please ask your primary doctor or pharmacist before taking any other medication not listed, including over the counter drugs, herbal medications, vitamins and or supplements as they may interact withyour home medications. What How Much When Why Instructions Last Dose Unchanged acetaminophen (acetaminophen 500 mg oral capsule) 1 cap by mouth Every 4 hours as needed for for pain Anxiety Chronic hepatitis C virus genotype 1b infection Unchanged LORazepam (Ativan 0.5 mg oral tablet) 1 tab(s) by mouth Three (3) times a day as needed for as needed for anxiety Anxiety Duration: 4 Days Unchanged medroxyPROGESTERone (Depo-Provera Contraceptive 150 mg/ mL intramuscular suspension) 1 Milliliter Intramuscular Every 3 months Unchanged ondansetron (ondansetron 4 mg oral tablet, disintegrating) 1 tab(s) by mouth Every 6 hours as needed for Nausea/Vomiting Unchanged ondansetron (Zofran ODT use ondansetron oral tablet, disintegrating ) 4 Milligram by mouth Every 6 hours as needed for as needed for nausea/vomiting Vomiting Please take this list to your next doctor s visit. Bring all medications you take, including over the counter medications, herbals and other supplements with you to your doctor s visit. Patients and families are reminded to discard old lists and to update any records with all medication providers or retail pharmacies. Education Materials Self-Care for Headaches Most headaches aren't serious and can be relieved with self-care. But some headaches may be a sign of another health problem like eye trouble or high blood pressure. To find the best treatment, learnwhat kind of headaches you get. For tension headaches, self-care will usually help. To treat migraines, ask your healthcare provider for advice. It is also possible to get both tension and migraine headaches. Self-care involves relieving the pain and avoiding headache triggers if you can. Ways to reduce pain and tension Try these steps: Apply a cold compress or ice pack to the pain site. Drink fluids. If nausea makes it hard to drink, try sucking on ice. Rest. Protect yourself from bright light and loud noises. Calm your emotions by imagining a peaceful scene. Massage tight neck, shoulder, and head muscles. To relax muscles, soak in a hot bath or use a hot shower. Use medicines Aspirin or other wfjh-wbh-recvlzi pain medicines, such as ibuprofen and acetaminophen, can relieve headache. Remember: Never give aspirin to anyone 18 years old or younger because of the risk of developing Fay syndrome. Use pain medicines only when needed. Certain prescription medicines, if taken too often, can lead to rebound headaches. Check with your healthcare provider or pharmacist about your medicines. Track your headaches Keeping a headache diary can help you and your healthcare provider identify what's causing your headaches: Note when each headache happens. Identify your activities and the foods you've eaten 6 to 8 hours before the headache began. Look for any trends or triggers. Signs of tension headache Any of the following can be signs: Dull pain or feeling of pressure in a tight band around your head Pain in your neck or shoulders Headache without a definite beginning or end Headache after an activity such as driving or working on a computer Signs of migraine Any of the following can be signs: Throbbing pain on one or both sides of your head Nausea or vomiting Extreme sensitivity to light, sound, and smells Bright spots, flashes, or other visual changes Pain or nausea so severe that you can't continue your daily activities Call your healthcare provider If you have any of the following symptoms, contact your healthcare provider: A headache that lingers after a recent injury or bump to the head. A fever with a stiff neck or pain when you bend your head toward your chest. A headache along with slurred speech, changes in your vision, or numbness or weakness in your arms or legs. A headache for longer than 3 days. Frequent headaches, especially in the morning. Headaches with seizures Seek immediate medical attention if you have a headache that you would call the worst headache youhave ever had. [phone] [employer]. [address] [place] [address], [place] [address]. All rights reserved. This information is not intended as a substitute for professional medical care. Always follow yourhealthcare professional's instructions. Additional Information VACCINATE! IT SAVES LIVES! Members of the community who have not yet received the COVID-19 vaccine and would like to receive it can visit one of [facility] vaccine clinics. There are many vaccine clinic locations within the [facility]. For locations and available times, please visit www.[email or web address].[place].gov/. It is important to note that some COVID mobile vaccine clinics are held outdoors and may be canceled in rainy or stormy conditions. To learn more about pediatric vaccinations (ages 5-11), we invite you to visit the [facility] webpage. [email or web address] learn more about the COVID-19 vaccine, we invite you to visit the CDC website for a list of frequently asked questions. https://www.cdc.gov/coronavirus/2019-ncov/vaccines/faq.html [employer] Patient Portal Access Instructions: Stay connected with your healthcare team and access your personal medical information anytime with the [employer] Patient Portal. If you would like a full copy of your medical records please contact the [facility] Medical Records Department Tuesday through Tuesday between 8a.m. and 4:30p.m. Please follow the directions below to access the portal: 1.Access the email account you provided upon registration to the hospital.2.Look for an invitation email from [facility].3.Open the email and access the invitation link: Accept Invitation to [employer]4.Fill in the required rutledge to create your account. Sign into www.Click Quote Save with your username and password that you created in the above steps to stay up to date. You can then view a summary of results, a summary of your visits, and the ability to download your summaries to your computer or send the information securely to a physician. Remember that your healthcare information is confidential, so carefully consider who you will allow to register on the [employer] Patient Portal for access to your information. You can also access the [employer] Patient Portal on the [employer] kb. Simply click on Health Records under [employer] and then click on the SafeNet logo. HOW TO SAFELY DISPOSE OF PRESCRIPTION MEDICATIONS Please use one of the following methods to safely dispose of your unused medications. 1.Use a drug disposal kit: the drug disposal pouch allows you to safely discard your old and unuseddrugs. Ask your nurse to give you one when you are discharged.2.Visit a local take-back location: Many local pharmacies and police departments have programs that collect old and unwanted prescriptiondrugs. Call your local pharmacy or go to http://Leap.it.Easel/2K0Gy5i to find one close to you.3.Make use of household items: Use cat litter or old coffee grounds to dispose medications if other options arenot available. Mix your drugs with these household products, seal them in an airtight container andthrow it into the garbage. Call [facility]: [phone] to be sure your drugs can be disposed of in this way. Some medicines may require a different approach.4.Never flush your medications down the toilet. IF YOU HAVE BEEN PRESCRIBED AN OPIOIDS FOR PAIN If you have been prescribed an opioid (such as hydrocodone, oxycodone or morphine), it is critical to understand the possible side effects and risks of opioid pain medications. Even when taken as directed, opioids can have several side effects including: Tolerance, meaning you might need to take more of a medication for the same pain relief. Nausea, vomiting and/or constipation. Sleepiness, dizziness, dry mouth, confusion, depression or itching. Physical dependence, meaning you have withdrawal symptoms when a medication is stopped ? this can develop within a few days. KNOW YOUR RESPONSIBILITIES It is important to know exactly how much and how often to take the opioid pain medications you are prescribed. Never take opioids in higher amounts or more often than prescribed. Do not combine opioids with alcohol or other drugs that cause drowsiness, such as benzodiazepines, also known as benzos,including diazepam and alprazolam, muscle relaxants or sleep aids. Never sell or share prescriptionopioids. This is illegal. Store opioids in a secure place and out of reach of others (including children, family, friends and visitors). The last page(s) of this document has been signed and retained as a CHART COPY Signatures Patient Education Materials Self-Care for Headaches Medication Leaflets My discharge plan and instructions have been reviewed and explained to me and I,RADHA LITTLE understand my current condition and have read and understand these discharge instructions. I have received a written copy of the plan/instructions. If I have questions, I am aware that I should contact my doctor. Patient/Medical Care Administrator Signature: Date/Time: Relationship to Patient: Witness Name/Signature: Date/Time: [facility]04-05-2024 Evaluation + Plan note Diagnostic Tests Pending * Urinalysis w/ C&S if Indicated 10/14/23 [facility] 03-17-2024 Hospital Discharge instructions Patient Education 09/25/2023 12:44:18 Abscess, Incision And Drainage Abscess (Incision & Drainage) An abscess is sometimes called a boil. It happens when bacteria get trapped under the skin and start to grow. Pus forms inside the abscess as the body responds to the bacteria. An abscess can happen with an insect bite, ingrown hair, blocked oil gland, pimple, cyst, or puncture wound. Your healthcare provider has drained the pus from your abscess. If the abscess pocket was large, your healthcare provider may have put in gauze packing. Your provider will need to remove it on your next visit. He or she may also replace it at that time. You may not need antibiotics to treat a simple abscess, unless the infection is spreading into the skin around the wound (cellulitis). The wound will take about 1 to 2 weeks to heal, depending on the size of the abscess. Healthy tissue will grow from the bottom and sides of the opening until it seals over. Home care These tips can help your wound heal: The wound may drain for the first 2 days. Cover the wound with a clean dry dressing. Change the dressing if it becomes soaked with blood or pus. If a gauze packing was placed inside the abscess pocket, you may be told to remove it yourself. Youmay do this in the shower. Once the packing is removed, you should wash the area in the shower, or clean the area as directed by your provider. Continue to do this until the skin opening has closed. Make sure you wash your hands after changing the packing or cleaning the wound. If you were prescribed antibiotics, take them as directed until they are all gone. You may use acetaminophen or ibuprofen to control pain, unless another pain medicine was prescribed. If you have liver disease or ever had a stomach ulcer, talk with your doctor before using these medicines. Follow-up care Follow up with your healthcare provider, or as advised. If a gauze packing was put in your wound, it should be removed in 1 to 2 days. Check your wound every day for any signs that the infection is getting worse. The signs are listed below. When to seek medical advice Call your healthcare provider right away if any of these occur: Increasing redness or swelling Red streaks in the skin leading away from the wound Increasing local pain or swelling Continued pus draining from the wound 2 days after treatment Fever of 100.4 F (38 C) or higher, or as directed by your healthcare provider Boil returns when you are at home [phone] [employer]. [address] [place] [address]. All rights reserved. This information is not intended as a substitute for professional medical care. Always follow yourhealthcare professional's instructions. Follow Up Care 09/25/2023 11:03:53 With:Janessa DELGADO DO, Dr. Stjernholm Address: [address] [place] [address] [address] [phone] When:2-4 days With:Follow up with primary care provider Address:Unknown When:2-4 days With:Call Physician Referral Address:Unknown When:2-4 days [facility] 03-17-2024 Note Discharge Instructions Thank you for allowing [facility] to assist you with your healthcare needs. The following is importantdischarge information regarding your hospital visit. Diagnosis from Today's Visit Abscess - axilla Abscess of left axilla What to Do Next Instructions from Your Care Team Discharge Return to Work, School, or Sports (Return to Work, School, or Sports) - Ordered -- 09/26/23, May return to: work, 09/25/23 12:44:00 EDT Post Acute Orders No qualifying data available. You Need to Schedule the Following Appointments Follow Up with Janessa DELGADO DO, Dr. Delgado When Within 2-4 days Where: [address] [facility] [address] [phone] Follow Up with Follow up with primary care provider When Within 2-4 days Follow Up with Call Physician Referral When Within 2-4 days Allergies Bactrim (Nausea and vomiting) Bee Stings (Swelling) coconut Medications Please ask your primary doctor or pharmacist before taking any other medication not listed, including over the counter drugs, herbal medications, vitamins and or supplements as they may interact withyour home medications. What How Much When Why Instructions Last Dose New doxycycline (doxycycline hyclate 100 mg oral capsule) 1 cap by mouth Two (2) times a day Duration: 10 Days Printed Prescription Unchanged acetaminophen (acetaminophen 500 mg oral capsule) 1 cap by mouth Every 4 hours as needed for for pain Anxiety Chronic hepatitis C virus genotype 1b infection Unchanged LORazepam (Ativan 0.5 mg oral tablet) 1 tab(s) by mouth Three (3) times a day as needed for as needed for anxiety Anxiety Duration: 4 Days Unchanged medroxyPROGESTERone (Depo-Provera Contraceptive 150 mg/ mL intramuscular suspension) 1 Milliliter Intramuscular Every 3 months Unchanged ondansetron (ondansetron 4 mg oral tablet, disintegrating) 1 tab(s) by mouth Every 6 hours as needed for Nausea/Vomiting Unchanged ondansetron (Zofran ODT use ondansetron oral tablet, disintegrating ) 4 Milligram by mouth Every 6 hours as needed for as needed for nausea/vomiting Vomiting Please take this list to your next doctor s visit. Bring all medications you take, including over the counter medications, herbals and other supplements with you to your doctor s visit. Patients and families are reminded to discard old lists and to update any records with all medication providers or retail pharmacies. Medication Leaflets doxycycline (oral/injection) (LAVERNE rodrigo jacinto) Acticlate, Adoxa, Alodox, Avidoxy, Doryx, Doryx MPC, Lymepak, Mondoxyne NL, Monodox, Morgidox, Morgidox [id number], Morgidox [id number], Okebo, Oracea, Targadox, Vibramycin, Vibramycin Monohydrate What is the most important information I should know about doxycycline? You should not take this medicine if you are allergic to any tetracycline antibiotic. Children younger than 8 years old should use doxycycline only in cases of severe or life-threatening conditions. This medicine can cause permanent yellowing or graying of the teeth in children Using doxycycline during could harm the unborn baby or cause permanent tooth discoloration later in the baby's life. What is doxycycline? Doxycycline is a tetracycline antibiotic that Doxycycline is used to treat many different bacterial infections, such as acne, urinary tract infections, intestinal infections, eye infections, gonorrhea, chlamydia, periodontitis (gum disease), andothers. Doxycycline is also used to treat blemishes, bumps, and acne-like lesions caused by rosacea. Doxycycline will not treat facial redness caused by rosacea. Some forms of doxycycline are used to prevent malaria, to treat anthrax, or to treat infections caused by mites, ticks, or lice. Doxycycline may also be used for purposes not listed in this medication guide. What should I discuss with my healthcare provider before taking doxycycline? You should not take this medicine if you are allergic to doxycycline or other tetracycline antibiotics such as demeclocycline, minocycline, tetracycline, or tigecycline. Tell your doctor if you have ever had: liver disease; kidney disease; asthma or sulfite allergy; increased pressure inside your skull; or if you also take isotretinoin, seizure medicine, or a blood thinner such as warfarin (Coumadin). If you are using doxycycline to treat gonorrhea, your doctor may test you to make sure you do not also have syphilis, another sexually transmitted disease. Taking this medicine during may affect tooth and bone development in the unborn baby. Taking doxycycline during the last half of can cause permanent tooth discoloration later in the baby's life. Tell your doctor if you are or if you become . Doxycycline can make control pills less effective. Ask your doctor about using a non-hormonalbirth control (condom, diaphragm with spermicide) to prevent . Doxycycline can pass into breast milk and may affect bone and tooth development in a nursing . Do not breastfeed while you are taking doxycycline. Doxycycline can cause permanent yellowing or graying of the teeth in children younger than 8 years old. Children should use doxycycline only in cases of severe or life-threatening conditions such as anthrax or [place] spotted fever. The benefit of treating a serious condition may outweigh any risks to the child's tooth development. How should I take doxycycline? Follow all directions on your prescription label and read all medication guides or instruction sheets. Use the medicine exactly as directed. Take doxycycline with a full glass of water. Drink plenty of liquids while you are taking doxycycline. Read and carefully follow any Instructions for Use provided with your medicine. Ask your doctor or pharmacist if you do not understand these instructions. Most brands of doxycyline may be taken with food or milk if the medicine upsets your stomach. Different brands of doxycycline may have different instructions about taking them with or without food. Take Oracea on an empty stomach, at least 1 hour before or 2 hours after a meal. You may need to split a doxycycline tablet to get the correct dose. Follow your doctor's instructions. Swallow a delayed-release capsule or tablet whole. Do not crush, chew, break, or open it. Measure liquid medicine with the dosing syringe provided, or with a special dose-measuring spoon ormedicine cup. If you do not have a dose-measuring device, ask your pharmacist for one. If you take doxycycline to prevent malaria: Start taking the medicine 1 or 2 days before entering an area where malaria is common. Continue taking the medicine every day during your stay and for at least 4 weeks after you leave the area. Doxycycline is usually given by injection only if you are unable to take the medicine by mouth. A healthcare provider will give you this injection as an infusion into a vein. Use this medicine for the full prescribed length of time, even if your symptoms quickly improve. Skipping doses can increase your risk of infection that is resistant to medication. Doxycycline will not treat a viral infection such as the flu or a common cold. Store at room temperature away from moisture, heat, and light. Throw away any unused medicine after the expiration date on the label has passed. Using doxycycline can cause damage to your kidneys. What happens if I miss a dose? Take the medicine as soon as you can, but skip the missed dose if it is almost time for your next dose. Do not take two doses at one time. What happens if I overdose? Seek emergency medical attention or call the Poison Help line at . What should I avoid while taking doxycycline? Do not take iron supplements, multivitamins, calcium supplements, antacids, or laxatives within 2 hours before or after taking doxycycline. Avoid taking any other antibiotics with doxycycline unless your doctor has told you to. Doxycycline could make you sunburn more easily. Avoid sunlight or tanning beds. Wear protective clothing and use sunscreen (SPF 30 or higher) when you are outdoors. Antibiotic medicines can cause diarrhea, which may be a sign of a new infection. If you have diarrhea that is watery or bloody, call your doctor. Do not use anti-diarrhea medicine unless your doctor tells you to. What are the possible side effects of doxycycline? Get emergency medical help if you have signs of an allergic reaction (hives, difficult breathing, swelling in your face or throat) or a severe skin reaction (fever, sore throat, burning in your eyes,skin pain, red or purple skin rash that spreads and causes blistering and peeling). Seek medical treatment if you have a serious drug reaction that can affect many parts of your body.Symptoms may include: skin rash, fever, swollen glands, flu- like symptoms, muscle aches, severe weakness, unusual bruising, or yellowing of your skin or eyes. This reaction may occur several weeks after you began using doxycycline. Call your doctor at once if you have: severe stomach pain, diarrhea that is watery or bloody; throat irritation, trouble swallowing; chest pain, irregular heart rhythm, feeling short of breath; little or no urination; low white blood cell counts--fever, chills, swollen glands, body aches, weakness, pale skin, easy bruising or bleeding; increased pressure inside the skull--severe headaches, ringing in your ears, dizziness, nausea, vision problems, pain behind your eyes; or signs of liver or pancreas problems--loss of appetite, upper stomach pain (that may spread to your back), tiredness, nausea or vomiting, fast heart rate, dark urine, jaundice (yellowing of the skin or eyes). Common side effects may include: nausea, vomiting, upset stomach, loss of appetite; mild diarrhea; skin rash or itching; darkened skin color; or vaginal itching or discharge. This is not a complete list of side effects and others may occur. Call your doctor for medical advice about side effects. You may report side effects to FDA at 7-233-ZCM-3393. What other drugs will affect doxycycline? Sometimes it is not safe to use certain medications at the same time. Some drugs can affect your blood levels of other drugs you take, which may increase side effects or make the medications less effective. Other drugs may affect doxycycline, including prescription and daxd-hdx-vilmlmq medicines, vitamins, and herbal products. Tell your doctor about all your current medicines and any medicine you start or stop using. Where can I get more information? Your pharmacist can provide more information about doxycycline. Remember, keep this and all other medicines out of the reach of children, never share your medicines with others, and use this medication only for the indication prescribed. Every effort has been made to ensure that the information provided by [employer]. ('[employer]') is accurate, up-to-date, and complete, but no guarantee is made to that effect. Drug information contained herein may be time sensitive. [employer] information has been compiled for use by healthcare practitioners and consumers in the [place] and therefore [employer] does not warrant that uses outside of the [place] are appropriate, unless specifically indicated otherwise. [employer] drug information does not endorse drugs, diagnose patients or recommend therapy. [employer] drug information isan informational resource designed to assist licensed healthcare practitioners in caring for their p atients and/or to serve consumers viewing this service as a supplement to, and not a substitute for, the expertise, skill, knowledge and judgment of healthcare practitioners. The absence of a warningfor a given drug or drug combination in no way should be construed to indicate that the drug or drug combination is safe, effective or appropriate for any given patient. [employer] does not assume any responsibility for any aspect of healthcare administered with the aid of information [employer] provides. The information contained herein is not intended to cover all possible uses, directions, precautions, warnings, drug interactions, allergic reactions, or adverse effects. If you have questions about the drugs you are taking, check with your doctor, nurse or pharmacist. Copyright 9067-2990 [employer]. Version: 25.. Revision Date: 03/16/2023. Education Materials Abscess (Incision & Drainage) An abscess is sometimes called a boil. It happens when bacteria get trapped under the skin and start to grow. Pus forms inside the abscess as the body responds to the bacteria. An abscess can happen with an insect bite, ingrown hair, blocked oil gland, pimple, cyst, or puncture wound. Your healthcare provider has drained the pus from your abscess. If the abscess pocket was large, your healthcare provider may have put in gauze packing. Your provider will need to remove it on your next visit. He or she may also replace it at that time. You may not need antibiotics to treat a simple abscess, unless the infection is spreading into the skin around the wound (cellulitis). The wound will take about 1 to 2 weeks to heal, depending on the size of the abscess. Healthy tissue will grow from the bottom and sides of the opening until it seals over. Home care These tips can help your wound heal: The wound may drain for the first 2 days. Cover the wound with a clean dry dressing. Change the dressing if it becomes soaked with blood or pus. If a gauze packing was placed inside the abscess pocket, you may be told to remove it yourself. Youmay do this in the shower. Once the packing is removed, you should wash the area in the shower, or clean the area as directed by your provider. Continue to do this until the skin opening has closed. Make sure you wash your hands after changing the packing or cleaning the wound. If you were prescribed antibiotics, take them as directed until they are all gone. You may use acetaminophen or ibuprofen to control pain, unless another pain medicine was prescribed. If you have liver disease or ever had a stomach ulcer, talk with your doctor before using these medicines. Follow-up care Follow up with your healthcare provider, or as advised. If a gauze packing was put in your wound, it should be removed in 1 to 2 days. Check your wound every day for any signs that the infection is getting worse. The signs are listed below. When to seek medical advice Call your healthcare provider right away if any of these occur: Increasing redness or swelling Red streaks in the skin leading away from the wound Increasing local pain or swelling Continued pus draining from the wound 2 days after treatment Fever of 100.4 F (38 C) or higher, or as directed by your healthcare provider Boil returns when you are at home [phone] [employer]. [address] [place] [address]. All rights reserved. This information is not intended as a substitute for professional medical care. Always follow yourhealthcare professional's instructions. Additional Information VACCINATE! IT SAVES LIVES! Members of the community who have not yet received the COVID-19 vaccine and would like to receive it can visit one of [facility] vaccine clinics. There are many vaccine clinic locations within the [facility]. For locations and available times, please visit www.[email or web address].[email or web address]/. It is important to note that some COVID mobile vaccine clinics are held outdoors and may be canceled in rainy or stormy conditions. To learn more about pediatric vaccinations (ages 5-11), we invite you to visit the [facility] webpage. [email or web address]/[email or web address] [email or web address] learn more about the COVID-19 vaccine, we invite you to visit the CDC website for a list of frequently asked questions. https://www.cdc.gov/coronavirus/2019-ncov/vaccines/faq.html [facility] Access Instructions: Stay connected with your healthcare team and access your personal medical information anytime with the [facility] Patient Portal. If you would like a full copy of your medical records please contact the [facility] Medical Records Department Tuesday through Tuesday between 8a.m. and 4:30p.m. Please follow the directions below to access the portal: 1.Access the email account you provided upon registration to the [facility].2.Look for an invitation email from [facility].3.Open the email and access the invitation link: Accept Invitation to [facility]4.Fill in the required rutledge to create your account. Sign into www.Click [employer] Save with your username and password that you created in the above steps to stay up to date. You can then view a summary of results, a summary of your visits, and the ability to download your summaries to your computer or send the information securely to a physician. Remember that your healthcare information is confidential, so carefully consider who you will allow to register on the [employer] Patient Portal for access to your information. You can also access the [employer] Patient Portal on the [employer]. Simply click on Health Records under [employer] and then click on the [employer] logo. HOW TO SAFELY DISPOSE OF PRESCRIPTION MEDICATIONS Please use one of the following methods to safely dispose of your unused medications. 1.Use a drug disposal kit: the drug disposal pouch allows you to safely discard your old and unuseddrugs. Ask your nurse to give you one when you are discharged.2.Visit a local take-back location: Many local pharmacies and police departments have programs that collect old and unwanted prescriptiondrugs. Call your local pharmacy or go to http://Leap.it.Easel/0D1Mw4v to find one close to you.3.Make use of household items: Use cat litter or old coffee grounds to dispose medications if other options arenot available. Mix your drugs with these household products, seal them in an airtight container andthrow it into the garbage. Call [facility]: [phone] to be sure your drugs can be disposed of in this way. Some medicines may require a different approach.4.Never flush your medications down the toilet. IF YOU HAVE BEEN PRESCRIBED AN OPIOIDS FOR PAIN If you have been prescribed an opioid (such as hydrocodone, oxycodone or morphine), it is critical to understand the possible side effects and risks of opioid pain medications. Even when taken as directed, opioids can have several side effects including: Tolerance, meaning you might need to take more of a medication for the same pain relief. Nausea, vomiting and/or constipation. Sleepiness, dizziness, dry mouth, confusion, depression or itching. Physical dependence, meaning you have withdrawal symptoms when a medication is stopped ? this can develop within a few days. KNOW YOUR RESPONSIBILITIES It is important to know exactly how much and how often to take the opioid pain medications you are prescribed. Never take opioids in higher amounts or more often than prescribed. Do not combine opioids with alcohol or other drugs that cause drowsiness, such as benzodiazepines, also known as benzos,including diazepam and alprazolam, muscle relaxants or sleep aids. Never sell or share prescriptionopioids. This is illegal. Store opioids in a secure place and out of reach of others (including children, family, friends and visitors). The last page(s) of this document has been signed and retained as a CHART COPY Signatures Patient Education Materials Abscess, Incision And Drainage Medication Leaflets doxycycline (oral/injection) My discharge plan and instructions have been reviewed and explained to me and I,RADHA LITTLE understand my current condition and have read and understand these discharge instructions. I have received a written copy of the plan/instructions. If I have questions, I am aware that I should contact my doctor. Patient/Medical Care Administrator Signature: Date/Time: Relationship to Patient: Witness Name/Signature: Date/Time: [facility]02-11-2024 Hospital Discharge instructions Patient Education 08/21/2023 13:56:11 External Ear Infection (Adult) External Ear Infection (Adult) External otitis (also called swimmer s ear ) is an infection in the ear canal. It is often caused by bacteria or fungus. It can occur a few days after water gets trapped in the ear canal (from swimming or bathing). It can also occur after cleaning too deeply in the ear canal with a cotton swab or other object. Sometimes, hair care products get into the ear canal and cause this problem. Symptoms can include pain, fever, itching, redness, drainage, or swelling of the ear canal. Temporary hearing loss may also occur. Home care Do not try to clean the ear canal. This can push pus and bacteria deeper into the canal. Use prescribed ear drops as directed. These help reduce swelling and fight the infection. If an earwick was placed in the ear canal, apply drops right onto the end of the wick. The wick will draw the medicine into the ear canal even if it is swollen closed. A cotton ball may be loosely placed in the outer ear to absorb any drainage. You may use acetaminophen or ibuprofen to control pain, unless another medicine was prescribed. Note: If you have chronic liver or kidney disease or ever had a stomach ulcer or GI bleeding, talk to your healthcare provider before taking any of these medicines. Do not allow water to get into your ear when bathing. Also, don't swim until the infection has cleared. Prevention Keep your ears dry. This helps lower the risk of infection. Dry your ears with a towel or hair weaver after getting wet. Also, use ear plugs when swimming. Do not stick any objects in the ear to remove wax. If you feel water trapped in your ear, use ear drops right away. You can get these drops over the counter at most drugstores. They work by removing water from the ear canal. Follow-up care Follow up with your healthcare provider in 1 week, or as advised. When to seek medical advice Call your healthcare provider right away if any of these occur: Ear pain becomes worse or doesn t improve after 3 days of treatment Redness or swelling of the outer ear occurs or gets worse Headache Painful or stiff neck Drowsiness or confusion Fever of 100.4 F (38 C) or higher, or as directed by your healthcare provider Seizure [phone] [employer]. [address] [place] [address]. All rights reserved. This information is not intended as a substitute for professional medical care. Always follow yourhealthcare professional's instructions. Follow Up Care 08/21/2023 13:36:19 With:CHESTER TIWARI DO Address: [address] [facility] [place] [address]- [phone] When:2-4 days [facility] 02-11-2024 Note Discharge Instructions Thank you for allowing [facility] to assist you with your healthcare needs. The following is importantdischarge information regarding your hospital visit. What to Do Next Instructions from Your Care Team No qualifying data available. Post Acute Orders No qualifying data available. You Need to Schedule the Following Appointments Follow Up with CHESTER TIWARI DO When Within 2-4 days Where: [address] [facility] [place] [address]- [phone] Allergies Bactrim (Nausea and vomiting) Bee Stings (Swelling) coconut Medications Please ask your primary doctor or pharmacist before taking any other medication not listed, including over the counter drugs, herbal medications, vitamins and or supplements as they may interact withyour home medications. What How Much When Why Instructions Last Dose New hydrocortisone/ neomycin/ polymyxin B otic (Cortisporin otic use hydrocortisone/ neomycin/ polymyxin B otic ) 4 Drops Left ear Four (4) times a day Duration: 10 Days Printed Prescription Changed acetaminophen (acetaminophen 500 mg oral capsule) 1 cap by mouth Every 4 hours as needed for for pain Anxiety Chronic hepatitis C virus genotype 1b infection Changed acetaminophen (Tylenol 8 Hour 650 mg oral tablet, extended release) 1 tab(s) by mouth Every 8 hours Duration: 3 Days Printed Prescription Unchanged LORazepam (Ativan 0.5 mg oral tablet) 1 tab(s) by mouth Three (3) times a day as needed for as needed for anxiety Anxiety Duration: 4 Days Unchanged medroxyPROGESTERone (Depo-Provera Contraceptive 150 mg/ mL intramuscular suspension) 1 Milliliter Intramuscular Every 3 months Unchanged ondansetron (ondansetron 4 mg oral tablet, disintegrating) 1 tab(s) by mouth Every 6 hours as needed for Nausea/Vomiting Unchanged ondansetron (Zofran ODT use ondansetron oral tablet, disintegrating ) 4 Milligram by mouth Every 6 hours as needed for as needed for nausea/vomiting Vomiting Please take this list to your next doctor s visit. Bring all medications you take, including over the counter medications, herbals and other supplements with you to your doctor s visit. Patients and families are reminded to discard old lists and to update any records with all medication providers or retail pharmacies. Education Materials External Ear Infection (Adult) External otitis (also called swimmer s ear ) is an infection in the ear canal. It is often caused by bacteria or fungus. It can occur a few days after water gets trapped in the ear canal (from swimming or bathing). It can also occur after cleaning too deeply in the ear canal with a cotton swab or other object. Sometimes, hair care products get into the ear canal and cause this problem. Symptoms can include pain, fever, itching, redness, drainage, or swelling of the ear canal. Temporary hearing loss may also occur. Home care Do not try to clean the ear canal. This can push pus and bacteria deeper into the canal. Use prescribed ear drops as directed. These help reduce swelling and fight the infection. If an earwick was placed in the ear canal, apply drops right onto the end of the wick. The wick will draw the medicine into the ear canal even if it is swollen closed. A cotton ball may be loosely placed in the outer ear to absorb any drainage. You may use acetaminophen or ibuprofen to control pain, unless another medicine was prescribed. Note: If you have chronic liver or kidney disease or ever had a stomach ulcer or GI bleeding, talk to your healthcare provider before taking any of these medicines. Do not allow water to get into your ear when bathing. Also, don't swim until the infection has cleared. Prevention Keep your ears dry. This helps lower the risk of infection. Dry your ears with a towel or hair weaver after getting wet. Also, use ear plugs when swimming. Do not stick any objects in the ear to remove wax. If you feel water trapped in your ear, use ear drops right away. You can get these drops over the counter at most drugstores. They work by removing water from the ear canal. Follow-up care Follow up with your healthcare provider in 1 week, or as advised. When to seek medical advice Call your healthcare provider right away if any of these occur: Ear pain becomes worse or doesn t improve after 3 days of treatment Redness or swelling of the outer ear occurs or gets worse Headache Painful or stiff neck Drowsiness or confusion Fever of 100.4 F (38 C) or higher, or as directed by your healthcare provider Seizure [id number] [employer]. [address] [place] [address], [place] [address]. All rights reserved. This information is not intended as a substitute for professional medical care. Always follow yourhealthcare professional's instructions. Additional Information VACCINATE! IT SAVES LIVES! Members of the community who have not yet received the COVID-19 vaccine and would like to receive it can visit one of [facility] vaccine clinics. There are many vaccine clinic locations within the [facility]. For locations and available times, please visit www.gettheshot.coronavirus.[place].gov/. It is important to note that some COVID mobile vaccine clinics are held outdoors and may be canceled in rainy or stormy conditions. To learn more about pediatric vaccinations (ages 5-11), we invite you to visit the [facility] webpage. https://www.[facility].org/pages/6066-Bblag-Cutgqkpkzcw-Erzjtrdqky-Psrjp-Exe stions.htmlTo learn more about the COVID-19 vaccine, we invite you to visit the CDC website for a list of frequently asked questions. https://www.cdc.gov/coronavirus/2019-ncov/vaccines/faq.html [facility] [employer] Patient Portal Access Instructions: Stay connected with your healthcare team and access your personal medical information anytime with the [employer] Patient Portal. If you would like a full copy of your medical records please contact the [facility] Medical Records Department Tuesday through Tuesday between 8a.m. and 4:30p.m. Please follow the directions below to access the portal: 1.Access the email account you provided upon registration to the hospital.2.Look for an invitation email from [facility].3.Open the email and access the invitation link: Accept Invitation to [employer]4.Fill in the required rutledge to create your account. Sign into www.[employer] with your username and password that you created in the above steps to stay up to date. You can then view a summary of results, a summary of your visits, and the ability to download your summaries to your computer or send the information securely to a physician. Remember that your healthcare information is confidential, so carefully consider who you will allow to register on the [employer] Patient Portal for access to your information. You can also access the [employer] Patient Portal on the [employer]. Simply click on Health Records under [employer] and then click on the [employer] logo. HOW TO SAFELY DISPOSE OF PRESCRIPTION MEDICATIONS Please use one of the following methods to safely dispose of your unused medications. 1.Use a drug disposal kit: the drug disposal pouch allows you to safely discard your old and unuseddrugs. Ask your nurse to give you one when you are discharged.2.Visit a local take-back location: Many local pharmacies and police departments have programs that collect old and unwanted prescriptiondrugs. Call your local pharmacy or go to http://Leap.it.Easel/9P1Md0q to find one close to you.3.Make use of household items: Use cat litter or old coffee grounds to dispose medications if other options arenot available. Mix your drugs with these household products, seal them in an airtight container andthrow it into the garbage. Call [facility]: [phone] to be sure your drugs can be disposed of in this way. Some medicines may require a different approach.4.Never flush your medications down the toilet. IF YOU HAVE BEEN PRESCRIBED AN OPIOIDS FOR PAIN If you have been prescribed an opioid (such as hydrocodone, oxycodone or morphine), it is critical to understand the possible side effects and risks of opioid pain medications. Even when taken as directed, opioids can have several side effects including: Tolerance, meaning you might need to take more of a medication for the same pain relief. Nausea, vomiting and/or constipation. Sleepiness, dizziness, dry mouth, confusion, depression or itching. Physical dependence, meaning you have withdrawal symptoms when a medication is stopped ? this can develop within a few days. KNOW YOUR RESPONSIBILITIES It is important to know exactly how much and how often to take the opioid pain medications you are prescribed. Never take opioids in higher amounts or more often than prescribed. Do not combine opioids with alcohol or other drugs that cause drowsiness, such as benzodiazepines, also known as benzos,including diazepam and alprazolam, muscle relaxants or sleep aids. Never sell or share prescriptionopioids. This is illegal. Store opioids in a secure place and out of reach of others (including children, family, friends and visitors). The last page(s) of this document has been signed and retained as a CHART COPY Signatures Patient Education Materials External Ear Infection (Adult) Medication Leaflets My discharge plan and instructions have been reviewed and explained to me and I,RADHA LITTLE understand my current condition and have read and understand these discharge instructions. I have received a written copy of the plan/instructions. If I have questions, I am aware that I should contact my doctor. Patient/Medical Care Administrator Signature: Date/Time: Relationship to Patient: Witness Name/Signature: Date/Time: [facility]2023 Progress note Author Charles Hurtado [facility] March 12, 2023 12:23pm Note Date/Time March 12, 2023 7:12am [facility] Medical Records Department [address] [place] [address] Progress Note - Hospitalist 03/12/23710 MR#: [id number] Acct: [id number] Name: SIDNEYRADHA JOANNE Rep #:[id number] : 2000 22 From: Charles Hurtado DO PCP: Care Physician,No Primary Status :ADM IN Location: [place] [address] Reason for Visit Reason for Visit: Diagnoses Opioid use, unspecified with withdrawal (03/09/23) Unspecified condition associated with female genital organs and menstrual cycle (03/09/23) Tobacco use (03/09/23) Other specified health status (03/09/23) Subjective Subjective Feels overall better. Still with pubic tenderness. Objective Data Objective Data Vital Signs: Vital Signs Temp Pulse Resp BP Pulse Ox O2 Del Method 36.7 C 85 16 99/53 L 97 Room Air 03/12/23 02:03/12/23 02:31 03/12/23 02:31 03/12/23 02:03/12/23 02:31 03/12/23 02:31 Oxygen Delivery Method Room Air Weight: 43.233 kg Body Mass Index (BMI) 18.0 Intake & Output: Intake and Output for Last 24 Hours 03/10/23 03/11/23 03/12/23 23:59 23:59 23:59 Intake Total 600 / 900 1000 / 1200 400 / 400 Output Total 0 / 0 Balance 600 / 900 1000 / 1200 400 / 400 Lab / Micro Data 03/09/23 21:10 03/09/23 21:10 Physical Exam Const alert and no apparent distress Neuro Sensorium / Orientation: awake Psych affect normal Assessment & Plan Assessment/Plan (1) Opiate withdrawal: PLAN: Opioid dependence and withdrawal Patient be started on Subutex and other adjunctive medications: Gabapentin as needed; dicyclomine as needed; Vistaril as needed; methocarbamol as needed; clonidine as needed; Imodium as needed; trazodone as needed and Zofran as needed. Monitor COWS and CINA score Patient will follow up with IOP at [facility] after discharge. (2) Pain of female symphysis pubis: PLAN: Unclear significance No obvious source Swabbed for G+C on 03/10 PLAN: Plan Tobacco abuse Counseled Nicotine patch prescribed. Methamphetamine abuse Counseled Moderate protein calorie moderation Cachexia. BMI 17.7 kg per metered square. Dietitian consult. Start patient on protein supplements. DVT prophylaxis Low risk Encourage to ambulate Disposition: plan for discharge on 03/13 Charges/Coding Visit Charges Inpatient E&M: 93545 Subs Hosp L1 03/12/23 1223 <Electronically signed by Charles Hurtado DO> Cosigner Signature (if applicable): CC: ~ Signed [facility] Work Phone: 1(805) 191-799009-01-2023 Progress note Author Charles Hurtado [facility] March 11, 2023 12:26pm Note Date/Time March 11, 2023 7:18am [facility] Medical Records Department [address] [place] [id number] Progress Note - Hospitalist 03/11/23 0716 MR#: [id number] Acct: [id number] Name: RADHA LITTLE Rep #:[id number] : 2000 22 From: Charles Hurtado DO PCP: Care Physician,No Primary Status :ADM IN Location: [facility] [id number] Reason for Visit Reason for Visit: Diagnoses Opioid use, unspecified with withdrawal (03/09/23) Tobacco use (03/09/23) Other specified health status (03/09/23) Subjective Subjective Has headache and myalgias. Objective Data Objective Data Vital Signs: Vital Signs Temp Pulse Resp BP Pulse Ox O2 Del Method 37.0 C 71 16 100/57 L 95 Room Air 03/11/23 05:50 03/11/23 05:50 03/11/23 05:50 03/11/23 05:50 03/11/23 05:50 03/11/23 05:50 Oxygen Delivery Method Room Air Weight: 43.233 kg Body Mass Index (BMI) 18.0 Intake & Output: Intake and Output for Last 24 Hours 03/09/23 03/10/23 03/11/23 23:59 23:59 23:59 Intake Total 600 / 900 400 / 400 Output Total 0 / 0 Balance 600 / 900 400 / 400 Lab / Micro Data 03/09/23 21:10 03/09/23 21:10 Physical Exam Const alert and no apparent distress HEENT head/scalp atraumatic and moist oral mucous membranes Extremity normal to inspection Neuro Sensorium / Orientation: awake and alert Psych affect normal Assessment & Plan Assessment/Plan (1) Opiate withdrawal: PLAN: Opioid dependence and withdrawal Patient be started on Subutex and other adjunctive medications: Gabapentin as needed; dicyclomine as needed; Vistaril as needed; methocarbamol as needed; clonidine as needed; Imodium as needed; trazodone as needed and Zofran as needed. Monitor COWS and CINA score Patient will follow up with IOP at [facility] after discharge. (2) Pain of female symphysis pubis: PLAN: Unclear significance No obvious source Swabbed for G+C on 03/10 PLAN: Plan Tobacco abuse Counseled Nicotine patch prescribed. Methamphetamine abuse Counseled Moderate protein calorie moderation Cachexia. BMI 17.7 kg per metered square. Dietitian consult. Start patient on protein supplements. DVT prophylaxis Low risk Encourage to ambulate Charges/Coding Visit Charges Inpatient E&M: 07566 Subs Hosp L1 03/11/23 1226 <Electronically signed by Charles Hurtado DO> Cosigner Signature (if applicable): CC: ~ Signed [facility] Work Phone: 1(632) 869-843709-01-2023 Progress note Author Charles Hurtado [facility] March 11, 2023 7:16am Note Date/Time March 10, 2023 7: 25am [facility] Medical Records Department [address] [place] [address] Progress Note - Hospitalist 03/10/23 0724 MR#: [id number] Acct: [id number] Name: RADHA LITTLE Rep #:[id number] : 2000 22 From: Charles Hurtado DO PCP: Care Physician,No Primary Status :ADM IN Location: [facility] [id number] Reason for Visit Reason for Visit: Diagnoses Opioid use, unspecified with withdrawal (03/09/23) Tobacco use (03/09/23) Other specified health status (03/09/23) Subjective Subjective Complains of diffuse myalgias. States her last use of opiates was 3 days prior. Objective Data Objective Data Vital Signs: Vital Signs Temp Pulse Resp BP Pulse Ox O2 Del Method 36.9 C 78 12 100/61 98 Room Air 03/10/23 06:30 03/10/23 06:30 03/10/23 06:30 03/10/23 06:30 03/10/23 06:30 03/10/23 06:30 Oxygen Delivery Method Room Air Weight: 43.233 kg Body Mass Index (BMI) 18.0 Intake & Output: Intake and Output for Last 24 Hours 03/08/23 03/09/23 03/10/23 23:59 23:59 23:59 Intake Total 0 / 0 Output Total 0 / 0 Balance 0 / 0 Lab / Micro Data 03/09/23 21:10 03/09/23 21:10 Labs: Laboratory Results - last 24 hr 03/09/23 21:05: Urine Opiates Screen NEGATIVE, Urine Methadone Screen NEGATIVE, Ur Barbiturates Screen NEGATIVE, Ur Phencyclidine Scrn NEGATIVE, Ur AmphetaminesScreen POSITIVE H, MDMA (Ecstasy) Screen POSITIVE H, U Benzodiazepines Scrn NEGATIVE, Urine Cocaine Screen NEGATIVE, U Cannabinoids Screen POSITIVE H, Ur Drug Screen Comment 03/09/23 21:10: WBC 8.9, RBC 4.48, Hgb 13.7, Hct 41.7, MCV 93.1, MCH 30.6, MCHC 32.9, RDW Std Deviation 47.3 H, RDW Coeff of Sammy 14.2, Plt Count 257, MPV 9.8, Immature Gran % (Auto) 0.500, Neut % (Auto) 49.2, Lymph % (Auto) 42.8 H, [place]ock[place] % (Auto) 5.2, Eos % (Auto) 1.1, Baso % (Auto) 1.2 H, Absolute Neuts (auto) 4.4, Absolute Lymphs (auto) 3.79, Nucleated RBC % 0, Differential Comment SEE COMMENT, Atypical Lymphocytes 2+, Platelet Estimate ADEQUATE, RBC Morphology N CHROM, Anisocytosis RARE, Macrocytosis RARE, Sodium 137, Potassium 3.6, [id number], Carbon Dioxide 27.0, Anion Gap 7, BUN 10, Creatinine 0.79, Estim Creat Clear Calc 73.85, Est GFR (MDRD) Af Amer 115, Est GFR (MDRD) Non-Af 95, BUN/Creatinine Ratio 12.7, Glucose 100, Calcium 9.3, Total Bilirubin 1.00, AST 32, ALT 40, Alkaline Phosphatase 169 H, Total Protein 8.9 H, Albumin 4.2, Globulin 4.7 H, Albumin/Globulin Ratio 0.9, Serum , Qual NEGATIVE, Ethyl Alcohol < 3.0 Physical Exam Const alert Constitutional Narrative: appears older than stated age. HEENT head/scalp atraumatic and moist oral mucous membranes HEENT Narrative: poor dentition. Neuro Sensorium / Orientation: awake and alert Psych Mood & Affect: anxious Assessment & Plan Assessment/Plan (1) Opiate withdrawal: PLAN: Opioid dependence and withdrawal Patient be started on Subutex and other adjunctive medications: Gabapentin as needed; dicyclomine as needed; Vistaril as needed; methocarbamol as needed; clonidine as needed; Imodium as needed; trazodone as needed and Zofran as needed. Monitor COWS and CINA score PLAN: Plan Tobacco abuse Counseled Nicotine patch prescribed. Methamphetamine abuse Counseled Moderate protein calorie moderation Cachexia. BMI 17.7 kg per metered square. Dietitian consult. Start patient on protein supplements. DVT prophylaxis Low risk Encourage to ambulate Charges/Coding Visit Charges Inpatient E&M: 41633 Subs Hosp L1 03/10/23 3472 <Electronically signed by Charles Hurtado DO> Cosigner Signature (if applicable): CC: ~ Signed ADDENDUM by Dr. Charles Hurtado DO on 03/11/23 at 0716 Addendum Late addition: Pt complained to RN about vaginal pain and discharge. Pt previously had unprotected sex. When I arrive last evening she was indicated pain on the mons pubis. Not reproducible. Speculum exam with RN present. No obvious discharge. Swabbed for G+C. 03/11/23 0716<Electronically signed by Charles Hurtado DO> Cosigner Signature (if applicable): cc: ~* Signed [facility] Work Phone: [phone]) 427-748508-31-2023 Discharge summary Author Gabriel Silva [facility] March 09, 2023 11:22pm Note Date/Time March 09, 2023 9: 32pm [facility] Medical Records Department [address] [place] [address] Emergency Department Summary 03/09/23 MR#: [id number] Acct: [id number] Name: RADHA LITTLE Rep #:[id number] : 2000 22 From: Gabriel Silva DO PCP: Care Physician,No Primary Status :ADM IN Location: [place] [address] HPI History of Present Illness Chief Complaint: Substance Abuse Detail of Chief Complaint: Requesting detox from opiates Informant: patient Narrative Narrative: Patient presents the emergency department requesting detox from opiates. Patient states that she normally uses fentanyl but she uses heroin or what ever she can get. Last use was 3 days ago. Patient is at a [facility] group home and was sent in by 180 to detox. Patient feels hot and cold and has had some mild nausea. She had a hard time sleeping. Patient also uses methamphetamines occasionally. She denies recent illness. Patient states that she has been using since the age of 10. Patient states that she was at rehab x2 last year. Patient normally uses the IV route for her opiates. PFSH PFS Medical History Anxiety Depression Drug abuse Headache Hepatitis depression Seizures Home Medications NK 03/09/23 [History Last Taken Unknown] Allergy/AdvReac Type Severity Reaction Status Date / Time sulfamethoxazole AdvReac Vomiting Verified 03/09/23 20:57 [From Bactrim] trimethoprim [From Bactrim] AdvReac Vomiting Verified 03/09/23 20:57 Family History Other Cancer Social History household members: children housing: homeless Smoking Status: Current every day smoker tobacco type: cigarettes and e- cigarettes substance use type: other details: Drug by her captive ROS ROS ED Review of Systems ROS Unobtainable: other Constitutional Constitutional ED: Reports lethargy and sweats; Denies chills, fever(s) or weight loss Eyes Eyes: Denies blurry vision, change in vision or diplopia ENT ENT ED: Denies rhinorrhea or sore throat Cardiovascular Cardiovascular: Denies chest pain, orthopnea or racing heartbeat Respiratory/Chest Respiratory/Chest: Denies cough, dyspnea, dyspnea on exertion, orthopnea or sputum Gastrointestinal Gastrointestinal: Denies abdominal pain, diarrhea, nausea or vomiting Genitourinary Genitourinary ED: Denies dysuria, hematuria or urinary frequency Musculoskeletal Musculoskeletal: Denies arthralgias, back pain, myalgias or neck pain Integumentary Denies abscess, Abrasions or rash Neurologic Neurologic: Reports other Details: Decreased ability to sleep ; Denies headache(s) or weakness Psychiatric Psychiatric: Denies anxiety, depression or suicidal thoughts Endocrine Endocrinology: Denies polydipsia, polyphagia or polyuria Hematologic/Lymphatic Hematologic/Lymphatic: Denies easy bleeding, easy bruising or lymphadenopathy Allergic/Immunologic Allergic/Immunologic ED: Denies mouth swelling, tongue swelling or urticaria EXAM Physical Exam Const Vital Signs: 03/09/23 20:55 Temperature 974 F H Temperature Source Temporal Pulse Rate 100 Respiratory Rate 18 Blood Pressure 131/80 H Blood Pressure Mean 97 Pulse Ox 100 Oxygen Delivery Method Room Air Positive well nourished and well developed General Appearance ED: well developed and NAD HEENT Reports TM's clear and moist mucous membranes normocephalic and atraumatic; Negative for trauma or tenderness Tympanic Membrane ED: Yes TM's clear Eyes PERRL and EOMs intact bilaterally General Eye ED: Negative for pale conjunctiva or scleral icterus Neck no lymphadenopathy, supple and no JVD General: Negative for tenderness Chest Wall inspection of chest normal and palpation of chest normal Chest: Negative for tenderness Resp normal respiratory effort and clear to auscultation bilaterally Effort and Inspection: Negative for respiratory distress or pain with movement Auscultation: Negative for rhonchi, wheezes or diminished lung sounds Cardio regular rate, regular rhythm, S1 normal heart sound, S2 normal heart sound and no murmurs Peripheral Pulses: pulses 2+ throughout GI normal to inspection, nondistended, normoactive bowel sounds, soft to palpation,non-tender, non-distended and no masses Back/Spine no CVA tenderness and no thoracic nor lumbar tenderness Extremity normal to inspection General Extremety ED: Negative for edema General Extremity: Negative for edema Neuro oriented x3, CN's II-XII intact bilaterally, no sensory deficits noted and gait normal Sensorium / Orientation: awake, alert, oriented to person, oriented to place andoriented to time Motor Exam: strength 5/5 throughout and strength abnormal Psych mental status grossly normal Skin no rashes or lesions noted and no wounds MDM MDM MDM Narrative Medical decision making narrative: Patient presents requesting detox from opiates. She has been using since the age of 10. Basic labs ordered and were essentially unremarkable. Toxicology screen positive for amphetamines as well as MDMA and marijuana. Alcohol was less than 3. Case discussed with hospitalist to evaluate patient for admission for detox from opiates. Lab Data Attestation: I reviewed the patient's lab results. Labs: Laboratory Results - last 24 hr 03/09/23 03/09/23 21:05 21:10 WBC 8.9 RBC 4.48 Hgb 13.7 Hct 41.7 MCV 93.1 MCH 30.6 MCHC 32.9 RDW Std Deviation 47.3 H RDW Coeff of Sammy 14.2 Plt Count 257 MPV 9.8 Immature Gran % (Auto) 0.500 Neut % (Auto) 49.2 Lymph % (Auto) 42.8 H Hocking % (Auto) 5.2 Eos % (Auto) 1.1 Baso % (Auto) 1.2 H Absolute Neuts (auto) 4.4 Absolute Lymphs (auto) 3.79 Nucleated RBC % 0 Differential Comment SEE COMMENT Atypical Lymphocytes 2+ Platelet Estimate ADEQUATE RBC Morphology N CHROM Anisocytosis RARE Macrocytosis RARE Sodium 137 Potassium 3.6 Chloride 103 Carbon Dioxide 27.0 Anion Gap 7 BUN 10 Creatinine 0.79 Estim Creat Clear Calc 73.85 Est GFR (MDRD) Af Amer 115 Est GFR (MDRD) Non-Af 95 BUN/Creatinine Ratio 12.7 Glucose 100 Calcium 9.3 Total Bilirubin 1.00 AST 32 ALT 40 Alkaline Phosphatase 169 H Total Protein 8.9 H Albumin 4.2 Globulin 4.7 H Albumin/Globulin Ratio 0.9 Serum , Qual NEGATIVE Urine Opiates Screen NEGATIVE Urine Methadone Screen NEGATIVE Ur Barbiturates Screen NEGATIVE Ur Phencyclidine Scrn NEGATIVE Ur Amphetamines Screen POSITIVE H MDMA (Ecstasy) Screen POSITIVE H U Benzodiazepines Scrn NEGATIVE Urine Cocaine Screen NEGATIVE U Cannabinoids Screen POSITIVE H Ur Drug Screen Comment Ethyl Alcohol < 3.0 Discharge Plan Dx/Rx/DC Orders Clinical Impression: Opiate withdrawal, Illicit drug use, Admitted to substance misuse detoxification center Disposition Disposition: Acute Care Hospital [facility] Discharge Date/Time: 03/09/23 23:02 What to do if you have Problems For any increased pain, shortness of breath, bleeding, nausea or vomiting, chestpain, or any unexpected problems, contact your Primary Care Provider. Call [facility] ([phone]) or report to the closest Emergency Room. Call 911 if necessary. 03/09/232321 <Electronically signed by Gabriel Silva DO> Cosigner Signature (if applicable): CC: No Primary Care Physician ~ Signed [facility] Work Phone: 1(474) 700-311908-31-2023 History and physical note Author Tien Huber [facility] March 09, 2023 11:04pm Note Date/Time March 09, 2023 10 :34pm [facility] Medical Records Department [address] [place] [id number] H&P Exam - Hospitalist 03/09/234 MR#: [id number] Acct: [id number] Name: RADHA LITTLE Rep #:[id number] : 2000 22 From: Tien Huber MD PCP: Care Physician,No Primary Status :ADM IN Location: [facility] [id number] HPI - General General Date of Admission: 03/09/23 Date of Service: 03/09/23 Chief Complaint: Desire for detoxification HPI Narrative RADHA LITTLE, is a 22 F with a significant history of IV polysubstance abuse; and hepatitis B who present to the emergency department for detoxification. Of note patient's drug of choice is fentanyl/heroin. She does not know how much ingrams she uses. She has been using fentanyl/heroin since age 13. Last time she used was 3 days ago. Also she has been using methamphetamine about 2 times per week. Last time she used was about 2 days ago. She started using methamphetamine when she was age 18-19. Of note patient started smoking marijuana when she was about age 10. She reports withdrawal symptoms of feeling hot and cold and inability to sleep. [facility] Medical History Anxiety Depression Drug abuse Headache Hepatitis depression Seizures Home Medications NK 03/09/23 [History Last Taken Unknown] Allergy/AdvReac Type Severity Reaction Status Date / Time sulfamethoxazole AdvReac Vomiting Verified 03/09/23 20:57 [From Bactrim] trimethoprim [From Bactrim] AdvReac Vomiting Verified 03/09/23 20:57 Family History Other Cancer Surgical History no surgical history no surgical history (Except finger surgery.) Social History household members: children housing: homeless Smoking Status: Current every day smoker tobacco type: cigarettes and e- cigarettes substance use type: other details: Drug by her captive ROS ROS Narrative Pertinent positives and pertinent negatives as noted in HPI. All other systems were reviewed and are negative Vital Signs Vital Signs Vital Signs: 03/09/23 20:55 03/09/23 22:31 Temperature 974 F H 98.3 F Temperature Source Temporal Oral Pulse Rate 100 78 Respiratory Rate 18 16 Blood Pressure 131/80 H 118/78 Blood Pressure Mean 97 91 Pulse Ox 100 99 Oxygen Delivery Method Room Air Room Air Weight Weight: 42.6 kg Body Mass Index (BMI) 17.7 Physical Exam Narrative Physical exam: General: Well-nourished, well-developed. Head: Normocephalic, atraumatic, no tenderness Eyes: Vision is grossly intact. EOMI ENT: Poor dentition. No trauma, moist mucous membranes, no rhinorrhea Neck: Nontender, No thyromegaly. CVS: Regular rate and rhythm. S1-S2 present. No murmur, gallop or rub. Respiratory : clear to auscultation bilaterally, chest wall nontender Abdomen: Soft, nontender, nondistended, normal bowel sounds, no masses : Deferred Back: Nontender, no CVA tenderness, no midline spinal tenderness, deformities, step-offs Extremities:Cachexia. Nontender full range of motion, no trauma Skin:Needle track lópez on right antecubital Fossa. Normal color, no trauma, abrasions Neuro: Alert, oriented, cranial nerves II through XII grossly intact. Psychiatry: Normal mood. Normal affect. Not depressed. Not anxious. Results Lab / Micro Data 03/09/23 21:10 03/09/23 21:10 Labs: Laboratory Results - last 24 hr 03/09/23 21:05: Urine Opiates Screen NEGATIVE, Urine Methadone Screen NEGATIVE, Ur Barbiturates Screen NEGATIVE, Ur Phencyclidine Scrn NEGATIVE, Ur AmphetaminesScreen POSITIVE H, MDMA (Ecstasy) Screen POSITIVE H, U Benzodiazepines Scrn NEGATIVE, Urine Cocaine Screen NEGATIVE, U Cannabinoids Screen POSITIVE H, Ur Drug Screen Comment 03/09/23 21:10: WBC 8.9, RBC 4.48, Hgb 13.7, Hct 41.7, MCV 93.1, MCH 30.6, MCHC 32.9, RDW Std Deviation 47.3 H, RDW Coeff of Sammy 14.2, Plt Count 257, MPV 9.8, Immature Gran % (Auto) 0.500, Neut % (Auto) 49.2, Lymph % (Auto) 42.8 H, Hocking % (Auto) 5.2, Eos % (Auto) 1.1, Baso % (Auto) 1.2 H, Absolute Neuts (auto) 4.4, Absolute Lymphs (auto) 3.79, Nucleated RBC % 0, Sodium 137, Potassium 3.6, Chloride 103, Carbon Dioxide 27.0, Anion Gap 7, BUN 10, Creatinine 0.79, Estim Creat Clear Calc 73.85, Est GFR (MDRD) Af Amer 115, Est GFR (MDRD) Non-Af 95, BUN/Creatinine Ratio 12.7, Glucose 100, Calcium 9.3, Total Bilirubin 1.00, AST 32, ALT 40, Alkaline Phosphatase 169 H, Total Protein 8.9 H, Albumin 4.2, Globulin 4.7 H, Albumin/Globulin Ratio 0.9, Serum , Qual NEGATIVE, Ethyl Alcohol < 3.0 Assessment & Plan Assessment/Plan (1) Admitted to substance misuse detoxification center: (2) Opiate withdrawal: (3) Tobacco abuse: PLAN: Plan Opioid dependence and withdrawal Patient be started on Subutex and other adjunctive medications: Gabapentin as needed; dicyclomine as needed; Vistaril as needed; methocarbamol as needed; clonidine as needed; Imodium as needed; trazodone as needed and Zofran as needed. Monitor COWS and CINA score Tobacco abuse Counseled Nicotine patch prescribed. Methamphetamine abuse Counseled Moderate protein calorie moderation Cachexia. BMI 17.7 kg per metered square. Dietitian consult. Start patient on protein supplements. DVT prophylaxis Low risk Encourage to ambulate Charges/Coding Visit Charges Inpatient E&M: 68395 Init Hosp L2 03/09/23 2303 <Electronically signed by Tien Huber MD> Cosigner Signature (if applicable): CC: Dr. Tien Huber MD; No Primary Care Physician~ Signed [facility] Work Phone: [phone]) 111-573007-07-2023 Note. MICRO - Microbiology PROCEDURE: Urine Culture [*1] SOURCE: Urine, Clean Catch BODY SITE: COLLECTED DATE/TIME: 01/13/2023 00:36 EDT RECEIVED DATE/TIME: 01/13/2023 15:13 EDT START DATE/TIME: 01/13/2023 15:13 EDT FREE TEXT SOURCE: FINAL REPORTS Final Report [] Verified Date/Time/Personnel: 01/14/2023 10:46 EDT <10,000 cfu/ml. No Significant growth. Sensitivity not indicated. Performing Locations *1: This test was performed at: [facility], [address] [place] [address], [id number] , Formerly [facility])01-13-2023 Evaluation + Plan note Diagnostic Tests Pending * Urine Culture 01/13/23 [facility] 07-06-2023 Hospital Discharge instructions Patient Education 01/13/2023 00:36:02 Vomiting (Adult) Vomiting (Adult) Vomiting is a common symptom that may be due to different causes. These include gastroenteritis (stomach flu), food poisoning and gastritis. There are other more serious causes of vomiting which may be hard to diagnose early in the illness. Therefore, it is important to watch for the warning signs listed below. The main danger from repeated vomiting is dehydration. This is due to excess loss of water and minerals from the body. When this occurs, your body fluids must be replaced. Home care If symptoms are severe, rest at home for the next 24 hours. Because your symptoms may be from an infection, wash your hands often and well. If soap and water are not available, use alcohol-based client engagement specialist to keep from spreading the infection to others. Wash your hands for at least 20 seconds. Humming the happy birthday song twice while you wash is aneasy way to make sure you've washed for 20 seconds. Wash your hands after using the toilet, before and after preparing food, before eating food, after changing a diaper, cleaning a wound, caring for a sick person, and blowing your nose, coughing, or sneezing. You should also wash your hands after caring for someone who is sick, touching pet food, ortreats, and touching an animal, or animal waste. You may use acetaminophen or NSAID medicines like ibuprofen or naproxen to control fever, unless another medicine was prescribed. If you have chronic liver or kidney disease or ever had a stomach ulcer or gastrointestinal bleeding, talk with your doctor before using these medicines. Aspirin should never be used in anyone under 18 years of age who is ill with a fever. It may cause severe liver damage. Don't use NSAID medicines if you are already taking one for another condition (like arthritis) or are on aspirin (such as for heart disease, or after a stroke) Don't use tobacco and or drink alcohol, which may worsen your symptoms. If medicines for vomiting were prescribed, take as directed. Once vomiting stops, then follow these guidelines: During the first 12 to 24 hours follow the diet below: Fruit juices. Apple, grape juice, clear fruit drinks, and electrolyte replacement drinks. Beverages. Soft drinks without caffeine; mineral water (plain or flavored), decaffeinated tea and coffee. Soups. Clear broth and bouillon Desserts. Plain gelatin, ice pops, and fruit juice bars. As you feel better, you may add 6 to 8 ounces of yogurt per day. During the next 24 hours you may add the following to the above: Hot cereal, plain toast, bread, rolls, crackers Plain noodles, rice, mashed potatoes, chicken noodle or rice soup Unsweetened canned fruit such as applesauce, bananas (avoid pineapple and citrus) Limit caffeine and chocolate. No spices or seasonings except salt. During the next 24 hours: Gradually resume a normal diet, as you feel better and your symptoms lessen. Follow-up care Follow up with your healthcare provider, or as advised. When to seek medical advice Call your healthcare provider right away if any of these occur: Constant right-sided lower belly pain or increasing general belly pain Continued vomiting (unable to keep liquids down) for 24 hours Vomiting blood or coffee grounds Swollen belly Frequent diarrhea (more than 5 times a day); blood (red or black color) or mucus in diarrhea Reduced urine output or extreme thirst Weakness, dizziness or fainting Unusually drowsy or confused Fever of 100.4 F (38 C) oral or higher, or as directed Yellow color of the eyes or skin 3348-5742 [employer]. [address] [place] [address]. All rights reserved. This information is not intended as a substitute for professional medical care. Always follow yourhealthcare professional's instructions. Follow Up Care 01/13/2023 00:26:56 With:ALIZA BECKWITH DO Address: [address] [place] [address] [place] [phone] When:2-4 days With:Go to emergency room if symptoms worsen Address:Unknown When:2-4 days With:Call Physician Referral Address:Unknown When:2-4 days [facility] 07-06-2023 Note Discharge Instructions Thank you for allowing [facility] to assist you with your healthcare needs. The following is importantdischarge information regarding your hospital visit. Diagnosis from Today's Visit Vomiting Generalized body aches Fever Headache What to Do Next Instructions from Your Care Team Take Zofran as needed for nausea. Drink plenty fluids stay well-hydrated. Follow-up with primary care provider. Urine did show some white blood cells but no mention of bacteria and then no overt signs of infection. Follow-up urine culture. Return the emergency department if experience worsening symptoms or any other care concern. No qualifying data available. Post Acute Orders No qualifying data available. You Need to Schedule the Following Appointments Follow Up with ALIZA BECKWITH DO When Within 2-4 days Where: [address] [facility] [place], [place] [id number]- [phone] Follow Up with Go to emergency room if symptoms worsen When Within 2-4 days Follow Up with Call Physician Referral When Within 2-4 days Allergies Bactrim (Nausea and vomiting) Bee Stings (Swelling) coconut Medications Please ask your primary doctor or pharmacist before taking any other medication not listed, including over the counter drugs, herbal medications, vitamins and or supplements as they may interact withyour home medications. What How Much When Why Instructions Last Dose Changed ondansetron (ondansetron 4 mg oral tablet, disintegrating) 1 tab(s) by mouth Every 6 hours as needed for Nausea/Vomiting Changed ondansetron (Zofran 4 mg oral tablet) 1 tab(s) by mouth Every 8 hours as needed for Nausea/Vomiting Vomiting Generalized body aches Duration: 3 Days Printed Prescription Changed ondansetron (Zofran ODT use ondansetron oral tablet, disintegrating ) 4 Milligram by mouth Every 6 hours as needed for as needed for nausea/vomiting Vomiting Unchanged acetaminophen (acetaminophen 500 mg oral capsule) 1 cap by mouth Every 4 hours as needed for for pain Anxiety 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 Bring all medications you take, including over the counter medications, herbals and other supplements with you to your doctor s visit. Patients and families are reminded to discard old lists and to update any records with all medication providers or retail pharmacies. Education Materials Vomiting (Adult) Vomiting is a common symptom that may be due to different causes. These include gastroenteritis (stomach flu), food poisoning and gastritis. There are other more serious causes of vomiting which may be hard to diagnose early in the illness. Therefore, it is important to watch for the warning signs listed below. The main danger from repeated vomiting is dehydration. This is due to excess loss of water and minerals from the body. When this occurs, your body fluids must be replaced. Home care If symptoms are severe, rest at home for the next 24 hours. Because your symptoms may be from an infection, wash your hands often and well. If soap and water are not available, use alcohol-based client engagement specialist to keep from spreading the infection to others. Wash your hands for at least 20 seconds. Humming the happy birthday song twice while you wash is aneasy way to make sure you've washed for 20 seconds. Wash your hands after using the toilet, before and after preparing food, before eating food, after changing a diaper, cleaning a wound, caring for a sick person, and blowing your nose, coughing, or sneezing. You should also wash your hands after caring for someone who is sick, touching pet food, ortreats, and touching an animal, or animal waste. You may use acetaminophen or NSAID medicines like ibuprofen or naproxen to control fever, unless another medicine was prescribed. If you have chronic liver or kidney disease or ever had a stomach ulcer or gastrointestinal bleeding, talk with your doctor before using these medicines. Aspirin should never be used in anyone under 18 years of age who is ill with a fever. It may cause severe liver damage. Don't use NSAID medicines if you are already taking one for another condition (like arthritis) or are on aspirin (such as for heart disease, or after a stroke) Don't use tobacco and or drink alcohol, which may worsen your symptoms. If medicines for vomiting were prescribed, take as directed. Once vomiting stops, then follow these guidelines: During the first 12 to 24 hours follow the diet below: Fruit juices. Apple, grape juice, clear fruit drinks, and electrolyte replacement drinks. Beverages. Soft drinks without caffeine; mineral water (plain or flavored), decaffeinated tea and coffee. Soups. Clear broth and bouillon Desserts. Plain gelatin, ice pops, and fruit juice bars. As you feel better, you may add 6 to 8 ounces of yogurt per day. During the next 24 hours you may add the following to the above: Hot cereal, plain toast, bread, rolls, crackers Plain noodles, rice, mashed potatoes, chicken noodle or rice soup Unsweetened canned fruit such as applesauce, bananas (avoid pineapple and citrus) Limit caffeine and chocolate. No spices or seasonings except salt. During the next 24 hours: Gradually resume a normal diet, as you feel better and your symptoms lessen. Follow-up care Follow up with your healthcare provider, or as advised. When to seek medical advice Call your healthcare provider right away if any of these occur: Constant right-sided lower belly pain or increasing general belly pain Continued vomiting (unable to keep liquids down) for 24 hours Vomiting blood or coffee grounds Swollen belly Frequent diarrhea (more than 5 times a day); blood (red or black color) or mucus in diarrhea Reduced urine output or extreme thirst Weakness, dizziness or fainting Unusually drowsy or confused Fever of 100.4 F (38 C) oral or higher, or as directed Yellow color of the eyes or skin 4712-0994 [employer]. [address] [place] [address]. All rights reserved. This information is not intended as a substitute for professional medical care. Always follow yourhealthcare professional's instructions. Additional Information VACCINATE! IT SAVES LIVES! Members of the community who have not yet received the COVID-19 vaccine and would like to receive it can visit one of [facility] vaccine clinics. There are many vaccine clinic locations within the [facility]. For locations and available times, please visit www.gettheshot.coronavirus.[place].gov/. It is important to note that some COVID mobile vaccine clinics are held outdoors and may be canceled in rainy or stormy conditions. To learn more about pediatric vaccinations (ages 5-11), we invite you to visit the [facility] webpage. https://www.[facility].org/pages/9628-Nrper-Bkkvodolbmd-Bosoyfgcdk-Krkxt-Nrn stions.htmlTo learn more about the COVID-19 vaccine, we invite you to visit the CDC website for a list of frequently asked questions. https://www.cdc.gov/coronavirus/2019-ncov/vaccines/faq.html [facility] Patient Portal Access Instructions: Stay connected with your healthcare team and access your personal medical information anytime with the [employer] Patient Portal. If you would like a full copy of your medical records please contact the [facility] Medical Records Department Tuesday through Tuesday between 8a.m. and 4:30p.m. Please follow the directions below to access the portal: 1.Access the email account you provided upon registration to the [facility].2.Look for an invitation email from [facility].3.Open the email and access the invitation link: Accept Invitation to [facility]4.Fill in the required rutledge to create your account. Sign into www.[employer] with your username and password that you created in the above steps to stay up to date. You can then view a summary of results, a summary of your visits, and the ability to download your summaries to your computer or send the information securely to a physician. Remember that your healthcare information is confidential, so carefully consider who you will allow to register on the [employer] Patient Portal for access to your information. You can also access the [facility] Patient Portal on the [employer]. Simply click on Health Records under [employer] and then click on the [employer] logo. HOW TO SAFELY DISPOSE OF PRESCRIPTION MEDICATIONS Please use one of the following methods to safely dispose of your unused medications. 1.Use a drug disposal kit: the drug disposal pouch allows you to safely discard your old and unuseddrugs. Ask your nurse to give you one when you are discharged.2.Visit a local take-back location: Many local pharmacies and police departments have programs that collect old and unwanted prescriptiondrugs. Call your local pharmacy or go to http://Leap.it.Easel/5U7Oj3f to find one close to you.3.Make use of household items: Use cat litter or old coffee grounds to dispose medications if other options arenot available. Mix your drugs with these household products, seal them in an airtight container andthrow it into the garbage. Call [facility]: [phone] to be sure your drugs can be disposed of in this way. Some medicines may require a different approach.4.Never flush your medications down the toilet. IF YOU HAVE BEEN PRESCRIBED AN OPIOIDS FOR PAIN If you have been prescribed an opioid (such as hydrocodone, oxycodone or morphine), it is critical to understand the possible side effects and risks of opioid pain medications. Even when taken as directed, opioids can have several side effects including: Tolerance, meaning you might need to take more of a medication for the same pain relief. Nausea, vomiting and/or constipation. Sleepiness, dizziness, dry mouth, confusion, depression or itching. Physical dependence, meaning you have withdrawal symptoms when a medication is stopped ? this can develop within a few days. KNOW YOUR RESPONSIBILITIES It is important to know exactly how much and how often to take the opioid pain medications you are prescribed. Never take opioids in higher amounts or more often than prescribed. Do not combine opioids with alcohol or other drugs that cause drowsiness, such as benzodiazepines, also known as benzos,including diazepam and alprazolam, muscle relaxants or sleep aids. Never sell or share prescriptionopioids. This is illegal. Store opioids in a secure place and out of reach of others (including children, family, friends and visitors). The last page(s) of this document has been signed and retained as a CHART COPY Signatures Patient Education Materials Vomiting (Adult) Medication Leaflets My discharge plan and instructions have been reviewed and explained to me and I,RADHA LITTLE understand my current condition and have read and understand these discharge instructions. I have received a written copy of the plan/instructions. If I have questions, I am aware that I should contact my doctor. Patient/Medical Care Administrator Signature: Date/Time: Relationship to Patient: Witness Name/Signature: Date/Time: [facility]-2023 Hospital Discharge instructions Patient Education 12/04/2022 10:03:36 Anxiety Reaction Anxiety Reaction Anxiety is the feeling we all get when we think something bad might happen. It is a normal responseto stress and usually causes only a mild reaction. When anxiety becomes more severe, it can interfere with daily life. In some cases, you may not even be aware of what it is you re anxious about. There may also be a genetic link or it may be a learned behavior in the home. Both psychological and physical triggers cause stress reaction. It's often a response to fear or emotional stress, real or imagined. This stress may come from home, family, work, or social relationships. During an anxiety reaction, you may feel: Helpless Nervous Depressed Irritable Your body may show signs of anxiety in many ways. You may experience: Dry mouth Shakiness Dizziness Weakness Trouble breathing Breathing fast (hyperventilating) Chest pressure Sweating Headache Nausea Diarrhea Tiredness Inability to sleep Sexual problems Home care Try to locate the sources of stress in your life. They may not be obvious. These may include: oDaily hassles of life (such as traffic jams, missed appointments, or car troubles) oMajor life changes, both good (new baby or job promotion) and bad (loss of job or loss of loved one) oOverload: feeling that you have too many responsibilities and can't take care of all of them at once oFeeling helpless or feeling that your problems are beyond what you re able to solve Notice how your body reacts to stress. Learn to listen to your body signals. This will help you take action before the stress becomes severe. When you can, do something about the source of your stress. (Avoid hassles, limit the amount of change that happens in your life at one time and take a break when you feel overloaded). Unfortunately, many stressful situations can't be avoided. It is necessary to learn how to better manage stress. There are many proven methods that will reduce your anxiety. These include simple things like exercise, good nutrition, and adequate rest. Also, there are certain techniques that are helpful: oRelaxation oBreathing exercises oVisualization oBiofeedback oMeditation For more information about this, consult your healthcare provider or go to a local bookstore and review the many books and tapes available on this subject. Follow-up care If you feel that your anxiety is not responding to self-help measures, contact your healthcare provider or make an appointment with a counselor. You may need short-term psychological counseling and temporary medicine to help you manage stress. Call 911 Call 911 if any of these happen: Trouble breathing Confusion Drowsiness or trouble wakening Fainting or loss of consciousness Rapid heart rate Seizure New chest pain that becomes more severe, lasts longer, or spreads into your shoulder, arm, neck, jaw, or back When to seek medical advice Call your healthcare provider right away if any of these happen: Your symptoms get worse Severe headache not relieved by rest and mild pain reliever [id number] [employer]. [address] [place] [address]. All rights reserved. This information is not intended as a substitute for professional medical care. Always follow yourhealthcare professional's instructions. Follow Up Care 12/04/2022 09:14:02 With:DARREL DE MD Address: [address] [place] [address]- When:2-4 days [facility] 05-27-2023 Note Discharge Instructions Thank you for allowing [facility] to assist you with your healthcare needs. The following is importantdischarge information regarding your hospital visit. Diagnosis from Today's Visit Anxiety Vomiting What to Do Next Instructions from Your Care Team No qualifying data available. Post Acute Orders No qualifying data available. You Need to Schedule the Following Appointments Follow Up with DARREL DE MD When Within 2-4 days Where: [address] [place], [place] [phone]- Allergies Bactrim (Nausea and vomiting) Bee Stings (Swelling) coconut Medications Please ask your primary doctor or pharmacist before taking any other medication not listed, including over the counter drugs, herbal medications, vitamins and or supplements as they may interact withur home medications. What How Much When Why Instructions Last Dose New LORazepam (Ativan 0.5 mg oral tablet) 1 tab(s) by mouth Three (3) times a day as needed for as needed for anxiety Anxiety Duration: 4 Days Printed Prescription Changed ondansetron (ondansetron 4 mg oral tablet, disintegrating) 1 tab(s) by mouth Every 6 hours as needed for Nausea/Vomiting Printed Prescription Changed ondansetron (Zofran ODT use ondansetron oral tablet, disintegrating ) 4 Milligram by mouth Every 6 hours as needed for as needed for nausea/vomiting Vomiting Unchanged acetaminophen (acetaminophen 500 mg oral capsule) 1 cap by mouth Every 4 hours as needed for for pain Anxiety Chronic hepatitis C virus genotype 1b infection Unchanged medroxyPROGESTERone (Depo-Provera Contraceptive 150 mg/ mL intramuscular suspension) 1 Milliliter Intramuscular Every 3 months Please take this list to your next doctor s visit. Bring all medications you take, including over the counter medications, herbals and other supplements with you to your doctor s visit. Patients and families are reminded to discard old lists and to update any records with all medication providers or retail pharmacies. Education Materials Anxiety Reaction Anxiety is the feeling we all get when we think something bad might happen. It is a normal responseto stress and usually causes only a mild reaction. When anxiety becomes more severe, it can interfere with daily life. In some cases, you may not even be aware of what it is you re anxious about. There may also be a genetic link or it may be a learned behavior in the home. Both psychological and physical triggers cause stress reaction. It's often a response to fear or emotional stress, real or imagined. This stress may come from home, family, work, or social relationships. During an anxiety reaction, you may feel: Helpless Nervous Depressed Irritable Your body may show signs of anxiety in many ways. You may experience: Dry mouth Shakiness Dizziness Weakness Trouble breathing Breathing fast (hyperventilating) Chest pressure Sweating Headache Nausea Diarrhea Tiredness Inability to sleep Sexual problems Home care Try to locate the sources of stress in your life. They may not be obvious. These may include: oDaily hassles of life (such as traffic jams, missed appointments, or car troubles) oMajor life changes, both good (new baby or job promotion) and bad (loss of job or loss of loved one) oOverload: feeling that you have too many responsibilities and can't take care of all of them at once oFeeling helpless or feeling that your problems are beyond what you re able to solve Notice how your body reacts to stress. Learn to listen to your body signals. This will help you take action before the stress becomes severe. When you can, do something about the source of your stress. (Avoid hassles, limit the amount of change that happens in your life at one time and take a break when you feel overloaded). Unfortunately, many stressful situations can't be avoided. It is necessary to learn how to better manage stress. There are many proven methods that will reduce your anxiety. These include simple things like exercise, good nutrition, and adequate rest. Also, there are certain techniques that are helpful: oRelaxation oBreathing exercises oVisualization oBiofeedback oMeditation For more information about this, consult your healthcare provider or go to a local bookstore and review the many books and tapes available on this subject. Follow-up care If you feel that your anxiety is not responding to self-help measures, contact your healthcare provider or make an appointment with a counselor. You may need short-term psychological counseling and temporary medicine to help you manage stress. Call 911 Call 911 if any of these happen: Trouble breathing Confusion Drowsiness or trouble wakening Fainting or loss of consciousness Rapid heart rate Seizure New chest pain that becomes more severe, lasts longer, or spreads into your shoulder, arm, neck, jaw, or back When to seek medical advice Call your healthcare provider right away if any of these happen: Your symptoms get worse Severe headache not relieved by rest and mild pain reliever 7310-3289 [employer]. [address] [place] [address]. All rights reserved. This information is not intended as a substitute for professional medical care. Always follow yourhealthcare professional's instructions. Additional Information VACCINATE! IT SAVES LIVES! Members of the community who have not yet received the COVID-19 vaccine and would like to receive it can visit one of [facility] vaccine clinics. There are many vaccine clinic locations within the [facility]. For locations and available times, please visit [email or web address] It is important to note that some COVID mobile vaccine clinics are held outdoors and may be canceled in rainy or stormy conditions. To learn more about pediatric vaccinations (ages 5-11), we invite you to visit the [facility] webpage. [email or web address] learn more about the COVID-19 vaccine, we invite you to visit the CDC website for a list of frequently asked questions. https://www.cdc.gov/coronavirus/2019-ncov/vaccines/faq.html [facility] Patient Portal Access Instructions: Stay connected with your healthcare team and access your personal medical information anytime with the [facility] Patient Portal. If you would like a full copy of your medical records please contact the [facility] Medical Records Department Tuesday through Tuesday between 8a.m. and 4:30p.m. Please follow the directions below to access the portal: 1.Access the email account you provided upon registration to the [facility].2.Look for an invitation email from [facility].3.Open the email and access the invitation link: Accept Invitation to [facility]4.Fill in the required rutledge to create your account. Sign into www.[employer] with your username and password that you created in the above steps to stay up to date. You can then view a summary of results, a summary of your visits, and the ability to download your summaries to your computer or send the information securely to a physician. Remember that your healthcare information is confidential, so carefully consider who you will allow to register on the [facility] Patient Portal for access to your information. You can also access the [employer] Patient Portal on the [employer] kb. Simply click on Health Records under [employer] and then click on the [employer] logo. HOW TO SAFELY DISPOSE OF PRESCRIPTION MEDICATIONS Please use one of the following methods to safely dispose of your unused medications. 1.Use a drug disposal kit: the drug disposal pouch allows you to safely discard your old and unuseddrugs. Ask your nurse to give you one when you are discharged.2.Visit a local take-back location: Many local pharmacies and police departments have programs that collect old and unwanted prescriptiondrugs. Call your local pharmacy or go to http://bit.ly/6T6Vz0z to find one close to you.3.Make use of household items: Use cat litter or old coffee grounds to dispose medications if other options arenot available. Mix your drugs with these household products, seal them in an airtight container andthrow it into the garbage. Call [facility]: [phone] to be sure your drugs can be disposed of in this way. Some medicines may require a different approach.4.Never flush your medications down the toilet. IF YOU HAVE BEEN PRESCRIBED AN OPIOIDS FOR PAIN If you have been prescribed an opioid (such as hydrocodone, oxycodone or morphine), it is critical to understand the possible side effects and risks of opioid pain medications. Even when taken as directed, opioids can have several side effects including: Tolerance, meaning you might need to take more of a medication for the same pain relief. Nausea, vomiting and/or constipation. Sleepiness, dizziness, dry mouth, confusion, depression or itching. Physical dependence, meaning you have withdrawal symptoms when a medication is stopped ? this can develop within a few days. KNOW YOUR RESPONSIBILITIES It is important to know exactly how much and how often to take the opioid pain medications you are prescribed. Never take opioids in higher amounts or more often than prescribed. Do not combine opioids with alcohol or other drugs that cause drowsiness, such as benzodiazepines, also known as benzos,including diazepam and alprazolam, muscle relaxants or sleep aids. Never sell or share prescriptionopioids. This is illegal. Store opioids in a secure place and out of reach of others (including children, family, friends and visitors). The last page(s) of this document has been signed and retained as a CHART COPY Signatures Patient Education Materials Anxiety Reaction Medication Leaflets My discharge plan and instructions have been reviewed and explained to me and I,RADHA LITTLE understand my current condition and have read and understand these discharge instructions. I have received a written copy of the plan/instructions. If I have questions, I am aware that I should contact my doctor. Patient/Medical Care Administrator Signature: Date/Time: Relationship to Patient: Witness Name/Signature: Date/Time: [facility]11-21-2022 Hospital Discharge instructions Patient Education 05/31/2022 14:58:12 Vomiting (Adult) Vomiting (Adult) Vomiting is a common symptom that may be due to different causes. These include gastroenteritis (stomach flu), food poisoning and gastritis. There are other more serious causes of vomiting which may be hard to diagnose early in the illness. Therefore, it is important to watch for the warning signs listed below. The main danger from repeated vomiting is dehydration. This is due to excess loss of water and minerals from the body. When this occurs, your body fluids must be replaced. Home care If symptoms are severe, rest at home for the next 24 hours. Because your symptoms may be from an infection, wash your hands often and well. If soap and water are not available, use alcohol-based client engagement specialist to keep from spreading the infection to others. Wash your hands for at least 20 seconds. Humming the happy birthday song twice while you wash is aneasy way to make sure you've washed for 20 seconds. Wash your hands after using the toilet, before and after preparing food, before eating food, after changing a diaper, cleaning a wound, caring for a sick person, and blowing your nose, coughing, or sneezing. You should also wash your hands after caring for someone who is sick, touching pet food, ortreats, and touching an animal, or animal waste. You may use acetaminophen or NSAID medicines like ibuprofen or naproxen to control fever, unless another medicine was prescribed. If you have chronic liver or kidney disease or ever had a stomach ulcer or gastrointestinal bleeding, talk with your doctor before using these medicines. Aspirin should never be used in anyone under 18 years of age who is ill with a fever. It may cause severe liver damage. Don't use NSAID medicines if you are already taking one for another condition (like arthritis) or are on aspirin (such as for heart disease, or after a stroke) Don't use tobacco and or drink alcohol, which may worsen your symptoms. If medicines for vomiting were prescribed, take as directed. Once vomiting stops, then follow these guidelines: During the first 12 to 24 hours follow the diet below: Fruit juices. Apple, grape juice, clear fruit drinks, and electrolyte replacement drinks. Beverages. Soft drinks without caffeine; mineral water (plain or flavored), decaffeinated tea and coffee. Soups. Clear broth and bouillon Desserts. Plain gelatin, ice pops, and fruit juice bars. As you feel better, you may add 6 to 8 ounces of yogurt per day. During the next 24 hours you may add the following to the above: Hot cereal, plain toast, bread, rolls, crackers Plain noodles, rice, mashed potatoes, chicken noodle or rice soup Unsweetened canned fruit such as applesauce, bananas (avoid pineapple and citrus) Limit caffeine and chocolate. No spices or seasonings except salt. During the next 24 hours: Gradually resume a normal diet, as you feel better and your symptoms lessen. Follow-up care Follow up with your healthcare provider, or as advised. When to seek medical advice Call your healthcare provider right away if any of these occur: Constant right-sided lower belly pain or increasing general belly pain Continued vomiting (unable to keep liquids down) for 24 hours Vomiting blood or coffee grounds Swollen belly Frequent diarrhea (more than 5 times a day); blood (red or black color) or mucus in diarrhea Reduced urine output or extreme thirst Weakness, dizziness or fainting Unusually drowsy or confused Fever of 100.4 F (38 C) oral or higher, or as directed Yellow color of the eyes or skin [id number] [employer]. [address] [place] [address]. All rights reserved. This information is not intended as a substitute for professional medical care. Always follow yourhealthcare professional's instructions. Follow Up Care 05/31/2022 13:59:59 With:Call Physician Referral Address:Unknown When:2-4 days Comments:Schedule appointment for follow-up and to establish a regular doctor if your symptoms persist.Startwith clear liquids and slowly advance your diet as tolerated.Use Zofran as prescribed for nausea and vomiting as needed.Return to the ED if symptoms worsen. [facility] 11-21-2022 Note Discharge Instructions Thank you for allowing [facility] to assist you with your healthcare needs. The following is importantdischarge information regarding your hospital visit. Diagnosis from Today's Visit Vomiting Vomiting What to Do Next Instructions from Your Care Team No qualifying data available. Post Acute Orders No qualifying data available. You Need to Schedule the Following Appointments Follow Up with Call Physician Referral When Within 2-4 days Why: Schedule appointment for follow-up and to establish a regular doctor if your symptoms persist. Start with clear liquids and slowly advance your diet as tolerated. Use Zofran as prescribed for nausea and vomiting as needed. Return to the ED if symptoms worsen. Allergies Bactrim (Nausea and vomiting) Bee Stings (Swelling) coconut Medications Please ask your primary doctor or pharmacist before taking any other medication not listed, including over the counter drugs, herbal medications, vitamins and or supplements as they may interact withyour home medications. What How Much When Why Instructions Last Dose New ondansetron (Zofran ODT use ondansetron oral tablet, disintegrating ) 4 Milligram by mouth Every 6 hours as needed for as needed for nausea/vomiting Vomiting Printed Prescription Unchanged acetaminophen (acetaminophen 500 mg oral capsule) 1 cap by mouth Every 4 hours as needed for for pain Anxiety Chronic hepatitis C virus genotype 1b infection Unchanged medroxyPROGESTERone (Depo-Provera Contraceptive 150 mg/ mL intramuscular suspension) 1 Milliliter Intramuscular Every 3 months Please take this list to your next doctor s visit. Bring all medications you take, including over the counter medications, herbals and other supplements with you to your doctor s visit. Patients and families are reminded to discard old lists and to update any records with all medication providers or retail pharmacies. Medication Leaflets ondansetron (oral) (on OSMAN se arthur) Marco, Zofran ODT, Ifeanyi What is the most important information I should know about ondansetron? You should not use ondansetron if you are also using apomorphine (Apokyn). What is ondansetron? Ondansetron blocks the actions of chemicals in the body that can trigger nausea and vomiting. Ondansetron is used to prevent nausea and vomiting that may be caused by surgery, cancer chemotherapy, or radiation treatment. Ondansetron may be used for purposes not listed in this medication guide. What should I discuss with my health care provider before taking ondansetron? You should not use ondansetron if: you are also using apomorphine (Apokyn); or you are allergic to ondansetron or similar medicines (dolasetron, granisetron, palonosetron). To make sure ondansetron is safe for you, tell your doctor if you have: liver disease; an electrolyte imbalance (such as low levels of potassium or magnesium in your blood); congestive heart failure, slow heartbeats; a personal or family history of long QT syndrome; or a blockage in your digestive tract (stomach or intestines). Ondansetron is not expected to harm an unborn baby. Tell your doctor if you are . It is not known whether ondansetron passes into breast milk or if it could harm a nursing baby. Tell your doctor if you are breast-feeding a baby. Ondansetron is not approved for use by anyone younger than 4 years old. Ondansetron orally disintegrating tablets may contain phenylalanine. Tell your doctor if you have phenylketonuria (PKU). How should I take ondansetron? Follow all directions on your prescription label. Do not take this medicine in larger or smaller amounts or for longer than recommended. Ondansetron can be taken with or without food. The first dose of ondansetron is usually taken before the start of your surgery, chemotherapy, or radiation treatment. Follow your doctor's dosing instructions very carefully. Take the ondansetron regular tablet with a full glass of water. To take the orally disintegrating tablet (Zofran ODT): Keep the tablet in its blister pack until you are ready to take it. Open the package and peel back the foil. Do not push a tablet through the foil or you may damage the tablet. Use dry hands to remove the tablet and place it in your mouth. Do not swallow the tablet whole. Allow it to dissolve in your mouth without chewing. Swallow several times as the tablet dissolves. To use ondansetron oral soluble film (strip) (Zuplenz): Keep the strip in the foil pouch until you are ready to use the medicine. Using dry hands, remove the strip and place it on your tongue. It will begin to dissolve right away. Do not swallow the strip whole. Allow it to dissolve in your mouth without chewing. Swallow several times after the strip dissolves. If desired, you may drink liquid to help swallow the dissolved strip. Wash your hands after using Zuplenz. Measure liquid medicine with the dosing syringe provided, or with a special dose-measuring spoon ormedicine cup. If you do not have a dose-measuring device, ask your pharmacist for one. Store at room temperature away from moisture, heat, and light. Store liquid medicine in an upright position. What happens if I miss a dose? Take the missed dose as soon as you remember. Skip the missed dose if it is almost time for your next scheduled dose. Do not take extra medicine to make up the missed dose. What happens if I overdose? Seek emergency medical attention or call the Poison Help line at . Overdose symptoms may include sudden loss of vision, severe constipation, feeling light-headed, or fainting. What should I avoid while taking ondansetron? Ondansetron may impair your thinking or reactions. Be careful if you drive or do anything that requires you to be alert. What are the possible side effects of ondansetron? Get emergency medical help if you have signs of an allergic reaction: rash, hives; fever, chills, difficult breathing; swelling of your face, lips, tongue, or throat. Call your doctor at once if you have: severe constipation, stomach pain, or bloating; headache with chest pain and severe dizziness, fainting, fast or pounding heartbeats; fast or pounding heartbeats; jaundice (yellowing of the skin or eyes); blurred vision or temporary vision loss (lasting from only a few minutes to several hours); high levels of serotonin in the body--agitation, hallucinations, fever, fast heart rate, overactivereflexes, nausea, vomiting, diarrhea, loss of coordination, fainting. Common side effects may include: diarrhea or constipation; headache; drowsiness; or tired feeling. This is not a complete list of side effects and others may occur. Call your doctor for medical advice about side effects. You may report side effects to FDA at 6-503-QRU-7293. What other drugs will affect ondansetron? Ondansetron can cause a serious heart problem, especially if you use certain medicines at the same time, including antibiotics, antidepressants, heart rhythm medicine, antipsychotic medicines, and medicines to treat cancer, malaria, HIV or AIDS. Tell your doctor about all medicines you use, and those you start or stop using during your treatment with ondansetron. Taking ondansetron while you are using certain other medicines can cause high levels of serotonin to build up in your body, a condition called 'serotonin syndrome,' which can be fatal. Tell your doctor if you also use: medicine to treat depression; medicine to treat a psychiatric disorder; a narcotic (opioid) medication; or medicine to prevent nausea and vomiting. This list is not complete and many other drugs can interact with ondansetron. This includes prescription and [id number] medicines, vitamins, and herbal products. Give a list of all your medicines to any healthcare provider who treats you. Where can I get more information? Your pharmacist can provide more information about ondansetron. Remember, keep this and all other medicines out of the reach of children, never share your medicines with others, and use this medication only for the indication prescribed. Every effort has been made to ensure that the information provided by [employer]. ('[employer]') is accurate, up-to-date, and complete, but no guarantee is made to that effect. Drug information contained herein may be time sensitive. [employer] information has been compiled for use by healthcare practitioners and consumers in the [place] and therefore [employer] does not warrant that uses outside of the [place] are appropriate, unless specifically indicated otherwise. [employer]'s drug information does not endorse drugs, diagnose patients or recommend therapy. [employer] drug information isan informational resource designed to assist licensed healthcare practitioners in caring for their p atients and/or to serve consumers viewing this service as a supplement to, and not a substitute for, the expertise, skill, knowledge and judgment of healthcare practitioners. The absence of a warningfor a given drug or drug combination in no way should be construed to indicate that the drug or drug combination is safe, effective or appropriate for any given patient. [employer] does not assume any responsibility for any aspect of healthcare administered with the aid of information [employer] provides. The information contained herein is not intended to cover all possible uses, directions, precautions, warnings, drug interactions, allergic reactions, or adverse effects. If you have questions about the drugs you are taking, check with your doctor, nurse or pharmacist. Copyright 6900-2915 [employer]. Version: 13.01. Revision Date: 04/30/2016. Education Materials Vomiting (Adult) Vomiting is a common symptom that may be due to different causes. These include gastroenteritis (stomach flu), food poisoning and gastritis. There are other more serious causes of vomiting which may be hard to diagnose early in the illness. Therefore, it is important to watch for the warning signs listed below. The main danger from repeated vomiting is dehydration. This is due to excess loss of water and minerals from the body. When this occurs, your body fluids must be replaced. Home care If symptoms are severe, rest at home for the next 24 hours. Because your symptoms may be from an infection, wash your hands often and well. If soap and water are not available, use alcohol-based client engagement specialist to keep from spreading the infection to others. Wash your hands for at least 20 seconds. Humming the happy birthday song twice while you wash is aneasy way to make sure you've washed for 20 seconds. Wash your hands after using the toilet, before and after preparing food, before eating food, after changing a diaper, cleaning a wound, caring for a sick person, and blowing your nose, coughing, or sneezing. You should also wash your hands after caring for someone who is sick, touching pet food, ortreats, and touching an animal, or animal waste. You may use acetaminophen or NSAID medicines like ibuprofen or naproxen to control fever, unless another medicine was prescribed. If you have chronic liver or kidney disease or ever had a stomach ulcer or gastrointestinal bleeding, talk with your doctor before using these medicines. Aspirin should never be used in anyone under 18 years of age who is ill with a fever. It may cause severe liver damage. Don't use NSAID medicines if you are already taking one for another condition (like arthritis) or are on aspirin (such as for heart disease, or after a stroke) Don't use tobacco and or drink alcohol, which may worsen your symptoms. If medicines for vomiting were prescribed, take as directed. Once vomiting stops, then follow these guidelines: During the first 12 to 24 hours follow the diet below: Fruit juices. Apple, grape juice, clear fruit drinks, and electrolyte replacement drinks. Beverages. Soft drinks without caffeine; mineral water (plain or flavored), decaffeinated tea and coffee. Soups. Clear broth and bouillon Desserts. Plain gelatin, ice pops, and fruit juice bars. As you feel better, you may add 6 to 8 ounces of yogurt per day. During the next 24 hours you may add the following to the above: Hot cereal, plain toast, bread, rolls, crackers Plain noodles, rice, mashed potatoes, chicken noodle or rice soup Unsweetened canned fruit such as applesauce, bananas (avoid pineapple and citrus) Limit caffeine and chocolate. No spices or seasonings except salt. During the next 24 hours: Gradually resume a normal diet, as you feel better and your symptoms lessen. Follow-up care Follow up with your healthcare provider, or as advised. When to seek medical advice Call your healthcare provider right away if any of these occur: Constant right-sided lower belly pain or increasing general belly pain Continued vomiting (unable to keep liquids down) for 24 hours Vomiting blood or coffee grounds Swollen belly Frequent diarrhea (more than 5 times a day); blood (red or black color) or mucus in diarrhea Reduced urine output or extreme thirst Weakness, dizziness or fainting Unusually drowsy or confused Fever of 100.4 F (38 C) oral or higher, or as directed Yellow color of the eyes or skin [id number] [employer]. [address] [place] [address]. All rights reserved. This information is not intended as a substitute for professional medical care. Always follow yourhealthcare professional's instructions. Additional Information VACCINATE! IT SAVES LIVES! Members of the community who have not yet received the COVID-19 vaccine and would like to receive it can visit one of [facility] vaccine clinics. There are many vaccine clinic locations within the [facility]. For locations and available times, please visit [email or web address]. It is important to note that some COVID mobile vaccine clinics are held outdoors and may be canceled in rainy orstormy conditions. To learn more about pediatric vaccinations (ages 5-11), we invite you to visit the [facility] webpage. [email or web address] learn more about the COVID-19 vaccine, we invite you to visit the [employer] website for a list of frequently asked questions. [email or web address] _[email or web address] [facility] Patient Portal Access Instructions: Stay connected with your healthcare team and access your personal medical information anytime with the [facility] Patient Portal. If you would like a full copy of your medical records please contact the [facility] Medical Records Department Tuesday through Tuesday between 8a.m. and 4:30p.m. Please follow the directions below to access the portal: 1.Access the email account you provided upon registration to the [facility].2.Look for an invitation email from [facility].3.Open the email and access the invitation link: Accept Invitation to [facility]4.Fill in the required rutledge to create your account. Sign into www.Click Quote Save with your username and password that you created in the above steps to stay up to date. You can then view a summary of results, a summary of your visits, and the ability to download your summaries to your computer or send the information securely to a physician. Remember that your healthcare information is confidential, so carefully consider who you will allow to register on the [facility] [employer] Patient Portal for access to your information. You can also access the [employer] Patient Portal on the [employer] kb. Simply click on Health Records under [employer] and then click on the [employer] logo. HOW TO SAFELY DISPOSE OF PRESCRIPTION MEDICATIONS Please use one of the following methods to safely dispose of your unused medications. 1.Use a drug disposal kit: the drug disposal pouch allows you to safely discard your old and unuseddrugs. Ask your nurse to give you one when you are discharged.2.Visit a local take-back location: Many local pharmacies and police departments have programs that collect old and unwanted prescriptiondrugs. Call your local pharmacy or go to http://bit.Easel/8O2Bj0z to find one close to you.3.Make use of household items: Use cat litter or old coffee grounds to dispose medications if other options arenot available. Mix your drugs with these household products, seal them in an airtight container andthrow it into the garbage. Call [facility]: [phone] to be sure your drugs can be disposed of in this way. Some medicines may require a different approach.4.Never flush your medications down the toilet. IF YOU HAVE BEEN PRESCRIBED AN OPIOIDS FOR PAIN If you have been prescribed an opioid (such as hydrocodone, oxycodone or morphine), it is critical to understand the possible side effects and risks of opioid pain medications. Even when taken as directed, opioids can have several side effects including: Tolerance, meaning you might need to take more of a medication for the same pain relief. Nausea, vomiting and/or constipation. Sleepiness, dizziness, dry mouth, confusion, depression or itching. Physical dependence, meaning you have withdrawal symptoms when a medication is stopped ? this can develop within a few days. KNOW YOUR RESPONSIBILITIES It is important to know exactly how much and how often to take the opioid pain medications you are prescribed. Never take opioids in higher amounts or more often than prescribed. Do not combine opioids with alcohol or other drugs that cause drowsiness, such as benzodiazepines, also known as benzos,including diazepam and alprazolam, muscle relaxants or sleep aids. Never sell or share prescriptionopioids. This is illegal. Store opioids in a secure place and out of reach of others (including children, family, friends and visitors). The last page(s) of this document has been signed and retained as a CHART COPY Signatures Patient Education Materials Vomiting (Adult) Medication Leaflets ondansetron (oral) My discharge plan and instructions have been reviewed and explained to me and I,RADHA LITTLE understand my current condition and have read and understand these discharge instructions. I have received a written copy of the plan/instructions. If I have questions, I am aware that I should contact my doctor. Patient/Medical Care Administrator Signature: Date/Time: Relationship to Patient: Witness Name/Signature: Date/Time: [facility]10-17-2022 Hospital Discharge instructions Patient Education 04/26/2022 16:27:25 Wound Check (Infection) Wound Check, Infection You have a wound that has become infected. The wound will not heal properly unless the infection iscleared. Infection in a wound may also spread if it is not treated. In most cases, antibiotic medicines are prescribed to treat a wound infection. Symptoms of a wound infection include: Redness or swelling around the wound Warmth coming from the wound New or worsening pain Red streaks around the wound Draining pus Fever Home care Follow all directions you are given to treat the infection. Medicines Take all medicines as prescribed. If you were given antibiotics, take them until they are gone or your healthcare provider tells you to stop. It is vital to finish the antibiotics even if you feel better. If you don't finish them, the infection may come back and be harder to treat. If your infection is not responding to the medicines you are taking, you may be prescribed new medicines. Take medicine for pain as directed by your healthcare provider. Wound care Care for your wound as directed by your healthcare provider. Apply a warm compress (clean cloth soaked in hot water) to the infected area for about 5 to 10 minutes at a time. Be very careful not to burn yourself. Test the cloth on a non-infected area to make sure it is not too hot. Continue to change the dressing daily. If it becomes wet, stained with wound fluid, or dirty, change it sooner. To change it: oWash your hands with soap and water before changing the dressing. oCarefully remove the dressing and tape. If it sticks to the wound, you may need to wet it a littleto remove it. (Don't do this if your healthcare provider has told you not to.) oGently clean the wound with clean water (or saline) using gauze, a clean washcloth, or cotton swab. oDon't use soap, alcohol, peroxide or other cleansers. oIf you were told to dry the wound before putting on a new dressing, gently pat. Don't rub. oThrow out the old dressing. oWash your hands again before opening the new, clean dressing. oWash your hands again when you are done. Follow-up care Follow up with your healthcare provider as advised. If a culture was done, you will be notified if your treatment needs to change. Call as directed for the results. When to seek medical advice Call your healthcare provider right away if any of these occur: Symptoms of infection don't start to improve within 2 days of starting antibiotics Symptoms of infection get worse New symptoms, such as red streaks around the wound Fever of 100.4 F (38.0 C) or higher for more than 2 days after starting the antibiotics, or as advised by your healthcare provider [phone] [employer]. [address] [place] [address]. All rights reserved. This information is not intended as a substitute for professional medical care. Always follow yourhealthcare professional's instructions. Follow Up Care 04/26/2022 15:39:38 With:PATTI LANGSTON MD Address: [facility] [place] [address] When:2-4 days [facility] 10-17-2022 Note Discharge Instructions Thank you for allowing [facility] to assist you with your healthcare needs. The following is importantdischarge information regarding your hospital visit. Diagnosis from Today's Visit Infection of finger Finger pain-swelling What to Do Next Instructions from Your Care Team No qualifying data available. Post Acute Orders No qualifying data available. You Need to Schedule the Following Appointments Follow Up with PATTI LANGSTON MD When Within 2-4 days Where: [facility] [place] [address] Allergies Bactrim (Nausea and vomiting) Bee Stings (Swelling) coconut Medications Please ask your primary doctor or pharmacist before taking any other medication not listed, including over the counter drugs, herbal medications, vitamins and or supplements as they may interact withur home medications. 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 Bring all medications you take, including over the counter medications, herbals and other supplements with you to your doctor s visit. Patients and families are reminded to discard old lists and to update any records with all medication providers or retail pharmacies. Medication Leaflets amoxicillin and clavulanate potassium (am OK i LUCIANO in KLAV ue ROSE MARIE ate kristin TAS ee um) Augmentin What is the most important information I should know about amoxicillin and clavulanate potassium? You should not use this medicine if you have severe kidney disease, if you have had liver problems or jaundice while taking amoxicillin and clavulanate potassium, or if you are allergic to any penicillin or cephalosporin antibiotic, such as Amoxil, Ceftin, Cefzil, Moxatag, Omnicef, and others. What is amoxicillin and clavulanate potassium? Amoxicillin is a penicillin antibiotic. Clavulanate potassium helps prevent certain bacteria from becoming resistant to amoxicillin. Amoxicillin and clavulanate potassium is a combination medicine used to treat many different infections caused by bacteria, such as sinusitis, pneumonia, ear infections, bronchitis, urinary tract infections, and infections of the skin. Amoxicillin and clavulanate potassium may also be used for purposes not listed in this medication guide. What should I discuss with my healthcare provider before taking amoxicillin and clavulanate potassium? You should not use this medicine if you are allergic to it, or if: you have severe kidney disease (or if you are on dialysis); you have had liver problems or jaundice while taking amoxicillin and clavulanate potassium; or you are allergic to any penicillin or cephalosporin antibiotic, such as Amoxil, Ceftin, Cefzil, Moxatag, Omnicef, and others. Tell your doctor if you have ever had: liver disease (hepatitis or jaundice); kidney disease; or mononucleosis. The liquid or chewable tablet may contain phenylalanine. Tell your doctor if you have phenylketonuria (PKU). Tell your doctor if you are or . Amoxicillin and clavulanate potassium can make control pills less effective. Ask your doctor about using a non-hormonal control (condom, diaphragm, cervical cap, or contraceptive sponge) to prevent . Do not give this medicine to a child without medical advice. How should I take amoxicillin and clavulanate potassium? Follow all directions on your prescription label and read all medication guides or instruction sheets. Use the medicine exactly as directed. Amoxicillin and clavulanate potassium may work best if you take it at the start of a meal. Take the medicine every 12 hours. Do not crush or chew the extended-release tablet. Swallow the pill whole, or break the pill in halfand take both halves one at a time. Tell your doctor if you have trouble swallowing a whole or halfpill. You must chew the chewable tablet before you swallow it. Shake the oral suspension (liquid) before you measure a dose. Use the dosing syringe provided, or use a medicine dose-measuring device (not a kitchen spoon). This medicine can affect the results of certain medical tests. Tell any doctor who treats you that you are using amoxicillin and clavulanate potassium. Use this medicine for the full prescribed length of time, even if your symptoms quickly improve. Skipping doses can increase your risk of infection that is resistant to medication. Amoxicillin and clavulanate potassium will not treat a viral infection such as the flu or a common cold. Store the tablets at room temperature away from moisture and heat. Store the liquid in the refrigerator. Throw away any unused liquid after 10 days. What happens if I miss a dose? Take the medicine as soon as you can, but skip the missed dose if it is almost time for your next dose. Do not take two doses at one time. What happens if I overdose? Seek emergency medical attention or call the Poison Help line at . Overdose can cause nausea, vomiting, stomach pain, diarrhea, skin rash, drowsiness, hyperactivity, and decreased urination. What should I avoid while taking amoxicillin and clavulanate potassium? Avoid taking this medicine together with or just after eating a high-fat meal. This will make it harder for your body to absorb the medication. Antibiotic medicines can cause diarrhea, which may be a sign of a new infection. If you have diarrhea that is watery or bloody, call your doctor before using anti-diarrhea medicine. What are the possible side effects of amoxicillin and clavulanate potassium? Get emergency medical help if you have signs of an allergic reaction (hives, difficult breathing, swelling in your face or throat) or a severe skin reaction (fever, sore throat, burning eyes, skin pain, red or purple skin rash with blistering and peeling). Call your doctor at once if you have: severe stomach pain, diarrhea that is watery or bloody (even if it occurs months after your last dose); pale or yellowed skin, dark colored urine, fever, confusion or weakness; loss of appetite, upper stomach pain; little or no urination; or easy bruising or bleeding. Common side effects may include: nausea, vomiting; diarrhea; rash, itching; vaginal itching or discharge; or diaper rash. This is not a complete list of side effects and others may occur. Call your doctor for medical advice about side effects. You may report side effects to FDA at 5-818-HQM-0060. What other drugs will affect amoxicillin and clavulanate potassium? Tell your doctor about all your other medicines, especially: allopurinol; probenecid; or a blood thinner--warfarin, Coumadin, Jantoven. This list is not complete. Other drugs may affect amoxicillin and clavulanate potassium, including prescription and hhuw-vmu-eodwztc medicines, vitamins, and herbal products. Not all possible drug interactions are listed here. Where can I get more information? Your pharmacist can provide more information about amoxicillin and clavulanate potassium. Remember, keep this and all other medicines out of the reach of children, never share your medicines with others, and use this medication only for the indication prescribed. Every effort has been made to ensure that the information provided by [employer]. ('[employer]') is accurate, up-to-date, and complete, but no guarantee is made to that effect. Drug information contained herein may be time sensitive. [employer] information has been compiled for use by healthcare practitioners and consumers in the [place] and therefore [employer] does not warrant that uses outside of the [place] are appropriate, unless specifically indicated otherwise. [employer] drug information does not endorse drugs, diagnose patients or recommend therapy. [employer] drug information isan informational resource designed to assist licensed healthcare practitioners in caring for their p atients and/or to serve consumers viewing this service as a supplement to, and not a substitute for, the expertise, skill, knowledge and judgment of healthcare practitioners. The absence of a warningfor a given drug or drug combination in no way should be construed to indicate that the drug or drug combination is safe, effective or appropriate for any given patient. [facility] does not assume any responsibility for any aspect of healthcare administered with the aid of information [facility] provides. The information contained herein is not intended to cover all possible uses, directions, precautions, warnings, drug interactions, allergic reactions, or adverse effects. If you have questions about the drugs you are taking, check with your doctor, nurse or pharmacist. Copyright 8997-1214 [employer]. Version: 12.. Revision Date: 09/03/2019. Education Materials Wound Check, Infection You have a wound that has become infected. The wound will not heal properly unless the infection iscleared. Infection in a wound may also spread if it is not treated. In most cases, antibiotic medicines are prescribed to treat a wound infection. Symptoms of a wound infection include: Redness or swelling around the wound Warmth coming from the wound New or worsening pain Red streaks around the wound Draining pus Fever Home care Follow all directions you are given to treat the infection. Medicines Take all medicines as prescribed. If you were given antibiotics, take them until they are gone or your healthcare provider tells you to stop. It is vital to finish the antibiotics even if you feel better. If you don't finish them, the infection may come back and be harder to treat. If your infection is not responding to the medicines you are taking, you may be prescribed new medicines. Take medicine for pain as directed by your healthcare provider. Wound care Care for your wound as directed by your healthcare provider. Apply a warm compress (clean cloth soaked in hot water) to the infected area for about 5 to 10 minutes at a time. Be very careful not to burn yourself. Test the cloth on a non-infected area to make sure it is not too hot. Continue to change the dressing daily. If it becomes wet, stained with wound fluid, or dirty, change it sooner. To change it: oWash your hands with soap and water before changing the dressing. oCarefully remove the dressing and tape. If it sticks to the wound, you may need to wet it a littleto remove it. (Don't do this if your healthcare provider has told you not to.) oGently clean the wound with clean water (or saline) using gauze, a clean washcloth, or cotton swab. oDon't use soap, alcohol, peroxide or other cleansers. oIf you were told to dry the wound before putting on a new dressing, gently pat. Don't rub. oThrow out the old dressing. oWash your hands again before opening the new, clean dressing. oWash your hands again when you are done. Follow-up care Follow up with your healthcare provider as advised. If a culture was done, you will be notified if your treatment needs to change. Call as directed for the results. When to seek medical advice Call your healthcare provider right away if any of these occur: Symptoms of infection don't start to improve within 2 days of starting antibiotics Symptoms of infection get worse New symptoms, such as red streaks around the wound Fever of 100.4 F (38.0 C) or higher for more than 2 days after starting the antibiotics, or as advised by your healthcare provider [phone] [employer]. [address] [place] [address]. All rights reserved. This information is not intended as a substitute for professional medical care. Always follow yourhealthcare professional's instructions. Additional Information VACCINATE! IT SAVES LIVES! Members of the community who have not yet received the COVID-19 vaccine and would like to receive it can visit one of [facility] vaccine clinics. There are many vaccine clinic locations within the [facility]. For locations and available times, please visit [email or web address]. It is important to note that some COVID mobile vaccine clinics are held outdoors and may be canceled in rainy orstormy conditions. To learn more about pediatric vaccinations (ages 5-11), we invite you to visit the [facility] webpage. [email or web address] [email or web address] learn more about the COVID-19 vaccine, we invite you to visit the [facility] website for a list of frequently asked questions. [email or web address] [facility] Patient Portal Access Instructions: Stay connected with your healthcare team and access your personal medical information anytime with the [facility] [facility] Patient Portal. If you would like a full copy of your medical records please contact the [facility] Medical Records Department Tuesday through Tuesday between 8a.m. and 4:30p.m. Please follow the directions below to access the portal: 1.Access the email account you provided upon registration to the hospital.2.Look for an invitation email from [facility].3.Open the email and access the invitation link: Accept Invitation to [facility]4.Fill in the required rutledge to create your account. Sign into [email or web address] with your username and password that you created in the above steps to stay up to date. You can then view a summary of results, a summary of your visits, and the ability to download your summaries to your computer or send the information securely to a physician. Remember that your healthcare information is confidential, so carefully consider who you will allow to register on the [facility] Patient Portal for access to your information. You can also access the [facility] Patient Portal on the [employer]. Simply click on Health Records under [employer] and then click on the [facility] logo. HOW TO SAFELY DISPOSE OF PRESCRIPTION MEDICATIONS Please use one of the following methods to safely dispose of your unused medications. 1.Use a drug disposal kit: the drug disposal pouch allows you to safely discard your old and unuseddrugs. Ask your nurse to give you one when you are discharged.2.Visit a local take-back location: Many local pharmacies and police departments have programs that collect old and unwanted prescriptiondrugs. Call your local pharmacy or go to http://Leap.it.Easel/3C0Ha3z to find one close to you.3.Make use of household items: Use cat litter or old coffee grounds to dispose medications if other options arenot available. Mix your drugs with these household products, seal them in an airtight container andthrow it into the garbage. Call [facility]: [phone] to be sure your drugs can be disposed of in this way. Some medicines may require a different approach.4.Never flush your medications down the toilet. IF YOU HAVE BEEN PRESCRIBED AN OPIOIDS FOR PAIN If you have been prescribed an opioid (such as hydrocodone, oxycodone or morphine), it is critical to understand the possible side effects and risks of opioid pain medications. Even when taken as directed, opioids can have several side effects including: Tolerance, meaning you might need to take more of a medication for the same pain relief. Nausea, vomiting and/or constipation. Sleepiness, dizziness, dry mouth, confusion, depression or itching. Physical dependence, meaning you have withdrawal symptoms when a medication is stopped ? this can develop within a few days. KNOW YOUR RESPONSIBILITIES It is important to know exactly how much and how often to take the opioid pain medications you are prescribed. Never take opioids in higher amounts or more often than prescribed. Do not combine opioids with alcohol or other drugs that cause drowsiness, such as benzodiazepines, also known as benzos,including diazepam and alprazolam, muscle relaxants or sleep aids. Never sell or share prescriptionopioids. This is illegal. Store opioids in a secure place and out of reach of others (including children, family, friends and visitors). The last page(s) of this document has been signed and retained as a CHART COPY Signatures Patient Education Materials Wound Check (Infection) Medication Leaflets amoxicillin and clavulanate potassium My discharge plan and instructions have been reviewed and explained to me and I,RADHA LITTLE understand my current condition and have read and understand these discharge instructions. I have received a written copy of the plan/instructions. If I have questions, I am aware that I should contact my doctor. Patient/Medical Care Administrator Signature: Date/Time: Relationship to Patient: Witness Name/Signature: Date/Time: [facility] David [id number] Note Attestation signed by Sterling Pink DO at 04/22/2022 4:12 PM Patient left AMA in the evening on 04/19/2022. Internal Medicine: Med Team Discharge Summary Radha Little : 2000 ADMIT DATE: 04/18/2022 DISCHARGE DATE: 04/19/22 PCP: No primary care provider on file. Visit Status: Admission Code Status: FULL CODE Primary Discharge Diagnosis: Right index finger suppurative flexor tenosynovitis s/p I&D/debridement Secondary Discharge Diagnoses: Polysubstance abuse/IVDU Hx of Hepatitis C Mood Disorder Reason for Admission & Hospital Course: Radha Little is a 21 y.o. female that presented to [facility] on 04/18/2022 and was admitted for flexor tenosynovitis. Patient noted a blister on her right index finger three weeks prior to presentation and was started on oral clindamycin with initial wound improvement. She then started having increased pain and swelling with subjective fever and chills which prompted her to seek medical care. XR hand showed no signs of osteomyelitis but significant soft tissue edema. Patient was seen by Ortho surgery team and found to have flexor tenosynovitis that required emergent wound irrigation and debridement. Patient was taken immediately to the OR where she underwent incision and drainage with irrigation and debridement. ID was consulted and recommended 4 weeks of dalbavancin via PIV. Patient is not candidate for PICC in the community due to current IVDU. During her admission, pt requested to see ADM for her substance abuse (reports daily IV meth use, daily marijuana use, IV heroine twice weekly). Patient expressed interest in suboxone treatment; however, no outpatient addiction management plan was finalized prior to patient leaving. On the evening of 04/19 pt reported that she needed to leave to take her daughter to the hospital because the child had a fall at home. Stated that her aunt does not have custody/guardianship of her daughter and would not be able to take her daughter to the hospital. Despite being advised against leaving AMA given the risks of necrosis, systemic infection, sepsis, etc... before her infection resolved and antibiotic regimen is set up, patient chose to leave with understanding and C contact information to schedule f/u appointment. Disposition: AMA Activity: No restriction. up with assist Diet: ADULT DIET; Regular Discharge Medications: Current Outpatient Medications Medication Instructions DALBAVANCIN HCL IV 1,500 mg, IntraVENous, WEEKLY, x2 Notable Medication Changes & Reasoning: Patient was planned to start Dalbavancin but left AMA without any abx regimen. Consultants ID Addiction medicine Ortho Acute Pain Service Social Work Procedures Performed I&D Right index finger wound debridement surgery Significant Laboratory/Radiographic Data: Wound culture positive for gram positive cocci clusters and pairs UDS positive for meth, benzo, and opioids. Pending Results at Time of Discharge intraop wound culture - 04/20 resulted with Group A strep pyogenes (after patient left) Follow Up Appointment(s): None Items to Address at Followup Visit: Patient need antibiotic for her finger infection Patient need to f/u with Addiction medicine for polysubstance use detox. Please see telephone encounter on 04/20/22 for post discharge update. [facility]10-10-2022 History of Present illness Narrative* Tomas Hankins MD - 04/19/2022 2:13 PM EDT Images from the original note were not included. Department of Orthopedic Surgery Progress Note SUBJECTIVE: Patient resting comfortably in bed. Denies any new fever/chills, numbness/tingling. Expresses that her hand is very painful. OBJECTIVE: General: alert and oriented to person, place and time VITALS: BP 131/86 Pulse 94 Temp 98.8 F (37.1 C) (Temporal) Resp 16 Ht 5' 2 (1.575 m) Wt 105 lb (47.6 kg) LMP (LMP Unknown) SpO2 96% BMI 19.20 kg/m MSK exam: R hand: On exam her incision site shows no signs of infections. No purulences was able to be expressed fromthe wound. Sutures are intact. Patient is able to wiggle all fingers, except the index finger whichshe cannot move d/t pain. SILT is intact in all fingers with some diminished sensation in the indexfinger Dressing/Incision: clean, intact, and with some blood drainage Labs: CBC: Lab Results Component Value Date/Time WBC 10.3 04/18/2022 07:54 PM RBC 4.16 04/18/2022 07:54 PM HGB 13.0 04/18/2022 07:54 PM HCT 37.5 04/18/2022 07:54 PM MCV 90.2 04/18/2022 07:54 PM MCH 31.2 04/18/2022 07:54 PM MCHC 34.6 04/18/2022 07:54 PM RDW 13.4 04/18/2022 07:54 PM PLT 297 04/18/2022 07:54 PM MPV 8.4 04/18/2022 07:54 PM BMP: Lab Results Component Value Date/Time NA 134 04/19/2022 05:00 AM K 4.9 04/19/2022 05:00 AM CL 108 04/19/2022 05:00 AM CO2 17 04/19/2022 05:00 AM BUN 8 04/19/2022 05:00 AM LABALBU 4.6 08/06/2021 01:11 PM CREATININE 0.85 04/19/2022 05:00 AM CALCIUM 9.3 04/19/2022 05:00 AM GLUCOSE 117 04/19/2022 05:00 AM Type and Screen: Lab Results Component Value Date/Time LABABO A 04/18/2022 08:58 PM RH NEG 04/18/2022 08:58 PM LABANTI NEG 04/18/2022 08:58 PM INR: Lab Results Component Value Date/Time INR 1.1 04/18/2022 08:58 PM CRP: Lab Results Component Value Date/Time CRP 10.2 04/18/2022 07:54 PM ESR: Lab Results Component Value Date/Time SEDRATE 3 04/18/2022 07:54 PM ASSESSMENT AND PLAN: A/P: This is a 21 y.o. female s/p irrigation and debridement of R index fingeron 04/18 D/w Dr. Langston No plan for further surgical intervention Non-weight bearing right upper extremity ID c/s pending Antibiotics per infectious disease, currently on Vanc/Zosyn Intra-operative Cx pending Neurovascular checks Skin assessments Splint to right upper extremity Soaks BID soaks, first soak 10 PM Admit to medicine APS consulted for pain management post-op Medical management per primary team Ortho to follow * Kaykay Hernandezrashard Donovan, DO - 04/19/2022 10:11 AM EDT Images from the original note were not included. Med Team Progress Note Radha Little : 2000(21 y.o.) Date: April 19, 2022 Med Team: D Attending: Dr. Pink Chief Complaint: Right index finger pain and swelling Subjective: - No acute events overnight. Post-op day #1. - Currently, patient resting comfortably in bed. Eating and sleeping okay. Pain was tolerable. No problem with urination. Has not had any bowel movement yet. Remained afebrile. Denied n/v/d. AAO x 3.Agreeable with treatment plans. Review of Systems Constitutional: Positive for chills. Negative for fever. HENT: Negative for mouth sores. Respiratory: Negative for cough, chest tightness and shortness of breath. Cardiovascular: Negative for chest pain and leg swelling. Gastrointestinal: Negative for abdominal pain, constipation, diarrhea, nausea and vomiting. Genitourinary: Negative for dysuria and hematuria. Musculoskeletal: Right hand pain mostly at surgical area Neurological: Negative for dizziness, weakness, light-headedness and numbness. Psychiatric/Behavioral: Negative for agitation and confusion. The patient is not nervous/anxious. Scheduled Meds: nicotine 1 patch TransDERmal Daily mirtazapine 30 mg Oral Nightly risperiDONE 0.5 mg Oral Daily therapeutic multivitamin-minerals 1 tablet Oral Daily piperacillin-tazobactam 3,375 mg IntraVENous Q8H vancomycin 1,000 mg IntraVENous Q12H sodium chloride flush 10 mL IntraVENous 2 times per day Continuous Infusions: sodium chloride PRN meds used in last 24hrs: Oxycodone 5 mg x 2 Objective: BP 131/86 Pulse 94 Temp 98.8 F (37.1 C) (Temporal) Resp 18 Ht 5' 2 (1.575 m) Wt 105 lb (47.6 kg) LMP (LMP Unknown) SpO2 96% BMI 19.20 kg/m Physical Exam Constitutional: General: She is not in acute distress. Appearance: Normal appearance. She is not ill-appearing. HENT: Head: Normocephalic and atraumatic. Mouth/Throat: Mouth: Mucous membranes are moist. Pharynx: Oropharynx is clear. Comments: Poor oral dentition Eyes: General: No scleral icterus. Cardiovascular: Rate and Rhythm: Normal rate and regular rhythm. Pulses: Normal pulses. Heart sounds: No murmur heard. Pulmonary: Effort: Pulmonary effort is normal. No respiratory distress. Breath sounds: Normal breath sounds. No wheezing or rales. Abdominal: General: Abdomen is flat. Bowel sounds are normal. There is no distension. Palpations: Abdomen is soft. There is no mass. Tenderness: There is no abdominal tenderness. There is no guarding. Musculoskeletal: General: Swelling present. Skin: General: Skin is warm and dry. Findings: Lesion (right hand index finger surgical wound splinting in place) present. Comments: No significant drainage or bleeding at surgical area Neurological: Mental Status: She is alert and oriented to person, place, and time. Cranial Nerves: No cranial nerve deficit. Motor: No weakness. Psychiatric: Mood and Affect: Mood normal. Behavior: Behavior normal. [facility] within last 24 hours Lab Results Component Value Date/Time WBC 10.3 04/18/2022 07:54 PM Hemoglobin 13.0 04/18/2022 07:54 PM Hematocrit 37.5 04/18/2022 07:54 PM Platelets 297 04/18/2022 07:54 PM MCV 90.2 04/18/2022 07:54 PM Lab Results Component Value Date/Time Sodium 134 (L) 04/19/2022 05:00 AM Potassium 4.9 04/19/2022 05:00 AM Chloride 108 (H) 04/19/2022 05:00 AM CO2 17 (L) 04/19/2022 05:00 AM BUN 8 (L) 04/19/2022 05:00 AM Creatinine 0.85 04/19/2022 05:00 AM Creatinine 0.61 04/18/2022 07:54 PM Glucose 117 (H) 04/19/2022 05:00 AM Calcium 9.3 04/19/2022 05:00 AM Lab Results Component Value Date/Time INR 1.1 04/18/2022 08:58 PM aPTT 23.3 04/18/2022 08:58 PM Assessment and Plan: Flexor tenosynovitis, right 2nd digit - Wound irrigation and debridement operation by Ortho 04/18 - Received Ancef in the ED and OR - Admitted to [facility] for post-op medical management - Started patient on broad spectrum antibiotic of Vanc and Zosyn - her recent wound cx showed Gram + cocci clusters and pairs (ID is following) - Tylenol 650 mg q6h prn for pain - Oxycodone 5mg q4h prn for pain control - Zofran and Phenergan prn for n/v - Monitor BMP, CBC daily - Infectious Disease and APS consulted by Ortho surgery. - F/u on intraoperative Wound Cx - Ortho is following - Splint to right index per Ortho - PT/OT IVDU Polysubstance abuse Hep C history - INR/LFTs checked - UDS ordered - nicotine patch 21 mg daily - nicotine 4mg lozenge prn - HIV screen checked - Hep C viral load -Tetanus shot given - ADM consulted - kitchen and counter worker consulted - urine fentanyl checked Mood disorder - Resume home Remeron 30 mg nightly - Resume home Risperdal 0.5 mg daily - Goals of Care: FULL CODE - DVT Prophylaxis: SCDs - GI Prophylaxis: Not Indicated - Diet: General Associated attestation - Sterling Pink DO - 04/19/2022 3:37 PM EDT Patient admitted overnight by admitting residents. I saw and examined the patient 04/19/22 for the first time. See my notes on H&P. documented in this encounterSUMMA Work Phone: 1(371) 802-319110-09-2022 Hospital Discharge instructions* Discharge Instructions* Lexa King MD - 04/18/2022 9:44 PM EDT Soaks Instructions: - Be sure to take the prescribed antibiotics until completely gone (do not stop these early, even if you think you are better). - Pull the packing after 24hrs (there may be some bleeding, this is normal) - Completely submerge the affected area in warm, soapy water (dish soap is fine) - You will perform this soak 3 times per day, for 20 minutes each soak. - After the soak, pat dry, and then cover the wound with gauze or other sterile dressing materials. - Reapply splint (if given), and then wrap in CARROLL wrap. - You may notice that there is a hole or open wound that persists in the skin for some time. This is the desired effect. We want the wound to be open, so that soaks can cleanse the wound. Red flag symptoms: these are signs that the infection is getting worse and that you should return to the ED for further evaluation: - Worsening redness or spread of redness to new areas. - Worsening of pain (pain may initially get worse after numbing medication wears off... This is normal. It is also normal to feel a throbbing pain or heartbeat/pulse in the affected area after the numbing medication wears off. - Fever >102F - Excessive bleeding - Excessive pus drainage Follow-up outpatient with Dr. Langston in 1 week for wound recheck and possible suture removal Do not hesitate to call into the office of your surgeon with questions or concerns. documented in this encounterSUMMA Work Phone: 1(717) 330-893810-09-2022 Note ORIGINAL EXAMINATION: 3 X-RAY VIEWS OF THE RIGHT HAND AND 3 X-RAY VIEWS OF THE RIGHT WRIST 04/18/2022 5:34 pm COMPARISON: None. HISTORY: ORDERING SYSTEM PROVIDED HISTORY: Reason for Exam: swollen index finger hand pain FINDINGS: There is soft tissue swelling of the 1st digit. No focal area of osteopenia, cortical abnormality, or periosteal reaction. No soft tissue gas. No acute or suspicious osseous abnormality. No radiopaque foreign body. IMPRESSION: Swollen 1st digit without underlying osseous abnormality. I have personally reviewed the images of this examination and agree with the resident's findings and interpretation. Interpreted by: Anuj Iglesias Preliminary Report By: Caitlin Willard Electronically signed By Anuj Iglesias Dictated Date: 04/18/2022 6:40:32 PM Prelim Date: 04/18/2022 6:43:03 PM Sign Date: 04/18/2022 7:36:43 PM Ordering Provider: [facility]10-09-2022 Note ORIGINAL EXAMINATION: 3 X-RAY VIEWS OF THE RIGHT HAND AND 3 X-RAY VIEWS OF THE RIGHT WRIST 04/18/2022 5:34 pm COMPARISON: None. HISTORY: ORDERING SYSTEM PROVIDED HISTORY: Reason for Exam: swollen index finger hand pain FINDINGS: There is soft tissue swelling of the 1st digit. No focal area of osteopenia, cortical abnormality, or periosteal reaction. No soft tissue gas. No acute or suspicious osseous abnormality. No radiopaque foreign body. IMPRESSION: Swollen 1st digit without underlying osseous abnormality. I have personally reviewed the images of this examination and agree with the resident's findings and interpretation. Interpreted by: Anuj Iglesias Preliminary Report By: Caitlin Willard Electronically signed By Anuj Iglesias Dictated Date: 04/18/2022 6:40:32 PM Prelim Date: 04/18/2022 6:43:03 PM Sign Date: 04/18/2022 7:36:43 PM Ordering Provider: [facility]09-23-2022 Hospital Discharge instructions Patient Education 04/02/2022 21:38:41 Hand Contusion Hand Contusion You have a contusion. This is also called a bruise. There is swelling and some bleeding under the skin, but no broken bones. This injury generally takes a few days to a few weeks to heal. During thattime, the bruise will typically change in color from reddish, to purple-blue, to greenish-yellow, then to yellow-brown. Home care Elevate the hand to reduce pain and swelling. As much as possible, sit or lie down with the hand raised about the level of your heart. This is especially important during the first 48 hours. Ice the hand to help reduce pain and swelling. Wrap a cold source (ice pack or ice cubes in a plastic bag) in a thin towel. Apply to the bruised area for 20 minutes every 1 to 2 hours the first day. Continue this 3 to 4 times a day until the pain and swelling goes away. Unless another medicine was prescribed, you can take acetaminophen, ibuprofen, or naproxen to control pain. (If you have chronic liver or kidney disease or ever had a stomach ulcer or gastrointestinal bleeding, talk with your doctor before using these medicines.) Follow up Follow up with your healthcare provider or our staff as advised. Call if you are not improving within 1 to 2 weeks. When to seek medical advice Call your healthcare provider right away if you have any of the following: Increased pain or swelling Arm becomes cold, blue, numb or tingly Signs of infection: Warmth, drainage, or increased redness or pain around the bruise Inability to move the injured hand Frequent bruising for unknown reasons [id number] [employer]. [address] [place] [address]. All rights reserved. This information is not intended as a substitute for professional medical care. Always follow yourhealthcare professional's instructions. Follow Up Care 04/02/2022 20:07:59 With:CHARLES GOODEN DO Address: [address] [place] [id number] [phone] When:2-4 days [facility] 09-23-2022 Note ORIGINAL EXAMINATION: THREE XRAY VIEWS OF THE RIGHT HAND04/02/2022 9:08 pm COMPARISON: None HISTORY: ORDERING SYSTEM PROVIDED HISTORY: Reason for Exam: Hand swelling and pain. No injury. FINDINGS: Seen on oblique and lateral views is a small ossific density along the radial aspect of the distal radial metaphysis. There is overlying soft tissues. No foreign body. IMPRESSION: Small fragment and cortical disruption at the radial aspect of the distal radial metaphysis consistent with acute fracture. I have personally reviewed the images of this examination and agree with the resident's findings and interpretation. Interpreted by: Nawaf Willis Preliminary Report By: Jefe Thornton Electronically signed By Nawaf Willis Dictated Date: 04/02/2022 9:14:22 PM Prelim Date: 04/02/2022 9:18:59 PM Sign Date: 04/02/2022 9:53:55 PM Ordering Provider: FIDEL KEANE [facility]09-23-2022 Emergency department Discharge summary Discharge Instructions Thank you for allowing [facility] to assist you with your healthcare needs. The following is importantdischarge information regarding your hospital visit. Diagnosis from Today's Visit Contusion of left hand Hand pain-swelling, Hand pain-swelling What to Do Next Instructions from Your Care Team No qualifying data available. Post Acute Orders No qualifying data available. You Need to Schedule the Following Appointments Follow Up with CHARLES GOODEN DO When Within 2-4 days Where: [address] [place] [address] [place] [address]- [phone] Allergies Bactrim (Nausea and vomiting) Bee Stings (Swelling) coconut Medications Please ask your primary doctor or pharmacist before taking any other medication not listed, including over the counter drugs, herbal medications, vitamins and or supplements as they may interact withyour home medications. What How Much When Why Instructions Last Dose New clindamycin (clindamycin 300 mg oral capsule) 1 cap by mouth Every 6 hours Contusion of left hand Duration: 14 Days Printed Prescription Changed naproxen (naproxen 500 mg oral tablet) 1 tab(s) by mouth Two (2) times a day as needed for Pain Changed naproxen (naproxen 500 mg oral tablet) 1 tab(s) by mouth Two (2) times a day Contusion of left hand Duration: 7 Days Printed Prescription Unchanged acetaminophen (acetaminophen 500 mg oral capsule) 1 cap by mouth Every 4 hours as needed for for pain Anxiety Chronic hepatitis C virus genotype 1b infection Unchanged medroxyPROGESTERone (Depo-Provera Contraceptive 150 mg/ mL intramuscular suspension) 1 Milliliter Intramuscular Every 3 months Please take this list to your next doctor s visit. Bring all medications you take, including over the counter medications, herbals and other supplements with you to your doctor s visit. Patients and families are reminded to discard old lists and to update any records with all medication providers or retail pharmacies. Education Materials Hand Contusion You have a contusion. This is also called a bruise. There is swelling and some bleeding under the skin, but no broken bones. This injury generally takes a few days to a few weeks to heal. During thattime, the bruise will typically change in color from reddish, to purple-blue, to greenish-yellow, then to yellow-brown. Home care Elevate the hand to reduce pain and swelling. As much as possible, sit or lie down with the hand raised about the level of your heart. This is especially important during the first 48 hours. Ice the hand to help reduce pain and swelling. Wrap a cold source (ice pack or ice cubes in a plastic bag) in a thin towel. Apply to the bruised area for 20 minutes every 1 to 2 hours the first day. Continue this 3 to 4 times a day until the pain and swelling goes away. Unless another medicine was prescribed, you can take acetaminophen, ibuprofen, or naproxen to control pain. (If you have chronic liver or kidney disease or ever had a stomach ulcer or gastrointestinal bleeding, talk with your doctor before using these medicines.) Follow up Follow up with your healthcare provider or our staff as advised. Call if you are not improving within 1 to 2 weeks. When to seek medical advice Call your healthcare provider right away if you have any of the following: Increased pain or swelling Arm becomes cold, blue, numb or tingly Signs of infection: Warmth, drainage, or increased redness or pain around the bruise Inability to move the injured hand Frequent bruising for unknown reasons [id number] [employer]. [address] [place] [address]. All rights reserved. This information is not intended as a substitute for professional medical care. Always follow yourhealthcare professional's instructions. Additional Information VACCINATE! IT SAVES LIVES! Members of the community who have not yet received the COVID-19 vaccine and would like to receive it can visit one of [facility] vaccine clinics. There are many vaccine clinic locations within the [facility]. For locations and available times, please visit [email or web address]. It is important to note that some COVID mobile vaccine clinics are held outdoors and may be canceled in rainy orstormy conditions. To learn more about pediatric vaccinations (ages 5-11), we invite you to visit the [facility] webpage. [email or web address] learn more about the COVID-19 vaccine, we invite you to visit the [facility] website for a list of frequently asked questions. [email or web address] [facility] Patient Portal Access Instructions: Stay connected with your healthcare team and access your personal medical information anytime with the [facility] [employer] Patient Portal. If you would like a full copy of your medical records please contact the [facility] Medical Records Department Tuesday through Tuesday between 8a.m. and 4:30p.m. Please follow the directions below to access the portal: 1.Access the email account you provided upon registration to the [facility].2.Look for an invitation email from [facility].3.Open the email and access the invitation link: Accept Invitation to [facility] [employer]4.Fill in the required rutledge to create your account. Sign into [email or web address].[email or web address] with your username and password that you created in the above steps to stay up to date. You can then view a summary of results, a summary of your visits, and the ability to download your summaries to your computer or send the information securely to a physician. Remember that your healthcare information is confidential, so carefully consider who you will allow to register on the [facility] [employer] Patient Portal for access to your information. You can also access the [employer] Patient Portal on the [employer]. Simply click on Health Records under [employer] and then click on the [facility] logo. HOW TO SAFELY DISPOSE OF PRESCRIPTION MEDICATIONS Please use one of the following methods to safely dispose of your unused medications. 1.Use a drug disposal kit: the drug disposal pouch allows you to safely discard your old and unuseddrugs. Ask your nurse to give you one when you are discharged.2.Visit a local take-back location: Many local pharmacies and police departments have programs that collect old and unwanted prescriptiondrugs. Call your local pharmacy or go to http://bit.ly/8I5Uq1u to find one close to you.3.Make use of household items: Use cat litter or old coffee grounds to dispose medications if other options arenot available. Mix your drugs with these household products, seal them in an airtight container andthrow it into the garbage. Call [facility]: [phone] to be sure your drugs can be disposed of in this way. Some medicines may require a different approach.4.Never flush your medications down the toilet. IF YOU HAVE BEEN PRESCRIBED AN OPIOIDS FOR PAIN If you have been prescribed an opioid (such as hydrocodone, oxycodone or morphine), it is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 Provid er: Emmy Hooks, BENIGNO) oxyCODONE (ROXICODONE) immediate release tablet 5 mg (CANCELED) 5 mg, Oral, EVERY 4 HOURS PRN, Starting on 04/18/22 at 2356, Until Tue04/19/22 at 1219, Pain Severe (7-10) 0010 (Given - Provid er: Aicha Scott RN)0510 (Given - Provider: Aicha Scott RN)1057 (Given - Provider: Emmy Hooks, BENIGNO) oxyCODONE (ROXICODONE) immediate release tablet 5 mg(Linked Group 2) 5 mg, Oral, EVERY 4 HOURS PRN, Starting on 04/19/22 at 1218, Until Discontinued, Pain Moderate (4-6) 1636 (See Alternativ e - Provider: Emmy Hooks RN) PHENobarbital (LUMINAL) tablet 64.8 mg 64.8 mg, Oral, EVERY 6 HOURS PRN, Starting on 04/19/22 at 1003, Until Discontinued, ciwa above 8 please call ADM nutritionist public health if the patient needs 3 or more consequetive doses polyethylene glycol (GLYCOLAX) packet 17 g 17 g, Oral, DAILY PRN, Starting on 04/18/22 at 2233, Until Discontinued, Constipation, First line therapy for constipation promethazine (PHENERGAN) tablet 12.5 mg(Linked Group 1) 12.5 mg, Oral, EVERY 6 HOURS PRN, Starting on 04/18/22 at 2233, Until Discontinued, Nausea, Vomiting sodium chloride flush 0.9 % injection 10 mL 10 mL, IntraVENous, PRN, Starting on 04/18/22 at 2233, Until Discontinued, Line Care, After every IV line use Linked Groups Order Group 1: promethazine (PHENERGAN) tablet 12.5 mgJump to med 12.5 mg, Oral, EVERY 6 HOURS PRN, Starting on 04/18/22 at 2233, Until Discontinued, Nausea, Vomiting Or ondansetron (ZOFRAN) injection 4 mgJump to med 4 mg, IntraVENous, EVERY 6 HOURS PRN, Starting on 04/18/22 at 2233, Until Discontinued, Nausea, Vomiting
Administer if oral route cannot be used.
Group 2: oxyCODONE (ROXICODONE) immediate release tablet 5 mgJump to med 5 mg, Oral, EVERY 4 HOURS PRN, Starting on 04/19/22 at 1218, Until Discontinued, Pain Moderate (4-6) Or oxyCODONE (ROXICODONE) immediate release tablet 10 mgJump to med 10 mg, Oral, EVERY 4 HOURS PRN, Starting on 04/19/22 at 1218, Until Discontinued, Pain Severe (7-10) Patient Care team informatio n (unrecognized section and content) Team Status: Active Member Role Status Dates Dr. Darrel De MD Family Provider Active No Primary Care Physician Primary Care Provider Active Team Status: Active Member Role Status Dates No Primary Care Physician Primary Care Provider Active Dr. Gabriel Silva DO Emergency Provider Active Dr. Tien Huber MD Admit Provider, Attending Pro vider Active Team Status: Active Member Role Status Dates No Primary Care Physician Primary Care Provider Active Dr. Gabriel Silva DO Emergency Provider Active Dr. Tien Huber MD Admit Provider, Attending Provider, Other Provider Active Team Status: Active Member Role Status Dates No Primary Care Physician Primary Care Provider Active Dr. Gabriel Silva DO Emergency Provider Active Dr. Tien Huber MD Admit Provider, Other Provide r Active Dr. Charles Hurtado DO Attending Provider, Other Provid er Active Team Status: Inactive Member Role Status Dates No Primary Care Physician Primary Care Provider Active Dr. Gabriel Silva DO Emergency Provider Active Dr. Tien Huber MD Admit Provider, Other Provide r Active Dr. Charles Hurtado DO Attending Provider Active Team Status: Active Member Role Status Dates No Primary Care Physician Primary Care Provider Active Team Status: Active Member Role Status Dates No Primary Care Physician Primary Care Provider Active Start: December 25, 2024 Dr. Nawaf Ortega , DO Emergency Provider Active Start: December 25, 2024 Dr. Moises Jenkins , DO Admit Provider Active Start: December 25, 2024 Dr. Moises Jenkins , DO Attending Provider Active Start: December 25, 2024 Source Comments (unrecognize d section and content) In the event this informatio n is protected by the Federal Confidentiality of Alcohol and Drug Abuse Patient Records regulations: The Federal rules restrict any use of the information to criminally investigate or prosecute any alcohol or drug abuse patient.[facility] HealthcareIn the event this information is protected by the Federal Confidentiality of Alcohol and Drug Abuse Patient Records regulations: The Federal rules restrict any use of the information to criminally investigate or prosecute any alcohol or drug abuse patient.[facility] HealthcareIn the event this information is protected by the Federal Confidentiality of Alcohol and Drug Abuse Patient Records regulations: The Federal rules restrict any use of the information to criminally investigate or prosecute any alcohol or drug abuse patient.[facility] HealthcareIn the event this information is protected by the Federal Confidentiality of Alcohol and Drug Abuse Patient Records regulations: The Federal rules restrict any use of the information to criminally investigate or prosecute any alcohol or drug abuse patient.[facility] HealthcareIn the event this information is protected by the Federal Confidentiality of Alcohol and Drug Abuse Patient Records regulations: The Federal rules restrict any use of the information to criminally investigate or prosecute any alcohol or drug abuse patient.[facility] HealthcareIn the event this information is protected by the Federal Confidentiality of Alcohol and Drug Abuse Patient Records regulations: The Federal rules restrict any use of the information to criminally investigate or prosecute any alcohol or drug abuse patient.[facility] HealthcareIn the event this information is protected by the Federal Confidentiality of Alcohol and Drug Abuse Patient Records regulations: The Federal rules restrict any use of the information to criminally investigate or prosecute any alcohol or drug abuse patient.[facility] HealthcareIn the event this information is protected by the Federal Confidentiality of Alcohol and Drug Abuse Patient Records regulations: The Federal rules restrict any use of the information to criminally investigate or prosecute any alcohol or drug abuse patient.[facility] FOR RECORDS PERTAINING TO PATIENTS WHO ARE OR HAVE BEEN ENROLLED IN A CHEMICAL DEPENDENCY/SUBSTANCEABUSE PROGRAM, SOME INFORMATION MAY BE OMITTED. This clinical summary was aggregated from multiple sources. Caution should be exercised in using it in the provision of clinical care. This summary normalizes information from multiple sources, and as a consequence, information in this document may materially change the coding, format and clinical context of patient data. In addition, data may be omitted in some cases. CLINICAL DECISIONS SHOULD BE BASED ON THE PRIMARY CLINICAL RECORDS. [facility]. provides no warranty or guarantee of the accuracy or completeness of information in this document.
[2024-12-26 06:13] VITALS: BP 122/64; PULSE 78; RESP 16; TEMP 37.2; O2SAT 99
[2024-12-26 07:20] VITALS: O2SAT 97
[2024-12-26 08:12] VITALS: BP 105/69; PULSE 65; RESP 16; TEMP 37.1; O2SAT 99
--- NOTE | 2024-12-26 09:09 | PN.HOSP_ITS ---
Subjective Subjective Doing well, no issues overnight. COWS score of 9. Objective Data Objective Data Vital Signs: Vital Signs Temp Pulse Resp BP Pulse Ox O2 Del Method 98.7 F 65 16 105/69 99 Room Air 12/26/24 08:12 12/26/24 08:12 12/26/24 08:12 12/26/24 08:12 12/26/24 08:12 12/26/24 08:14 Oxygen Delivery Method Room Air Weight: 86 lb 8 oz Body Mass Index (BMI) 16.3 Intake & Output: Intake and Output for Last 24 Hours 12/25/24 12/26/24 12/27/24 03:59 03:59 03:59 Intake Total 640 / 640 Balance 640 / 640 Lab / Micro Data 12/25/24 13:55 12/25/24 13:55 Labs: Laboratory Results - last 24 hr 12/25/24 13:55: WBC 8.5, RBC 4.16 L, Hgb 12.5, Hct 36.7 L, MCV 88.2, MCH 30.0, MCHC 34.1, RDW Std Deviation 41.0, RDW Coeff of Sammy 12.7, Plt Count 398, MPV 9.1, Immature Gran % (Auto) 0.200, Neut % (Auto) 50.5, Lymph % (Auto) 37.8, [place] % (Auto) 8.5, Eos % (Auto) 2.3, Baso % (Auto) 0.7, Absolute Neuts (auto) 4.3, Absolute Lymphs (auto) 3.23, Nucleated RBC % 0, Sodium 138, Potassium 4.4, Chloride 102, Carbon Dioxide 23.5, Anion Gap 13, BUN 12, Creatinine 0.65 L, Estim Creat Clear Calc 83.87, Est GFR (MDRD) Non-Af 124, BUN/Creatinine Ratio 18.7, Glucose 84, Calcium 9.4, Total Bilirubin 0.53, Direct Bilirubin 0.23, AST 18, ALT 12, Alkaline Phosphatase 159 H, Total Protein 7.7, Albumin 4.3, Globulin 3.4, Serum , Qual NEGATIVE, Urine Opiates Screen NEGATIVE, U Buprenorphine Qual NEGATIVE, Ur Oxycodone Screen NEGATIVE, Urine Methadone Screen NEGATIVE, Urine Fentanyl Screen PRESUMPTIVE POSITIVE, Ur Barbiturates Screen NEGATIVE, Ur Phencyclidine Scrn NEGATIVE, Ur Amphetamines Screen PRESUMPTIVE POSITIVE, U Benzodiazepines Scrn NEGATIVE, Urine Cocaine Screen NEGATIVE, U Cannabinoids Screen PRESUMPTIVE POSITIVE, Ethyl Alcohol < 10.1, HIV 1&2 Antibody Nonreactive Physical Exam Narrative General: Alert, Oriented x3, Cooperative, restless HEENT: Atraumatic, PERRLA, EOMI, Normocephalic Oral: Moist Mucosa Neck: Supple, No JVD Lungs: Clear to auscultation, Normal air movement, No rhonchi, No wheeze, No rales Cardiovascular: Regular rate, Regular Rhythm, Normal S1, Normal S2, No murmurs Abdomen: Soft, Non Tender, Non-Distended, No Hepato-splenomegaly Extremities: No edema, Capillary Refill Less than 3 Seconds Skin: No rashes, No breakdown Musculoskeletal: No Tenderness to Palpation of Joints or Extremities Neurological: No focal neurological deficits, Motor Exam 5/5 strength throughout, Sensory exam intact to light touch and pain Psych/Mental Status: Anxious Assessment & Plan Assessment/Plan (1) Opiate abuse, continuous: (2) Desire for detoxification: PLAN: Plan 1. Opiate abuse requesting detox/history of hepatitis C/anxiety/depression ? Continue with opiate withdrawal protocol ? Will have her follow-up with [facility] to determine outpatient plan ? She continues to have hepatitis C if she does not stay clean long enough for treatment. LFTs are normal on admission continue with outpatient follow-up recommendations ? She is not on any medications for her mental health, hopefully this can be sorted on outpatient follow-up with the detox center DVT: Ambulation Charges/Coding Visit Charges Inpatient E&M: 34904 Subs Hosp L2
[2024-12-26] MEDS: Ensure Plus High Protein 120 ML LIQUID PO ×2 (10:22→14:30)
[2024-12-26] MEDS: Buprenorphine HCl 2 MG TAB.SUBL 4 MG SL (10:22)
--- NOTE | 2024-12-26 10:23 | CASEMGMT ---
Social Work- BIBI attempted to meet with pt complete SDOH. Pt refused to meet at this time. BIBI will follow up later today. BIBI called [employer] rep Becki to notify of pt self pay status and likely eligibility for [facility], as pt previously qualified. Becki to meet with pt. BIBI collaborated with RAMP coordinator. BIBI remains available to follow. DAVEY Levy
[2024-12-26 15:00] VITALS: BP 117/68; PULSE 62; RESP 16; TEMP 37.1; O2SAT 99
--- NOTE | 2024-12-26 15:50 | NURSING ---
Pt was set up for shower per request. She broke into her tote and is dressed and wanting to sign out AMA. Dr. Reyes notifed.
--- NOTE | 2024-12-26 15:53 | CASEMGMT ---
Social Work- SW met with pt prior to pt leaving AMA to conduct SDOH assessment and provide resources. Pt reports that her brother had open heart surgery and she has an appointment with [facility] tomorrow that she does not want to miss. Pt reports a phone number of [phone]. Pt attempted to call mom for a ride home; mom unable to assist. Pt reports that she is going to walk to a friend's house who lives close by and get a ride home from the friend. DAVEY Levy
== END 2024-12-26 15:51 | disposition left against medical advice (07) | DRG 894 ==
LOC: ED 14:28 → MS3 15:31
PROVIDERS: Admitting Provider Hospitalist; Emergency Provider Emergency Medicine; Visit Provider Family Medicine
DX: F11.10 Opioid abuse, uncomplicated (principal); Z59.00 Homelessness unspecified; F17.210 Nicotine dependence, cigarettes, uncomplicated; F17.290 Nicotine dependence, other tobacco product, uncomplicated; Z53.29 Procedure and treatment not carried out because of patient's decision for other reasons
CPT/HCPCS: 80048; 80076; 80307; 82077; 84703; 85025; 86703; 94668; 99283; A4216